=== PATIENT | female | born 1930 | race Caucasian/White ===

== ENCOUNTER 2016-04-27 16:54 | Inpatient (IN) | payer MEDICARE, OTHER ==
[~2016-04-27] VITALS: Ht 160 cm; Wt 37.4 kg
[~2016-04-27 16:54] MED LIST: AC325T; AC325T GT; ALPR-557 PO; ALPR.5T PO; AMLO2.5T PO; AMPI250C11 PO; ASPI-999 PO; ATOR20TA66 PO; ATOR40TA; ATOR80TA2 PO; ATR20T PO; B 12 COMPLEX; CCLB10TRX; CEFD300C PO; CHLO1CAP61 PO; CHOL2000 PO; CHOL200018 PO; CITA10TA70 PO; CITA20TA4 PO; CLID1CAP12; CLOP75TA28 PO; CLPD75T PO; DCS100C PO; DICL100G18 TOP; DOXY100C2 PO; FEXO60CA19; FLC100T1 PO; LNS30CCR; MEMA14CA PO; MEMA21CA PO; MEMA28CA PO; METO5TAB79 PO; MULT-1029 PO; MULT1TAB63; NF-TYLARTH PO; NYST30CR TP; OMEP40CA36 PO; ONDA4TAB8 PO; PANT20TA PO; SOLI10TA2 PO; TOLTA4; TRAM-42 PO; TRAM150C3 PO; TRAM50TA2 PO; TRM50T PO; VIT B; WALK1EAC23 MC; ZEGERID 20 MG PO; ZEGRID; ZLP10T PO; [UNRECOGNIZED DRUG - OTHER]; [UNRECOGNIZED DRUG - OTHER]; [UNRECOGNIZED DRUG - OTHER]; [UNRECOGNIZED DRUG - OTHER] MM; [UNRECOGNIZED DRUG - OTHER] PO; felodipine PO; tramadol PO
--- OUTSIDE RECORDS SUMMARY | 2016-04-27 16:59 | XMS REPORT | Continuity of Care Document ---
Author Author [facility] Organization [facility] Address Unknown Phone Unavailable Care Team Providers Care Vulcanizer Name Role Phone ASHLEY ORTIZ MD PCP Insurance Providers Payer Name Policy Number Subscriber Name Relationship [employer] [id number] Tello Briceño 18 Self / Same As Patient [facility] [id number] Tello Briceño 18 Self / Same As Patient Advance Directives Directive Response Recorded Date/Time Advance Directives Yes 08/14/15 4:11pm Health Care Power of Chauffeur Filomena Briceño 08/14/15 4:11pm Organ Donor No 08/14/15 4:11pm Chief Complaint and Reason for Visit Chief Complaint Trauma-Non Activation Reason for Visit Contusion of eyebrow Proximal humerus fracture Problems Active Problems Medical Problem Onset Date Status Closed right acetabular fracture Unknown Acute Contusion of eyebrow Unknown Acute Contusion of hip Unknown Acute Contusion of rib on right side Unknown Acute FX RIGHT HUMERUS AND HARDWARE Unknown Acute Head and neck injury Unknown Acute Obstipation Unknown Acute Proximal humerus fracture Unknown Acute RIGHT PELVIC AND ACETABULAR FRACTURE Unknown Acute Ribs, multiple fractures Unknown Acute Status post fall Unknown Acute closed head injury Unknown Acute laceration to face Unknown Acute skin tear left knee Unknown Acute Medications Current Home Medications Medication Dose Units Route Directions Days/Qty Instructions Start Date Alprazolam 0.5 Mg 0.5 Mg Oral Twice A Day 03/20/06 Citalopram Hydrobromide 20 Mg 20 Mg Oral Bedtime 04/29/13 Mu-Vits-Min Th/Lycopene/Lutein 1 Each 1 Tab Oral Daily 04/29/13 Cholecalciferol (Vitamin D3) 2,000 Unit 2,000 Unit Oral Bedtime Solifenacin Succinate 10 Mg 10 Mg Oral Bedtime 06/25/15 Aspirin 81 Mg 81 Mg Oral Daily 06/25/15 Atorvastatin Calcium 20 Mg 20 Mg Oral Bedtime 08/04/15 Memantine Hcl 28 Mg 28 Mg Oral Bedtime 08/04/15 [Axona 40GM Pk] 1 Tbs Oral Daily 08/04/15 Diclofenac Sodium 100 Gm 2 Gm Topically Give Every 6 Hr On Schedule 5 apply to affected ribs and painful joints four times daily 08/05/15 Tramadol Hcl 50 Mg 50 Mg Oral Every 6 Hours 60 08/05/15 Ondansetron 4 Mg 4 Mg Oral Every 4HRS as needed for Nausea/Vomiting 10 08/14/15 Past Home Medications Medication Directions Ordered Status Lansoprazole 30 Mg Capsule., 03/20/06 Discontinued Fexofenadine Hcl 60 Mg Capsule, 03/20/06 Discontinued Clopidogrel Bisulfate 75 Mg Tablet, 75 Mg Oral Daily 03/20/06 Discontinued Multivitamins 1 Ea Tablet, 03/20/06 Discontinued [B 12 Complex] Tab, 03/20/06 Discontinued Atorvastatin Calcium 40 Mg Tablet, 03/20/06 Discontinued Chlordiazepoxide/Clidinium 1 Cap Capsule, 03/20/06 Discontinued Zolpidem Tartrate 10 Mg Tablet, 10 Mg Oral Bedtime 03/20/06 Discontinued Tolterodine Tartrate 4 Mg Cap.sr.24h, 03/20/06 Discontinued Cyclobenzaprine Hcl 10 Mg Tab, 03/20/06 Discontinued Propoxyphene Napsylate/Acetam 1 Ea Tab, 03/20/06 Discontinued [Gphedpd] Cap, 03/20/06 Discontinued [Vit B12 Injection] , Every 7 Wks 08/10/11 Discontinued Cholecalciferol 2,000 Unit Capsule, 2000 Unit Oral Daily 08/10/11 Discontinued [Tramadol] , 205 Mg Oral Every 4HRS as needed 08/10/11 Discontinued Omeprazole 40 Mg Capsule., 40 Mg Oral Daily 08/10/11 Discontinued Citalopram Hydrobromide 10 Mg Tablet, 10 Mg Oral Daily 08/24/11 Discontinued Amlodipine Besylate (Norvasc 2.5 Mg) 2.5 Mg Tablet, 1 Each Oral Daily Discontinued Ampicillin 250 Mg Capsule, 2 Each Oral Four Times Daily 09/20/11 Discontinued Metoclopramide Hcl 5 Mg Tab, 1 Each Oral Three Times A Day And Prn 09/25/11 Discontinued Ampicillin 250 Mg Capsule, 2 Each Oral Twice A Day 09/25/11 Discontinued Tramadol Hcl 150 Mg Cpmp.25.75, 200 Mg Oral 03/09/13 Discontinued Acetaminophen 325 Mg Tab, 650 Mg G Tube 03/09/13 Discontinued Atorvastatin Calcium 80 Mg Tablet, 75 Mg Oral 03/09/13 Discontinued Clopidogrel Bisulfate 75 Mg Tablet, 1 Each Oral Daily 03/09/13 Discontinued Mu-Vits-Min Th/Lycopene/Lutein 1 Each Tablet, 1 Each Oral Daily 04/28/13 Discontinued Cholecalciferol (Vitamin D3) 2,000 Unit Capsule, 2000 Unit Oral Daily Discontinued Clopidogrel Bisulfate 75 Mg Tablet, 75 Mg Oral Bedtime 04/29/13 Discontinued Chlordiazepoxide/Clidinium Br 1 Each Capsule, 1 Cap Oral Bedtime 04/29/13 Discontinued Atorvastatin Calcium 20 Mg Tablet, 20 Mg Oral Daily 04/29/13 Discontinued Doxycycline Hyclate (Vibramycin) 100 Mg Capsule, 100 Mg Oral Twice A Day Discontinued Tramadol Hcl 50 Mg Tablet, 50-100 Mg Oral Three Times A Day as needed for Pain 04/29/13 Discontinued [Zegerid 20MG] , 20 Mg Oral Daily 04/29/13 Discontinued Acetaminophen 650 Mg Cplt, 650 Mg Oral Twice A Day as needed for Pain Discontinued Chlorhexidine Gluconate 30 Ml Soln, 15 Ml Mucous Mem Daily 04/29/13 Discontinued Alprazolam 0.5 Mg Tab, 0.25 Mg Oral Give Every 6 Hr On Schedule as needed for Anxiety 05/08/13 Discontinued Cefdinir 300 Mg Capsule, 300 Mg Oral Twice A Day 05/08/13 Discontinued Docusate Sodium 100 Mg Capsule, 200 Mg Oral Daily 05/08/13 Discontinued Fluconazole 100 Mg Tab, 100 Mg Oral Daily 05/08/13 Discontinued [Vovx31jv] 30 Gm Tube, 0 Gm Topical Twice A Day 05/08/13 Discontinued Pantoprazole Sodium 20 Mg Tablet.dr, 20 Mg Oral Daily@0700 05/08/13 Discontinued Tramadol Hcl 50 Mg Tablet, 50-100 Mg Oral Every 4HRS as needed for Pain 05/08 Discontinued [Zegrid] Unknown Strength , Unknown Dose 06/25/15 Discontinued Memantine Hcl 14 Mg Cap.spr.24, 14 Mg Oral Daily 06/25/15 Discontinued Tramadol Hcl 50 Mg Tablet, 50 Mg Oral Twice A Day 08/04/15 Discontinued Social History Social History Problem Response Recorded Date/Time Alcohol Use Denies Use 08/14/2015 4:11pm Recreational Drug Use No 08/14/2015 4:11pm Recent Foreign Travel No 09/26/2015 2:01pm Recent Infectious Disease Exposure No 09/26/2015 2:01pm Hospitalization with Isolation Denies 09/26/2015 2:01pm Sexually Transmitted Disease No 09/26/2015 2:01pm HIV/AIDS No 09/26/2015 2:01pm Do you dip or chew tobacco? No 08/14/2015 4:11pm Hospital Discharge Instructions No hospital discharge instructions. Plan of Care Discharge Date 09/26/15 3:31pm Disposition 01 HOME, SELF-CARE Condition at Discharge Stable Instructions/Education Provided Arm Fracture in Adults (DC) Contusion (DC) Prescriptions See Medication Section Referrals EBER WALKER MD - ASHLEY ORTIZ MD - Primary Care Physician ASHLEY ORTIZ MD - Primary Care Physician ROSELYN ASHFORD MD - DIANELYS,ANN Mattson MD - STACIE,RJ Tavera MD - JOHN,RICK Guerra DO - SOMMER,KRISTIAN Roblero MD - Additional Instructions/Education 1. Wear the sling at all times for the next few weeks 2. It may feel better to sleep somewhat upright such as in a recliner 3. You are scheduled to see Dr. Don in 2 weeks on October 11 at 9 a.m. All discharge instructions reviewed with patient and/or family. Voiced understanding. Functional Status No functional status results. Allergies, Adverse Reactions, Alerts Allergen Type Severity Reaction Status Last Updated pantoprazole sodium Allergy Unknown Active 08/10/11 Sulfa (Sulfonamide Antibiotics) ([id number]) Allergy Unknown Active 03/22 Morphine Allergy Unknown Active 07/13/14 Codeine Adverse Reaction Severe SEVERE N/V Active 03/20/06 Immunizations Name Given Type Date of Pneumonia Vaccine 07/13/10 Historical Date of Influenza Vaccine 12/09/14 Historical Tetanus Booster (TDap) Unknown Historical Vital Signs Acute Vital Signs Vital Response Date/Time Temperature (Fahrenheit) 97.9 degrees F (97.6 - 99.5) 09/26/2015 2:01pm Temperature (Calculated Celsius) 36.27414 degrees C (36.4 - 37.5) 09/26/2015 2:01pm Pulse Rate (adult) 83 bpm (60 - 90) 09/26/2015 2:01pm Respiratory Rate 18 bpm (12 - 24) 09/26/2015 2:01pm O2 Sat by Pulse Oximetry 92 % (88 - 100) 09/26/2015 2:01pm Blood Pressure 165/74 mm Hg 09/26/2015 2:01pm Blood Pressure Mean 104 mm Hg 09/26/2015 2:01pm Pain Numeric Pain Scale 4 09/26/2015 3:27pm Height (Feet) 5 feet 09/26/2015 2:01pm Height (Inches) 3 inches 09/26/2015 2:01pm Height (Calculated Centimeters) 160.814409 cm 09/26/2015 2:01pm Weight (Pounds) 90 pounds 09/26/2015 2:01pm Weight (Calculated Kilograms) 40.489510 kilograms 09/26/2015 2:01pm Height 5 ft 3 in Weight 90 lb Body Mass Index 15.9 kg/m^2 Results No known relevant diagnostic tests, laboratory data and/or discharge summary. Procedures No known history of procedures. Encounters Encounter Location Arrival/Admit Date Discharge/Depart Date Attending Provider Departed Emergency Room [facility] 09/26/15 1:34pm 09/25 3:31pm MERCY ENRIQUEZ APRN Recent Diagnosis
[2016-04-27] MEDS ORDERED: fentaNYL INJECTION 100 MCG/2 ML AMP IVP STA (17:13)
--- NOTE | 2016-04-27 17:21 | ED Fall/Injury ---
General Chief Complaint: Hip/Pelvic Problems Stated Complaint: L HIP PAIN, FALL Nursing Triage Note: FELL AT HOME WHILE REACHING FOR A CHAIR LANDING ON LEFT HIP. DENIES HITTING HER HEAD. PT RECIEVED FENTENYL 75MCG VIA IV IN ROUTE. Source: patient Exam Limitations: no limitations History of Present Illness Time seen by provider: 17:00 Initial Comments Here with complaint of left hip pain after falling. She is reaching for a chair and fell onto the left hip. She does report that she may have hit her head. Denies loss of consciousness. Aside from the pain in the left hip, she denies any other significant pain. She did receive fentanyl 75 g IV in route due to the pain. Occurred: just prior to arrival Severity: moderate Injuries/Pain Location: head, pelvis, lower extremity Context: lost balance Loss of Consciousness: no loss of consciousness Modifying Factors: Improves With Immobilization, Worse With Movement, Improves With Pain Medication Associated Symptoms (Fall): No Chest Pain, No Headache, Muscle SpasmsNo Nausea /Vomiting, No Neck Pain, No Shortness of Air Allergies and Home Medications Allergies Coded Allergies: Sulfa (Sulfonamide Antibiotics) (Verified Allergy, Unknown, 08/10/11) morphine (Verified Allergy, Unknown, 07/13/14) Nausea, vomiting and confusion pantoprazole sodium (Verified Allergy, Unknown, 08/10/11) codeine (Unverified Adverse Reaction, Severe, SEVERE N/V, 03/20/06) Home Medications Alprazolam 0.5 Mg Tablet 0.5 MG PO BID (Reported) Aspirin 81 Mg Tab.chew 81 MG PO DAILY (Reported) Cholecalciferol (Vitamin D3) 2,000 Unit Capsule 2,000 UNIT PO HS (Reported) Citalopram Hydrobromide 20 Mg Tab 20 MG PO HS (Reported) Memantine HCl 21 Mg Cap.er.24h 21 MG PO DAILY (Reported) Mu-Vits-Min Th/Lycopene/Lutein 1 Each Tablet 1 TAB PO DAILY (Reported) Solifenacin Succinate 10 Mg Tablet 10 MG PO HS (Reported) Tramadol HCl 50 Mg Tablet #60 50 MG PO Q6H Prescribed by: ASHLEY SCRUGGS on 08/05/15 1059 Tramadol HCl 50 Mg Tablet #20 50 MG PO Q6H PRN PRN PAIN Prescribed by: MERCY ENRIQUEZ on 12/30/15 2055 Constitutional: see HPINo chills, No fever Eyes: No Symptoms Reported Ears, Nose, Mouth, Throat: no symptoms reported Respiratory: no symptoms reportedNo cough, No short of breath Cardiovascular: no symptoms reported Gastrointestinal: no symptoms reportedNo diarrhea, No nausea, No vomiting Genitourinary: no symptoms reportedNo dysuria, No pain Musculoskeletal: see HPI joint pain joint swelling muscle pain All Other Systems Reviewed Negative Unless Noted: Yes Past Nnuxdrm-Fanrkm-Hiyisv Hx Patient Social History Alcohol Use: Denies Use Recreational Drug Use: No Smoking Status: Former Smoker Former Smoker/When Quit: Sep 19, 1977 2nd Hand Smoke Exposure: No Recent Foreign Travel: No Contact w/Someone Who Travel: No Recent Infectious Disease Expo: No Recent Hopitalizations: No Immunizations Up To Date Tetanus Booster (TDap): More than 5yrs Date of Pneumonia Vaccine: July 13, 2010 Date of Influenza Vaccine: Dec 26, 2015 Surgeries HX Surgeries: Yes (right knee) Surgeries: Appendectomy, Gallbladder, Orthopedic Respiratory Hx Respiratory Disorders: No (HISTORY OF SMOKER "QUIT 50 YRS AGO") Cardiovascular Hx Cardiac Disorders: No Neurological Hx Neurological Disorders: Yes Neurological Disorders: TIA Reproductive System Hx Reproductive Disorders: No Sexually Transmitted Disease: No HIV/AIDS: No Female Reproductive Disorders: Denies Genitourinary Hx Genitourinary Disorders: Yes (INCONTINENCE) Genitourinary Disorders: Benign Prostatic Hyperpl Gastrointestinal Hx Gastrointestinal Disorders: Yes Gastrointestinal Disorders: Gastroesophageal Reflux, Gall Bladder Disease Musculoskeletal Hx Musculoskeletal Disorders: No (osteoarthritis, falls, fractures of r shoulder, r arm, fx in pelvis& spine) Musculoskeletal Disorders: Arthritis Endocrine Hx Endocrine Disorders: No HEENT HX ENT Disorders: Yes HEENT Disorders: Cataract Loss of Vision: Denies Hearing Impairment: Denies Cancer Hx Cancer: No Psychosocial Hx Psychiatric Problems: Yes (dementia) Behavioral Health Disorders: Anxiety, Depression Integumentary HX Skin/Integumentary Disorder: No Blood Transfusions Hx Blood Disorders: No Adverse Reaction to a Blood Tr: No Reviewed Nursing Assessment Reviewed/Agree w Nursing PMH: Yes Family Medical History Significant Family History: Cancer, Other Conditions/Hx Family Medial History: Alcoholism G8 BROTHER FH: throat cancer G8 BROTHER Parkinson's disease 19 FATHER Throat Throat Physical Exam Vital Signs Vital Sign - Last 12Hours 04/27/16 16:59 Temp 98.0 Pulse 78 Resp 16 B/P 139/81 Pulse Ox 96 O2 Delivery Room Air Capillary Refill : Less Than 3 Seconds General Appearance: WD/WN no apparent distress HEENT: PERRL/EOMI pharynx normal Neck: full range of motion supple Cardiovascular: regular rate, rhythm no murmur Respiratory: lungs clear normal breath sounds Gastrointestinal: non tender soft Back: normal inspection no CVA tenderness no vertebral tenderness Extremities: other (tenderness to the area of the left groin. Left leg is shortened and rotated externally. Tender over the pelvis on the left.) Neurologic/Psychiatric: alert oriented x 3 Skin: normal color warm/dry Augustus Coma Score Best Eye Response: (4) Open Spontaneously Best Verbal Response: (5) Oriented Best Motor Response: (6) Obeys Commands Progress/Results/Core Measures Results/Orders Lab Results Laboratory Tests Test 04/27/16 17:55 Range/Units Basophils # (Auto) 0.0 0.0-0.1 10^3/uL Basophils (%) (Auto) 0 0-10 % Eosinophils # (Auto) 0.2 0.0-0.3 10^3/uL Eosinophils (%) (Auto) 2 0-10 % Hematocrit 34 L 35-52 % Hemoglobin 11.1 L 11.5-16.0 G/DL Lymphocytes # (Auto) 1.4 1.0-4.0 X 10^3 Lymphocytes (%) (Auto) 15 12-44 % Mean Corpuscular Hemoglobin 31 25-34 PG Mean Corpuscular Hemoglobin Concent 33 32-36 G/DL Mean Corpuscular Volume 94 80-99 FL Mean Platelet Volume 11.2 H 7.4-10.4 FL Monocytes # (Auto) 0.5 0.0-1.0 X 10^3 Monocytes (%) (Auto) 5 0-12 % Neutrophils # (Auto) 7.7 1.8-7.8 X 10^3 Neutrophils (%) (Auto) 78 H 42-75 % Platelet Count 189 130-400 10^3/uL Red Blood Count 3.55 L 4.35-5.85 10^6/uL Red Cell Distribution Width 13.7 10.0-14.5 % White Blood Count 9.9 4.3-11.0 10^3/uL My Orders Orders-CESAR ALBRECHT MD Fentanyl Injection (Sublimaze Injection (04/27/16 17:13) Cbc With Automated Diff (04/27/16 17:13) Comprehensive Metabolic Panel (04/27/16 17:13) Protime With Inr (04/27/16 17:13) Partial Thromboplastin Time (04/27/16 17:13) Chest 1 View, Ap/Pa Only (04/27/16 17:13) Pelvis (04/27/16 17:13) Hip, Left, 2 Views (04/27/16 17:13) Ekg Tracing (04/27/16 17:13) Ct Head Wo (04/27/16 17:13) Vital Signs/I&O Vital Sign - Last 12Hours 04/27/16 16:59 Temp 98.0 Pulse 78 Resp 16 B/P 139/81 Pulse Ox 96 O2 Delivery Room Air Blood Pressure Mean: 100 Progress Note : Progress Note Seen and evaluated. Chest x-ray, pelvic and hip x-ray, labs and EKG ordered. Fentanyl 50 g IV for continued pain. CT head ordered due to fall. Monitor patient. 1749: Discussed case with Dr. Storey who accepts patient for admission , inpatient status. Orders written. We will do a Eason catheter after arrival to floor. Requested consult with medicine primary team. I did discuss the case with Dr. Singletary at 1809 who accepts patient for consult. She is on-call for Dr. Scruggs, patient's primary care provider. All findings and concerns discussed with patient and family who agree with plan. Likely surgery tomorrow morning. ECG Initial ECG Impression Date: Apr 27, 2016 Initial ECG Impression Time: 18:04 Initial ECG Rate: 79 Initial ECG Rhythm: Normal Sinus Initial ECG Impression: Normal Initial ECG Comparisson: Unchanged Comment Sinus rhythm with normal axis. No evidence of ST elevation MO. Similar to previous. Interpreted by me. Diagnostic Imaging Diagonstic Imaging: CT Plain Films/CT/US/NM/MRI: head Comments NAME: TELLO PLAZA MED REC#: [id number] PT STATUS: REG ER : 1930 PHYSICIAN: CESAR ALBRECHT MD ADMIT DATE: 04/27/16/ER Draft Date of Exam:04/27/16 CT HEAD WO PROCEDURE: CT head without contrast. TECHNIQUE: Multiple contiguous axial images were obtained through the brain without the use of intravenous contrast. INDICATION: Fall, head injury. COMPARISON: 09/26/2015. FINDINGS: Stable age-related cerebral volume loss and chronic small vessel ischemic changes are present. 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 No new focus of acute ischemia or hemorrhage is seen. There is no midline shift or mass effect. No cerebral edema. Osseous structures, paranasal sinuses, and mastoids are unremarkable. IMPRESSION: No acute intracranial abnormalities. Dictated on workstation # [id number] Dict: 04/27/16 1803 Trans: 04/27/161808 [id number] Interpreted by: NEISHA KILLIAN Electronically signed by: Reviewed: Reviewed by Oh Diagonstic Imaging: Xray Plain Films/CT/US/NM/MRI: chest Comments [place] NAME: TELLO PLAZA [facility] REC#: [id number] PT STATUS: REG ER : 1930 PHYSICIAN: CESAR ALBRECHT MD ADMIT DATE: 04/27/16/ER Draft Date of Exam:04/27/16 CHEST 1 VIEW, AP/PA ONLY INDICATION: Fall, left hip fracture. COMPARISON: 05/05/13. EXAMINATION: Single view of the chest was obtained. FINDINGS: Minimal cardiac enlargement. The lungs are clear. No pneumothorax is seen. Kyphoplasty changes are seen within two thoracic vertebra. There is a fracture deformity of the left humerus, probably chronic. Please correlate clinically. This was not present on prior exam. IMPRESSION: 1. No acute cardiopulmonary findings. 2. Likely chronic fracture deformity of the left humeral head. Please correlate with point tenderness. Dictated on workstation # [id number] Dict: 04/27/16 175 Trans: 04/27/16 175 [facility] [id number] Interpreted by: NEISHA KILLIAN Electronically signed by: Diagonstic Imaging: Xray Plain Films/CT/US/NM/MRI: pelvis [facility] [place] [place] NAME: TELLO PLAZA MED REC#: [id number] PT STATUS: REG ER : 1930 PHYSICIAN: CESAR ALBRECHT MD ADMIT DATE: 04/27/16/ER Draft Date of Exam:04/27/16 PELVIS INDICATION: Fall, hip pain. COMPARISON: None. FINDINGS: Single view of the pelvis demonstrates intertrochanteric fracture of left hip. There is some displacement. The right hip is intact. No obvious pelvic fracture seen. IMPRESSION: Intertrochanteric fracture left hip. Dictated on workstation # [id number] Dict: 04/27/16 1753 Trans: 04/27/16 1759 KB [id number] Interpreted by: NEISHA KILLIAN Electronically signed by: Reviewed: Reviewed by Diagonstic Imaging: Xray Plain Films/CT/US/NM/MRI: hip Comments [place] NAME: TELLO PLAZA [facility] REC#: [id number] PT STATUS: REG ER : 1930 PHYSICIAN: CESAR ALBRECHT MD ADMIT DATE: 04/27/16/ER Draft Date of Exam:04/27/16 HIP, LEFT, 2 VIEWS INDICATION: Fall, left hip pain. COMPARISON: None. EXAMINATION: Two views of the left hip were obtained. FINDINGS: Displaced intertrochanteric fracture of the left hip. There is no dislocation. IMPRESSION: Intertrochanteric fracture. Dictated on workstation # [id number] Dict: 04/27/161750 Trans: 04/27/16 1756 PJE [id number] Interpreted by: NEISHA KILLIAN Electronically signed by: Reviewed: Reviewed by Me Departure Communication Time/Spoke to Admitting Phy: 17:49 Time/Spoke to Consulting Physi: 18:09 Impression Impression: Primary Impression: Intertrochanteric fracture of left hip Qualified Code: S72.142A - Displaced intertrochanteric fracture of left femur , initial encounter for closed fracture Disposition: ADMITTED INPATIENT Condition: Stable Decision to Admit Reason: Admit from ER (General) Decision to Admit/Date: Apr 27, 2016 Time/Decision to Admit Time: 17:49 Departure-Patient Inst. Referrals: ASHLEY SCRUGGS MD (PCP/Family) Primary Care Physician CESAR ALBRECHT MD Apr 27, 2016 17:21
--- NOTE | 2016-04-27 17:56 | Diagnostic Imaging Report ---
INDICATION: Fall, left hip pain. COMPARISON: None. EXAMINATION: Two views of the left hip were obtained. FINDINGS: Displaced intertrochanteric fracture of the left hip. There is no dislocation. IMPRESSION: Intertrochanteric fracture. Dictated by: Dictated on workstation # [id number]
--- NOTE | 2016-04-27 17:59 | Diagnostic Imaging Report ---
INDICATION: Fall, hip pain. COMPARISON: None. FINDINGS: Single view of the pelvis demonstrates intertrochanteric fracture of left hip. There is some displacement. The right hip is intact. No obvious pelvic fracture seen. IMPRESSION: Intertrochanteric fracture left hip. Dictated by: Dictated on workstation # [id number]
--- NOTE | 2016-04-27 17:59 | Diagnostic Imaging Report ---
INDICATION: Fall, left hip fracture. COMPARISON: 05/05/13. EXAMINATION: Single view of the chest was obtained. FINDINGS: Minimal cardiac enlargement. The lungs are clear. No pneumothorax is seen. Kyphoplasty changes are seen within two thoracic vertebra. There is a fracture deformity of the left humerus, probably chronic. Please correlate clinically. This was not present on prior exam. IMPRESSION: 1. No acute cardiopulmonary findings. 2. Likely chronic fracture deformity of the left humeral head. Please correlate with point tenderness. Dictated by: Dictated on workstation # [id number]
[2016-04-27 18:07] LABS: BASOPHILS % (AUTO) 0 % (0-10); EOSINOPHILS # (AUTO) 0.2 10^3/uL (0.0-0.3); EOSINOPHILS % (AUTO) 2 % (0-10); LYMPHOCYTES # (AUTO) 1.4 X 10^3 (1.0-4.0); LYMPHOCYTES % (AUTO) 15 % (12-44); MEAN CORPUSCULAR HEMOGLOBIN 31 PG (25-34); MEAN CORPUSCULAR HGB CONC 33 G/DL (32-36); MEAN CORPUSCULAR VOLUME 94 FL (80-99); MEAN PLATELET VOLUME 11.2 FL (7.4-10.4); MONOCYTES # (AUTO) 0.5 X 10^3 (0.0-1.0); MONOCYTES % (AUTO) 5 % (0-12); NEUTROPHILS # (AUTO) 7.7 X 10^3 (1.8-7.8); NEUTROPHILS % (AUTO) 78 % (42-75); PLATELET COUNT 189 10^3/uL (130-400); RED BLOOD COUNT 3.55 10^6/uL (4.35-5.85); RED CELL DISTRIBUTION WIDTH 13.7 % (10.0-14.5); WHITE BLOOD COUNT 9.9 10^3/uL (4.3-11.0)
--- NOTE | 2016-04-27 18:09 | Diagnostic Imaging Report ---
PROCEDURE: CT head without contrast. TECHNIQUE: Multiple contiguous axial images were obtained through the brain without the use of intravenous contrast. INDICATION: Fall, head injury. COMPARISON: 09/26/2015. FINDINGS: Stable age-related cerebral volume loss and chronic small vessel ischemic changes are present. 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 No new focus of acute ischemia or hemorrhage is seen. There is no midline shift or mass effect. No cerebral edema. Osseous structures, paranasal sinuses, and mastoids are unremarkable. IMPRESSION: No acute intracranial abnormalities. Dictated by: Dictated on workstation # [id number]
[2016-04-27 18:17] LABS: INR 1.2 (0.8-1.4); PROTHROMBIN TIME PATIENT 15.1 SEC (12.2-14.7)
[2016-04-27 18:27] LABS: ALANINE AMINOTRANSFERASE 11 U/L (0-55); ALBUMIN 3.6 G/DL (3.2-4.5); ANION GAP 11 MMOL/L (5-14); ASPARTATE AMINO TRANSFERASE 19 U/L (5-34); BILIRUBIN,TOTAL 0.5 MG/DL (0.1-1.0); BLOOD UREA NITROGEN 23 MG/DL (7-18); BUN/CREATININE RATIO 28; CARBON DIOXIDE 25 MMOL/L (21-32); CHLORIDE 102 MMOL/L (98-107); CREATININE SERUM 0.81 MG/DL (0.60-1.30); GFR ESTIMATED > 60; GLUCOSE 109 MG/DL (70-105); POTASSIUM 4.1 MMOL/L (3.6-5.0); SODIUM 138 MMOL/L (135-145)
[2016-04-27 19:05] VITALS: BP 148/73
[2016-04-27] MEDS ORDERED: CATHETER FLUSH 10 ML SYR IV PRN (19:15)
[2016-04-27] MEDS ORDERED: NS IV 1000 ML 1,000 ML IV SCH (19:15)
[2016-04-27] MEDS ORDERED: TRAM50TA2 PO (20:09)
[2016-04-27] MEDS: fentaNYL INJECTION 100 MCG/2 ML AMP IV PRN (20:36)
[2016-04-27] MEDS: ALPRAZolam 0.5 MG (XANAX) TAB PO SCH (21:00)
[2016-04-27] MEDS: MEMANTINE 10 MG (NAMENDA) TABLET PO SCH (23:23)
[2016-04-28] VITALS: BP 115/68
[2016-04-28] MEDS: fentaNYL INJECTION 100 MCG/2 ML AMP IV PRN ×4 (00:10→13:16)
[2016-04-28 04:00] VITALS: BP 140/76
[2016-04-28 05:56] LABS: BASOPHILS % (AUTO) 0 % (0-10); EOSINOPHILS % (AUTO) 0 % (0-10); LYMPHOCYTES # (AUTO) 0.7 X 10^3 (1.0-4.0); MEAN CORPUSCULAR HEMOGLOBIN 32 PG (25-34); MEAN CORPUSCULAR HGB CONC 34 G/DL (32-36); MEAN CORPUSCULAR VOLUME 95 FL (80-99); MEAN PLATELET VOLUME 11.7 FL (7.4-10.4); MONOCYTES # (AUTO) 0.7 X 10^3 (0.0-1.0); MONOCYTES % (AUTO) 8 % (0-12); NEUTROPHILS # (AUTO) 8.5 X 10^3 (1.8-7.8); PLATELET COUNT 167 10^3/uL (130-400); RED BLOOD COUNT 3.25 10^6/uL (4.35-5.85); RED CELL DISTRIBUTION WIDTH 13.7 % (10.0-14.5); WHITE BLOOD COUNT 9.9 10^3/uL (4.3-11.0)
[2016-04-28 05:57] LABS: NEUTROPHILS % (AUTO) 85 % (42-75)
[2016-04-28 05:58] LABS: LYMPHOCYTES % (AUTO) 8 % (12-44)
[2016-04-28 06:31] LABS: ALANINE AMINOTRANSFERASE 10 U/L (0-55); ALBUMIN 3.7 G/DL (3.2-4.5); ANION GAP 12 MMOL/L (5-14); ASPARTATE AMINO TRANSFERASE 17 U/L (5-34); BILIRUBIN,TOTAL 0.5 MG/DL (0.1-1.0); BLOOD UREA NITROGEN 29 MG/DL (7-18); BUN/CREATININE RATIO 33; CALCIUM 8.9 MG/DL (8.5-10.1); CARBON DIOXIDE 22 MMOL/L (21-32); CHLORIDE 104 MMOL/L (98-107); CREATININE SERUM 0.87 MG/DL (0.60-1.30); GFR ESTIMATED > 60; GLUCOSE 155 MG/DL (70-105); POTASSIUM 4.2 MMOL/L (3.6-5.0); SODIUM 138 MMOL/L (135-145); TOTAL PROTEIN 5.4 G/DL (6.4-8.2)
[2016-04-28 08:00] VITALS: BP 140/76
[2016-04-28] MEDS: VITAMIN D3 1,000 UNITS (CHOLECALCIFEROL) TABLET PO SCH (08:54)
[2016-04-28] MEDS: MULTIVIT W/MINERALS TAB (THERAGRAN M) PO SCH (08:54)
[2016-04-28] MEDS: ALPRAZolam 0.5 MG (XANAX) TAB PO SCH ×2 (08:54→20:11)
[2016-04-28] MEDS: MEMANTINE 10 MG (NAMENDA) TABLET PO SCH ×2 (08:55→20:11)
[2016-04-28] MEDS ORDERED: NON-FORMULARY MEDICATION 1 EA EA (Cholecalciferol (Vitamin D3) (Vitamin D-3) 2,000 UNIT) PO SCH (09:00)
[2016-04-28] MEDS ORDERED: MEMANTINE 21 MG PO SCH (09:00)
--- NOTE | 2016-04-28 09:24 | Progress Note-Standard ---
Standard Progress Note Progress Notes/Assess & Plan Progress/Assessment & Plan Patient relatively comfortable Vital Signs Date Time Temp Pulse Resp B/P Pulse Ox O2 Delivery O2 Flow Rate FiO2 04/28/16 08:00 96.8 100 18 140/76 97 Room Air 04/28/16 04:00 98.2 104 22 140/76 96 Room Air 04/28/16 00:00 98.5 93 22 115/68 96 Room Air 04/27/16 19:05 97 Room Air 04/27/16 19:05 96.6 77 18 148/73 99 Room Air 04/27/16 18:51 98.0 77 18 98 04/27/16 16:59 98.0 78 16 139/81 96 Room Air I & O 04/28/16 07:00 Intake Total 210 ml Balance 210 ml Laboratory Tests Test 04/27/16 17:55 04/28/16 05:06 Range/Units Activated Partial Thromboplast Time 26 24-35 SEC Alanine Aminotransferase (ALT/SGPT) 11 10 0-55 U/L Albumin 3.6 3.7 3.2-4.5 G/DL Alkaline Phosphatase 55 57 40-136 U/L Anion Gap 11 12 5-14 MMOL/L Aspartate Amino Transf (AST/SGOT) 19 17 5-34 U/L BUN/Creatinine Ratio 28 33 Basophils # (Auto) 0.0 0.0 0.0-0.1 10^3/uL Basophils (%) (Auto) 0 0 0-10 % Blood Urea Nitrogen 23 H 29 H 7-18 MG/DL Calcium Level 9.0 8.9 8.5-10.1 MG/DL Carbon Dioxide Level 25 22 21-32 MMOL/L Chloride Level 102 104 98-107 MMOL/L Creatinine 0.81 0.87 0.60-1.30 MG/DL Eosinophils # (Auto) 0.2 0.0 0.0-0.3 10^3/uL Eosinophils (%) (Auto) 2 0 0-10 % Estimat Glomerular Filtration Rate > 60 > 60 Glucose Level 109 H 155 H 70-105 MG/DL Hematocrit 34 L 31 L 35-52 % Hemoglobin 11.1 L 10.4 L 11.5-16.0 G/DL INR Comment 1.2 0.8-1.4 Lymphocytes # (Auto) 1.4 0.7 L 1.0-4.0 X 10^3 Lymphocytes (%) (Auto) 15 8 L 12-44 % Mean Corpuscular Hemoglobin 31 32 25-34 PG Mean Corpuscular Hemoglobin Concent 33 34 32-36 G/DL Mean Corpuscular Volume 94 95 80-99 FL Mean Platelet Volume 11.2 H 11.7 H 7.4-10.4 FL Monocytes # (Auto) 0.5 0.7 0.0-1.0 X 10^3 Monocytes (%) (Auto) 5 8 0-12 % Neutrophils # (Auto) 7.7 8.5 H 1.8-7.8 X 10^3 Neutrophils (%) (Auto) 78 H 85 H 42-75 % Platelet Count 189 167 130-400 10^3/uL Potassium Level 4.1 4.2 3.6-5.0 MMOL/L Prothrombin Time 15.1 H 12.2-14.7 SEC Red Blood Count 3.55 L 3.25 L 4.35-5.85 10^6/uL Red Cell Distribution Width 13.7 13.7 10.0-14.5 % Sodium Level 138 138 135-145 MMOL/L Total Bilirubin 0.5 0.5 0.1-1.0 MG/DL Total Protein 6.0 L 5.4 L 6.4-8.2 G/DL White Blood Count 9.9 9.9 4.3-11.0 10^3/uL LLE--intact DF and PF of toes and ankle. Sensation intact throughout imp--L NOF and IT femur fracture Plan--to OR tomorrow for bipolar/ORIF KRISTIAN NOVOA MD Apr 28, 2016 09:24
--- NOTE | 2016-04-28 11:46 | HISTORY AND PHYSICAL ---
DATE OF ADMISSION: 04/27/2016 REASON FOR ADMISSION: 1. Left femoral neck fracture. 2. Left intertrochanteric femur fracture. HISTORY: The patient is an 85-year-old female who was going to sit today and fell landing on her left hip. She presented with complaints of left hip pain. She was found to have combined intertrochanteric and femoral neck fracture of the left proximal femur. She denies paresthesias. She did bump her head and underwent a CT scan of her head which revealed no acute abnormalities. She reports no antecedent pain. She currently denies any dizziness, shortness of breath, or chest pain. ALLERGIES: 1. Sulfa. 2. Morphine. 3. Codeine. 4. Pantoprazole. HOME MEDICATIONS: 1. Alprazolam. 2. Aspirin. 3. Vitamin D3. 4. Citalopram. 5. Memantine. 6. Solifenacin. 7. Tramadol. PAST MEDICAL HISTORY: 1. Anxiety. 2. Hypertension. PAST SURGERIES: 1. Right total knee arthroplasty. 2. Right upper extremity open reduction and internal fixation. 3. Appendectomy. 4. Cholecystectomy. SOCIAL HISTORY: The patient denies alcohol and tobacco use. FAMILY HISTORY: Noncontributory. PHYSICAL EXAMINATION: The patient is well-developed, well-nourished, in no acute distress. HEENT: Normocephalic, atraumatic. Pupils are equal, round, and reactive to light. OROPHARYNX: Clear. NECK: Supple. No lymphadenopathy. LUNGS: Clear to auscultation bilaterally. HEART: Regular rate and rhythm. ABDOMEN: Soft, nontender, nondistended. EXTREMITY EXAM: The left lower extremity is shortened and externally rotated. She has intact dorsiflexion and plantarflexion of the toes with intact sensation throughout. She has symmetric pulses. Radiographs reveal a displaced left intertrochanteric femur fracture with associated femoral neck fracture. PLAN: Left proximal femur bipolar replacement with internal fixation of the greater trochanter. The risks, benefits, options, ramifications and recovery were discussed with the patient and her family. They understand and wish to proceed. Job ID: [id number] Dictated Date: 04/27/2016 20:10:13 Copper Plate Lithographer Date: 04/28/2016 11:32:44/[email or web address]
[2016-04-28 12:00] VITALS: BP 169/76
--- NOTE | 2016-04-28 13:13 | Consultation ---
History of Present Illness History of Present Illness Patient Consulted On(nena/time) 04/28/16 13:01 Date of Admission History of Present Illness This is an 85 year old female who sustained a fall when she went to reach for a chair and her hand missed the chair so she fell stiking her left hip and head. She was brought to the emergency room by EMS and found to have a left intertrochanteric hip fracture and a contusion of her head. CT scan of her head was negative. Dr. Storey has accepted her for admission and surgery, and I am consulted for medical management. Allergies and Home Medications Allergies Coded Allergies: Sulfa (Sulfonamide Antibiotics) (Verified Allergy, Unknown, 08/10/11) morphine (Verified Allergy, Unknown, 07/13/14) Nausea, vomiting and confusion pantoprazole sodium (Verified Allergy, Unknown, 08/10/11) codeine (Unverified Adverse Reaction, Severe, SEVERE N/V, 03/20/06) Home Medications Alprazolam 0.5 Mg Tablet 0.5 MG PO BID (Reported) Aspirin 81 Mg Tab.chew 81 MG PO DAILY (Reported) Cholecalciferol (Vitamin D3) 2,000 Unit Capsule 2,000 UNIT PO DAILY (Reported) Citalopram Hydrobromide 20 Mg Tab 20 MG PO DAILY (Reported) Memantine HCl 21 Mg Cap.er.24h 21 MG PO DAILY (Reported) Mu-Vits-Min Th/Lycopene/Lutein 1 Each Tablet 1 TAB PO DAILY (Reported) Solifenacin Succinate 10 Mg Tablet 30Days 10 MG PO DAILY (Reported) Tramadol HCl 50 Mg Tablet #60 50 MG PO BID Prescribed by: PAUL HERNANDEZ on 04/27/162008 Past Lvqkauy-Ckgvla-Ubitqk Hx Patient Social History Alcohol Use: Denies Use Recreational Drug Use: No Smoking Status: Former Smoker Former Smoker/When Quit: Sep 19, 1977 2nd Hand Smoke Exposure: No Recent Foreign Travel: No Contact w/Someone Who Travel: No Recent Infectious Disease Expo: No Recent Hopitalizations: No Physical Abuse Screen: No Sexual Abuse: No Immunizations Up To Date Tetanus Booster (TDap): More than 5yrs Date of Pneumonia Vaccine: Date of Influenza Vaccine: Dec 26, 2015 Seasonal Allergies Seasonal Allergies: No Surgeries HX Surgeries: Yes (right knee) Surgeries: Appendectomy, Gallbladder, Orthopedic Respiratory Hx Respiratory Disorders: No (HISTORY OF SMOKER "QUIT 50 YRS AGO") Cardiovascular Hx Cardiac Disorders: No Neurological Hx Neurological Disorders: Yes Neurological Disorders: TIA Reproductive System Hx Reproductive Disorders: No Sexually Transmitted Disease: No HIV/AIDS: No Female Reproductive Disorders: Denies Genitourinary Hx Genitourinary Disorders: Yes (INCONTINENCE) Gastrointestinal Hx Gastrointestinal Disorders: Yes Gastrointestinal Disorders: Gastroesophageal Reflux, Gall Bladder Disease Musculoskeletal Hx Musculoskeletal Disorders: No (osteoarthritis, falls, fractures of r shoulder, r arm, fx in pelvis& spine) Musculoskeletal Disorders: Arthritis Endocrine Hx Endocrine Disorders: No HEENT HX ENT Disorders: Yes HEENT Disorders: Cataract Loss of Vision: Denies Hearing Impairment: Denies Cancer Hx Cancer: No Psychosocial Hx Psychiatric Problems: Yes (dementia) Behavioral Health Disorders: Anxiety, Depression Integumentary HX Skin/Integumentary Disorder: No Blood Transfusions Hx Blood Disorders: No Adverse Reaction to a Blood Tr: No Reviewed Nursing Assessment Reviewed/Agree w Nursing PMH: Yes Family Medical History Significant Family History: Cancer, Other Conditions/Hx Family Medial History: Alcoholism G8 BROTHER FH: throat cancer G8 BROTHER Parkinson's disease 19 FATHER Throat Throat Review of Systems-General Constitutional: No no symptoms reported, No see HPI, No chills, No diaphoresis , No dizziness, No fever, No malaise, No weakness, No weight gain, No weight loss, No other EENTM: No blurred vision, No dental problems, No double vision, No ear discharge, No ear pain, No epistaxis, No eye pain, No hearing loss, No hoarseness, No mouth pain, No mouth swelling, No no symptoms reported, No nose congestion, No nose pain, No other, No see HPI, No tearing, No throat pain, No throat swelling, No vision loss Respiratory: No no symptoms reported, No see HPI, No cough, No dyspnea on exertion, No hemoptysis, No orthopnea, No phlegm, No short of breath, No stridor , No wheezing, No other Cardiovascular: No no symptoms reported, No see HPI, No chest pain, No edema, No Hx of Intervention, No palpitations, No syncope, No vascular heart diseas, No other Gastrointestinal: No RUQ, No LUQ, No RLQ, No LLQ, No no symptoms reported, No see HPI, No abdominal pain, No constipation, No diarrhea, No dysphagia, No hematemesis, No heartburn, No jaundice, No loss of appetite, No melena, No nausea, No vomiting, No other Genitourinary: incontinence Musculoskeletal: joint pain (left hip) Skin: lumps (head contusion from fall) Psychiatric/Neurological: Anxiety Weakness Physical Exam-General Problems Physical Exam Vital Signs Vital Sign - Last 12Hours 04/27/16 16:59 Temp 98.0 Pulse 78 Resp 16 B/P 139/81 Pulse Ox 96 O2 Delivery Room Air Capillary Refill : Less Than 3 SecondsLess Than 3 Seconds General Appearance: no apparent distress Neck: supple Respiratory: lungs clear Cardiovascular: regular rate, rhythm systolic murmur Gastrointestinal: normal bowel sounds non tender soft Rectal: deferred Back: no CVA tenderness Extremities: no pedal edema no calf tenderness normal capillary refill other ( SCDs in place) Neurologic/Psychiatric: alert Skin: normal color warm/dry Comments Laboratory Tests 04/27/16 17:55: Activated Partial Thromboplast Time 26, Alanine Aminotransferase (ALT/SGPT) 11, Albumin 3.6, Alkaline Phosphatase 55, Anion Gap 11, Aspartate Amino Transf (AST/ SGOT) 19, BUN/Creatinine Ratio 28, Basophils # (Auto) 0.0, Basophils (%) (Auto) 0, Blood Urea Nitrogen 23H, Calcium Level 9.0, Carbon Dioxide Level 25, Chloride Level 102, Creatinine 0.81, Eosinophils # (Auto) 0.2, Eosinophils (%) ( Auto) 2, Estimat Glomerular Filtration Rate > 60, Glucose Level 109H, Hematocrit 34L, Hemoglobin 11.1L, INR Comment 1.2, Lymphocytes # (Auto) 1.4, Lymphocytes (%) (Auto) 15, Mean Corpuscular Hemoglobin 31, Mean Corpuscular Hemoglobin Concent 33, Mean Corpuscular Volume 94, Mean Platelet Volume 11.2H, Monocytes # (Auto) 0.5, Monocytes (%) (Auto) 5, Neutrophils # (Auto) 7.7, Neutrophils (%) (Auto) 78H, Platelet Count 189, Potassium Level 4.1, Prothrombin Time 15.1H, Red Blood Count 3.55L, Red Cell Distribution Width 13.7 , Sodium Level 138, Total Bilirubin 0.5, Total Protein 6.0L, White Blood Count 9.9 04/28/16 05:06: Alanine Aminotransferase (ALT/SGPT) 10, Albumin 3.7, Alkaline Phosphatase 57, Anion Gap 12, Aspartate Amino Transf (AST/SGOT) 17, BUN/Creatinine Ratio 33, Basophils # (Auto) 0.0, Basophils (%) (Auto) 0, Blood Urea Nitrogen 29H, Calcium Level 8.9, Carbon Dioxide Level 22, Chloride Level 104, Creatinine 0.87 , Eosinophils # (Auto) 0.0, Eosinophils (%) (Auto) 0, Estimat Glomerular Filtration Rate > 60, Glucose Level 155H, Hematocrit 31L, Hemoglobin 10.4L, Lymphocytes # (Auto) 0.7L, Lymphocytes (%) (Auto) 8L, Mean Corpuscular Hemoglobin 32, Mean Corpuscular Hemoglobin Concent 34, Mean Corpuscular Volume 95, Mean Platelet Volume 11.7H, Monocytes # (Auto) 0.7, Monocytes (%) (Auto) 8, Neutrophils # (Auto) 8.5H, Neutrophils (%) (Auto) 85H, Platelet Count 167, Potassium Level 4.2, Red Blood Count 3.25L, Red Cell Distribution Width 13.7, Sodium Level 138, Total Bilirubin 0.5, Total Protein 5.4L, White Blood Count 9.9 Assessment/Plan Assessment/Plan Admission Diagnosis/Plan 1. Left intertrochanteric Hip fracture--to surgery tomorrow by Dr. Storey, will check to see if ok to give lovenox today as patient will not allow any movement of left leg/hip 2. Dementia--Namenda restarted 3. Anxiety--meds restarted Clinical Quality Measures DVT/VTE Risk/Contraindication: Risk Factor Score Per Nursin RFS Level Per Nursing on Admit: 4+=Very High CHAD DOS SANTOS DO Apr 28, 2016 13:13
[2016-04-28] MEDS: D5 1/2 NS 1000 ML IV SOLUTION 1,000 ML IV SCH (13:18)
[2016-04-28 16:00] VITALS: BP 144/68
[2016-04-28 20:00] VITALS: BP 149/67
[2016-04-28] MEDS: TROSPIUM 20 MG (SANCTURA) TAB PO SCH (20:11)
[2016-04-29] VITALS: BP 147/73
[2016-04-29 04:00] VITALS: BP 130/61
[2016-04-29] MEDS: fentaNYL INJECTION 100 MCG/2 ML AMP IV PRN (04:45)
[2016-04-29] MEDS: MULTIVIT W/MINERALS TAB (THERAGRAN M) PO SCH (06:14)
[2016-04-29 06:34] VITALS: BP 132/64
[2016-04-29] MEDS ORDERED: fentaNYL INJECTION 100 MCG/2 ML AMP IVP PRN (07:00)
[2016-04-29] MEDS ORDERED: ONDANSETRON 4 MG/2 ML (SDV) Z0FRAN IVP PRN (07:00)
[2016-04-29] MEDS ORDERED: ACETAMINOPHEN 325 MG TABLET/CAPLET (TYLENOL) PO PRN (07:00)
[2016-04-29] MEDS ORDERED: oxyCODONE/APAP 5/325MG (PERCOCET 5) TABLET PO PRN (07:00)
[2016-04-29] MEDS: LACTATED RINGERS 1,000 ML IV SCH ×2 (07:05→07:56)
[2016-04-29] MEDS ORDERED: proPOfol 200 MG/20 ML (DIPRIVAN) VIAL IV ONE (07:06)
--- NOTE | 2016-04-29 07:19 | Progress Note-Pre Operative ---
Pre-Operative Progress Note H&P Reviewed The H&P was reviewed, patient examined and no changes noted. Date H&P Reviewed: Apr 29, 2016 Time H&P Reviewed: 07:18 Pre-Operative Diagnosis: Left intertrochanteric femur and femoral neck fractures KRISTIAN NOVOA MD Apr 29, 2016 07:19
--- NOTE | 2016-04-29 07:20 | Progress Note-Post Operative ---
Post-Operative Progess Note Electric Engine Mechanic natalee nunez Pre-Operative Diagnosis Left intertrochanteric femur and femoral neck fractures, closed, displaced Post-Operative Diagnosis 1.closed, displaced left intertrochanteric femur and 2. closed, nondisplaced left femoral neck fracture Post-Op Procedure Note Date of Procedure: Apr 29, 2016 Name of Procedure: left hip bipolar replacement open reduction and internal fixation of the greater trochanter Anesthesia Type spinal Estimated blood loss (mL): 450 ml Packing: none Specimen(s) collected none KRISTIAN NOVOA MD Apr 29, 2016 07:20
[2016-04-29] MEDS ORDERED: CEFUROXIME 1.5 GM (ZINACEF) VIAL ONE (07:25)
[2016-04-29] MEDS ORDERED: NS (IVPB) 50 ML ONE (07:25)
[2016-04-29] MEDS ORDERED: NS (IVPB) 100 ML ONE (08:06)
[2016-04-29] MEDS ORDERED: PHENYLEPHRINE INJ 10 MG/ML (NEO-SYNEPHRINE 1%) ONE (08:06)
[2016-04-29] MEDS ORDERED: NS (IVPB) 250 ML ONE (08:06)
[2016-04-29] MEDS ORDERED: LACTATED RINGERS 2,000 ML IV ONE (08:06)
[2016-04-29] MEDS ORDERED: PHENYLEPHRINE 100 MCG/ML 10 ML (ANESTHESIA) SYR ONE (08:06)
[2016-04-29] MEDS: D5 1/2 NS 1000 ML IV SOLUTION 1,000 ML IV SCH (08:13)
[2016-04-29] MEDS: MEMANTINE 10 MG (NAMENDA) TABLET PO SCH ×2 (08:13→22:41)
[2016-04-29] MEDS: VITAMIN D3 1,000 UNITS (CHOLECALCIFEROL) TABLET PO SCH (08:14)
[2016-04-29] MEDS: ALPRAZolam 0.5 MG (XANAX) TAB PO SCH ×2 (08:14→22:41)
[2016-04-29] MEDS ORDERED: ONDANSETRON 4 MG/2 ML (SDV) Z0FRAN IV PRN (10:00)
--- NOTE | 2016-04-29 10:16 | Progress Note (SOAP) ---
Subjective Subjective/Events-last exam Fwup left intertrochanteric hip fx, dementia, anxiety. Had surgery this AM with Dr. Storey. Discussed with Dr. Storey and surgery went well. Objective Exam Vital Signs Date Time Temp Pulse Resp B/P Pulse Ox O2 Delivery O2 Flow Rate FiO2 04/29/16 06:34 97.5 95 18 132/64 96 Room Air 04/29/16 04:00 99.7 105 20 130/61 97 Room Air 04/29/16 00:00 100.0 107 18 147/73 93 Room Air 04/28/16 20:00 98.4 100 16 149/67 96 Room Air 04/28/16 16:00 98.6 97 16 144/68 97 Room Air 04/28/16 12:00 96.9 99 20 169/76 97 Room Air I & O 04/29/16 07:00 Intake Total 490 ml Balance 490 ml Capillary Refill : Less Than 3 SecondsLess Than 3 Seconds General Appearance: No Apparent Distress Respiratory: Lungs Clear Cardiovascular: Regular Rate, Rhythm Gastrointestinal: normal bowel sounds non tender soft Neurologic/Psychiatric: Alert Skin: Normal Color Results Lab Microbiology 04/28/16 MRSA Screen - Final, Complete MRSA not isolated Assessment/Plan Assessment/Plan Assess & Plan/Chief Complaint 1. Left intertrochanteric Hip fracture- surgery this AM by Dr. Storey, will monitor H/H post-op 2. Dementia--Namenda restarted 3. Anxiety--meds restarted Diagnosis/Problems: Clinical Quality Measures DVT/VTE Risk/Contraindication: Risk Factor Score Per Nursin RFS Level Per Nursing on Admit: 4+=Very High CHAD DOS SANTOS DO Apr 29, 2016 10:16 am
[2016-04-29] MEDS: ENOXAPARIN 30 MG/0.3 ML (LOVENOX) SYR SC SCH (11:57)
[2016-04-29 12:00] VITALS: BP 136/86
--- NOTE | 2016-04-29 14:30 | Diagnostic Imaging Report ---
INDICATION: Immediate postop imaging status post left hip arthroplasty. COMPARISON: 04/27/2016. FINDINGS: Single AP view of the pelvis is submitted. This demonstrates recent surgical changes from left bipolar hemiarthroplasty utilizing a long femoral stem component. There are also cerclage cables around the region of the greater trochanter. The lesser trochanter remains displaced medially. Osteoporosis is noted throughout the pelvis. No fracture of the right femur. Expected postoperative soft tissue gas and swelling over the left hip. IMPRESSION: Immediate postoperative changes of left hip bipolar hemiarthroplasty. No evidence of complication. Dictated by: Dictated on workstation # [id number]
[2016-04-29 16:36] VITALS: BP 113/58
[2016-04-29] MEDS: CEFUROXIME INJECTION 750 MG in NS (IVPB) 50 ML IV SCH (16:57)
[2016-04-29 19:42] VITALS: BP 91/52
[2016-04-29] MEDS: TROSPIUM 20 MG (SANCTURA) TAB PO SCH (22:41)
[2016-04-30] VITALS (12 sets, daily range): BP systolic 100–139; BP diastolic 55–76
[2016-04-30] MEDS: CEFUROXIME INJECTION 750 MG in NS (IVPB) 50 ML IV SCH (00:38)
[2016-04-30] MEDS: LACTATED RINGERS 1,000 ML IV SCH (03:15)
[2016-04-30 05:53] LABS: BILIRUBIN,URINE NEGATIVE (NEGATIVE); KETONES,URINE 1+ (NEGATIVE); LEUKOCYTE ESTERASE ,URINE 2+ (NEGATIVE); NITRITE,URINE NEGATIVE (NEGATIVE); PH,URINE 5 (5-9); PROTEIN,URINE 2+ (NEGATIVE); UROBILINOGEN,URINE NORMAL (NORMAL)
[2016-04-30 06:01] LABS: GRANULAR CASTS,URINE RARE /LPF; HYALINE CASTS, URINE 0-2 /LPF; SQUAMOUS EPITHELIAL CELL,UR RARE /HPF
[2016-04-30] MEDS: MULTIVIT W/MINERALS TAB (THERAGRAN M) PO SCH (06:37)
[2016-04-30] MEDS ORDERED: diphenhydrAMINE 25 MG TAB (BENADRYL) PO NR (07:00)
[2016-04-30] MEDS ORDERED: ACETAMINOPHEN 325 MG TABLET/CAPLET (TYLENOL) PO NR (07:00)
--- NOTE | 2016-04-30 07:41 | Progress Note-Standard ---
Standard Progress Note Progress Notes/Assess & Plan Progress/Assessment & Plan Patient relatively comfortable Vital Signs Date Time Temp Pulse Resp B/P Pulse Ox O2 Delivery O2 Flow Rate FiO2 04/28/16 08:00 96.8 100 18 140/76 97 Room Air 04/28/16 04:00 98.2 104 22 140/76 96 Room Air 04/28/16 00:00 98.5 93 22 115/68 96 Room Air 04/27/16 19:05 97 Room Air 04/27/16 19:05 96.6 77 18 148/73 99 Room Air 04/27/16 18:51 98.0 77 18 98 04/27/16 16:59 98.0 78 16 139/81 96 Room Air I & O 04/28/16 07:00 Intake Total 210 ml Balance 210 ml Laboratory Tests Test 04/27/16 17:55 04/28/16 05:06 Range/Units Activated Partial Thromboplast Time 26 24-35 SEC Alanine Aminotransferase (ALT/SGPT) 11 10 0-55 U/L Albumin 3.6 3.7 3.2-4.5 G/DL Alkaline Phosphatase 55 57 40-136 U/L Anion Gap 11 12 5-14 MMOL/L Aspartate Amino Transf (AST/SGOT) 19 17 5-34 U/L BUN/Creatinine Ratio 28 33 Basophils # (Auto) 0.0 0.0 0.0-0.1 10^3/uL Basophils (%) (Auto) 0 0 0-10 % Blood Urea Nitrogen 23 H 29 H 7-18 MG/DL Calcium Level 9.0 8.9 8.5-10.1 MG/DL Carbon Dioxide Level 25 22 21-32 MMOL/L Chloride Level 102 104 98-107 MMOL/L Creatinine 0.81 0.87 0.60-1.30 MG/DL Eosinophils # (Auto) 0.2 0.0 0.0-0.3 10^3/uL Eosinophils (%) (Auto) 2 0 0-10 % Estimat Glomerular Filtration Rate > 60 > 60 Glucose Level 109 H 155 H 70-105 MG/DL Hematocrit 34 L 31 L 35-52 % Hemoglobin 11.1 L 10.4 L 11.5-16.0 G/DL INR Comment 1.2 0.8-1.4 Lymphocytes # (Auto) 1.4 0.7 L 1.0-4.0 X 10^3 Lymphocytes (%) (Auto) 15 8 L 12-44 % Mean Corpuscular Hemoglobin 31 32 25-34 PG Mean Corpuscular Hemoglobin Concent 33 34 32-36 G/DL Mean Corpuscular Volume 94 95 80-99 FL Mean Platelet Volume 11.2 H 11.7 H 7.4-10.4 FL Monocytes # (Auto) 0.5 0.7 0.0-1.0 X 10^3 Monocytes (%) (Auto) 5 8 0-12 % Neutrophils # (Auto) 7.7 8.5 H 1.8-7.8 X 10^3 Neutrophils (%) (Auto) 78 H 85 H 42-75 % Platelet Count 189 167 130-400 10^3/uL Potassium Level 4.1 4.2 3.6-5.0 MMOL/L Prothrombin Time 15.1 H 12.2-14.7 SEC Red Blood Count 3.55 L 3.25 L 4.35-5.85 10^6/uL Red Cell Distribution Width 13.7 13.7 10.0-14.5 % Sodium Level 138 138 135-145 MMOL/L Total Bilirubin 0.5 0.5 0.1-1.0 MG/DL Total Protein 6.0 L 5.4 L 6.4-8.2 G/DL White Blood Count 9.9 9.9 4.3-11.0 10^3/uL LLE--intact DF and PF of toes and ankle. Sensation intact throughout imp--L NOF and IT femur fracture Plan--to OR tomorrow for bipolar/ORIF Final Diagnosis No complaints Vital Signs Date Time Temp Pulse Resp B/P Pulse Ox O2 Delivery O2 Flow Rate FiO2 04/30/16 04:22 97.8 111 18 100/57 100 Nasal Cannula 2.00 04/30/16 00:49 99.0 110 20 104/67 97 Nasal Cannula 2.00 04/29/16 21:00 Nasal Cannula 2.00 04/29/16 19:42 98.9 119 22 91/52 96 Nasal Cannula 2.00 04/29/16 17:02 96 Room Air 04/29/16 16:36 99.6 119 18 113/58 96 Nasal Cannula 2.00 04/29/16 14:54 2.00 04/29/16 12:00 96.6 99 18 136/86 93 Room Air 04/29/16 10:40 Nasal Cannula 2.00 I & O 04/30/16 07:00 Intake Total 2570 ml Output Total 1075 ml Balance 1495 ml Laboratory Tests Test 04/30/16 05:22 04/30/16 06:00 Range/Units Urine Bacteria FEW H /HPF Urine Bilirubin NEGATIVE NEGATIVE Urine Casts PRESENT /LPF Urine Clarity SLIGHTLY CLOUDY Urine Color YELLOW Urine Crystals NONE /LPF Urine Culture Indicated YES Urine Glucose (UA) 1+ H NEGATIVE Urine Granular Casts RARE /LPF Urine Hyaline Casts 0-2 H /LPF Urine Ketones 1+ H NEGATIVE Urine Leukocyte Esterase 2+ H NEGATIVE Urine Mucus MODERATE H /LPF Urine Nitrite NEGATIVE NEGATIVE Urine Protein 2+ H NEGATIVE Urine RBC RARE /HPF Urine RBC (Auto) 2+ H NEGATIVE Urine Specific [place] 1.020 1.016-1.022 Urine Squamous Epithelial Cells RARE /HPF Urine Urobilinogen NORMAL NORMAL MG/DL Urine WBC 5-10 H /HPF Urine pH 5 5-9 Hematocrit 18 *L 35-52 % Hemoglobin 6.0 #*L 11.5-16.0 G/DL LLE--dressing intact.intact fDF and PF of toes and ankle distally with brisk cap refill radiographs--HW well positioned. No fractures s/p L hip bipolar and ORIF 2 units PRBC PT--OOB today IRU cammie NOVOA,KRISTIAN Roblero MD Apr 30, 2016 07:41
--- NOTE | 2016-04-30 08:11 | Progress Note (SOAP) ---
Subjective Subjective/Events-last exam PT IS AN 85 Y/O FEMALE WHO IS KNOWN TO ME FROM CLINIC. SHE SUSTAINED A LEFT HIP FRACTURE - IS STATUS POST SURGICAL REPAIR OF LEFT HIP FX BY DR. NOVOA ON . HGB THIS MORNING WAS 6, PT RECEIVING BLOOD. Review of Systems General: FatigueNo Malaise HEENT: No Head Aches, No Eye Pain Pulmonary: No Dyspnea, No Cough Cardiovascular: No: Chest Pain Gastrointestinal: No: Abdominal Pain, Nausea Genitourinary: No Dysuria Musculoskeletal: : leg pain Neurological: : Confusion (INTERMITTENT): Weakness Objective Exam Vital Signs Date Time Temp Pulse Resp B/P Pulse Ox O2 Delivery O2 Flow Rate FiO2 04/30/16 07:47 96 Room Air 04/30/16 04:22 97.8 111 18 100/57 100 Nasal Cannula 2.00 04/30/16 00:49 99.0 110 20 104/67 97 Nasal Cannula 2.00 04/29/16 21:00 Nasal Cannula 2.00 04/29/16 19:42 98.9 119 22 91/52 96 Nasal Cannula 2.00 04/29/16 17:02 96 Room Air 04/29/16 16:36 99.6 119 18 113/58 96 Nasal Cannula 2.00 04/29/16 14:54 2.00 04/29/16 12:00 96.6 99 18 136/86 93 Room Air 04/29/16 10:40 Nasal Cannula 2.00 I & O 04/30/16 07:00 Intake Total 2570 ml Output Total 1075 ml Balance 1495 ml Capillary Refill : Less Than 3 SecondsLess Than 3 Seconds General Appearance: No Apparent Distress WD/WN HEENT: PERRL/EOMI Pharynx Normal Neck: Full Range of Motion Supple Respiratory: Chest Non Tender Lungs Clear Normal Breath Sounds No Accessory Muscle Use No Respiratory Distress Cardiovascular: Regular Rate, Rhythm Gastrointestinal: normal bowel sounds non tender soft no organomegaly no pulsatile mass Extremity: Normal Capillary Refill No Calf Tenderness No Pedal Edema Neurologic/Psychiatric: Alert No Motor/Sensory Deficits Other (ORIENTED TO PERSON, PLACE) Skin: Normal Color Warm/Dry Lymphatic: No Adenopathy Results Lab Laboratory Tests 04/30/16 05:22: Urine Bacteria FEWH, Urine Bilirubin NEGATIVE, Urine Casts PRESENT, Urine Clarity SLIGHTLY CLOUDY, Urine Color YELLOW, Urine Crystals NONE, Urine Culture Indicated YES, Urine Glucose (UA) 1+H, Urine Granular Casts RARE, Urine Hyaline Casts 0-2H, Urine Ketones 1+H, Urine Leukocyte Esterase 2+H, Urine Mucus MODERATEH, Urine Nitrite NEGATIVE, Urine Protein 2+H, Urine RBC RARE, Urine RBC (Auto) 2+H, Urine Specific [place] 1.020, Urine Squamous Epithelial Cells RARE, Urine Urobilinogen NORMAL, Urine WBC 5-10H, Urine pH 5 04/30/16 06:00: Hematocrit 18*L, Hemoglobin 6.0#*L Microbiology 04/28/16 MRSA Screen - Final, Complete MRSA not isolated Assessment/Plan Assessment/Plan Assess & Plan/Chief Complaint LEFT HIP FRACTURE SURGERY WITH ORIF ON 04/29/16 POST-SURGICAL ANEMIA DEMENTIA URGE INCONTINENCE DEPRESSION LEFT HIP FRACTURE SURGERY WITH ORIF ON 04/29/16 - CONTINUE WITH THERAPY - PAIN CONTROL - PLANNING ON [facility] PLACEMENT FOR THERAPY - FAMILY DESIRES VIA [facility] FOR THERAPY. POST-SURGICAL ANEMIA - PT RECEIVING BLOOD THIS MORNING - MONITOR HGB AND HCT LATER TODAY - WILL GIVE ANOTHER UNIT OF BLOOD IF INDICATED. DEMENTIA - PT TO CONTINUE WITH NAMENDA URGE INCONTINENCE - CONTINUE WITH ANTICHOLINERGIC DEPRESSION - CONTINUE WITH CITALOPRAM. Diagnosis/Problems: Clinical Quality Measures DVT/VTE Risk/Contraindication: Risk Factor Score Per Nursin RFS Level Per Nursing on Admit: 4+=Very High ASHLEY ORTIZ MD Apr 30, 2016 08:11
[2016-04-30] MEDS: MEMANTINE 10 MG (NAMENDA) TABLET PO SCH (09:03)
[2016-04-30] MEDS: VITAMIN D3 1,000 UNITS (CHOLECALCIFEROL) TABLET PO SCH (09:03)
[2016-04-30] MEDS: ALPRAZolam 0.5 MG (XANAX) TAB PO SCH ×2 (09:03→21:00)
[2016-04-30] MEDS: ENOXAPARIN 30 MG/0.3 ML (LOVENOX) SYR SC SCH (09:04)
[2016-04-30] MEDS ORDERED: NS IV 500 ML 500 ML IV ONE (09:15)
--- NOTE | 2016-04-30 09:28 | Physical Therapy Evaluation ---
PT Evaluation-General Medical Diagnosis Admission Date Apr 27, 2016 at 18:44 Medical Diagnosis: left hip fracture Onset Date: Apr 27, 2016 Therapy Diagnosis Therapy Diagnosis: general debility/weakness Height/Weight Height (Feet): 5 Height (Inches): 3.00 Weight (Pounds): 82 Weight (Ounces): 6.0 Precautions Precautions/Isolations: Fall Prevention, Standard Precautions Weight Bear Status Weight Bearing Restriction: Partial Weight Bearing Location Restriction: L LE Referral Physician: [place] Reason for Referral: Evaluation/Treatment Medical History Pertinent Medical History: Arthritis, CVA, Dementia, GERD, OA Additional Medical History went to reach for chair and missed resulting in a fall Current History s/p left bipolar hip replacement Reviewed History: Yes Social History Home: Single Level Current Living Status: Spouse Prior/[facility] FIM Prior Level of Function Functional [place] Measure 0=Not Assessed/NA 4=Minimal Assistance 1=Total Assistance 5=Supervision or Setup 2=Maximal Assistance 6=Modified [place] 3=Moderate Assistance 7=Complete [place] Bed Mobility: 5 Transfers (B,C,W/C) (FIM): 5 Gait: 5 spouse is primary caregiver due to patient's dementia PT Evaluation-Current Subjective Patient is in bed, very confused, spouse agrees to PT. Pain Numeric Pain Scale: 5-Moderate Pain Location: Left Location Body Site: Hip Comment: FLACC Pt/Family Goals transfer to NH for continued care per spouse Objective Patient Orientation: Confused Problem Solving: Poor Attachments: Oxygen, Eason Catheter ROM/Strength ROM Lower Extremities right LE WFL; left LE limited due to pain, however, WFL Strenght Lower Extremities right LE 3/5 grossly; left LE 2/5 grossly (patient is very guarded with use of left LE) Integumentary/Posture Integumentary refer to nursing notes Bladder Incontinence: Eason Cath Posture kyphotic Neuromuscular (Tone, Coordination, Reflexes) diminished coordination due to dementia Sensory Vision: Functional Hearing: Impaired Transfers Functional [place] Measure 0=Not Assessed/NA 4=Minimal Assistance 1=Total Assistance 5=Supervision or Setup 2=Maximal Assistance 6=Modified [place] 3=Moderate Assistance 7=Complete [place] Transfers (B, C, W/C) (FIM): 1 Scootin Rollin Supine to/from Sit: 1 Sit to/from Stand: 1 bed t/f WC(FIM only if WC use): 1 dependent assist with all mobility; patient is unable to maintain sitting EOB without dependent assistance; patient is also unable to comply with PWB left LE Balance Sitting Static: Poor Sitting Dynamic: Poor Standing Static: Poor Standing Dynamic: Poor Assessment/Needs 85 y.o. female, will benefit from skilled PT to address functional strength and mobility to improve current LOF. Patient's spouse desires to transfer to [place] for continued, extended care due to patient dementia. RN is aware. Rehab Potential: Fair Post Rehab Potential-Barriers: dementia PT Short Term Goals Short Term Goals Time Frame: May 04, 2016 Transfers (B,C,W/C) (FIM): 2 PT Plan Problem List Problem List: Activity Tolerance, Functional Strength, Safety, Balance, Gait, Transfer, Bed Mobility Treatment/Plan Treatment Plan: Continue Plan of Care Treatment Plan: Bed Mobility, Education, Functional Activity Kendra, Functional Strength, Safety, Therapeutic Exercise, Transfers Treatment Duration: May 04, 2016 # of days/week 5-6 Visits Per Week: 5-11 Pt/Family Agrees w/Plan: Yes Safety Risks/Education Patient Education: Safety Issues Teaching Recipient: Significant Other Teaching Methods: Discussion Response to Teaching: Verbalize Understanding Discharge Recommendations Therapy D/C Recommendations: Assisted Placement, Long-Term (TCU/NH) Time/GCodes Time In: 830 Time Out: 900 Total Billed Treatment Time: 30 Total Billed Treatment 1 visit EVLow 30 min G Codes Necessary: ROSIBEL Mclaughlin PT Apr 30, 2016 09:28
[2016-04-30] MEDS ORDERED: FUROSEMIDE 40 MG/4 ML INJ (LASIX) IVP NR (10:00)
--- NOTE | 2016-04-30 10:16 | OPERATIVE REPORT ---
PROCEDURE PHYSICIAN: KRISTIAN NOVOA DATE OF PROCEDURE: 04/29/2016 PREOPERATIVE DIAGNOSES: 1. Closed displaced left intertrochanteric femur fracture. 2. Closed nondisplaced left femoral neck fracture. PROCEDURE: 1. Left hip bipolar replacement. 2. Open reduction and internal fixation of the left greater trochanter. SURGEON: Dr. Novoa OPERATING SYSTEM DESIGNER: Mor Newton ANESTHESIA: Spinal by Aislinn Crews CRNA. ESTIMATED BLOOD LOSS: 450 mL. DRAINS: None. COMPLICATIONS: None. POSTOPERATIVE PLAN: Partial weight-bearing left lower extremity. MATERIALS: Link 180 x 14 mm press-fit stem, 35 mm 126 degrees short neck, -3.5 28 mm head, 42 mm bipolar shell. 2 x 1.7 mm Synthes cable. STATEMENT OF MEDICAL NECESSITY: The patient is an 85-year-old independently living female who fell at home [place] evening. She presented to the emergency room and was found to have a left intertrochanteric femur fracture with what appeared to be a displaced femoral neck fracture. She had marked pain. Due to the complex nature of the fracture, it was felt that she would require a bipolar with specialized equipment. Multiple phone calls were made to multiple vendors. There was nothing available in the immediate area. Ultimately a vendor in [place] was found that could supply the needed prosthesis. This had to be brought in and therefore the patient's surgery could not be performed until early this morning. The patient and her family were counseled regarding this. They were fine with this plan. PROCEDURE: After risks and benefits of the procedure were discussed and questions were answered, informed consent signed and placed on the chart. The operative site was confirmed in the preoperative holding area and initialed by the surgeon. The patient was then transported to the operating room. After adequate levels of regional anesthetic were obtained, the patient was carefully placed in the right lateral decubitus position, being careful to place in an axial roll and padded all bony prominences. The left hip and lower extremity were then prepped and draped in the usual sterile fashion. A standard anterior lateral approach was utilized. Hemostasis was obtained with cautery. The iliotibial band was opened in line with the incision. The greater trochanter fracture was mobilized. The abductor tendons remained attached to the greater trochanter. The greater trochanter fragment was freed and retracted anteriorly. There was a lesser trochanter fragment which was felt to be well positioned. The capsule was opened and the neck and head were removed. There was found to be a femoral neck fracture but this was impacted as opposed to the displaced. The acetabulum was copiously irrigated and any loose bodies were removed. The canal of the femur was prepared with hand reaming to a size 14. The stem was then placed and felt to be in good position. Trials were then placed and the hip was reduced. The greater trochanter was reduced to attain anatomic position to ensure adequate leg length. The hip was taken through a range of motion with no impingement and no instability in any plane noted. It was found to be stable. The hip was then redislocated and the trials were removed. A 35 mm trauma body with 126 degrees short neck was then placed in approximately 10 degrees of anteversion. The joint was further irrigated. The -3.5 28 mm head followed by the bipolar shell and liner were placed. 2 cables were then passed through the greater trochanter fragment. These were passed in through the lateral holes in the body of the prosthesis. The hip was then reduced after inspecting the acetabulum for loose bodies. The hip reduced well and was found to be stable in all planes. There was no impingement noted and no instability noted in any plane. The joint was copiously irrigated with pulse lavage. The greater trochanter was then reduced with the cables and tension band into place. This was somewhat anterior to its anatomic position, but felt to be in adequate alignment and the abductor tendons remained fully attached. The hip was then ranged again and the fracture fragment was found to be stable in its reduced position. The joint was further irrigated with pulse lavage. The iliotibial band was closed with number 1 Vicryl in a running fashion. Subcutaneous tissues were irrigated with pulse lavage. 0 Vicryl was used for deep subcutaneous tissue. 2-0 Vicryl for the superficial subcutaneous tissue. Kat used on the skin. A soft dressing and abduction pillow were applied and the patient was transported to the recovery room, awake, in stable condition. Job ID: [id number] Dictated Date: 04/29/2016 09:48:32 Drug Safety Data Management Specialist Date: 04/30/2016 09:59:51 / saqib
--- NOTE | 2016-04-30 11:26 | Physician Query-General Query ---
Physician Query-General Query to Physician: [facility] SOP Coding Query Via [facility] Exhibit D2 Further Specificity Template The medical record reflects the following clinical scenario: History/Risk factors: (Hip surgery/Estimated Blood loss 450ml) Clinical Findings: (Hgb on admission 11.1 . Hgb on day 3 was 6.0 ) Treatment: (Transfused 2 units of packed red blood cells) Question: Can you further specify (post surgical anemia) per the clinical indicators above? Please document a response in the Progress Notes or Discharge Summary. 1. (Acute blood loss anemia after surgery) 2. (post surgical anemia) 3. Other, with explanation of clinical findings 4. Clinically undetermined, no explanation for clinical findings In responding to this query, please exercise your independent professional judgment. The purpose of this communication is to more accurately reflect the complexity of your patients condition. The fact that a question is asked does not imply that any particular answer is desired or expected. Thank you for your timely response to this clarification. THIS PHYSICIAN QUERY FORM IS A PERMANENT PART OF THE MEDICAL RECORD PHYSICIAN RESPONSE: surBased on the clinical findings in the record, please respond to the query above on this document as an addendum. Possible, probable, or questionable diagnosis can be coded for INPATIENTS ONLY. Physician Response: surgical blood loss Physician Response surgical blood loss If you have questions please contact: Melter Supervisor [employer]:Eleonora Fonseca [facility],CCDS Ext:[phone] Thank you for your time and cooperation. Clinical In Store Banker/Melter Supervisor [employer] This is a permanent part of the medical record ELEONORA FONSECA Apr 30, 2016 11:26 KRISTIAN NOVOA MD May 01, 2016 08:20
--- NOTE | 2016-04-30 13:42 | Physical Therapy Daily Note ---
PT Daily Note-Current Subjective Patient is very lethargic this p.m. Pain Numeric Pain Scale: 5-Moderate Pain Location: Left Location Body Site: Hip Comment: FLACC Mental Status Patient Orientation: Confused Transfers Functional [place] Measure 0=Not Assessed/NA 4=Minimal Assistance 1=Total Assistance 5=Supervision or Setup 2=Maximal Assistance 6=Modified [place] 3=Moderate Assistance 7=Complete IndependenceIRFPAI Quality Coding Scale 6 Independent with activity with or without an assistive device 5 Patient requires set up or clean up by helper. Patient completes activity by themselves 4 Supervision or touching assist (CGA). [place] provide cues , steadying assist 3 The helper provides less than half the effort to complete the activity 2 The helper provides more than half the effort to complete the activity 1 Dependent. The helper does all the effort to complete an activity 7 Patient refused to complete or attempt activity 9 The patient did not perform the activity before the current illness or injury 88 Not attempted due to Medical conditions or safety concerns Transfers (B, C, W/C) (FIM): 1 Rollin Patient repositioned to sidelying left with pillow behind back and bilateral LE' s with abduction pillow between LE's Exercises Supine Ex: Ankle pumps, Heel Slides Supine Reps: 10 (AAROM due to patient lethargy and pain) Assessment Patient tolerated minimal activity due to confusion and lethargy. PT to increase activity as tolerated by patient. PT Short Term Goals Short Term Goals Time Frame: May 04, 2016 Transfers (B,C,W/C) (FIM): 2 PT Plan Treatment/Plan Treatment Plan: Continue Plan of Care Treatment Plan: Bed Mobility, Education, Functional Activity Kendra, Functional Strength, Safety, Therapeutic Exercise, Transfers Treatment Duration: May 04, 2016 Visits Per Week: 5-11 Time/GCodes Time In: 1320 Time Out: 1330 Total Billed Treatment Time: 10 Total Billed Treatment 1 visit EX 10 min ROSIBEL ANDRES PT Apr 30, 2016 13:42
[2016-04-30] MEDS ORDERED: FUROSEMIDE 40 MG/4 ML INJ (LASIX) ONE (14:39)
--- NOTE | 2016-04-30 15:31 | Anesthesia-Regional Post-Op ---
Regional Patient Condition Mental Status: Alert, Oriented x3 Circulation: Same as Pre-Op Headache: Absent Sensation: Full Recovery Motor Block: Absent Post Op Complications Complications None Follow Up Care/Instructions Patient Instructions None needed. Anesthesia/Patient Condition Patient is doing well, no complaints, stable vital signs, no apparent adverse anesthesia problems. NEVIN CUELLAR DO Apr 30, 2016 15:31
[2016-04-30] MEDS: MEMANTINE 5 MG (NAMENDA) TABLET PO SCH (21:12)
[2016-04-30] MEDS: TROSPIUM 20 MG (SANCTURA) TAB PO SCH (21:12)
[2016-05-01] VITALS: BP 127/76
[2016-05-01 04:00] VITALS: BP 123/79
[2016-05-01] MEDS: MULTIVIT W/MINERALS TAB (THERAGRAN M) PO SCH (06:28)
--- NOTE | 2016-05-01 07:03 | Progress Note-Standard ---
Standard Progress Note Progress Notes/Assess & Plan Progress/Assessment & Plan Patient relatively comfortable Vital Signs Date Time Temp Pulse Resp B/P Pulse Ox O2 Delivery O2 Flow Rate FiO2 04/28/16 08:00 96.8 100 18 140/76 97 Room Air 04/28/16 04:00 98.2 104 22 140/76 96 Room Air 04/28/16 00:00 98.5 93 22 115/68 96 Room Air 04/27/16 19:05 97 Room Air 04/27/16 19:05 96.6 77 18 148/73 99 Room Air 04/27/16 18:51 98.0 77 18 98 04/27/16 16:59 98.0 78 16 139/81 96 Room Air I & O 04/28/16 07:00 Intake Total 210 ml Balance 210 ml Laboratory Tests Test 04/27/16 17:55 04/28/16 05:06 Range/Units Activated Partial Thromboplast Time 26 24-35 SEC Alanine Aminotransferase (ALT/SGPT) 11 10 0-55 U/L Albumin 3.6 3.7 3.2-4.5 G/DL Alkaline Phosphatase 55 57 40-136 U/L Anion Gap 11 12 5-14 MMOL/L Aspartate Amino Transf (AST/SGOT) 19 17 5-34 U/L BUN/Creatinine Ratio 28 33 Basophils # (Auto) 0.0 0.0 0.0-0.1 10^3/uL Basophils (%) (Auto) 0 0 0-10 % Blood Urea Nitrogen 23 H 29 H 7-18 MG/DL Calcium Level 9.0 8.9 8.5-10.1 MG/DL Carbon Dioxide Level 25 22 21-32 MMOL/L Chloride Level 102 104 98-107 MMOL/L Creatinine 0.81 0.87 0.60-1.30 MG/DL Eosinophils # (Auto) 0.2 0.0 0.0-0.3 10^3/uL Eosinophils (%) (Auto) 2 0 0-10 % Estimat Glomerular Filtration Rate > 60 > 60 Glucose Level 109 H 155 H 70-105 MG/DL Hematocrit 34 L 31 L 35-52 % Hemoglobin 11.1 L 10.4 L 11.5-16.0 G/DL INR Comment 1.2 0.8-1.4 Lymphocytes # (Auto) 1.4 0.7 L 1.0-4.0 X 10^3 Lymphocytes (%) (Auto) 15 8 L 12-44 % Mean Corpuscular Hemoglobin 31 32 25-34 PG Mean Corpuscular Hemoglobin Concent 33 34 32-36 G/DL Mean Corpuscular Volume 94 95 80-99 FL Mean Platelet Volume 11.2 H 11.7 H 7.4-10.4 FL Monocytes # (Auto) 0.5 0.7 0.0-1.0 X 10^3 Monocytes (%) (Auto) 5 8 0-12 % Neutrophils # (Auto) 7.7 8.5 H 1.8-7.8 X 10^3 Neutrophils (%) (Auto) 78 H 85 H 42-75 % Platelet Count 189 167 130-400 10^3/uL Potassium Level 4.1 4.2 3.6-5.0 MMOL/L Prothrombin Time 15.1 H 12.2-14.7 SEC Red Blood Count 3.55 L 3.25 L 4.35-5.85 10^6/uL Red Cell Distribution Width 13.7 13.7 10.0-14.5 % Sodium Level 138 138 135-145 MMOL/L Total Bilirubin 0.5 0.5 0.1-1.0 MG/DL Total Protein 6.0 L 5.4 L 6.4-8.2 G/DL White Blood Count 9.9 9.9 4.3-11.0 10^3/uL LLE--intact DF and PF of toes and ankle. Sensation intact throughout imp--L NOF and IT femur fracture Plan--to OR tomorrow for bipolar/ORIF Final Diagnosis No complaints Vital Signs Date Time Temp Pulse Resp B/P Pulse Ox O2 Delivery O2 Flow Rate FiO2 05/01/16 04:00 97.9 103 16 123/79 100 Nasal Cannula 2.00 05/01/16 00:00 99.2 105 16 127/76 96 Nasal Cannula 2.00 04/30/16 21:00 Nasal Cannula 2.00 04/30/16 20:00 98.2 110 20 118/76 97 Nasal Cannula 2.00 04/30/16 16:59 97.3 104 18 139/67 99 Nasal Cannula 2.00 04/30/16 14:41 98.9 101 118/71 04/30/16 12:44 97.8 92 124/59 04/30/16 12:40 92 2.00 04/30/16 12:29 97.1 101 126/69 04/30/16 12:16 97.1 101 126/69 04/30/16 12:00 97.1 103 18 114/72 100 Nasal Cannula 2.00 04/30/16 09:37 98.1 87 126/61 04/30/16 09:31 98.1 79 117/55 04/30/16 08:00 98.7 109 22 114/56 100 Nasal Cannula 2.00 04/30/16 07:47 96 Room Air I & O 05/01/16 07:00 Intake Total 1150 ml Output Total 1150 ml Balance 0 ml Laboratory Tests Test 05/01/16 04:30 Range/Units Hematocrit 30 L 35-52 % Hemoglobin 10.0 #L 11.5-16.0 G/DL LLE--incision clean and dry. No calf tenderness. Neg Rayray's s/p L hip bipolar and ORIF mobilize ARU? JERAMY Eason when ok with PCP KRISTIAN NOVOA MD May 01, 2016 07:03
[2016-05-01] MEDS: ALPRAZolam 0.5 MG (XANAX) TAB PO SCH ×2 (08:33→21:09)
[2016-05-01] MEDS: ENOXAPARIN 30 MG/0.3 ML (LOVENOX) SYR SC SCH (08:33)
[2016-05-01] MEDS: VITAMIN D3 1,000 UNITS (CHOLECALCIFEROL) TABLET PO SCH (08:33)
[2016-05-01] MEDS: MEMANTINE 5 MG (NAMENDA) TABLET PO SCH ×2 (08:34→21:08)
--- NOTE | 2016-05-01 09:15 | Progress Note (SOAP) ---
Subjective Subjective/Events-last exam PT REPORTS THAT SHE IS FEELING BETTER - HER STATES THAT HE THINKS THAT SINCE HER BLOOD TRANSFUSION SHE HAS IMPROVED A LOT COGNITIVELY WELL PHYSICALLY. HE REPORTS SHE WAS UP TO THE CHAIR YESTERDAY. PT UNABLE TO FOLLOW COMMAND TO SIT UP IN BED. Review of Systems General: Fatigue HEENT: No Head Aches Pulmonary: No Dyspnea, No Cough Cardiovascular: No: Chest Pain, Edema, Palpitations Gastrointestinal: No: Abdominal Pain, Nausea Genitourinary: Other (NAVA IN PLACE) Musculoskeletal: : leg pain Neurological: : Confusion: Weakness Objective Exam Vital Signs Date Time Temp Pulse Resp B/P Pulse Ox O2 Delivery O2 Flow Rate FiO2 05/01/16 07:33 2.00 05/01/16 04:00 97.9 103 16 123/79 100 Nasal Cannula 2.00 05/01/16 00:00 99.2 105 16 127/76 96 Nasal Cannula 2.00 04/30/16 21:00 Nasal Cannula 2.00 04/30/16 20:00 98.2 110 20 118/76 97 Nasal Cannula 2.00 04/30/16 16:59 97.3 104 18 139/67 99 Nasal Cannula 2.00 04/30/16 14:41 98.9 101 118/71 04/30/16 12:44 97.8 92 124/59 04/30/16 12:40 92 2.00 04/30/16 12:29 97.1 101 126/69 04/30/16 12:16 97.1 101 126/69 04/30/16 12:00 97.1 103 18 114/72 100 Nasal Cannula 2.00 04/30/16 09:37 98.1 87 126/61 04/30/16 09:31 98.1 79 117/55 I & O 05/01/16 07:00 Intake Total 1150 ml Output Total 1150 ml Balance 0 ml Capillary Refill : Less Than 3 SecondsLess Than 3 Seconds General Appearance: No Apparent Distress WD/WN Thin HEENT: PERRL/EOMI Neck: Full Range of Motion Supple Respiratory: Chest Non Tender Lungs Clear Normal Breath Sounds No Accessory Muscle Use Cardiovascular: Regular Rate, Rhythm Gastrointestinal: normal bowel sounds non tender soft Extremity: Non Tender Pedal Edema (ON LEFT ANKLE, LEFT DRESSING C/D/I) Neurologic/Psychiatric: Alert 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 scow hand II-XII Norm as Tested Other (ORIENTED TO PERSON, NOT PLACE/TIME) Skin: Warm/Dry Ecchymosis (LEFT FOREARM) Results Lab Laboratory Tests 05/01/16 04:30: Hematocrit 30L, Hemoglobin 10.0#L Microbiology 04/28/16 MRSA Screen - Final, Complete MRSA not isolated 04/30/16 Urine Culture - Preliminary, Resulted Escherichia Coli Assessment/Plan Assessment/Plan Assess & Plan/Chief Complaint LEFT HIP FRACTURE SURGERY WITH ORIF ON 04/29/16 POST-SURGICAL ANEMIA DEMENTIA URGE INCONTINENCE DEPRESSION LEFT HIP FRACTURE SURGERY WITH ORIF ON 04/29/16 - CONTINUE WITH THERAPY - PAIN CONTROL - PLANNING ON [facility] PLACEMENT FOR THERAPY - FAMILY DESIRES VIA [facility] [place] FOR THERAPY - PLAN FOR DISCHARGE TO [facility]IOR [facility] TOMORROW. POST-SURGICAL ANEMIA - PT RECEIVED BLOOD SATURDAY MORNING - MONITOR HGB AND HCT TOMORROW - AND IF STABLE - WILL DISCHARGE TO [facility]IOR CARE SATURDAY. DEMENTIA - PT TO CONTINUE WITH NAMENDA URGE INCONTINENCE - CONTINUE WITH ANTICHOLINERGIC - JERAMY LAWLER DEPRESSION - CONTINUE WITH CITALOPRAM. AWARE OF PLAN FOR DISCHARGE TO [facility]IOR [facility]ARE TOMORROW - HE WANTED TO STAY LONG IN THE HOSPITAL POSSIBLE, -BUT HE IS AWARE OF MY PLAN FOR DISCHARGE SATURDAY TO THE SENIOR CARE. Diagnosis/Problems: Clinical Quality Measures DVT/VTE Risk/Contraindication: Risk Factor Score Per Nursin RFS Level Per Nursing on Admit: 4+=Very High SAHLEY ORTIZ MD May 01, 2016 09:15
[2016-05-01 12:00] VITALS: BP 125/61
[2016-05-01] MEDS ORDERED: cefTRIAXone INJECTION 1,000 MG in NS (IVPB) 50 ML IV NR (13:45)
[2016-05-01] MEDS ORDERED: NS (IVPB) 50 ML ONE (13:46)
[2016-05-01] MEDS ORDERED: cefTRIAXone 1 GM (ROCEPHIN) VIAL ONE (13:46)
--- NOTE | 2016-05-01 14:08 | Physical Therapy Daily Note ---
PT Daily Note-Current Subjective Pt is supine with head raised upon arrival. Pt is very confused and has difficulty following VC during tx. Pt agrees to PT. Pain Location: Incisional, Left, Lateral Location Body Site: Hip Pain Description: Sharp Comment: Pt verbalizes pain when L hip moved but doesn't rate. Mental Status Patient Orientation: Person, Confused Attachments: Oxygen Transfers Functional [place] Measure 0=Not Assessed/NA 4=Minimal Assistance 1=Total Assistance 5=Supervision or Setup 2=Maximal Assistance 6=Modified [place] 3=Moderate Assistance 7=Complete IndependenceIRFPAI Quality Coding Scale 6 Independent with activity with or without an assistive device 5 Patient requires set up or clean up by helper. Patient completes activity by themselves 4 Supervision or touching assist (CGA). [place] provide cues , steadying assist 3 The helper provides less than half the effort to complete the activity 2 The helper provides more than half the effort to complete the activity 1 Dependent. The helper does all the effort to complete an activity 7 Patient refused to complete or attempt activity 9 The patient did not perform the activity before the current illness or injury 88 Not attempted due to Medical conditions or safety concerns Scootin Rollin Roll Left to Right (QC): 1 Supine to/from Sit: 1 Sit to/from Stand: 1 Sit to Stand (QC): 1 Chair/Dbl-ot-Nkqcx Xfer(QC): 1 Bed to/from Chair: 1 Weight Bearing Weight Bearing Restriction: Partial Weight Bearing Location Restriction: L LE Weight Bearing: Pt has difficulty keeping WB status. Treatments Pt has difficulty following VC during transfer from supine in bed to sitting in recliner with feet up. Pt transfers from supine to EOB at Max A due to pt leaning back when PT transfers. Pt then transfers EOB to standing at Max A for SPT to recliner. Pt has difficulty following PWB status. Pt then sits at edge of recliner and requires Max A to scoot pt back into recliner. Pt is positioned in recliner with feet up and pillow between knees to keep LE from crossing. Pt was left with all needs met at end of tx and son is present. Pt is about to eat lunch. Assessment Current Status: Poor Progress Pt is very confused and anxious during tx. Pt has difficulty following directions during transfer. PT Short Term Goals Short Term Goals Time Frame: May 04, 2016 Transfers (B,C,W/C) (FIM): 2 PT Mold Polisher Goals Assisted Goals Rollin PT Plan Problem List Problem List: Activity Tolerance, Functional Strength, Safety, Balance, Gait, Transfer, Bed Mobility Treatment/Plan Treatment Plan: Continue Plan of Care Treatment Plan: Bed Mobility, Education, Functional Activity Kendra, Functional Strength, Safety, Therapeutic Exercise, Transfers Treatment Duration: May 04, 2016 Visits Per Week: 5-11 Safety Risks/Education Patient Education: Transfer Techniques, Correct Positioning, Safety Issues Teaching Recipient: Patient, Family Teaching Methods: Discussion Response to Teaching: Verbalize Understanding Time/GCodes Time In: 1130 Time Out: 1200 Total Billed Treatment Time: 30 Total Billed Treatment visit, FA X2 (30m) LAWOSN FRANKLIN PTA May 01, 2016 14:08
[2016-05-01] MEDS ORDERED: POLYETHYLENE GLYCOL 17 GM (MIRALAX) PACK PO NR (14:45)
[2016-05-01] MEDS ORDERED: [UNRECOGNIZED DRUG - CODE] PO (15:01)
[2016-05-01 16:00] VITALS: BP 104/56
[2016-05-01 20:00] VITALS: BP 153/70
[2016-05-01] MEDS: BISACODYL 5 MG (DULCOLAX) TABLET PO SCH (21:09)
[2016-05-01] MEDS: TROSPIUM 20 MG (SANCTURA) TAB PO SCH (21:09)
[2016-05-02] VITALS: BP 135/66
[2016-05-02 04:00] VITALS: BP_SYST 138; BP_SYST 146; BP_DIAS 67; BP_DIAS 68
[2016-05-02] MEDS: MULTIVIT W/MINERALS TAB (THERAGRAN M) PO SCH (06:21)
--- NOTE | 2016-05-02 07:25 | Progress Note-Standard ---
Standard Progress Note Progress Notes/Assess & Plan Progress/Assessment & Plan Patient relatively comfortable Vital Signs Date Time Temp Pulse Resp B/P Pulse Ox O2 Delivery O2 Flow Rate FiO2 04/28/16 08:00 96.8 100 18 140/76 97 Room Air 04/28/16 04:00 98.2 104 22 140/76 96 Room Air 04/28/16 00:00 98.5 93 22 115/68 96 Room Air 04/27/16 19:05 97 Room Air 04/27/16 19:05 96.6 77 18 148/73 99 Room Air 04/27/16 18:51 98.0 77 18 98 04/27/16 16:59 98.0 78 16 139/81 96 Room Air I & O 04/28/16 07:00 Intake Total 210 ml Balance 210 ml Laboratory Tests Test 04/27/16 17:55 04/28/16 05:06 Range/Units Activated Partial Thromboplast Time 26 24-35 SEC Alanine Aminotransferase (ALT/SGPT) 11 10 0-55 U/L Albumin 3.6 3.7 3.2-4.5 G/DL Alkaline Phosphatase 55 57 40-136 U/L Anion Gap 11 12 5-14 MMOL/L Aspartate Amino Transf (AST/SGOT) 19 17 5-34 U/L BUN/Creatinine Ratio 28 33 Basophils # (Auto) 0.0 0.0 0.0-0.1 10^3/uL Basophils (%) (Auto) 0 0 0-10 % Blood Urea Nitrogen 23 H 29 H 7-18 MG/DL Calcium Level 9.0 8.9 8.5-10.1 MG/DL Carbon Dioxide Level 25 22 21-32 MMOL/L Chloride Level 102 104 98-107 MMOL/L Creatinine 0.81 0.87 0.60-1.30 MG/DL Eosinophils # (Auto) 0.2 0.0 0.0-0.3 10^3/uL Eosinophils (%) (Auto) 2 0 0-10 % Estimat Glomerular Filtration Rate > 60 > 60 Glucose Level 109 H 155 H 70-105 MG/DL Hematocrit 34 L 31 L 35-52 % Hemoglobin 11.1 L 10.4 L 11.5-16.0 G/DL INR Comment 1.2 0.8-1.4 Lymphocytes # (Auto) 1.4 0.7 L 1.0-4.0 X 10^3 Lymphocytes (%) (Auto) 15 8 L 12-44 % Mean Corpuscular Hemoglobin 31 32 25-34 PG Mean Corpuscular Hemoglobin Concent 33 34 32-36 G/DL Mean Corpuscular Volume 94 95 80-99 FL Mean Platelet Volume 11.2 H 11.7 H 7.4-10.4 FL Monocytes # (Auto) 0.5 0.7 0.0-1.0 X 10^3 Monocytes (%) (Auto) 5 8 0-12 % Neutrophils # (Auto) 7.7 8.5 H 1.8-7.8 X 10^3 Neutrophils (%) (Auto) 78 H 85 H 42-75 % Platelet Count 189 167 130-400 10^3/uL Potassium Level 4.1 4.2 3.6-5.0 MMOL/L Prothrombin Time 15.1 H 12.2-14.7 SEC Red Blood Count 3.55 L 3.25 L 4.35-5.85 10^6/uL Red Cell Distribution Width 13.7 13.7 10.0-14.5 % Sodium Level 138 138 135-145 MMOL/L Total Bilirubin 0.5 0.5 0.1-1.0 MG/DL Total Protein 6.0 L 5.4 L 6.4-8.2 G/DL White Blood Count 9.9 9.9 4.3-11.0 10^3/uL LLE--intact DF and PF of toes and ankle. Sensation intact throughout imp--L NOF and IT femur fracture Plan--to OR tomorrow for bipolar/ORIF Final Diagnosis reports patient hasn't had BM Vital Signs Date Time Temp Pulse Resp B/P Pulse Ox O2 Delivery O2 Flow Rate FiO2 05/02/16 04:00 98.1 73 18 146/67 98 Nasal Cannula 2.00 05/02/16 04:00 98.4 102 16 138/68 97 Nasal Cannula 2.00 05/02/16 00:00 99.2 107 16 135/66 97 Nasal Cannula 2.00 05/01/16 21:00 Nasal Cannula 2.00 05/01/16 20:00 98.9 97 16 153/70 100 Nasal Cannula 2.00 05/01/16 16:00 98.6 97 16 104/56 96 Nasal Cannula 2.00 05/01/16 12:00 98.7 103 20 125/61 96 Nasal Cannula 2.00 05/01/16 09:00 Nasal Cannula 2.00 05/01/16 07:33 2.00 I & O 05/02/16 06:59 Intake Total 887 ml Output Total 150 ml Balance 737 ml Laboratory Tests Test 05/01/16 12:55 05/02/16 04:35 Range/Units Lab Scanned Report Transfusion Reaction Form [id number] Hematocrit 26 L 35-52 % Hemoglobin 8.4 L 11.5-16.0 G/DL LLE--no calf tenderness. Neg Rayray's. Dressing intact s/p L bipolar mobilize [facility]? KRISTIAN NOVOA MD May 02, 2016 07:25
[2016-05-02 08:00] VITALS: BP 126/70
[2016-05-02] MEDS: ENOXAPARIN 30 MG/0.3 ML (LOVENOX) SYR SC SCH (08:38)
[2016-05-02] MEDS: ALPRAZolam 0.5 MG (XANAX) TAB PO SCH ×2 (08:45→20:49)
[2016-05-02] MEDS: BISACODYL 5 MG (DULCOLAX) TABLET PO SCH ×2 (08:45→20:48)
[2016-05-02] MEDS: MEMANTINE 5 MG (NAMENDA) TABLET PO SCH ×2 (08:45→20:48)
[2016-05-02] MEDS: VITAMIN D3 1,000 UNITS (CHOLECALCIFEROL) TABLET PO SCH (08:45)
[2016-05-02] MEDS: cefTRIAXone INJECTION 1,000 MG in NS (IVPB) 50 ML IV SCH (08:46)
[2016-05-02] MEDS ORDERED: POLYETHYLENE GLYCOL 17 GM (MIRALAX) PACK PO NR (09:15)
[2016-05-02] MEDS ORDERED: SENNA W/DOCUSATE (SENOKOT S) TABLET PO NR (09:15)
--- NOTE | 2016-05-02 09:17 | Progress Note (SOAP) ---
Subjective Subjective/Events-last exam PT IS AN 85 Y/O FEMALE WHO IS ADMITTED POST HIP FRACTURE. THIS MORNING THE PATIENT'S REPORTS NO BOWEL MOVEMENT YESTERDAY OR YET THIS MORNING. STAFF REPORTS THAT MRS. PLAZA HAS BEEN "CHOKING ON FLUIDS" - WHEN I ASKED HER ABOUT HIS HE REPORTS THAT IT HAS BEEN GOING ON FOR ABOUT A YEAR. Review of Systems General: Fatigue HEENT: No Head Aches Pulmonary: No Dyspnea Cardiovascular: No: Chest Pain Gastrointestinal: : ConstipationNo: Abdominal Pain, Nausea Musculoskeletal: : leg pain (MILD) Neurological: : Confusion (INTERMITTENT): Weakness Objective Exam Vital Signs Date Time Temp Pulse Resp B/P Pulse Ox O2 Delivery O2 Flow Rate FiO2 05/02/16 04:00 98.1 73 18 146/67 98 Nasal Cannula 2.00 05/02/16 04:00 98.4 102 16 138/68 97 Nasal Cannula 2.00 05/02/16 00:00 99.2 107 16 135/66 97 Nasal Cannula 2.00 05/01/16 21:00 Nasal Cannula 2.00 05/01/16 20:00 98.9 97 16 153/70 100 Nasal Cannula 2.00 05/01/16 16:00 98.6 97 16 104/56 96 Nasal Cannula 2.00 05/01/16 12:00 98.7 103 20 125/61 96 Nasal Cannula 2.00 I & O 05/02/16 07:00 Intake Total 887 ml Output Total 150 ml Balance 737 ml Capillary Refill : Less Than 3 SecondsLess Than 3 Seconds General Appearance: No Apparent Distress Thin HEENT: PERRL/EOMI Neck: Full Range of Motion Supple Respiratory: Chest Non Tender Lungs Clear Normal Breath Sounds Cardiovascular: Regular Rate, Rhythm Gastrointestinal: normal bowel sounds non tender soft Extremity: Pedal Edema (TRACE) Neurologic/Psychiatric: Alert 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 Other (ORIENTED TO PERSON, PLACE) Results Lab Laboratory Tests 05/01/16 12:55: Lab Scanned Report Transfusion Reaction Form 05/02/16 04:35: Hematocrit 26L, Hemoglobin 8.4L Microbiology 04/28/16 MRSA Screen - Final, Complete MRSA not isolated 04/30/16 Urine Culture - Preliminary, Resulted Escherichia Coli Assessment/Plan Assessment/Plan Assess & Plan/Chief Complaint LEFT HIP FRACTURE SURGERY WITH ORIF ON 04/29/16 POST-SURGICAL ANEMIA DEMENTIA URGE INCONTINENCE DEPRESSION DYSPHAGIA OF FLUIDS LEFT HIP FRACTURE SURGERY WITH ORIF ON 04/29/16 - CONTINUE WITH THERAPY - PAIN CONTROL - PLANNING ON RETIREMENT PLACEMENT FOR THERAPY - FAMILY DESIRES VIA [facility] FOR THERAPY - PLAN FOR DISCHARGE TO RETIREMENT ONCE HGB IS STABLE - HOPEFULLY ON 05/03/16. POST-SURGICAL ANEMIA - PT RECEIVED BLOOD SATURDAY MORNING - MONITOR HGB TODAY AT 1500 - MAY NEED ANOTHER UNIT OF BLOOD - AND IF STABLE - WILL DISCHARGE TO RETIREMENT SATURDAY. WILL STOP LOVENOX IT IS MOST LIKELY CONTRIBUTING TO HER ANEMIA DEMENTIA - PT TO CONTINUE WITH NAMENDA URGE INCONTINENCE - CONTINUE WITH ANTICHOLINERGIC . DEPRESSION - CONTINUE WITH CITALOPRAM. DYSPHAGIA - CONSULT SPEECH CONSTIPATION - SENNA AND MIRALAX TODAY Diagnosis/Problems: Clinical Quality Measures DVT/VTE Risk/Contraindication: Risk Factor Score Per Nursin RFS Level Per Nursing on Admit: 4+=Very High ASHLEY ORTIZ MD May 02, 2016 09:17
--- NOTE | 2016-05-02 10:37 | Physical Therapy Daily Note ---
PT Daily Note-Current Subjective Patient on bedside commode pre tx, will assist nursing with standing to get cleaned up and transferring into a chair. Pain Numeric Pain Scale: 4 Location: Left Location Body Site: Hip Appearance Patient in recliner post tx, has nurse call, family in the room, ST is coming in right after PT. Mental Status Patient Orientation: Confused Transfers Functional [place] Measure 0=Not Assessed/NA 4=Minimal Assistance 1=Total Assistance 5=Supervision or Setup 2=Maximal Assistance 6=Modified [place] 3=Moderate Assistance 7=Complete IndependenceIRFPAI Quality Coding Scale 6 Independent with activity with or without an assistive device 5 Patient requires set up or clean up by helper. Patient completes activity by themselves 4 Supervision or touching assist (CGA). [place] provide cues , steadying assist 3 The helper provides less than half the effort to complete the activity 2 The helper provides more than half the effort to complete the activity 1 Dependent. The helper does all the effort to complete an activity 7 Patient refused to complete or attempt activity 9 The patient did not perform the activity before the current illness or injury 88 Not attempted due to Medical conditions or safety concerns Transfers (B, C, W/C) (FIM): 2 Sit to/from Stand: 2 Bed to/from Chair: 2 Patient needs cues for safety and hand placement. Is resistant to movement, retropulsive. When standing patient bears too much weight on her left leg, she is aware of her precautions but not compliant. Weight Bearing Weight Bearing Restriction: Partial Weight Bearing Location Restriction: L LE Gait Training Gait (FIM): 1 Distance: 2' Gait Level of Assist: 2 Gait Persons Needed: 1 Gait Assistive Device: FWW Patient was able to go 2' sideways and then a couple of steps back to a chair. She never actually took a step but twisted her feet back and forth to get there. Exercises Seated Therapy Exercises: Ankle pumps, Long arc quads, Hip abd/add Seated Reps: 10 Treatments transfers, ambulation, functional strengthening Assessment Current Status: Fair Progress improved transfers but not compliant with WB status PT Short Term Goals Short Term Goals Time Frame: May 04, 2016 Transfers (B,C,W/C) (FIM): 2 PT Plan Problem List Problem List: Activity Tolerance, Functional Strength, Safety, Balance, Gait, Transfer, Bed Mobility, ROM Treatment/Plan Treatment Plan: Continue Plan of Care Treatment Plan: Bed Mobility, Education, Functional Activity Kendra, Functional Strength, Safety, Therapeutic Exercise, Transfers Treatment Duration: May 04, 2016 Visits Per Week: 5-11 Safety Risks/Education Patient Education: Gait Training, Transfer Techniques, Safety Issues Teaching Recipient: Patient Teaching Methods: Demonstration, Discussion Response to Teaching: Reinforcement Needed Time/GCodes Time In: 1010 Time Out: 1028 Total Billed Treatment Time: 18 Total Billed Treatment 1 visit FA 18 min DARNELL SAUCEDO PT May 02, 2016 10:37
--- NOTE | 2016-05-02 11:17 | ST Dysphagia Evaluation ---
Speech Evaluation-General Medical Diagnosis Left Hip Fracture Onset Date: Apr 27, 2016 Therapy Diagnosis Therapy Diagnosis: Moderate Pharyngeal Dysphagia Precautions Precautions: Aspiration Precautions/Isolations: Fall Prevention, Standard Precautions Referral Referring Physician: Dr. Felecia Scruggs Reason for Referral: Evaluation/Treatment Clinical Bedside Swallowing Evaluation Medical History Pertinent Medical History: Arthritis, CVA, Dementia, GERD, HTN, OA Anxiety, Depression Reviewed History: Yes Social History Current Living Status: Spouse Speech PLF/Current-Dysphagia Prior Level of Function Per patient's , the patient has been "coughing, choking, and throat clearing" on liquid consistencies for the past year. The patient denied any recent chest infections, including pneumonia. The patient is currently receiving a regular diet with thin liquids. Subjective The patient was recently admitted to [facility] following a left hip fracture. The patient (and , who was present for the evaluation) greeted the clinician appropriately and agreed to participate in the dysphagia evaluation on this date. 04/27/16: CXR: No acute cardiopulmonary findings. Cognitive Status Patient Orientation: Person, Place Oral Motor Skills Dentition: Natural Current Food Consistancy: Regular, Thin Liquids Ability to Follow Directions: Good Oral Expression Ability: Mild Impairment To note, the patient is hard of hearing and does require repetition of verbal conversation and elevated volume levels for comprehension. Voice Voice Phonatory-Based Quality: Breathy, Weak Voice Pitch: Mildly High Voice Loudness: Mildly Soft/Quiet Face Facial Symmetry: Symmetrical Oral-Facial Assessment Oral-Facial Dentition: Normal Labial Seal Description: Normal Smile: Normal Puff Cheeks: Normal Lingual Protrusion: Normal Lingual ROM: Normal Lingual Strength: Normal Pharynx Velopharyngeal Move.: Normal Volitional Dry Swallow: Yes Dysphagia Evaluation Consistencies Presented: Regular, Thin Liquid (Teaspoon), [place] Thick Liquid ( Teaspoon and Straw), Pureed Oral Phase: Oral Residue, Reduced Oral Transit 1. The patient demonstrated increased mastication time and mild lingual residue with solid consistencies tested. The patient was able to clear the lingual residue with a subsequent swallow of liquid consistency. Pharyngeal Phase: Multiple Swallow Attempts, Clears Throat, Reduced Laryngeal Elevation 1. The patient demonstrated reduced laryngeal elevation and multiple swallow attempts (two to three swallows per bolus). - Thin Liquid (via teaspoon): The patient demonstrated an immediate throat clear and coughing with teaspoons of thin liquid. Additionally, the patient's vocal quality became increasingly wet with thin liquid trials. - [place]-Thick Liquid: No signs/symptoms of aspiration were demonstrated with teaspoon or straw trials of nectar-thick liquids. The patient's vocal quality remained clear throughout trials of nectar-thick liquid. - Puree: No signs/symptoms of aspiration were demonstrated with puree consistencies tested. The patient's vocal quality remained clear throughout puree trials. - Solid: No signs/symptoms of aspiration were demonstrated with bites of saltine cracker. The patient's vocal quality remained clear. Dietary Recommendations: Regular Liquid Recommendations: [place] Consistancy Swallowing Precautions: Alternate Liquids/Solids, Oral Supervision Caregiver, Small Bites and Sips, Sitting 90 Degrees 30 Post Intake 1. Crush medication and place in puree for administration. Dysphagia Evaluation Summary The patient demonstrated moderate pharyngeal dysphagia characterized by decreased laryngeal elevation. Barriers to Learning Cognition Speech Short Term Goals Short Term Goals Short Term Goals 1. The patient will demonstrate swallowing strategies with 80% accuracy and mild clinician cueing. Time Frame-STG: Four Days Speech [place] Supervisor Goals [place] Supervisor Goals 1. The patient will tolerate the least restrictive diet without signs/symptoms of aspiration or laryngeal elevation. Time Frame: One Week Speech-Plan Treatment Plan Speech Therapy Treatment Plan: Continue Plan of Care Continue skilled speech services to focus on the patient's tolerance of recommended diet consistency without signs/symptoms of aspiration. Treatment Duration: May 09, 2016 # of days/week One to Three Visits Per Week: One to Three Minutes/Day (M-F): 20 Rehab Potential: Fair Safety Risks/Education Teaching Recipient: Patient, Significant Other Teaching Methods: Discussion Response to Teaching: Verbalize Understanding, Reinforcement Needed Education Topics Provided: Results, Signs/symptoms of aspiration, Purchasing of nectar-thick liquid, How to thicken liquids, Recommendations and swallowing strategies Time Speech Therapy Time In: 10:30 Speech Therapy Time Out: 10:50 Total Billed Time: 20 Billed Treatment Time 1 JOSH ANDERSON May 02, 2016 11:17
[2016-05-02 12:00] VITALS: BP 146/83
--- NOTE | 2016-05-02 15:53 | Physical Therapy Daily Note ---
PT Daily Note-Current Subjective Patient in bed pre tx, agrees to PT. Pain Numeric Pain Scale: 5-Moderate Pain Location: Left Location Body Site: Hip Appearance Patient in recliner with legs elevated, has nurse call, phone, tray, all needs met. is in the room, states he is going to order some food for her. Mental Status Patient Orientation: Person, Place, Situation Attachments: Oxygen Transfers Functional [place] Measure 0=Not Assessed/NA 4=Minimal Assistance 1=Total Assistance 5=Supervision or Setup 2=Maximal Assistance 6=Modified [place] 3=Moderate Assistance 7=Complete IndependenceIRFPAI Quality Coding Scale 6 Independent with activity with or without an assistive device 5 Patient requires set up or clean up by helper. Patient completes activity by themselves 4 Supervision or touching assist (CGA). [place] provide cues , steadying assist 3 The helper provides less than half the effort to complete the activity 2 The helper provides more than half the effort to complete the activity 1 Dependent. The helper does all the effort to complete an activity 7 Patient refused to complete or attempt activity 9 The patient did not perform the activity before the current illness or injury 88 Not attempted due to Medical conditions or safety concerns Transfers (B, C, W/C) (FIM): 2 Scootin Rollin Supine to/from Sit: 2 Sit to/from Stand: 4 Bed to/from Chair: 2 Patient needs max assist for bed mobility and transfers, she is able to stand with min assist. She is aware of her weight bearing status but not compliant. Gait Training Gait (FIM): 1 Distance: 2' Gait Level of Assist: 1 Gait Persons Needed: 1 Gait Assistive Device: FWW Patient took a few steps from the bed to the chair. Exercises Seated Therapy Exercises: Ankle pumps, Long arc quads, Hip abd/add Seated Reps: 20 Treatments 1 visit FA 15 min Assessment Current Status: Poor Progress No change in mobility, patient is not compliant with her weight bearing status. PT Short Term Goals Short Term Goals Time Frame: May 04, 2016 Transfers (B,C,W/C) (FIM): 2 PT Plan Problem List Problem List: Activity Tolerance, Functional Strength, Safety, Balance, Gait, Transfer, Bed Mobility, ROM Treatment/Plan Treatment Plan: Continue Plan of Care Treatment Plan: Bed Mobility, Education, Functional Activity Kendra, Functional Strength, Safety, Therapeutic Exercise, Transfers Treatment Duration: May 04, 2016 Visits Per Week: 5-11 Safety Risks/Education Patient Education: Gait Training, Transfer Techniques, Correct Positioning, Safety Issues Teaching Recipient: Patient Teaching Methods: Demonstration, Discussion Response to Teaching: Reinforcement Needed Time/GCodes Time In: 1525 Time Out: 1540 Total Billed Treatment Time: 15 Total Billed Treatment 1 visit FA 15 min DARNELL SAUCEDO PT May 02, 2016 15:53
[2016-05-02 16:00] VITALS: BP 129/66
[2016-05-02 20:00] VITALS: BP 137/62
[2016-05-02] MEDS: SENNA W/DOCUSATE (SENOKOT S) TABLET PO SCH (20:48)
[2016-05-02] MEDS: TROSPIUM 20 MG (SANCTURA) TAB PO SCH (20:48)
[2016-05-03] VITALS: BP 126/60
[2016-05-03] MEDS: MULTIVIT W/MINERALS TAB (THERAGRAN M) PO SCH (06:29)
--- NOTE | 2016-05-03 07:22 | Progress Note-Standard ---
Standard Progress Note Progress Notes/Assess & Plan Progress/Assessment & Plan Patient relatively comfortable Vital Signs Date Time Temp Pulse Resp B/P Pulse Ox O2 Delivery O2 Flow Rate FiO2 04/28/16 08:00 96.8 100 18 140/76 97 Room Air 04/28/16 04:00 98.2 104 22 140/76 96 Room Air 04/28/16 00:00 98.5 93 22 115/68 96 Room Air 04/27/16 19:05 97 Room Air 04/27/16 19:05 96.6 77 18 148/73 99 Room Air 04/27/16 18:51 98.0 77 18 98 04/27/16 16:59 98.0 78 16 139/81 96 Room Air I & O 04/28/16 07:00 Intake Total 210 ml Balance 210 ml Laboratory Tests Test 04/27/16 17:55 04/28/16 05:06 Range/Units Activated Partial Thromboplast Time 26 24-35 SEC Alanine Aminotransferase (ALT/SGPT) 11 10 0-55 U/L Albumin 3.6 3.7 3.2-4.5 G/DL Alkaline Phosphatase 55 57 40-136 U/L Anion Gap 11 12 5-14 MMOL/L Aspartate Amino Transf (AST/SGOT) 19 17 5-34 U/L BUN/Creatinine Ratio 28 33 Basophils # (Auto) 0.0 0.0 0.0-0.1 10^3/uL Basophils (%) (Auto) 0 0 0-10 % Blood Urea Nitrogen 23 H 29 H 7-18 MG/DL Calcium Level 9.0 8.9 8.5-10.1 MG/DL Carbon Dioxide Level 25 22 21-32 MMOL/L Chloride Level 102 104 98-107 MMOL/L Creatinine 0.81 0.87 0.60-1.30 MG/DL Eosinophils # (Auto) 0.2 0.0 0.0-0.3 10^3/uL Eosinophils (%) (Auto) 2 0 0-10 % Estimat Glomerular Filtration Rate > 60 > 60 Glucose Level 109 H 155 H 70-105 MG/DL Hematocrit 34 L 31 L 35-52 % Hemoglobin 11.1 L 10.4 L 11.5-16.0 G/DL INR Comment 1.2 0.8-1.4 Lymphocytes # (Auto) 1.4 0.7 L 1.0-4.0 X 10^3 Lymphocytes (%) (Auto) 15 8 L 12-44 % Mean Corpuscular Hemoglobin 31 32 25-34 PG Mean Corpuscular Hemoglobin Concent 33 34 32-36 G/DL Mean Corpuscular Volume 94 95 80-99 FL Mean Platelet Volume 11.2 H 11.7 H 7.4-10.4 FL Monocytes # (Auto) 0.5 0.7 0.0-1.0 X 10^3 Monocytes (%) (Auto) 5 8 0-12 % Neutrophils # (Auto) 7.7 8.5 H 1.8-7.8 X 10^3 Neutrophils (%) (Auto) 78 H 85 H 42-75 % Platelet Count 189 167 130-400 10^3/uL Potassium Level 4.1 4.2 3.6-5.0 MMOL/L Prothrombin Time 15.1 H 12.2-14.7 SEC Red Blood Count 3.55 L 3.25 L 4.35-5.85 10^6/uL Red Cell Distribution Width 13.7 13.7 10.0-14.5 % Sodium Level 138 138 135-145 MMOL/L Total Bilirubin 0.5 0.5 0.1-1.0 MG/DL Total Protein 6.0 L 5.4 L 6.4-8.2 G/DL White Blood Count 9.9 9.9 4.3-11.0 10^3/uL LLE--intact DF and PF of toes and ankle. Sensation intact throughout imp--L NOF and IT femur fracture Plan--to OR tomorrow for bipolar/ORIF Final Diagnosis Feeling better today. Denies hip paint Vital Signs Date Time Temp Pulse Resp B/P Pulse Ox O2 Delivery O2 Flow Rate FiO2 05/03/16 00:00 98.9 103 16 126/60 98 Room Air 2.00 05/02/16 21:00 Nasal Cannula 2.00 05/02/16 20:00 98.7 100 16 137/62 99 Room Air 2.00 2.00 05/02/16 16:00 98.4 101 20 129/66 99 Nasal Cannula 05/02/16 12:00 98.5 95 18 146/83 100 Nasal Cannula 2.00 05/02/16 09:53 2.00 05/02/16 08:00 98.8 99 16 126/70 99 Nasal Cannula 2.00 I & O 05/03/16 07:00 Intake Total 1140 ml Balance 1140 ml Laboratory Tests Test 05/02/16 14:55 Range/Units Hematocrit 29 L 35-52 % Hemoglobin 9.2 L 11.5-16.0 G/DL L hip incision clean and dry. No pain with passive flexion of hip . Neg Diane's No calf tenderness s/p L hip bipolar/ORIF mobilize DC when ok with KRISTIAN Blandon MD May 03, 2016 07:22
[2016-05-03 08:00] VITALS: BP 120/59
--- NOTE | 2016-05-03 08:37 | Physical Therapy Daily Note ---
PT Daily Note-Current Subjective Patient in bed pre tx, agrees to PT, has pain of 5/10 in left hip. Appearance Patient in recliner post tx, has nurse call, phone, tray, all needs met. in the room. Mental Status Patient Orientation: Person, Place, Situation Attachments: Oxygen Transfers Functional [place] Measure 0=Not Assessed/NA 4=Minimal Assistance 1=Total Assistance 5=Supervision or Setup 2=Maximal Assistance 6=Modified [place] 3=Moderate Assistance 7=Complete IndependenceIRFPAI Quality Coding Scale 6 Independent with activity with or without an assistive device 5 Patient requires set up or clean up by helper. Patient completes activity by themselves 4 Supervision or touching assist (CGA). [place] provide cues , steadying assist 3 The helper provides less than half the effort to complete the activity 2 The helper provides more than half the effort to complete the activity 1 Dependent. The helper does all the effort to complete an activity 7 Patient refused to complete or attempt activity 9 The patient did not perform the activity before the current illness or injury 88 Not attempted due to Medical conditions or safety concerns Transfers (B, C, W/C) (FIM): 2 Scootin Rollin Supine to/from Sit: 2 Sit to/from Stand: 4 Patient needs cues for safety and to use hands on bed when standing. Gait Training Gait (FIM): 1 Distance: 5' Gait Level of Assist: 3 Gait Persons Needed: 1 Gait Assistive Device: FWW Patient was able to take a few steps and was able to advance her left leg without assist. She continues to put too much weight through her left leg though. Exercises Supine Ex: Ankle pumps, Quad Set, Heel Slides, Short Arc Quads, Straight leg raise, Hip abd/add Supine Reps: 10 Treatments bed mobility and transfers, ambulation, functional strengthening Assessment Current Status: Fair Progress patient was able to ambulated and advance her left leg PT Short Term Goals Short Term Goals Time Frame: May 04, 2016 Transfers (B,C,W/C) (FIM): 2 PT Plan Problem List Problem List: Activity Tolerance, Functional Strength, Safety, Balance, Gait, Transfer, Bed Mobility, ROM Treatment/Plan Treatment Plan: Continue Plan of Care Treatment Plan: Bed Mobility, Education, Functional Activity Kendra, Functional Strength, Safety, Therapeutic Exercise, Transfers Treatment Duration: May 04, 2016 Visits Per Week: 5-11 Safety Risks/Education Patient Education: Gait Training, Transfer Techniques, Safety Issues Teaching Recipient: Patient Teaching Methods: Demonstration, Discussion Response to Teaching: Reinforcement Needed Time/GCodes Time In: 815 Time Out: 830 Total Billed Treatment Time: 15 Total Billed Treatment 1 visit GT 15 min DARNELL SAUCEDO PT May 03, 2016 08:37
[2016-05-03] MEDS ORDERED: FLEET ENEMA ADULT 1 EA BTL PR NR (09:00)
[2016-05-03] MEDS ORDERED: FERROUS SULFATE ORAL SOLN 8.8 MG/ML 1 ML PO SCH (09:00)
--- NOTE | 2016-05-03 09:24 | Progress Note (SOAP) ---
Subjective Subjective/Events-last exam pt improved from 's report - he states that latricia has been doing well, still fatigued, but improving, doing better with the thickened liquids, and still has not had a bowel movement. Review of Systems General: Fatigue HEENT: No Head Aches Pulmonary: No Dyspnea, No Cough Cardiovascular: No: Chest Pain Gastrointestinal: : ConstipationNo: Abdominal Pain, Nausea Genitourinary: Frequency Neurological: : Confusion: Weakness Objective Exam Vital Signs Date Time Temp Pulse Resp B/P Pulse Ox O2 Delivery O2 Flow Rate FiO2 05/03/16 08:00 98.6 95 16 120/59 92 Nasal Cannula 2.00 05/03/16 00:00 98.9 103 16 126/60 98 Room Air 2.00 05/02/16 21:00 Nasal Cannula 2.00 05/02/16 20:00 98.7 100 16 137/62 99 Room Air 2.00 2.00 05/02/16 16:00 98.4 101 20 129/66 99 Nasal Cannula 05/02/16 12:00 98.5 95 18 146/83 100 Nasal Cannula 2.00 05/02/16 09:53 2.00 I & O 05/03/16 07:00 Intake Total 1140 ml Balance 1140 ml Capillary Refill : Less Than 3 SecondsLess Than 3 Seconds General Appearance: No Apparent Distress WD/WN Thin HEENT: PERRL/EOMI Neck: Full Range of Motion Supple Respiratory: Chest Non Tender Lungs Clear Normal Breath Sounds No Accessory Muscle Use Cardiovascular: No Edema Irregularly Irregular Gastrointestinal: normal bowel sounds non tender soft Extremity: No Pedal Edema Neurologic/Psychiatric: Alert Other (oriented to person) Skin: Warm/Dry Lymphatic: No Adenopathy Results Lab Laboratory Tests 05/02/16 14:55: Hematocrit 29L, Hemoglobin 9.2L 05/03/16 07:30: Hematocrit 26L, Hemoglobin 8.2L Microbiology 04/28/16 MRSA Screen - Final, Complete MRSA not isolated 04/30/16 Urine Culture - Final, Complete Escherichia Coli Assessment/Plan Assessment/Plan Assess & Plan/Chief Complaint LEFT HIP FRACTURE SURGERY WITH ORIF ON 04/29/16 POST-SURGICAL ANEMIA DEMENTIA URGE INCONTINENCE DEPRESSION DYSPHAGIA OF FLUIDS LEFT HIP FRACTURE SURGERY WITH ORIF ON 04/29/16 - CONTINUE WITH THERAPY - PAIN CONTROL - PLANNING ON [facility] PLACEMENT FOR THERAPY - FAMILY DESIRES VIA [facility] FOR THERAPY - PLAN FOR DISCHARGE TO [facility]ARE [facility] HGB IS STABLE POST-SURGICAL ANEMIA - PT RECEIVED BLOOD SATURDAY MORNING - HGB LOW BUT STABLE - WILL DISCHARGE TO [facility] TODAY. DEMENTIA - PT TO CONTINUE WITH NAMENDA URGE INCONTINENCE - CONTINUE WITH ANTICHOLINERGIC . DEPRESSION - CONTINUE WITH CITALOPRAM. DYSPHAGIA - CONSULT SPEECH CONSTIPATION - SENNA AND MIRALAX TODAY Diagnosis/Problems: Clinical Quality Measures DVT/VTE Risk/Contraindication: Risk Factor Score Per Nursin RFS Level Per Nursing on Admit: 4+=Very High ASHLEY ORTIZ MD May 03, 2016 09:23
[2016-05-03] MEDS ORDERED: ACET325T49 PO (09:26)
[2016-05-03] MEDS ORDERED: FERR220S2 PO (09:26)
[2016-05-03] MEDS ORDERED: SENN-20 PO (09:26)
--- NOTE | 2016-05-03 09:28 | Discharge Inst-Skilled Nursing ---
Discharge Inst-Skilled NF Patient Instructions Patient Problems: DEMENTIA LEFT HIP FRACTURE DYSPHAGIA CONSTIPATION ANEMIA AFIB Consult/Follow Up/Orders Follow Up Appt.: 1 WEEK WITH DIANA 2 WKS WITH SOMMER NEEDS TO BE SEEN BY SPEECH THERAPY AT FACILITY Skilled NF Admit to: Via [facility] Certification ([facility]) I certify that SNF services are required to be given on an inpatient basis because of the above named patient's need for custodial care on a continuing basis for the conditions(s) for which he/she was receiving inpatient hospital services prior to his/her transfer to the [facility]. Intermediate Facility Order: Nursing Services, Handicraft Or Hobby Shop Manager-Evaluate & Treat, Physical Therapy-Evaluate & Treat, Speech Language-Evaluate & Treat Discharge Diet: Other Diet (THICKENED LIQUIDS - SEE SPEECH NOTE) Daily Activity as Tolerated: Yes ( PER DR. NOVOA'S ORDERS) New & Resume Previous Orders New & Resume Previous Orders Active Scripts Active Ferrous Sulfate 220 Mg/5 Ml Elixir 8.8 Mg PO BID WITH MEALS Senna-Time S Tablet (Sennosides/Docusate Sodium) 1 Each Tablet 1 Ea PO BID Acetaminophen 325 Mg Tablet 650 Mg PO Q4H PRN Tramadol HCl 50 Mg Tablet 50 Mg PO BID Reported Ducodyl (Bisacodyl) 5 Mg Tablet.dr 5 Mg PO HS PRN Namenda Xr (Memantine HCl) 21 Mg Cap.er.24h 21 Mg PO DAILY Aspirin 81 Mg Tab.chew 81 Mg PO DAILY Vesicare (Solifenacin Succinate) 10 Mg Tablet 10 Mg PO DAILY 30 Days Vitamin D-3 (Cholecalciferol (Vitamin D3)) 2,000 Unit Capsule 2,000 Unit PO DAILY Centrum Silver Tablet (Mu-Vits-Min Th/Lycopene/Lutein) 1 Each Tablet 1 Tab PO DAILY CeleXA TABLET (Citalopram Hydrobromide) 20 Mg Tab 20 Mg PO DAILY Xanax (Alprazolam) 0.5 Mg Tablet 0.5 Mg PO BID Ashley Scruggs May 03, 2016 09:26 Pneu Vac Indicated: Yes ASHLEY SCRUGGS MD May 03, 2016 09:28
[2016-05-03] MEDS: cefTRIAXone INJECTION 1,000 MG in NS (IVPB) 50 ML IV SCH (09:29)
[2016-05-03] MEDS: MEMANTINE 5 MG (NAMENDA) TABLET PO SCH (09:30)
[2016-05-03] MEDS: VITAMIN D3 1,000 UNITS (CHOLECALCIFEROL) TABLET PO SCH (09:30)
[2016-05-03] MEDS: ALPRAZolam 0.5 MG (XANAX) TAB PO SCH (09:30)
[2016-05-03] MEDS: BISACODYL 5 MG (DULCOLAX) TABLET PO SCH (09:30)
[2016-05-03] MEDS: SENNA W/DOCUSATE (SENOKOT S) TABLET PO SCH (09:30)
[2016-05-03 14:14] VITALS: BP 120/59
--- NOTE | 2016-05-04 13:22 | DISCHARGE SUMMARY ---
DATE OF ADMISSION: 04/27/2016 DATE OF DISCHARGE: 05/03/2016 DIAGNOSIS: 1. Left intertrochanteric femur fracture. 2. Left femoral neck fracture. 3. Postoperative anemia secondary to surgical blood loss. 4. Urinary tract infection. 5. Anxiety. 6. Hypertension. PROCEDURE: 1. Left hip bipolar replacement with internal fixation of the greater trochanter. 2. Transfusion packed red blood cells. HISTORY: The patient is an 85-year-old female who was admitted following a fall at home. She was found to have a complex fracture of the proximal femur. She lives with her at home and in order to maintain her independent status, the patient and her family elected to proceed with surgical intervention. She underwent internal fixation with bipolar replacement. Postoperatively, her hematocrit dropped to 18 and she received packed red blood cells, 3 units. Her hematocrit was stable at time of discharge. In addition, she is found to have by urine culture, E. coli and was started on Rocephin. At time discharge, her wound was clean and dry. She had no calf tenderness, negative Homans sign. She was progressing well with therapy. CONDITION AT DISCHARGE: Good. DISCHARGE ACTIVITIES: Partial weight-bearing left lower extremity. Follow-up in 2 weeks. DISCHARGE MEDICATIONS: Home medications and hydrocodone p.r.n. Job ID: [id number] Dictated Date: 05/03/2016 16:27:06 Review Analyst Date: 05/04/2016 13:17:40/fish
== END 2016-05-03 13:25 | DRG 470 ==
LOC: EDUNIT# 16:54 → ER 16:56 → 4TH 18:44
PROVIDERS: ADMIT Orthopaedic Surgery; ATTEND Family Medicine
PROC: 0QH904Z Insertion of Internal Fixation Device into Left Femoral Shaft, Open Approach (ICD-10-PCS; 2016-04-29)
PROC: 0SRS01A Replacement of Left Hip Joint, Femoral Surface with Metal Synthetic Substitute, Uncemented, Open Approach (ICD-10-PCS; principal; 2016-04-29 07:17)
DX: S72.142A Displaced intertrochanteric fracture of left femur, initial encounter for closed fracture (principal); S72.002A Fracture of unspecified part of neck of left femur, initial encounter for closed fracture; S00.93XA Contusion of unspecified part of head, initial encounter; D62 Acute posthemorrhagic anemia; N39.41 Urge incontinence; M19.91 Primary osteoarthritis, unspecified site; F03.90 Unspecified dementia, unspecified severity, without behavioral disturbance, psychotic disturbance, mood disturbance, and anxiety; F41.9 Anxiety disorder, unspecified; F32.9 Major depressive disorder, single episode, unspecified; R13.10 Dysphagia, unspecified; K59.00 Constipation, unspecified; Z86.73 Personal history of transient ischemic attack (TIA), and cerebral infarction without residual deficits; Z87.891 Personal history of nicotine dependence; W19.XXXA Unspecified fall, initial encounter; Y92.009 Unspecified place in unspecified non-institutional (private) residence as the place of occurrence of the external cause
CPT/HCPCS: 36415; 70450; 71010; 72170; 73502; 80053; 81000; 85014; 85018; 85025; 85610; 85730; 86850; 86900; 86901; 86920; 87081; 87088; 87186; 93005; 94664; 94760; 96374

== ENCOUNTER 2016-08-16 15:22 | Emergency (ER) | payer MEDICARE ==
[~2016-08-16] VITALS: Ht 157.5 cm; Wt 35.4 kg
[~2016-08-16 15:22] MED LIST changes: +ACET325T49 PO; +FERR220S2 PO; +SENN-20 PO; +[UNRECOGNIZED DRUG - CODE] PO
[2016-08-16] MEDS ORDERED: fentaNYL INJECTION 100 MCG/2 ML AMP ONE (16:44)
--- NOTE | 2016-08-16 16:56 | ED Abdominal Pain ---
General Chief Complaint: Abdominal/GI Problems Stated Complaint: STOMACH PAIN Nursing Triage Note: c/o diffuse abdomen pain starting this morning, denies N/V/D Sepsis Screen: No Definite Risk Source of Information: Patient, Family Exam Limitations: No Limitations History of Present Illness Time Seen By Provider: 16:52 Initial Comments The patient's an 86-year-old white female known to me. She presents with a complaint of severe abdominal pain. She relates this began late this morning. She had a bowel movement yesterday. She has not vomited. She has previously had an appendectomy and a cholecystectomy. Her weight is 78 pounds. There is no radiation of the pain. It is not positional related. Timing/Duration: 4-6 Hours Severity/Quality: Moderate Location: Generalized Abdomen Radiation: No Radiation Allergies and Home Medications Allergies Coded Allergies: Sulfa (Sulfonamide Antibiotics) (Verified Allergy, Unknown, 08/10/11) morphine (Verified Allergy, Unknown, 07/13/14) Nausea, vomiting and confusion pantoprazole sodium (Verified Allergy, Unknown, 08/10/11) codeine (Unverified Adverse Reaction, Severe, SEVERE N/V, 03/20/06) Home Medications Acetaminophen 325 Mg Tablet, 650 MG PO Q4H PRN for Mild Pain or Fever, #90 Prescribed by: ASHLEY SCRUGGS on 05/03/16925 Alprazolam 0.5 Mg Tablet, 0.5 MG PO BID, (Reported) Aspirin 81 Mg Tab.chew, 81 MG PO DAILY, (Reported) Bisacodyl 5 Mg Tablet.dr, 5 MG PO HS PRN for CONSTIPATION, (Reported) Cholecalciferol (Vitamin D3) 2,000 Unit Capsule, 2,000 UNIT PO DAILY, (Reported) Citalopram Hydrobromide 20 Mg Tab, 20 MG PO DAILY, (Reported) Ferrous Sulfate 220 Mg/5 Ml Elixir, 8.8 MG PO BID WITH MEALS, #300 Prescribed by: ASHLEY SCRUGGS on 05/03/16925 Memantine HCl 21 Mg Cap.er.24h, 21 MG PO DAILY, (Reported) Mu-Vits-Min Th/Lycopene/Lutein 1 Each Tablet, 1 TAB PO DAILY, (Reported) Sennosides/Docusate Sodium 1 Each Tablet, 1 EA PO BID, #60 Prescribed by: ASHLEY SCRUGGS on 05/03/16925 Solifenacin Succinate 10 Mg Tablet, 10 MG PO DAILY for 30 Days, (Reported) Tramadol HCl 50 Mg Tablet, 50 MG PO BID, #60 Ref 1 Prescribed by: PAUL HERNANDEZ on 04/27/162008 Review of Systems Constitutional: see HPI EENTM: No Symptoms Reported Respiratory: No Symptoms Reported Cardiovascular: No Symptoms Reported Gastrointestinal: See HPI, Abdominal Pain Genitourinary: No Symptoms Reported Musculoskeletal: no symptoms reported Skin: no symptoms reported Psychiatric/Neurological: No Symptoms Reported Endocrine: No Symptoms Reported Past Qavqiyz-Tmgqgd-Zqcybe Hx Patient Social History Alcohol Use: Denies Use Recreational Drug Use: No Former Smoker/When Quit: Sep 19, 1977 2nd Hand Smoke Exposure: No Recent Foreign Travel: No Contact w/Someone Who Travel: No Recent Infectious Disease Expo: No Recent Hopitalizations: No Immunizations Up To Date Tetanus Booster (TDap): More than 5yrs Date of Pneumonia Vaccine: July 13, 2010 Date of Influenza Vaccine: Dec 26, 2015 Seasonal Allergies Seasonal Allergies: No Surgeries HX Surgeries: Yes (right knee) Surgeries: Appendectomy, Gallbladder, Orthopedic Respiratory Hx Respiratory Disorders: No (HISTORY OF SMOKER "QUIT 50 YRS AGO") Cardiovascular Hx Cardiac Disorders: No Neurological Hx Neurological Disorders: Yes Neurological Disorders: TIA Reproductive System Hx Reproductive Disorders: No Sexually Transmitted Disease: No HIV/AIDS: No Female Reproductive Disorders: Denies Genitourinary Hx Genitourinary Disorders: Yes (INCONTINENCE) Genitourinary Disorders: Benign Prostatic Hyperpl Gastrointestinal Hx Gastrointestinal Disorders: Yes Gastrointestinal Disorders: Gastroesophageal Reflux, Gall Bladder Disease Musculoskeletal Hx Musculoskeletal Disorders: No (osteoarthritis, falls, fractures of r shoulder, r arm, fx in pelvis& spine) Musculoskeletal Disorders: Arthritis Endocrine Hx Endocrine Disorders: No HEENT HX ENT Disorders: Yes HEENT Disorders: Cataract Loss of Vision: Denies Hearing Impairment: Denies Cancer Hx Cancer: No Psychosocial Hx Psychiatric Problems: Yes (dementia) Behavioral Health Disorders: Anxiety, Depression Integumentary HX Skin/Integumentary Disorder: No Blood Transfusions Hx Blood Disorders: No Adverse Reaction to a Blood Tr: No Family Medical History Significant Family History: Cancer, Other Conditions/Hx Family Medial History: Alcoholism G8 BROTHER FH: throat cancer G8 BROTHER Parkinson's disease 19 FATHER Throat Throat Physical Exam Vital Signs VS - Last 72 Hours, by Label 08/16/16 16:07 Temp 97.9 Pulse 82 Resp 18 B/P (MAP) 146/93 Pulse Ox 99 Capillary Refill : Less Than 3 Seconds General Appearance: moderate distress HEENT: normal ENT inspection Neck: non-tender, full range of motion, supple, normal inspection Respiratory: chest non-tender, lungs clear, normal breath sounds, no respiratory distress, no accessory muscle use Cardiovascular: normal peripheral pulses, regular rate, rhythm, no edema, no gallop, no JVD, no murmur Gastrointestinal: other (the abdomen is flat. There is generalized tenderness to palpation. Bowel sounds are hypoactive) Extremities: other (muscle mass is very low. There is an ecchymosis noted over the distal fibula from a previous bruise) Back: normal inspection Neurologic/Psychiatric: depressed affect Skin: normal color, warm/dry Progress/Results/Core Measures Results/Orders Lab Results Laboratory Tests Test 08/16/16 16:40 Range/Units White Blood Count 5.6 4.3-11.0 10^3/uL Red Blood Count 4.36 4.35-5.85 10^6/uL Hemoglobin 13.1 11.5-16.0 G/DL Hematocrit 41 35-52 % Mean Corpuscular Volume 93 80-99 FL Mean Corpuscular Hemoglobin 30 25-34 PG Mean Corpuscular Hemoglobin Concent 32 32-36 G/DL Red Cell Distribution Width 15.1 H 10.0-14.5 % Platelet Count 201 130-400 10^3/uL Mean Platelet Volume 11.7 H 7.4-10.4 FL Neutrophils (%) (Auto) 57 42-75 % Lymphocytes (%) (Auto) 32 12-44 % Monocytes (%) (Auto) 7 0-12 % Eosinophils (%) (Auto) 4 0-10 % Basophils (%) (Auto) 1 0-10 % Neutrophils # (Auto) 3.2 1.8-7.8 X 10^3 Lymphocytes # (Auto) 1.8 1.0-4.0 X 10^3 Monocytes # (Auto) 0.4 0.0-1.0 X 10^3 Eosinophils # (Auto) 0.2 0.0-0.3 10^3/uL Basophils # (Auto) 0.0 0.0-0.1 10^3/uL Sodium Level 142 135-145 MMOL/L Potassium Level 3.6 3.6-5.0 MMOL/L Chloride Level 104 98-107 MMOL/L Carbon Dioxide Level 28 21-32 MMOL/L Anion Gap 10 5-14 MMOL/L Blood Urea Nitrogen 25 H 7-18 MG/DL Creatinine 0.80 0.60-1.30 MG/DL Estimat Glomerular Filtration Rate > 60 BUN/Creatinine Ratio 31 Glucose Level 86 70-105 MG/DL Calcium Level 10.1 8.5-10.1 MG/DL Total Bilirubin 0.4 0.1-1.0 MG/DL Aspartate Amino Transf (AST/SGOT) 17 5-34 U/L Alanine Aminotransferase (ALT/SGPT) 10 0-55 U/L Alkaline Phosphatase 67 40-136 U/L Total Protein 6.8 6.4-8.2 G/DL Albumin 4.0 3.2-4.5 G/DL Lipase 13 8-78 U/L My Orders Orders - THANH PILLAI MD Cbc With Automated Diff (08/16/16 16:40) Comprehensive Metabolic Panel (08/16/16 16:40) Lipase (08/16/16 16:40) Ua Culture If Indicated (08/16/16 16:40) Fentanyl Injection (Sublimaze Injection (08/16/16 17:00) Fentanyl Injection (Sublimaze Injection (08/16/16 16:44) Ct Abdomen/Pelvis Wo (08/16/16 16:51) Fentanyl Injection (Sublimaze Injection (08/16/16 17:15) Medications Given in ED Current Medications Medications Dose Ordered Sig/Blas Route Start Time Stop Time Status Last Admin Dose Admin Fentanyl Citrate 50 mcg ONCE ONCE IVP 08/16/16 17:00 08/16/16 17:01 DC 08/16/16 16:50 50 MCG Vital Signs/I&O Vital Sign - Last 12Hours 08/16/16 16:07 Temp 97.9 Pulse 82 Resp 18 B/P (MAP) 146/93 Pulse Ox 99 Blood Pressure Mean: 110 Departure Communication Progress Notes The patient's CT scan showed the appendix to be present despite my having been told that she had a previous appendectomy. As they had stated the gallbladder was absent. There was diverticulosis described without diverticulitis and no evidence of bowel obstruction. The patient was discussed with Dr. Scruggs and she suggested that we have him reduce the dose of appetite stimulant by one half. This is not a drug on his Impression Impression: Primary Impression: abdominal pain Disposition: HOME, SELF-CARE Condition: Improved Departure-Patient Inst. Decision time for Depature: 18:00 Referrals: ASHLEY SCRUGGS MD (PCP/Family) Primary Care Physician Patient Instructions: No Instuctions Given Add. Discharge Instructions: All discharge instructions reviewed with patient and/or family. Voiced understanding. Reduce the dose of your liquid appetite stimulant by one half. If not improved by Saturday Dr. Scruggs will see you in the office THANH PILLAI MD Aug 16, 2016 16:56
[2016-08-16] MEDS ORDERED: fentaNYL INJECTION 100 MCG/2 ML AMP IVP ONE ×2 (17:00→17:15)
[2016-08-16 17:07] LABS: BASOPHILS % (AUTO) 1 % (0-10); EOSINOPHILS # (AUTO) 0.2 10^3/uL (0.0-0.3); EOSINOPHILS % (AUTO) 4 % (0-10); LYMPHOCYTES # (AUTO) 1.8 X 10^3 (1.0-4.0); LYMPHOCYTES % (AUTO) 32 % (12-44); MEAN CORPUSCULAR HEMOGLOBIN 30 PG (25-34); MEAN CORPUSCULAR HGB CONC 32 G/DL (32-36); MEAN CORPUSCULAR VOLUME 93 FL (80-99); MEAN PLATELET VOLUME 11.7 FL (7.4-10.4); MONOCYTES # (AUTO) 0.4 X 10^3 (0.0-1.0); MONOCYTES % (AUTO) 7 % (0-12); NEUTROPHILS # (AUTO) 3.2 X 10^3 (1.8-7.8); NEUTROPHILS % (AUTO) 57 % (42-75); PLATELET COUNT 201 10^3/uL (130-400); RED BLOOD COUNT 4.36 10^6/uL (4.35-5.85); RED CELL DISTRIBUTION WIDTH 15.1 % (10.0-14.5); WHITE BLOOD COUNT 5.6 10^3/uL (4.3-11.0)
[2016-08-16 17:09] LABS: ALANINE AMINOTRANSFERASE 10 U/L (0-55); ANION GAP 10 MMOL/L (5-14); ASPARTATE AMINO TRANSFERASE 17 U/L (5-34); BILIRUBIN,TOTAL 0.4 MG/DL (0.1-1.0); BLOOD UREA NITROGEN 25 MG/DL (7-18); BUN/CREATININE RATIO 31; CALCIUM 10.1 MG/DL (8.5-10.1); CARBON DIOXIDE 28 MMOL/L (21-32); CHLORIDE 104 MMOL/L (98-107); GFR ESTIMATED > 60; GLUCOSE 86 MG/DL (70-105); LIPASE 13 U/L (8-78); POTASSIUM 3.6 MMOL/L (3.6-5.0); SODIUM 142 MMOL/L (135-145); TOTAL PROTEIN 6.8 G/DL (6.4-8.2)
--- NOTE | 2016-08-16 17:20 | Diagnostic Imaging Report ---
PROCEDURE: CT abdomen and pelvis without contrast. TECHNIQUE: Multiple contiguous axial images were obtained through the abdomen and pelvis without the use of intravenous contrast. INDICATION: Abdominal pain. Rule out appendicitis. FINDINGS: The lung bases show no infiltrates or masses. The stomach and small bowel are not distended. The colon shows normal stool and gas pattern. Terminal ileum is normal. The appendix is well visualized and appears normal. No appendicoliths. There is diffuse diverticulosis of the sigmoid colon without evidence of diverticulitis. There is a trace of free fluid in the pelvis. The uterus is not enlarged. There are no adnexal masses. The liver appears normal. Gallbladder is absent. Bile ducts are not dilated. Pancreas and spleen are normal. The adrenal glands appear normal. Kidneys appear normal without evidence of obstruction or calculi. There is very dense atherosclerotic disease of the aorta and abdominal vessels without evidence of aneurysm. There is no free air. IMPRESSION: 1. Appendix is well visualized and appears normal. 2. There is a trace of free fluid in the pelvis of indeterminate etiology. 3. There is rather marked diverticulosis of the sigmoid colon with no definite diverticulitis demonstrated. 4. Very dense atherosclerotic disease of the aorta. Dictated by: Dictated on workstation # [id number]
[2016-08-16] MEDS ORDERED: MEGE400O21 (18:02)
[2016-08-16 18:11] VITALS: BP 146/93
== END 2016-08-16 18:11 | disposition home or self-care (01) ==
LOC: EDUNIT# 15:22 → ER 15:24
DX: R10.84 Generalized abdominal pain (principal); K57.30 Diverticulosis of large intestine without perforation or abscess without bleeding; Z90.49 Acquired absence of other specified parts of digestive tract; K21.9 Gastro-esophageal reflux disease without esophagitis; N40.1 Benign prostatic hyperplasia with lower urinary tract symptoms; N39.498 Other specified urinary incontinence; Z86.73 Personal history of transient ischemic attack (TIA), and cerebral infarction without residual deficits
CPT/HCPCS: 36415; 74176; 80053; 83690; 85025; 99282

== ENCOUNTER 2017-03-05 12:06 | Inpatient (IN) | payer MEDICARE ==
[2017-03-05] VITALS (12 sets, daily range): BP systolic 101–164; BP diastolic 46–98
[~2017-03-05] VITALS: Ht 162.6 cm; Wt 37.4 kg
[~2017-03-05 12:06] MED LIST changes: -FERR220S2 PO; +FESO45ML PO; +MEGE400O21
[2017-03-05] MEDS ORDERED: fentaNYL INJECTION 100 MCG/2 ML AMP IVP STA ×2 (13:13→15:44)
[2017-03-05] MEDS ORDERED: IOHEXOL 350 MG/ML 100 ML (OMNIPAQUE 350) VIAL IV ONE (13:45)
[2017-03-05] MEDS ORDERED: NS 100 ML (IVPB) BAG IV ONE (13:45)
[2017-03-05 14:07] LABS: BASOPHILS % (AUTO) 0 % (0-10); EOSINOPHILS # (AUTO) 0.1 10^3/uL (0.0-0.3); EOSINOPHILS % (AUTO) 1 % (0-10); HEMATOCRIT 34 % (35-52); HEMOGLOBIN 11.2 G/DL (11.5-16.0); LYMPHOCYTES # (AUTO) 1.1 X 10^3 (1.0-4.0); LYMPHOCYTES % (AUTO) 12 % (12-44); MEAN CORPUSCULAR HEMOGLOBIN 33 PG (25-34); MEAN CORPUSCULAR HGB CONC 33 G/DL (32-36); MEAN CORPUSCULAR VOLUME 98 FL (80-99); MEAN PLATELET VOLUME 11.7 FL (7.4-10.4); MONOCYTES # (AUTO) 0.9 X 10^3 (0.0-1.0); MONOCYTES % (AUTO) 10 % (0-12); NEUTROPHILS # (AUTO) 6.7 X 10^3 (1.8-7.8); NEUTROPHILS % (AUTO) 77 % (42-75); PLATELET COUNT 162 10^3/uL (130-400); RED BLOOD COUNT 3.45 10^6/uL (4.35-5.85); WHITE BLOOD COUNT 8.7 10^3/uL (4.3-11.0)
[2017-03-05 14:20] LABS: INR 1.1 (0.8-1.4); PROTHROMBIN TIME PATIENT 13.9 SEC (12.2-14.7)
[2017-03-05 14:28] LABS: ALANINE AMINOTRANSFERASE 14 U/L (0-55); ALBUMIN 3.6 GM/DL (3.2-4.5); ALKALINE PHOSPHATASE 52 U/L (40-136); BILIRUBIN,TOTAL 0.6 MG/DL (0.1-1.0); BUN/CREATININE RATIO 31; CALCIUM 9.5 MG/DL (8.5-10.1); CARBON DIOXIDE 26 MMOL/L (21-32); CHLORIDE 104 MMOL/L (98-107); CREATININE SERUM 0.78 MG/DL (0.60-1.30); GFR ESTIMATED > 60; GLUCOSE 105 MG/DL (70-105); POTASSIUM 3.4 MMOL/L (3.6-5.0); SODIUM 143 MMOL/L (135-145); TOTAL PROTEIN 6.2 GM/DL (6.4-8.2)
--- NOTE | 2017-03-05 14:40 | Diagnostic Imaging Report ---
EXAMINATION: Supine AP view of the chest. INDICATION: Unwitnessed fall. FINDINGS: There is soft tissue air seen in the right chest wall area and suggestion of a tiny apical right pneumothorax. There are rib fractures seen in the mid and lower right ribs laterally. The right lung demonstrates minimal atelectasis or contusion along the lateral mid lung zone. The left lung appears clear. The heart size is normal. No significant effusion. Kyphoplasty changes in the mid and lower thoracic spine seen. IMPRESSION: Lateral mid and lower right rib fractures with adjacent minimal lateral mid right lung opacity suggestive of contusion. Suggestion of a tiny right apical pneumothorax. Dr. Solares is notified of these findings, and she ordered a CT scan, pending. Dictated by: Dictated on workstation # [id number]
--- NOTE | 2017-03-05 14:42 | Diagnostic Imaging Report ---
AP view of the pelvis. INDICATION: Injury. FINDINGS: There is left hip replacement. Degenerative sclerotic changes in the SI joints is seen. Mild degenerative changes of the symphysis pubis noted. No fracture seen. Calcifications of the pelvis compatible with phleboliths seen. IMPRESSION: No fracture seen. Dictated by: Dictated on workstation # [id number]
--- NOTE | 2017-03-05 14:43 | Diagnostic Imaging Report ---
PROCEDURE: CT head and CT cervical spine without contrast. TECHNIQUE: Multiple contiguous axial images were obtained through the brain and cervical spine without the use of intravenous contrast. Sagittal and coronal reformations through the cervical spine were then performed. INDICATION: Fall. FINDINGS: CT HEAD: There is no intracranial hemorrhage, edema, or mass effect. The brain parenchyma demonstrates extensive white matter hypodensities compatible with chronic microvascular ischemic changes. 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 There is no hydrocephalus. No extra-axial fluid collection is seen. The calvarium, the paranasal sinuses, and the orbits appear grossly unremarkable. CT CERVICAL SPINE: There is straightening of the lordotic curvature. The vertebral body heights are preserved. There is significant disc height loss at C4/5, C5/6, and C6/7 levels. The alignment of the facet joints is satisfactory. Multilevel posterior osteophytes are seen. No fracture is seen. There is a tiny apical right pneumothorax. IMPRESSION: CT HEAD: No intracranial hemorrhage. CT CERVICAL SPINE: Advanced degenerative changes. No fracture. Tiny apical right pneumothorax. Dictated by: Dictated on workstation # [id number]
--- NOTE | 2017-03-05 14:45 | Diagnostic Imaging Report ---
Two views of the left humerus. INDICATION: Injury. FINDINGS: There is an impacted fracture of the left humerus neck. When compared to 09/26/2015, acute fracture is seen at this time. This is chronic with partial healing suggested. No definitive acute fracture component is seen at this time. No radiopaque foreign body. IMPRESSION: Old fracture in the left humerus neck with impaction and partial healing suggested. No definite acute component. Dictated by: Dictated on workstation # [id number]
--- NOTE | 2017-03-05 15:09 | Diagnostic Imaging Report ---
Two views of the right humerus. INDICATION: Injury. FINDINGS: There is an old fracture with internal fixation with plate and screws are seen in the right humerus and significant deformity. The fracture is healed, however, with no evidence of an acute fractures. The proximal and distal joints appear grossly unremarkable. Soft tissue calcifications around the fracture sites are probably related to old injury. IMPRESSION: Old fractures with the significant deformity. No acute fracture is seen. Dictated by: Dictated on workstation # [id number]
--- NOTE | 2017-03-05 15:12 | Diagnostic Imaging Report ---
PROCEDURE: CT chest, abdomen, and pelvis with contrast. TECHNIQUE: Multiple contiguous axial images were obtained through the chest, abdomen, and pelvis after the administration of intravenous contrast. INDICATION: Fall. 100 mL of Omnipaque 350 is administered intravenously. FINDINGS: CT CHEST: There is a small right pleural effusion. There is mild right basilar and right lower lobe atelectasis. There is a 5% pneumothorax. There is significant soft tissue air along the right chest wall. Multiple posterior and lateral rib fractures involving the sixth, seventh, and eighth right ribs with minimal displacement are seen. Displaced ninth rib fracture posteriorly with 5 mm displacement is seen. Old rib fractures of the 11th and 12th right ribs are noted. The left lung demonstrates no significant consolidation or pneumothorax. No effusion. The heart size is normal. The thoracic aorta demonstrates normal opacification. There is no dissection flap or pseudoaneurysm seen. No mediastinal hematoma. No mediastinal mass or lymphadenopathy. No axillary lymphadenopathy. A partially healed old fracture of the left humerus neck with impaction is seen. Old fracture with internal fixation hardware in the right humerus is seen. There is significant beam hardening artifact seen from left shoulder replacement. The uterus and adnexa appear grossly unremarkable. There is diverticulosis. No diverticulitis. Atherosclerotic calcifications along the abdominal aorta are seen with no evidence of hematoma and no lymphadenopathy. Scoliosis in the lumbar spine convex to the left is seen with prominent disc degenerative changes. IMPRESSION: CT CHEST: 1. There is a 5% right pneumothorax. 2. Right 6-10th rib fractures with mild displacement. Prominent soft tissue air along the right chest wall. CT ABDOMEN AND PELVIS: No solid organ injury or hematoma in the abdomen or pelvis. Dr. Solares was notified of the small right pneumothorax and right rib fractures. Dictated by: Dictated on workstation # [id number]
--- NOTE | 2017-03-05 15:32 | Diagnostic Imaging Report ---
CLINICAL INDICATION: Patient is status post fall with right-sided back pain. EXAM: Axial CT scan of the thoracic and lumbar spine performed without IV contrast. Sagittal and coronal reformations were performed. Bone and soft tissue windows were created. COMPARISON: X-ray of the thoracic spine dated 10/12/2014. MRI of the lumbar spine dated 05/01/2013. MRI of the thoracic spine dated 05/04/2013. FINDINGS: There is no definite acute thoracic or lumbar spine fracture or dislocation. There is interval development of chronic-appearing Schmorl's node involving the inferior endplate of the L1 vertebral body. There is interval vertebral body augmentation of the T12 compression fracture deformity. There is stable anterior wedge compression deformity of the upper endplate of the L1 vertebral body. There is stable chronic compression deformity of the upper endplate of the T11 vertebral body. There is interval vertebral body augmentation of the mild compression deformity of the T9 vertebral body. There is chronic-appearing anterior wedge compression deformity of the T8 vertebral body which has slightly progressed in the interim. There are stable mild chronic concave compression deformities of the upper endplates of the T7 vertebral body and T5 vertebral bodies. There are degenerative spurs involving the thoracic and lumbar spine and lower lumbar spine facet arthropathy. Stable grade 1 anterolisthesis of L4 on L5. There is progression of severe degenerative disease at the L5-S1 level. There is a hynsx-jy-jxnvhggl-sized right pneumothorax. There is a fxeia-xv-vmchcfgq-sized right pleural effusion and right basilar consolidation. There is a displaced fracture involving the posterior aspects of the right T9 and T10 ribs. Extrathoracic air involving the right hemithorax soft tissue is seen. IMPRESSION: 1: There are displaced fractures involving the right T9 and T10 ribs. There is a hezkx-ur-jjuxqycw-sized right pneumothorax, right pleural effusion, and partial consolidation in the right lower lobe. Subcutaneous air in the right extrathoracic soft tissue is seen. 2: There is no definite acute fracture of the thoracic or lumbar spine. 3: There is interval vertebral body augmentation of the compression fracture deformities involving the T9 and T12 vertebral bodies. 4: The remainder of the thoracic and lumbar spine shows chronic compression deformities and multilevel thoracic and lumbar spine degenerative disease. Results of this report were discussed with Dr. Ariadna Solares via the telephone on 03/05/2017 at 1515 hours. Dictated by: Dictated on workstation # [id number]
--- NOTE | 2017-03-05 15:58 | ED Fall/Injury ---
General Chief Complaint: Back Problems Stated Complaint: FALL, R BACK PAIN Nursing Triage Note: TO ROOM PER W/C C/O R SIDE BACK PAIN. REPORTS FINDING HER ON HER BACK. Source: patient (VERY LIMITED HISTORIAN--VERY POOR MEMORY AND HAS NO RECOLLECTION OF THE EVENT), spouse (DOES MOST OF TALKING FOR PATIENT) History of Present Illness Time seen by provider: 13:00 Initial Comments PT ARRIVES VIA POV FROM HOME PT FELL IN THE BATHROOM AT 0300 THIS AM. PT DOES NOT RECALL EVENT. HEARD HER YELLING FROM THE BATHROOM FLOOR, BUT DID NOT SEE OR HEAR HER FALL PT HAS HISTORY OF FREQUENT FALLS, AND HAS MULTIPLE FRACTURES DUE TO FALLING. PT IS SUPPOSED TO USE A WALKER, BUT DOES NOT USE IT WHEN SHE GOES TO THE BATHROOM C/O PAIN TO RIGHT RIB AREA, AND RIGHT UPPER ARM HAS HISTORY OF RIGHT HUMERUS FX WITH HARDWARE PLACEMENT PT ALSO HAS HISTORY OF LEFT HUMERUS FRACTURE--NO SURGERY PT HAS HAD LEFT HIP FX/PINNING PT HAS HAD LEFT TOTAL KNEE REPLACEMENT PT HAS HAD COMPRESSION FRACTURES AND HAS HAD VERTEBROPLASTY PT DENIES HEAD PAIN DENIES NECK PAIN DENIES HIP PAIN OR KNEE PAIN NO DIZZINESS NO NAUSEA/VOMITING NO SHORTNESS OF BREATH, JUST HURTS TO TAKE A DEEP BREATH OR SNEEZE OR COUGH PCP: DR. ORTIZ Allergies and Home Medications Allergies Coded Allergies: Sulfa (Sulfonamide Antibiotics) (Verified Allergy, Unknown, 08/10/11) morphine (Verified Allergy, Unknown, 07/13/14) Nausea, vomiting and confusion pantoprazole sodium (Verified Allergy, Unknown, 08/10/11) codeine (Unverified Adverse Reaction, Severe, SEVERE N/V, 03/20/06) Home Medications Alprazolam 0.5 Mg Tablet, 0.5 MG PO BID, (Reported) Aspirin 81 Mg Tab.chew, 81 MG PO DAILY, (Reported) Cholecalciferol (Vitamin D3) 2,000 Unit Capsule, 2,000 UNIT PO DAILY, (Reported) Citalopram Hydrobromide 10 Mg Tablet, 10 MG PO DAILY, (Reported) Memantine HCl 21 Mg Cap.er.24h, 21 MG PO DAILY, (Reported) Multivitamin 1 Each Tab.chew, 1 TAB PO BID, (Reported) Solifenacin Succinate 10 Mg Tablet, 10 MG PO DAILY, (Reported) Tramadol HCl 50 Mg Tablet, 25 MG PO BID PRN for PAIN-MODERATE, (Reported) TAKES 1/2 OF A (50 MG) TABLET Constitutional: no symptoms reported Eyes: No Symptoms Reported Ears, Nose, Mouth, Throat: no symptoms reported Respiratory: no symptoms reported Cardiovascular: no symptoms reported Gastrointestinal: no symptoms reported Genitourinary: no symptoms reported Musculoskeletal: see HPI Skin: no symptoms reported Psychiatric/Neurological: No Symptoms Reported (? DEMENTIA ? ), Denies Headache , Denies Numbness, Denies Paresthesia Past Dywrshc-Fpmgmy-Azqrab Hx Patient Social History Alcohol Use: Denies Use Recreational Drug Use: No Smoking Status: Never a Smoker Former Smoker, Quit: Apr 28, 1964 2nd Hand Smoke Exposure: No Recent Foreign Travel: No Contact w/Someone Who Travel: No Recent Infectious Disease Expo: No Recent Hopitalizations: No Immunizations Up To Date Tetanus Booster (TDap): More than 5yrs Date of Pneumonia Vaccine: July 13, 2010 Date of Influenza Vaccine: Dec 26, 2015 Seasonal Allergies Seasonal Allergies: No Surgeries History of Surgeries: Yes (LEFT HIP FX/ORIF; RIGHT HUMERUS FX/ORIF; RIGHT TOTAL KNEE REPLACEMENT; VERTEBROPLASTY) Surgeries: Appendectomy, Gallbladder, Joint Replacement, Orthopedic Respiratory History of Respiratory Disorde: No Currently Using CPAP: No Currently Using BIPAP: No Cardiovascular History of Cardiac Disorders: No Neurological History of Neurological Disord: Yes Neurological Disorders: Dementia, TIA Reproductive System Hx Reproductive Disorders: No Sexually Transmitted Disease: No HIV/AIDS: No Female Reproductive Disorders: Denies Genitourinary History of Genitourinary Disor: Yes (INCONTINENCE.) Genitourinary Disorders: Bladder Infection Gastrointestinal History of Gastrointestinal Di: Yes Gastrointestinal Disorders: Gastroesophageal Reflux, Gall Bladder Disease Musculoskeletal History of Musculoskeletal Dis: Yes (MULTIPLE FRACTURES-RIGHT HUMERUS/ORIF; LEFT HUMERUS-NO SURGERY; LEFT HIP/ORIF; VERTEBROPLASTY; RIGHT TOTAL KNEE REPLACEMENT) Musculoskeletal Disorders: Osteoporosis, Arthritis, Fractures Endocrine History of Endocrine Disorders: No HEENT History of HEENT Disorders: Yes HEENT Disorders: Cataract Loss of Vision: Denies Hearing Impairment: Denies Cancer History of Cancer: No Psychosocial History of Psychiatric Problem: Yes Behavioral Health Disorders: Anxiety, Depression Integumentary History of Skin or Integumenta: No Blood Transfusions History of Blood Disorders: No Adverse Reaction to a Blood Tr: No Family Medical History Significant Family History: Cancer, Other Conditions/Hx Family Medial History: Alcoholism G8 BROTHER FH: throat cancer G8 BROTHER Parkinson's disease 19 FATHER Throat Throat Physical Exam Vital Signs Vital Sign - Last 12Hours 03/05/17 12:25 Temp 98.0 Pulse 93 Resp 18 B/P (MAP) 133/86 (102) Capillary Refill : Less Than 3 Seconds General Appearance: WD/WN, no apparent distress, cachetic, thin, other ( WEARING HEAVY LIPSTICK AND EYE SHADOW; ) HEENT: PERRL/EOMI, normal ENT inspection, TMs normal, pharynx normal, other ( NO EXTERNAL EVIDENCE OF TRAUMA TO HEAD) Neck: tender lateral, tender midline Cardiovascular: normal peripheral pulses, regular rate, rhythm, no JVD, systolic murmur (2-3/6) Respiratory: normal breath sounds, no respiratory distress, no accessory muscle use, other (TENDERNESS TO RIGHT ANTERIOR/LATERAL/POSTERIOR RIBS/CHEST WALL, WITH CREPITANCE AND SUB Q AIR. ) Gastrointestinal: normal bowel sounds, non tender, soft, no organomegaly, no pulsatile mass Back: CVA tenderness (R), vertebral tenderness Extremities: no pedal edema, no calf tenderness, normal capillary refill, other (TENDERNESS TO RIGHT HUMERUS. POST OP CHANGES. 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 DISORIENTED TO TIME.POOR MEMORY) Skin: normal color, warm/dry, No ecchymosis, other (NO EXTERNAL EVIDENCE OF TRAUMA ) [place] Coma Score Best Eye Response: (4) Open Spontaneously Best Verbal Response: (5) Oriented (AT NORMAL BASELINE) Best Motor Response: (6) Obeys Commands Progress/Results/Core Measures Results/Orders Lab Results Laboratory Tests Test 03/05/17 14:01 Range/Units White Blood Count 8.7 4.3-11.0 10^3/uL Red Blood Count 3.45 L 4.35-5.85 10^6/uL Hemoglobin 11.2 L 11.5-16.0 G/DL Hematocrit 34 L 35-52 % Mean Corpuscular Volume 98 80-99 FL Mean Corpuscular Hemoglobin 33 25-34 PG Mean Corpuscular Hemoglobin Concent 33 32-36 G/DL Red Cell Distribution Width 14.0 10.0-14.5 % Platelet Count 162 130-400 10^3/uL Mean Platelet Volume 11.7 H 7.4-10.4 FL Neutrophils (%) (Auto) 77 H 42-75 % Lymphocytes (%) (Auto) 12 12-44 % Monocytes (%) (Auto) 10 0-12 % Eosinophils (%) (Auto) 1 0-10 % Basophils (%) (Auto) 0 0-10 % Neutrophils # (Auto) 6.7 1.8-7.8 X 10^3 Lymphocytes # (Auto) 1.1 1.0-4.0 X 10^3 Monocytes # (Auto) 0.9 0.0-1.0 X 10^3 Eosinophils # (Auto) 0.1 0.0-0.3 10^3/uL Basophils # (Auto) 0.0 0.0-0.1 10^3/uL Prothrombin Time 13.9 12.2-14.7 SEC INR Comment 1.1 0.8-1.4 Activated Partial Thromboplast Time 26 24-35 SEC Sodium Level 143 135-145 MMOL/L Potassium Level 3.4 L 3.6-5.0 MMOL/L Chloride Level 104 98-107 MMOL/L Carbon Dioxide Level 26 21-32 MMOL/L Anion Gap 13 5-14 MMOL/L Blood Urea Nitrogen 24 H 7-18 MG/DL Creatinine 0.78 0.60-1.30 MG/DL Estimat Glomerular Filtration Rate > 60 BUN/Creatinine Ratio 31 Glucose Level 105 70-105 MG/DL Calcium Level 9.5 8.5-10.1 MG/DL Total Bilirubin 0.6 0.1-1.0 MG/DL Aspartate Amino Transf (AST/SGOT) 24 5-34 U/L Alanine Aminotransferase (ALT/SGPT) 14 0-55 U/L Alkaline Phosphatase 52 40-136 U/L Total Protein 6.2 L 6.4-8.2 GM/DL Albumin 3.6 3.2-4.5 GM/DL My Orders Orders - MIRI WHITEHEAD DO Saline Lock/Iv-Start (03/05/17 13:13) Monitor-Rhythm Ecg Trace Only (03/05/17 13:13) Ct Head/Cervical Spine Wo (03/05/17 13:13) Ct Thoracic/Lumbar Spine Wo (03/05/17 13:13) Cbc With Automated Diff (03/05/17 13:13) Comprehensive Metabolic Panel (03/05/17 13:13) Protime With Inr (03/05/17 13:13) Partial Thromboplastin Time (03/05/17 13:13) Chest 1 View, Ap/Pa Only (03/05/17 13:13) Humerus, Left, 2 Views (03/05/17 13:13) Pelvis (03/05/17 13:13) Fentanyl Injection (Sublimaze Injection (03/05/17 13:13) Ua Culture If Indicated (03/05/17 13:17) Iohexol Injection (Omnipaque 350 Mg/Ml 1 (03/05/17 13:45) Ns (Ivpb) (Sodium Chloride 0.9% Ivpb Bag (03/05/17 13:45) Humerus, Right, 2 Views (03/05/17 14:27) Ct Chest/Abdomen/Pelvis W (03/05/17 ) Medications Given in ED Current Medications Medications Dose Ordered Sig/Blas Route Start Time Stop Time Status Last Admin Dose Admin Iohexol 100 ml ONCE ONCE IV 03/05/17 13:45 03/05/17 13:46 DC 03/05/17 14:29 100 ML Sodium Chloride 100 ml ONCE ONCE IV 03/05/17 13:45 03/05/17 13:46 DC 03/05/17 14:29 80 ML Vital Signs/I&O Vital Sign - Last 12Hours 03/05/17 12:25 Temp 98.0 Pulse 93 Resp 18 B/P (MAP) 133/86 (102) Blood Pressure Mean: 102 Progress Note : Progress Note UNEVENTFUL ER STAY Diagnostic Imaging Comments CT THORACIC/LUMBAR SPINE--SMALL RIGHT PNEUMOTHORAX, DISPLACED RIGHT RIB FRACTURES--PER RADIOLOGIST VIA PHONE AT 1515 CT HEAD/CERVICAL SPINE--SMALL RIGHT PNEUMOTHORAX, NO ACUTE INTRACRANIAL INJURY, CHRONIC CHANGES OF HEAD AND CERVICAL SPINE CXR--RIGHT RIB FRACTURES AND PNEUMOTHORAX LEFT HUMERUS--OLD HEALING FRACTURE OF PROXIMAL HUMERUS RIGHT HUMERUS--NO ACUTE PROCESS, HARDWARE IN PLACE, OLD FRACTURES CT CHEST/ABDOMEN/PELVIS--5% RIGHT PNEUMOTHORAX, FRACTURES RIGHT RIBS 6 THROUGH 9 WITH SOME DISPLACEMENT. PELVIS XRAY--NO ACUTE PROCESS, HARDWARE IN PLACE PER RADIOLOGIST REPORTS AT 1520 Reviewed: Reviewed by Me, Discussed w/Radiologist Departure Communication (Admissions) Progress Notes 152--ATTEMPTING TO CONTACT DR. PENA, TRAUMA SURGEON CUSTOMER OPERATIONS REPRESENTATIVE. MESSAGE LEFT ON CELL PHONE. NO ANSWER AT OFFICE. 152--SPOKE WITH DR. ADWOA MÉNDEZ, CUSTOMER OPERATIONS REPRESENTATIVE FOR DR. ORTIZ. WILL SEE PT IN CONSULT 153--ATTEMPTING TO CONTACT DR. PENA AGAIN. NO ANSWER ON CELL PHONE 153--SPOKE WITH DR. PENA, ACCEPTS PT FOR ADMIT. HE ADVISES ADMIT TO ICU, PULMONOLOGY CONSULT AND ANESTHESIA CONSULT FOR POSSIBLE EPIDURAL PLACEMENT. OTHER ORDERS NOTED. Impression Impression: Primary Impression: Status post fall Additional Impressions: MULTIPLE RIGHT RIB FRACTURES RIGHT PNEUMOTHORAX-5% Contusion of right arm Disposition: ADMITTED INPATIENT Condition: Stable Admissions Decision to Admit Reason: Admit from ER (Trauma) Decision to Admit/Date: Mar 05, 2017 Time/Decision to Admit Time: 15:30 Departure-Patient Inst. Referrals: ASHLEY ORTIZ MD (PCP/Family) Primary Care Physician MIRI WHITEHEAD DO Mar 05, 2017 15:58
[2017-03-05] MEDS ORDERED: fentaNYL INJECTION 100 MCG/2 ML AMP IV PRN (17:00)
[2017-03-05] MEDS ORDERED: 1/2 NS IV SOLUTION 1,000 ML IV SCH (17:00)
[2017-03-05] MEDS ORDERED: INFLUENZA TRIvalent 2017-2018 0.5 ML/45 MCG SYR IM ONE (17:00)
[2017-03-05] MEDS ORDERED: ALPR0.5T7 PO (17:07)
[2017-03-05] MEDS ORDERED: CITA10TA7 PO (17:07)
[2017-03-05] MEDS ORDERED: TRAM50TA2 PO (17:07)
[2017-03-05] MEDS ORDERED: CHOL20003 PO (17:19)
[2017-03-05] MEDS ORDERED: MULT-228 PO (17:19)
[2017-03-05] MEDS ORDERED: RT-ALBUTEROL SULF 2.5 MG/3 ML PRE-MIX VIAL INH PRN (17:30)
[2017-03-05] MEDS ORDERED: SUFENTA 0.6MCG/ML BUPIVA 0.125 100 ML ONE (17:53)
--- NOTE | 2017-03-05 18:07 | Diagnostic Imaging Report ---
INDICATION: Fall. FINDINGS: There is cardiomegaly. There is some right basilar atelectasis and/or pneumonitis. There is a small right apical pneumothorax. There is some subcutaneous emphysema about the right chest wall. There appear to be fractures of the right sixth and seventh ribs laterally. IMPRESSION: Small right apical pneumothorax. Fractures of the right sixth and seventh ribs laterally. Right basilar atelectasis and/or pneumonitis. Moderate subcutaneous emphysema about the right chest wall. Dictated by: Dictated on workstation # [id number]
[2017-03-05] MEDS: RT-ALBUTEROL SULF 2.5 MG/3 ML PRE-MIX VIAL INH SCH (18:25)
[2017-03-05] MEDS ORDERED: LACTATED RINGERS 1,000 ML IV ONE (18:39)
[2017-03-05] MEDS ORDERED: NALOXONE 0.4 MG/ML 1 ML (NARCAN) VIAL IV PRN ×2 (18:45)
[2017-03-05] MEDS ORDERED: diphenhydrAMINE 50 MG/ML INJ (BENADRYL) IV PRN (18:45)
[2017-03-05] MEDS ORDERED: EPIDURAL (SUFENTANIL 1 MCG/ML BUPIVACAINE 0.1%) 100 ML EP PRN (18:45)
[2017-03-05] MEDS ORDERED: METOCLOPRAMIDE INJ 10 MG/2 ML (REGLAN) IV PRN (18:45)
[2017-03-05] MEDS ORDERED: ONDANSETRON 4 MG/2 ML (SDV) Z0FRAN IV PRN (18:45)
--- NOTE | 2017-03-05 20:48 | History & Physical-Surgical ---
History of Present Illness History of Present Illness Reason for visit/HPI CC: Fall Patient is an 86 year old female who fell this morning at approximately 0300. She presented to emergency department this afternoon with right sided chest pain. Pain moderate to severe. Hurts worse with cough or taking deep breath. No shortness of breath. Denies hitting head or loss of consciousness. ct and chest x rays demonstrated 5 % right pneumothorax and right sided rib fractures. ct head cspine no intracranial process and degenerative changes and right apical pneumothorax. right and left humerus no acute fractures old fractures noted. ct chest abdomen pelvis, noting rib fractures right side and pneumothorax. Date of Admission Mar 05, 2017 at 15:30 Date Seen by Provider: Mar 05, 2017 Time Seen by Provider: 19:30 I consulted on this patient on 03/05/17 19:30 Attending Physician Ryan Iverson MD Admitting Physician Felecia Scruggs MD Consult Allergies and Home Medications Allergies Coded Allergies: Sulfa (Sulfonamide Antibiotics) (Verified Allergy, Unknown, 08/10/11) morphine (Verified Allergy, Unknown, 07/13/14) Nausea, vomiting and confusion pantoprazole sodium (Verified Allergy, Unknown, 08/10/11) codeine (Unverified Adverse Reaction, Severe, SEVERE N/V, 03/20/06) Home Medications Alprazolam 0.5 Mg Tablet, 0.5 MG PO BID, (Reported) Aspirin 81 Mg Tab.chew, 81 MG PO DAILY, (Reported) Cholecalciferol (Vitamin D3) 2,000 Unit Capsule, 2,000 UNIT PO DAILY, (Reported) Citalopram Hydrobromide 10 Mg Tablet, 10 MG PO DAILY, (Reported) Memantine HCl 21 Mg Cap.er.24h, 21 MG PO DAILY, (Reported) Multivitamin 1 Each Tab.chew, 1 TAB PO BID, (Reported) Solifenacin Succinate 10 Mg Tablet, 10 MG PO DAILY, (Reported) Tramadol HCl 50 Mg Tablet, 25 MG PO BID PRN for PAIN-MODERATE, (Reported) TAKES 1/2 OF A (50 MG) TABLET Past Cmczfob-Ujevvf-Caizue Hx Patient Social History Alcohol Use: Denies Use Recreational Drug Use: No Smoking Status: Former Smoker Former Smoker, Quit: Apr 28, 1964 2nd Hand Smoke Exposure: No Recent Foreign Travel: No Contact w/Someone Who Travel: No Recent Infectious Disease Expo: No Recent Hopitalizations: No Physical Abuse Screen: No Sexual Abuse: No Immunizations Up To Date Tetanus Booster (TDap): More than 5yrs Date of Pneumonia Vaccine: July 13, 2010 Date of Influenza Vaccine: Jan 23, 2017 Seasonal Allergies Seasonal Allergies: No Surgeries History of Surgeries: Yes (LEFT HIP FX/ORIF; RIGHT HUMERUS FX/ORIF; RIGHT TOTAL KNEE REPLACEMENT; VERTEBROPLASTY) Surgeries: Appendectomy, Gallbladder, Joint Replacement, Orthopedic Respiratory History of Respiratory Disorde: No Cardiovascular History of Cardiac Disorders: Yes (does not have issues with HTN now) Neurological History of Neurological Disord: Yes Neurological Disorders: Dementia, TIA Reproductive System Hx Reproductive Disorders: No Sexually Transmitted Disease: No HIV/AIDS: No Female Reproductive Disorders: Denies Genitourinary History of Genitourinary Disor: Yes (INCONTINENCE.) Genitourinary Disorders: Bladder Infection Gastrointestinal History of Gastrointestinal Di: Yes Gastrointestinal Disorders: Gastroesophageal Reflux, Gall Bladder Disease Musculoskeletal History of Musculoskeletal Dis: Yes (MULTIPLE FRACTURES-RIGHT HUMERUS/ORIF; LEFT HUMERUS-NO SURGERY; LEFT HIP/ORIF; VERTEBROPLASTY; RIGHT TOTAL KNEE REPLACEMENT) Musculoskeletal Disorders: Osteoporosis, Arthritis, Fractures Endocrine History of Endocrine Disorders: No HEENT History of HEENT Disorders: Yes HEENT Disorders: Cataract Loss of Vision: Denies Hearing Impairment: Denies Cancer History of Cancer: No Psychosocial History of Psychiatric Problem: Yes Behavioral Health Disorders: Anxiety, Depression Integumentary History of Skin or Integumenta: No Blood Transfusions History of Blood Disorders: No Adverse Reaction to a Blood Tr: No Family Medical History Significant Family History: Cancer, Other Conditions/Hx Family Medial History: Alcoholism G8 BROTHER FH: throat cancer G8 BROTHER Parkinson's disease 19 FATHER Throat Throat Constitutional: no symptoms reported EENTM: no symptoms reported Respiratory: see HPI Cardiovascular: no symptoms reported Gastrointestinal: no symptoms reported Genitourinary: no symptoms reported Musculoskeletal: see HPI Skin: no symptoms reported Psychiatric/Neurological: No Symptoms Reported Physical Exam Vital Signs Vital Sign - Last 12Hours 03/05/17 03/05/17 03/05/17 12:25 15:49 20:26 Temp 98.0 Pulse 93 Resp 18 B/P (MAP) 133/86 (102) Pulse Ox 95 O2 Delivery Room Air O2 Flow Rate 2.00 Capillary Refill : Less Than 3 Seconds General Appearance: No Apparent Distress HEENT: PERRL/EOMI, TMs Normal, Normal ENT Inspection Neck: Full Range of Motion, Normal Inspection, Non Tender, Supple Respiratory: Other (tender right chest and subcutaneous emphysema) Cardiovascular: Regular Rate, Rhythm Gastrointestinal: Non Tender, Soft, No Tenderness Rectal: Deferred Back: Other (back right chest tenderness) Extremity: Other (slight right arm tenderness) Neurologic/Psychiatric: Alert, No Motor/Sensory Deficits, 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, 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 Norm as Tested Skin: Warm/Dry Lymphatic: No Adenopathy Data Review Labs Laboratory Tests 03/05/17 23:27: Urine Color YELLOW, Urine Clarity CLOUDYH, Urine pH 5, Urine Specific [place] 1.015L, Urine Protein 1+H, Urine Glucose (UA) NEGATIVE, Urine Ketones NEGATIVE, Urine Nitrite NEGATIVE, Urine Bilirubin NEGATIVE, Urine Urobilinogen 1, Urine Leukocyte Esterase 2+H, Urine RBC (Auto) 4+H, Urine RBC 0-2, Urine WBC 0-2, Urine Squamous Epithelial Cells 5-10, Urine Crystals PRESENTH, Urine Amorphous Sediment FEW BENITO URATESH, Urine Bacteria FEWH, Urine Casts NONE, Urine Mucus SMALLH, Urine Culture Indicated YES 03/06/17 04:55: White Blood Count 6.0, Red Blood Count 3.08L, Hemoglobin 9.9L, Hematocrit 31L, Mean Corpuscular Volume 99, Mean Corpuscular Hemoglobin 32, Mean Corpuscular Hemoglobin Concent 32, Red Cell Distribution Width 13.9, Platelet Count 140, Mean Platelet Volume 11.8H, Neutrophils (%) (Auto) 57, Lymphocytes (%) (Auto) 28 , Monocytes (%) (Auto) 12, Eosinophils (%) (Auto) 3, Basophils (%) (Auto) 0, Neutrophils # (Auto) 3.4, Lymphocytes # (Auto) 1.7, Monocytes # (Auto) 0.7, Eosinophils # (Auto) 0.2, Basophils # (Auto) 0.0, Sodium Level 143, Potassium Level 3.7, Chloride Level 105, Carbon Dioxide Level 27, Anion Gap 11, Blood Urea Nitrogen 20H, Creatinine 0.77, Estimat Glomerular Filtration Rate > 60, BUN /Creatinine Ratio 26, Glucose Level 100, Calcium Level 9.1, Phosphorus Level 3.8 , Magnesium Level 1.7L, Total Bilirubin 0.6, Aspartate Amino Transf (AST/SGOT) 21, Alanine Aminotransferase (ALT/SGPT) 12, Alkaline Phosphatase 43, Total Protein 5.5L, Albumin 3.1L 03/06/17 13:06: White Blood Count 5.5, Red Blood Count 2.99L, Hemoglobin 9.7L, Hematocrit 30L, Mean Corpuscular Volume 100H, Mean Corpuscular Hemoglobin 32, Mean Corpuscular Hemoglobin Concent 33, Red Cell Distribution Width 13.8, Platelet Count 132, Mean Platelet Volume 11.3H, Neutrophils (%) (Auto) 69, Lymphocytes (%) (Auto) 17 , Monocytes (%) (Auto) 11, Eosinophils (%) (Auto) 3, Basophils (%) (Auto) 0, Neutrophils # (Auto) 3.8, Lymphocytes # (Auto) 0.9L, Monocytes # (Auto) 0.6, Eosinophils # (Auto) 0.1, Basophils # (Auto) 0.0, Sodium Level 141, Potassium Level 3.7, Chloride Level 105, Carbon Dioxide Level 29, Anion Gap 7, Blood Urea Nitrogen 18, Creatinine 0.72, Estimat Glomerular Filtration Rate > 60, BUN/ Creatinine Ratio 25, Glucose Level 96, Calcium Level 8.7, Magnesium Level 2.2, Total Bilirubin 0.6, Aspartate Amino Transf (AST/SGOT) 18, Alanine Aminotransferase (ALT/SGPT) 11, Alkaline Phosphatase 42, Total Protein 5.3L, Albumin 3.0L Microbiology 03/05/17 Urine Culture - Preliminary, Resulted Escherichia Coli Assessment/Plan Assessment/Plan Assessment/Plan Fall right 6-10 right rib fractures mildly displaced right 5% pneumothorax admit to ICU consult anesthesia for Epidural Consult Dr Elaine for ICU/Pulmonary management Consult Dr. Iverson for Medical management Pain control Incentive spirometer Repeat chest x ray in am, if any change in respiratory change will repeat at that time. Clinical Quality Measures DVT/VTE Risk/Contraindication: Risk Factor Score Per Nursin RFS Level Per Nursing on Admit: 2=Moderate DEVORA PENA DO Mar 05, 2017 20:48
[2017-03-05 23:49] LABS: CLARITY,URINE CLOUDY; COLOR,URINE YELLOW; PH,URINE 5 (5-9)
[2017-03-05 23:50] LABS: GLUCOSE, URINE (UA) NEGATIVE (NEGATIVE); PROTEIN,URINE 1+ (NEGATIVE)
[2017-03-05 23:51] LABS: BILIRUBIN,URINE NEGATIVE (NEGATIVE); KETONES,URINE NEGATIVE (NEGATIVE); LEUKOCYTE ESTERASE ,URINE 2+ (NEGATIVE); NITRITE,URINE NEGATIVE (NEGATIVE); UROBILINOGEN,URINE 1 MG/DL (NORMAL)
[2017-03-05 23:54] LABS: BACTERIA,URINE FEW /HPF; RBC,URINE 0-2 /HPF; WBC,URINE 0-2 /HPF
[2017-03-05 23:55] LABS: AMORPHOUS SEDIMENT,UR FEW AMOR URATES /LPF
[2017-03-06] VITALS (24 sets, daily range): BP systolic 94–144; BP diastolic 46–93
[2017-03-06 05:14] LABS: BASOPHILS % (AUTO) 0 % (0-10); EOSINOPHILS # (AUTO) 0.2 10^3/uL (0.0-0.3); EOSINOPHILS % (AUTO) 3 % (0-10); HEMATOCRIT 31 % (35-52); HEMOGLOBIN 9.9 G/DL (11.5-16.0); LYMPHOCYTES # (AUTO) 1.7 X 10^3 (1.0-4.0); LYMPHOCYTES % (AUTO) 28 % (12-44); MEAN CORPUSCULAR HEMOGLOBIN 32 PG (25-34); MEAN CORPUSCULAR HGB CONC 32 G/DL (32-36); MEAN CORPUSCULAR VOLUME 99 FL (80-99); MEAN PLATELET VOLUME 11.8 FL (7.4-10.4); MONOCYTES # (AUTO) 0.7 X 10^3 (0.0-1.0); MONOCYTES % (AUTO) 12 % (0-12); NEUTROPHILS # (AUTO) 3.4 X 10^3 (1.8-7.8); NEUTROPHILS % (AUTO) 57 % (42-75); PLATELET COUNT 140 10^3/uL (130-400); RED BLOOD COUNT 3.08 10^6/uL (4.35-5.85); RED CELL DISTRIBUTION WIDTH 13.9 % (10.0-14.5)
[2017-03-06 05:32] LABS: ALANINE AMINOTRANSFERASE 12 U/L (0-55); ALBUMIN 3.1 GM/DL (3.2-4.5); ALKALINE PHOSPHATASE 43 U/L (40-136); BILIRUBIN,TOTAL 0.6 MG/DL (0.1-1.0); BUN/CREATININE RATIO 26; CALCIUM 9.1 MG/DL (8.5-10.1); CARBON DIOXIDE 27 MMOL/L (21-32); CHLORIDE 105 MMOL/L (98-107); CREATININE SERUM 0.77 MG/DL (0.60-1.30); GFR ESTIMATED > 60; GLUCOSE 100 MG/DL (70-105); MAGNESIUM 1.7 MG/DL (1.8-2.4); PHOSPHORUS 3.8 MG/DL (2.3-4.7); POTASSIUM 3.7 MMOL/L (3.6-5.0); SODIUM 143 MMOL/L (135-145); TOTAL PROTEIN 5.5 GM/DL (6.4-8.2)
[2017-03-06] MEDS: POTASSIUM CL 10MEQ/50ML IVPB 50 ML IV SCH (05:39)
[2017-03-06] MEDS: MAGNESIUM 1 GM/100 ML IVPB 100 ML IV SCH ×3 (05:39→06:39)
[2017-03-06] MEDS: KCL 20 MEQ TAB (K-DUR) PO SCH (05:39)
--- NOTE | 2017-03-06 06:10 | Pulmonary Consultation ---
History of Present Illness History of Present Illness Date of Consultation 03/06/17 06:05 Time Seen by Provider: 06:05 Date of Admission History of Present Illness 86yo female presented to ED after mechanical fall and was found to have right rib fractures and a small right PTX. Fall was unwitnessed no signs of head trauma. No loss of consciousness. Pt was admitted to ICU with trauma consult. Pt did receive epidural yesterday and pain is controlled. Pt has had multiple falls in the past. I am consulted for ICU management. \ Allergies and Home Medications Allergies Coded Allergies: Sulfa (Sulfonamide Antibiotics) (Verified Allergy, Unknown, 08/10/11) morphine (Verified Allergy, Unknown, 07/13/14) Nausea, vomiting and confusion pantoprazole sodium (Verified Allergy, Unknown, 08/10/11) codeine (Unverified Adverse Reaction, Severe, SEVERE N/V, 03/20/06) Home Medications Alprazolam 0.5 Mg Tablet, 0.5 MG PO BID, (Reported) Aspirin 81 Mg Tab.chew, 81 MG PO DAILY, (Reported) Cholecalciferol (Vitamin D3) 2,000 Unit Capsule, 2,000 UNIT PO DAILY, (Reported) Citalopram Hydrobromide 10 Mg Tablet, 10 MG PO DAILY, (Reported) Memantine HCl 21 Mg Cap.er.24h, 21 MG PO DAILY, (Reported) Multivitamin 1 Each Tab.chew, 1 TAB PO BID, (Reported) Solifenacin Succinate 10 Mg Tablet, 10 MG PO DAILY, (Reported) Tramadol HCl 50 Mg Tablet, 25 MG PO BID PRN for PAIN-MODERATE, (Reported) TAKES 1/2 OF A (50 MG) TABLET Past Oojuwjd-Vwjhpg-Rpbdte Hx Patient Social History Alcohol Use: Denies Use Recreational Drug Use: No Smoking Status: Former Smoker Former Smoker, Quit: Apr 28, 1964 2nd Hand Smoke Exposure: No Recent Foreign Travel: No Contact w/Someone Who Travel: No Recent Infectious Disease Expo: No Recent Hopitalizations: No Immunizations Up To Date Tetanus Booster (TDap): More than 5yrs Date of Pneumonia Vaccine: July 13, 2010 Date of Influenza Vaccine: Jan 23, 2017 Seasonal Allergies Seasonal Allergies: No Surgeries History of Surgeries: Yes (LEFT HIP FX/ORIF; RIGHT HUMERUS FX/ORIF; RIGHT TOTAL KNEE REPLACEMENT; VERTEBROPLASTY) Surgeries: Appendectomy, Gallbladder, Joint Replacement, Orthopedic Respiratory History of Respiratory Disorde: No Currently Using CPAP: No Currently Using BIPAP: No Cardiovascular History of Cardiac Disorders: Yes (does not have issues with HTN now) Neurological History of Neurological Disord: Yes Neurological Disorders: Dementia, TIA Reproductive System Hx Reproductive Disorders: No Sexually Transmitted Disease: No HIV/AIDS: No Female Reproductive Disorders: Denies Genitourinary History of Genitourinary Disor: Yes (INCONTINENCE.) Genitourinary Disorders: Bladder Infection Gastrointestinal History of Gastrointestinal Di: Yes Gastrointestinal Disorders: Gastroesophageal Reflux, Gall Bladder Disease Musculoskeletal History of Musculoskeletal Dis: Yes (MULTIPLE FRACTURES-RIGHT HUMERUS/ORIF; LEFT HUMERUS-NO SURGERY; LEFT HIP/ORIF; VERTEBROPLASTY; RIGHT TOTAL KNEE REPLACEMENT) Musculoskeletal Disorders: Osteoporosis, Arthritis, Fractures Endocrine History of Endocrine Disorders: No HEENT History of HEENT Disorders: Yes HEENT Disorders: Cataract Loss of Vision: Denies Hearing Impairment: Denies Cancer History of Cancer: No Psychosocial History of Psychiatric Problem: Yes Behavioral Health Disorders: Anxiety, Depression Integumentary History of Skin or Integumenta: No Blood Transfusions History of Blood Disorders: No Adverse Reaction to a Blood Tr: No Family Medical History Significant Family History: Cancer, Other Conditions/Hx Family Medial History: Alcoholism G8 BROTHER FH: throat cancer G8 BROTHER Parkinson's disease 19 FATHER Throat Throat Review of Systems Time Seen by Provider: 06:25 Constitutional: Weakness, Malaise, No: Fever, Chills, Sweats, Other ENT: No: Ear pain, Ear discharge, Nose pain, Nose discharge, Nose congestion, Mouth pain, Mouth swelling, Throat pain, Throat swelling, Other Respiratory: No: Cough, Dry, Shortness of breath, SOB with excertion, Wheezing , Hemoptysis, Pleuritic Pain, Sputum, Wheezing, Other Cardiovascular: No: Chest Pain, Palpitations, Orthopnea, Paroxysmal Noc. Dyspnea, Edema, Lt Headedness, Other Neurological: Weakness, Confusion Exam Exam Vital Signs Date Time Temp Pulse Resp B/P (MAP) Pulse Ox O2 Delivery O2 Flow Rate FiO2 03/06/17 06:00 86 16 97/66 (76) 98 Nasal Cannula 2.00 03/06/17 05:00 86 15 118/58 (78) 100 Nasal Cannula 2.00 03/06/17 04:00 100 Nasal Cannula 2.00 03/06/17 04:00 98.9 03/06/17 04:00 82 19 102/64 (77) 100 Nasal Cannula 2.00 03/06/17 03:00 86 22 112/59 (76) 99 Nasal Cannula 2.00 03/06/17 02:00 89 19 108/56 (73) 98 Nasal Cannula 2.00 03/06/17 01:00 87 03/06/17 01:00 89 12 116/52 (73) 98 Nasal Cannula 2.00 03/06/17 00:00 100 Nasal Cannula 2.00 03/06/17 00:00 85 11 118/93 (101) 100 Nasal Cannula 2.00 03/06/17 00:00 98.9 03/05/17 23:00 88 14 109/46 (67) 100 Nasal Cannula 2.00 03/05/17 22:00 81 12 101/55 (70) 99 Nasal Cannula 2.00 03/05/17 21:00 84 24 119/53 (75) 100 Nasal Cannula 2.00 03/05/17 20:26 Nasal Cannula 2.00 03/05/17 20:00 98 Room Air 03/05/17 20:00 85 11 102/98 (99) 92 Room Air 03/05/17 20:00 98.4 03/05/17 19:00 93 03/05/17 19:00 87 17 139/73 (95) 98 Room Air 03/05/17 18:30 85 16 164/74 (104) 100 Room Air 03/05/17 18:29 98 Room Air 03/05/17 18:00 85 8 151/94 (113) 96 Room Air 03/05/17 17:45 84 20 93 Room Air 03/05/17 17:42 84 03/05/17 17:30 81 14 141/68 (92) 95 Room Air 03/05/17 17:23 82 97 03/05/17 17:15 83 17 120/69 (86) 93 Room Air 03/05/17 17:00 82 12 110/54 (72) 95 Room Air 03/05/17 16:45 98 Room Air 03/05/17 16:30 98.6 81 17 137/59 (85) 98 Room Air 03/05/17 15:49 82 18 95 Room Air 03/05/17 12:25 98.0 93 18 133/86 (102) I & O 03/06/17 07:00 Intake Total 200 ml Output Total 200 ml Balance 0 ml General Appearance: No Apparent Distress, WD/WN, Anxious, Thin HEENT: PERRL/EOMI, Pharynx Normal Neck: Normal Inspection, Non Tender, Supple Respiratory: No Accessory Muscle Use, No Respiratory Distress, Decreased Breath Sounds Cardiovascular: No Edema, No Gallop Capillary Refill: Less Than 3 Seconds Gastrointestinal: normal bowel sounds, non tender, soft, no organomegaly, no pulsatile mass Neurologic/Psychiatric: Alert, Other (confused) Skin: Normal Color, Warm/Dry Lymphatic: No Adenopathy Results Lab Laboratory Tests 03/05/17 14:01 03/06/17 04:55 Assessment/Plan Assessment/Plan s/p Fall with right 6-10 right rib fractures mildly displaced -Change IVF to NS at 75 from 1/2NS at KVO right small traumatic pneumothorax -Await official read on CXR -repeat insp/exp CXR at 11 -Continue to monitor - Epidural -Pain control Confused probable hx of dementia -monitor No signs of infection, no leukocytosis, no fever -Hold off on Abx for now hx of multiple falls/debility/weakness -Once PTX is improved consult PT/OT Anemia -Check occult stool -repeat later today 255 Clinical Quality Measures DVT/VTE Risk/Contraindication: Risk Factor Score Per Nursin RFS Level Per Nursing on Admit: 2=Moderate LEONOR NICOLE DO Mar 06, 2017 06:10
[2017-03-06] MEDS: NS IV 1000 ML 1,000 ML IV SCH ×2 (06:38→20:07)
--- NOTE | 2017-03-06 07:04 | Consultation ---
History of Present Illness History of Present Illness Patient Consulted On(nena/time) 03/06/17 07:00 Date Seen by Provider: Mar 06, 2017 Time Seen by Provider: 07:30 Reason for Visit: I am consulted for medical management- History of Present Illness 86 yo F admitted to trauma service status post a fall - with resulting right side rib pain as the reason for presenting to the ER. Chest xray and CT chest demonstrated mildly displaced right sided rib fractures of 6-10. Patient reports that she got up to go to the restroom at 3am and did not use her walker; she remembers pivoting around to turn on the light and fell to her right. Denies loss of consciousness. Endorses severe right side rib pain. Her helped her up and she got back to bed, slept for a little while but after waking up she decided the pain was bad enough to visit the ER. Denies any other issues. She takes alprazolam qAM but is unsure of what it is for. Allergies and Home Medications Allergies Coded Allergies: Sulfa (Sulfonamide Antibiotics) (Verified Allergy, Unknown, 08/10/11) morphine (Verified Allergy, Unknown, 07/13/14) Nausea, vomiting and confusion pantoprazole sodium (Verified Allergy, Unknown, 08/10/11) codeine (Unverified Adverse Reaction, Severe, SEVERE N/V, 03/20/06) Home Medications Alprazolam 0.5 Mg Tablet, 0.5 MG PO BID, (Reported) Aspirin 81 Mg Tab.chew, 81 MG PO DAILY, (Reported) Cholecalciferol (Vitamin D3) 2,000 Unit Capsule, 2,000 UNIT PO DAILY, (Reported) Citalopram Hydrobromide 10 Mg Tablet, 10 MG PO DAILY, (Reported) Memantine HCl 21 Mg Cap.er.24h, 21 MG PO DAILY, (Reported) Multivitamin 1 Each Tab.chew, 1 TAB PO BID, (Reported) Solifenacin Succinate 10 Mg Tablet, 10 MG PO DAILY, (Reported) Tramadol HCl 50 Mg Tablet, 25 MG PO BID PRN for PAIN-MODERATE, (Reported) TAKES 1/2 OF A (50 MG) TABLET Past [id number]-Dqwsco-Isdvtd Hx Patient Social History Alcohol Use: Denies Use Recreational Drug Use: No Smoking Status: Former Smoker Former Smoker, Quit: Apr 28, 1964 2nd Hand Smoke Exposure: No Recent Foreign Travel: No Contact w/Someone Who Travel: No Recent Infectious Disease Expo: No Recent Hopitalizations: No Immunizations Up To Date Tetanus Booster (TDap): More than 5yrs Date of Pneumonia Vaccine: July 13, 2010 Date of Influenza Vaccine: Jan 23, 2017 Seasonal Allergies Seasonal Allergies: No Surgeries History of Surgeries: Yes (LEFT HIP FX/ORIF; RIGHT HUMERUS FX/ORIF; RIGHT TOTAL KNEE REPLACEMENT; VERTEBROPLASTY) Surgeries: Appendectomy, Gallbladder, Joint Replacement, Orthopedic Respiratory History of Respiratory Disorde: No Currently Using CPAP: No Currently Using BIPAP: No Cardiovascular History of Cardiac Disorders: Yes (does not have issues with HTN now) Neurological History of Neurological Disord: Yes Neurological Disorders: Dementia, TIA Reproductive System Hx Reproductive Disorders: No Sexually Transmitted Disease: No HIV/AIDS: No Female Reproductive Disorders: Denies Genitourinary History of Genitourinary Disor: Yes (INCONTINENCE.) Genitourinary Disorders: Bladder Infection Gastrointestinal History of Gastrointestinal Di: Yes Gastrointestinal Disorders: Gastroesophageal Reflux, Gall Bladder Disease Musculoskeletal History of Musculoskeletal Dis: Yes (MULTIPLE FRACTURES-RIGHT HUMERUS/ORIF; LEFT HUMERUS-NO SURGERY; LEFT HIP/ORIF; VERTEBROPLASTY; RIGHT TOTAL KNEE REPLACEMENT) Musculoskeletal Disorders: Osteoporosis, Arthritis, Fractures Endocrine History of Endocrine Disorders: No HEENT History of HEENT Disorders: Yes HEENT Disorders: Cataract Loss of Vision: Denies Hearing Impairment: Denies Cancer History of Cancer: No Psychosocial History of Psychiatric Problem: Yes Behavioral Health Disorders: Anxiety, Depression Integumentary History of Skin or Integumenta: No Blood Transfusions History of Blood Disorders: No Adverse Reaction to a Blood Tr: No Family Medical History Significant Family History: Cancer, Other Conditions/Hx Family Medial History: Alcoholism G8 BROTHER FH: throat cancer G8 BROTHER Parkinson's disease 19 FATHER Throat Throat Review of Systems Review of Systems General: No Chills, No Night Sweats HEENT: No Head Aches, No Visual Changes Pulmonary: No Dyspnea, No Cough Cardiovascular: Chest Pain (right side rib pain), No: Palpitations, Orthopnea, Paroxysmal Noc. Dyspnea, Edema, Lt Headedness, Other Gastrointestinal: Constipation, No: Nausea, Vomiting, Abdominal Pain Genitourinary: No Dysuria Musculoskeletal: No: neck pain, shoulder pain Neurological: Weakness, No: Confusion Physical Exam Vital Signs Vital Sign - Last 12Hours 03/05/17 03/05/17 03/05/17 12:25 15:49 20:26 Temp 98.0 Pulse 93 Resp 18 B/P (MAP) 133/86 (102) Pulse Ox 95 O2 Delivery Room Air O2 Flow Rate 2.00 Capillary Refill : Less Than 3 Seconds Vital Signs Date Time Temp Pulse Resp B/P (MAP) Pulse Ox O2 Delivery O2 Flow Rate FiO2 03/06/17 07:50 100 Nasal Cannula 2.00 03/06/17 07:50 98.7 Nasal Cannula 2.00 03/06/17 07:42 100 Room Air 03/06/17 07:15 81 03/06/17 07:00 79 17 100/46 (64) 100 Nasal Cannula 2.00 03/06/17 06:00 86 16 97/66 (76) 98 Nasal Cannula 2.00 03/06/17 05:00 86 15 118/58 (78) 100 Nasal Cannula 2.00 03/06/17 04:00 100 Nasal Cannula 2.00 03/06/17 04:00 98.9 03/06/17 04:00 82 19 102/64 (77) 100 Nasal Cannula 2.00 03/06/17 03:00 86 22 112/59 (76) 99 Nasal Cannula 2.00 03/06/17 02:00 89 19 108/56 (73) 98 Nasal Cannula 2.00 03/06/17 01:00 87 03/06/17 01:00 89 12 116/52 (73) 98 Nasal Cannula 2.00 03/06/17 00:00 100 Nasal Cannula 2.00 03/06/17 00:00 85 11 118/93 (101) 100 Nasal Cannula 2.00 03/06/17 00:00 98.9 03/05/17 23:00 88 14 109/46 (67) 100 Nasal Cannula 2.00 03/05/17 22:00 81 12 101/55 (70) 99 Nasal Cannula 2.00 03/05/17 21:00 84 24 119/53 (75) 100 Nasal Cannula 2.00 03/05/17 20:26 Nasal Cannula 2.00 03/05/17 20:00 98 Room Air 03/05/17 20:00 85 11 102/98 (99) 92 Room Air 03/05/17 20:00 98.4 03/05/17 19:00 93 03/05/17 19:00 87 17 139/73 (95) 98 Room Air 03/05/17 18:30 85 16 164/74 (104) 100 Room Air 03/05/17 18:29 98 Room Air 03/05/17 18:00 85 8 151/94 (113) 96 Room Air 03/05/17 17:45 84 20 93 Room Air 03/05/17 17:42 84 03/05/17 17:30 81 14 141/68 (92) 95 Room Air 03/05/17 17:23 82 97 03/05/17 17:15 83 17 120/69 (86) 93 Room Air 03/05/17 17:00 82 12 110/54 (72) 95 Room Air 03/05/17 16:45 98 Room Air 03/05/17 16:30 98.6 81 17 137/59 (85) 98 Room Air 03/05/17 15:49 82 18 95 Room Air 03/05/17 12:25 98.0 93 18 133/86 (102) I & O 03/06/17 07:00 Intake Total 1000 ml Output Total 200 ml Balance 800 ml General Appearance: No Apparent Distress, Thin HEENT: PERRL/EOMI Neck: Full Range of Motion, Non Tender, Supple Respiratory: Lungs Clear, Normal Breath Sounds, No Accessory Muscle Use, No Respiratory Distress, Other (subcutaneous emphysema right side chest wall/ shoulder Pain in right side ribs.) Cardiovascular: Regular Rate, Rhythm, No Edema, No Murmur Gastrointestinal: Normal Bowel Sounds, Non Tender, Soft Rectal: Deferred Back: No CVA Tenderness Extremity: Non Tender, No Calf Tenderness, No Pedal Edema Neurologic/Psychiatric: Alert, No Motor/Sensory Deficits, 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 Skin: Warm/Dry Lymphatic: No Adenopathy Assessment/Plan Assessment/Plan Assessment/Plan 86 yo F traumatic fall with displaced right side rib fractures 6-10- anesthesia consulted- epidural placed for pain management- Dr. Banuelos on for trauma service right side chest wall subcutaneous emphysema- will monitor for improvement right apical pneumothorax- approximately 5% on CT chest- monitor- rechecking cxr Dementia- pt was able to remember what she thinks happened- monitor mental status- continue memantine hypokalemia- improved- monitor- hypomagnesemia- replacing anemia likely chronic- - likely hemodilutional- rather than a true drop from 11 to 9.9- will recheck hgb in AM. CT negative for brain bleed. - pulm checking FOBT probably will be positive as she has constipation - starting miralax, may add colace. Dispo: patient being monitored in ICU regards the above issues s/p fall. Continued her SSRI- changed her alprazolam to daily prn rather than scheduled. DVT ppx: SCDs Problems: Clinical Quality Measures DVT/VTE Risk/Contraindication: Risk Factor Score Per Nursin RFS Level Per Nursing on Admit: 2=Moderate ADWOA MÉNDEZ MD Mar 06, 2017 07:04
--- NOTE | 2017-03-06 07:14 | Diagnostic Imaging Report ---
INDICATION: Followup of right-sided pneumothorax. COMPARISON: 03/05/2017. FINDINGS: Small apical pneumothorax again noted on the right with subcutaneous emphysema along the right lateral chest. Subcutaneous emphysema has decreased since previous exam. The lungs otherwise well aerated. There is minimal pleural fluid, right costophrenic angle. Rib fractures are again noted on the right. Heart is not enlarged. No pulmonary edema. IMPRESSION: 1. Right rib fractures as reported previously again noted. 2. Small right apical pneumothorax with decreasing subcutaneous emphysema. Dictated by: Dictated on workstation # [id number]
[2017-03-06] MEDS: RT-ALBUTEROL SULF 2.5 MG/3 ML PRE-MIX VIAL INH SCH ×2 (07:40→22:15)
[2017-03-06] MEDS: MEMANTINE 5 MG (NAMENDA) TABLET PO SCH ×2 (09:05→20:07)
[2017-03-06] MEDS: ALPRAZolam 0.5 MG (XANAX) TAB PO PRN (09:05)
[2017-03-06] MEDS: POLYETHYLENE GLYCOL 17 GM (MIRALAX) PACK PO SCH (09:06)
[2017-03-06] MEDS: EPIDURAL (SUFENTA 0.6MCG/ML BUPIVA 0.125%) 100 ML BAG EPI PRN (09:06)
--- NOTE | 2017-03-06 11:40 | Diagnostic Imaging Report ---
INDICATION: Pneumothorax, rib fractures. COMPARISON: Earlier same day. FINDINGS: Single frontal radiographic view of the chest was obtained and again demonstrates small right apical pneumothorax estimated at approximately 10%. Right-sided rib fractures and right clavicle fracture are again noted. There is also mild amount of soft tissue emphysema on the right. Left lung remains relatively clear. There is no pneumothorax or large effusion on the left. There may be small right basilar effusion. Cardiac silhouette and pulmonary vasculature are within normal limits. There is calcified aortic atherosclerosis. IMPRESSION: 1. Stable small right apical pneumothorax. 2. Possible small right basilar effusion as well. Dictated by: Dictated on workstation # [id number]
--- NOTE | 2017-03-06 11:41 | Diagnostic Imaging Report ---
INDICATION: Followup pneumothorax. COMPARISON: Earlier same day. FINDINGS: Single frontal radiographic view of the chest was obtained and again demonstrates small right apical pneumothorax estimated at approximately 10%. There is mild amount of ipsilateral soft tissue emphysema. Multiple right-sided rib fractures and right clavicle fracture are again noted. There is hazy opacification of the right hemidiaphragm; possibly on the basis of small effusion. Left lung is relatively clear. No pneumothorax or effusion is seen on the left. Cardiac silhouette and pulmonary vasculature are within normal limits. IMPRESSION: 1. Stable small right apical pneumothorax. 2. Probable small right basilar effusion. Dictated by: Dictated on workstation # [id number]
[2017-03-06 13:16] LABS: BASOPHILS % (AUTO) 0 % (0-10); EOSINOPHILS # (AUTO) 0.1 10^3/uL (0.0-0.3); EOSINOPHILS % (AUTO) 3 % (0-10); HEMATOCRIT 30 % (35-52); HEMOGLOBIN 9.7 G/DL (11.5-16.0); LYMPHOCYTES # (AUTO) 0.9 X 10^3 (1.0-4.0); LYMPHOCYTES % (AUTO) 17 % (12-44); MEAN CORPUSCULAR HEMOGLOBIN 32 PG (25-34); MEAN CORPUSCULAR HGB CONC 33 G/DL (32-36); MEAN CORPUSCULAR VOLUME 100 FL (80-99); MEAN PLATELET VOLUME 11.3 FL (7.4-10.4); MONOCYTES # (AUTO) 0.6 X 10^3 (0.0-1.0); MONOCYTES % (AUTO) 11 % (0-12); NEUTROPHILS # (AUTO) 3.8 X 10^3 (1.8-7.8); NEUTROPHILS % (AUTO) 69 % (42-75); PLATELET COUNT 132 10^3/uL (130-400); RED BLOOD COUNT 2.99 10^6/uL (4.35-5.85); RED CELL DISTRIBUTION WIDTH 13.8 % (10.0-14.5); WHITE BLOOD COUNT 5.5 10^3/uL (4.3-11.0)
[2017-03-06 13:39] LABS: ALANINE AMINOTRANSFERASE 11 U/L (0-55); ALKALINE PHOSPHATASE 42 U/L (40-136); BILIRUBIN,TOTAL 0.6 MG/DL (0.1-1.0); BUN/CREATININE RATIO 25; CALCIUM 8.7 MG/DL (8.5-10.1); CARBON DIOXIDE 29 MMOL/L (21-32); CHLORIDE 105 MMOL/L (98-107); CREATININE SERUM 0.72 MG/DL (0.60-1.30); GFR ESTIMATED > 60; GLUCOSE 96 MG/DL (70-105); MAGNESIUM 2.2 MG/DL (1.8-2.4); POTASSIUM 3.7 MMOL/L (3.6-5.0); SODIUM 141 MMOL/L (135-145); TOTAL PROTEIN 5.3 GM/DL (6.4-8.2)
[2017-03-06] MEDS ORDERED: NS IV 1000 ML 1,000 ML IV ONE (14:00)
[2017-03-06] MEDS ORDERED: NS IV 1000 ML 1,000 ML IV NR (14:15)
--- NOTE | 2017-03-06 14:43 | Progress Note-Standard ---
Standard Progress Note Progress Notes/Assess & Plan Date Seen by Provider: Mar 06, 2017 Time Seen by Provider: 10:45 Progress/Assessment & Plan Anesthesia Note ([id number]) Pt S/E in ICU 8. She is resting comfortably but easily arousable. RN states she has had no IV/PO pain medicine and pt states her pain is under good control and is able to breathe easily. No nausea. Epidural infusion rate is currently 6 ml/ hr and we will continue that rate. We will be available if necessary and continue to round daily. Plan for epidural D/C on 03-08. NEVIN CUELLAR DO Mar 06, 2017 14:43
--- NOTE | 2017-03-06 14:46 | Occupational Therapy Eval ---
OT Evaluation-General/PLF Medical Diagnosis Admission Date Mar 05, 2017 at 15:30 Medical Diagnosis: right rib fx 6-10, pneumothorax Onset Date: Mar 05, 2017 Therapy Diagnosis Therapy Diagnosis: Decreased ADL skills Height/Weight Height (Feet): 5 Height (Inches): 4.00 Weight (Pounds): 74 Weight (Ounces): 8.0 Precautions Precautions/Isolations: Fall Prevention, Standard Precautions Safety Interventions: Bed Exit Alarm, Reorient-PRN Weight Bear Status Weight Bearing Restriction: Weight Bearing/Tolerated Referral Physician: Dr. Banuelos Referral Reason: Activity Tolerance, Self Care, Evaluation/Treatment, Strengthening/ROM Medical History Pertinent Medical History: Arthritis, CVA, Dementia, GERD, HTN, OA Additional Medical History Left hip fx/ORIF, Right humerus fx/ORIF, Right TKR, vertebroplasty, Current History Pt. got up at 3a.m. to use bathroom. Fell without walker. Reviewed History: Yes Social History Home: Single Level Current Living Status: Significant Other Entry Into Home: Stairs With Railing Steps Into Home: 2 ADL-Prior Level of Function ADL PLOF Comments Spouse in room. States that he assists pt. with bathing and dressing. He assists pt. into tub and to sit down into tub. Assists her out of tub. Otherwise, pt. uses walker to get around house. DME/Equipment: Tub DME/Equipment Comments Pt. has walker, grab bars in bathroom and outside of house to assist up stairs. Drive Self: No OT Current Status Subjective Pt. does not report pain level. Has epidural at this time. Nursing okay's for OT to get pt. up. Appearance Pt. in bed. Spouse in room. Pt. alert and oriented. Spouse does answers a lot of questions. Mental Status/Objective Patient Orientation: Person, Place Attachments: Porter Catheter, IV, Oxygen Current Hand Dominance: Right Upper Extremity ROM Pt. states that she can't lift her arms when she is asked to do this. This is because of bilateral humeral fx in the past. Upper Extremity Coordination intact Upper Extremity Strength Not test. Pt. has epidural in back. ADL-Treatment Functional [place] Measure 0=Not Assessed/NA 4=Minimal Assistance 1=Total Assistance 5=Supervision or Setup 2=Maximal Assistance 6=Modified [place] 3=Moderate Assistance 7=Complete IndependenceIRFPAI Quality Coding Scale 6 Independent with activity with or without an assistive device 5 Patient requires set up or clean up by helper. Patient completes activity by themselves 4 Supervision or touching assist (CGA). [place] provide cues , steadying assist 3 The helper provides less than half the effort to complete the activity 2 The helper provides more than half the effort to complete the activity 1 Dependent. The helper does all the effort to complete an activity 7 Patient refused to complete or attempt activity 9 The patient did not perform the activity before the current illness or injury 88 Not attempted due to Medical conditions or safety concerns Lower Body Dressing (FIM): 1 (Pt. is unable to don socks. OT does this for her.) Toileting (FIM): 1 (Pt. has porter catheter in, and is also unable to reach rear cynthia area to clean.) Transfers (B, C, W/C) (FIM): 3 (Pt. requires mod assist for supine-sit, and min assist for sit-stand. Pt. is able to take several steps to chair. Pt's lines and tubing are managed for her. Pt. made comfortable up in large chair.) Education OT Patient Education: Correct positioning, Instructions to caregiver, Modified ADL techniques, Progress toward Goal/Update tx plan, Purpose of tx/functional activities, Reviewed precautions, Rehab process, Transfer techniques Teaching Recipient: Patient Teaching Methods: Demonstration, Discussion Response to Teaching: Verbalize Understanding, Return Demonstration OT Short Term Goals Short Term Goals Time Frame: Mar 13, 2017 Eating(FIM): 5 Grooming(FIM): 5 Upper Body Dressing(FIM): 4 Lower Body Dressing(FIM): 3 Toileting(FIM): 3 Transfers (B,C,W/C) (FIM): 4 Toilet/Commode Transfer(FIM): 4 Additional Short Term Goals: 1-Demonstrate ADL Tasks, 2-Verbalize Understanding , 3-ImproveStrength/Kendra 1=Demonstrate adherence to instructed precautions during ADL tasks. 2=Patient will verbalize/demonstrate understanding of assistive devices/ modifications for ADL. 3=Patient will improve strength/tolerance for activity to enable patient to perform ADL's. OT Medical Service Representative Goals Jail Goals Time Frame: Mar 20, 2017 Eating (FIM): 5 Grooming(FIM): 5 Upper Body Dressing(FIM): 5 Lower Body Dressing(FIM): 4 Toileting(FIM): 5 Transfers (B,C,W/C) (FIM): 5 Toilet/Commode Transfer(FIM): 5 Additional Goals: 1-Demonstrate ADL Tasks, 2-Verbalize Understanding, 3- ImproveStrength/Kendra 1=Demonstrate adherence to instructed precautions during ADL tasks. 2=Patient will verbalize/demonstrate understanding of assistive devices/ modifications for ADL. 3=Patient will improve strength/tolerance for activity to enable patient to perform ADL's. OT Education/Plan Problem List/Assessment Assessment: Decreased Activ Tolerance, Decreased UE Strength, Dependent Transfers, Impaired Bed Mobility, Impaired Funct Balance, Impaired I ADL's, Impaired Self-Care Skills, Restricted Funct UE ROM Discharge Recommendations Plan/Recommendations: Continue POC Therapy D/C Recommendations: Home w/ Family Support, Occupational Therapy Home Care, Scheduled Assistance Barriers to Progress Spouse states that pt. has had increased dizziness recently. Treatment Plan/Plan of Care Treatment,Training & Education: Yes Patient would benefit from OT for education, treatment and training to promote independence in ADL's, mobility, safety and/or upper extremity function for ADL' s. Plan of Care: ADL Retraining, Caregiver Training, Functional Mobility, UE Funct Exercise/Act Treatment Duration: Mar 20, 2017 Frequency: 5 times per week Estimated Hrs Per Day: .5 hour per day Agreement: Yes Rehab Potential: Fair Time/GCodes Start Time: 14:15 Stop Time: 14:35 Total Time Billed (hr/min): 20 Billed Treatment Time 1, TIFFANY FATIMA OT Mar 06, 2017 14:46
--- NOTE | 2017-03-06 14:55 | Physical Therapy Evaluation ---
PT Evaluation-General Medical Diagnosis Admission Date Mar 05, 2017 at 15:30 Medical Diagnosis: right rib fx 6-10, pneumothorax Onset Date: Mar 05, 2017 Therapy Diagnosis Therapy Diagnosis: weakness; abn gait Height/Weight Height (Feet): 5 Height (Inches): 4.00 Weight (Pounds): 74 Weight (Ounces): 8.0 Precautions Precautions/Isolations: Fall Prevention, Standard Precautions Weight Bear Status Right Lower Extremity: Right Full Weight Bearing Left Lower Extremity: Left Full Weight Bearing Referral Physician: Dr. Banuelos Reason for Referral: Evaluation/Treatment Medical History Pertinent Medical History: Arthritis, CVA, Dementia, GERD, HTN, OA Current History Pt was up to the bathroom last night and fell, sustaining rib fractures and pneumothorax Reviewed History: Yes Social History Home: Single Level Current Living Status: Significant Other Entry Into Home: Stairs With Railing PT Steps Into Home: 2 Prior/Core FIM Prior Level of Function Functional [place] Measure 0=Not Assessed/NA 4=Minimal Assistance 1=Total Assistance 5=Supervision or Setup 2=Maximal Assistance 6=Modified [place] 3=Moderate Assistance 7=Complete [place] Bed Mobility: 6 Transfers (B,C,W/C) (FIM): 6 Gait: 6 (FWW) Spouse assists with mobility as needed as well as her ADL"s; uses a FWW. PT Evaluation-Current Subjective Agreeable to PT. Objective Problem Solving: Fair Attachments: Oxygen, Eason Catheter, IV ROM/Strength ROM Lower Extremities WFL Strength Lower Extremities grossly 4/5 throughout Integumentary/Posture Integumentary Refer to nursing note.s Bowel Incontinence: No Bladder Incontinence: Eason Cath Posture rounded shoulders and slightly forward head Neuromuscular (Tone, Coordination, Reflexes) Functional Sensory Vision: Functional Hearing: Functional Hand Dominance: Right Sensation Right Lower Extremit: Intact Sensation Left Lower Extremity: Intact Transfers Functional [place] Measure 0=Not Assessed/NA 4=Minimal Assistance 1=Total Assistance 5=Supervision or Setup 2=Maximal Assistance 6=Modified [place] 3=Moderate Assistance 7=Complete [place] Transfers (B, C, W/C) (FIM): 3 Mod assist with bed mobility and min assist with sit to stand as well as with SPT bed to chair using a fWW. Gait Mode of Locomotion: Walk Anticipated Mode of Locomotion: Walk Comments/Gait Description Gait not assessed this visit. Treatment Pt up in chair with needs met Assessment/Needs Post fall at home with subsequent rib fractures. Her mobility is currently impaired due to LE weakness and rib pain. She will benefit from skilled PT intervnetion to address her mobility and abiolity to return home with spouse. Rehab Potential: Guarded PT Short Term Goals Short Term Goals Transfers (B,C,W/C) (FIM): 4 PT Residential Goals Residential Goals PT Residential Goals Time Frame: Mar 13, 2017 Transfers (B,C,W/C) (FIM): 5 Gait (FIM): 5 Gait distance (FIM): 3=150 ft Gait Assistive Device: FWW PT Plan Problem List Problem List: Activity Tolerance, Functional Strength, Safety, Balance, Gait, Transfer, Bed Mobility Treatment/Plan Treatment Plan: Continue Plan of Care Treatment Plan: Bed Mobility, Education, Functional Activity Kendra, Functional Strength, Gait, Safety, Therapeutic Exercise, Transfers Treatment Duration: Mar 13, 2017 Frequency: 6 times per week Estimated Hrs Per Day: .25 hour per day Patient and/or Family Agrees t: Yes Safety Risks/Education Patient Education: Transfer Techniques, Safety Issues Teaching Recipient: Patient Teaching Methods: Demonstration, Discussion Discharge Recommendations Therapy D/C Recommendations: Physical Therapy Home Care Time/GCodes Time In: 1440 Time Out: 1455 Total Billed Treatment Time: 15 Total Billed Treatment visit EVM 15 JESS HILL PT Mar 06, 2017 14:55
--- NOTE | 2017-03-06 21:14 | Progress Note ---
Subjective Date Seen by Provider: Mar 06, 2017 Time Seen by Provider: 08:05 Subjective/Events-last exam Patient pain controlled with epidural. right pneumo stable. drop in hgb no new complaints. Objective Exam Vital Signs Date Time Temp Pulse Resp B/P (MAP) Pulse Ox O2 Delivery O2 Flow Rate FiO2 03/06/17 20:00 90 12 117/62 (80) 93 Nasal Cannula 2.00 03/06/17 20:00 99 Nasal Cannula 2.00 03/06/17 19:28 98.4 Nasal Cannula 2.00 03/06/17 19:00 85 03/06/17 19:00 82 17 112/71 (85) 98 Nasal Cannula 2.00 03/06/17 18:03 83 21 107/59 (75) 93 Nasal Cannula 2.00 03/06/17 17:00 82 17 98/52 (67) 96 Room Air 03/06/17 16:17 98.5 86 14 120/73 (89) 100 Nasal Cannula 2.00 03/06/17 16:05 100 Nasal Cannula 2.00 03/06/17 15:00 86 16 132/63 (86) 94 Room Air 03/06/17 14:10 83 14 125/93 (104) 100 Nasal Cannula 2.00 03/06/17 13:00 84 10 114/54 (74) 100 Nasal Cannula 2.00 03/06/17 12:29 77 03/06/17 12:02 100 Nasal Cannula 2.00 03/06/17 12:01 98.3 03/06/17 12:00 83 12 100/53 (69) 100 Nasal Cannula 2.00 03/06/17 11:00 85 21 94/76 (82) 100 Nasal Cannula 2.00 03/06/17 10:00 87 14 117/62 (80) 100 Nasal Cannula 2.00 03/06/17 09:00 85 14 100/53 (69) 100 Nasal Cannula 2.00 03/06/17 08:00 81 21 113/52 (72) 99 Nasal Cannula 2.00 03/06/17 07:50 100 Nasal Cannula 2.00 03/06/17 07:50 98.7 Nasal Cannula 2.00 03/06/17 07:42 100 Room Air 03/06/17 07:15 81 03/06/17 07:00 79 17 100/46 (64) 100 Nasal Cannula 2.00 03/06/17 06:00 86 16 97/66 (76) 98 Nasal Cannula 2.00 03/06/17 05:00 86 15 118/58 (78) 100 Nasal Cannula 2.00 03/06/17 04:00 100 Nasal Cannula 2.00 03/06/17 04:00 98.9 03/06/17 04:00 82 19 102/64 (77) 100 Nasal Cannula 2.00 03/06/17 03:00 86 22 112/59 (76) 99 Nasal Cannula 2.00 03/06/17 02:00 89 19 108/56 (73) 98 Nasal Cannula 2.00 03/06/17 01:00 87 03/06/17 01:00 89 12 116/52 (73) 98 Nasal Cannula 2.00 03/06/17 00:00 100 Nasal Cannula 2.00 03/06/17 00:00 85 11 118/93 (101) 100 Nasal Cannula 2.00 03/06/17 00:00 98.9 03/05/17 23:00 88 14 109/46 (67) 100 Nasal Cannula 2.00 03/05/17 22:00 81 12 101/55 (70) 99 Nasal Cannula 2.00 I & O 03/06/17 07:00 Intake Total 1000 ml Output Total 200 ml Balance 800 ml Capillary Refill : Less Than 3 Seconds General Appearance: No Apparent Distress, Thin HEENT: PERRL/EOMI Neck: Full Range of Motion, Non Tender, Supple Respiratory: Lungs Clear, Normal Breath Sounds, No Accessory Muscle Use, No Respiratory Distress, Other (subcutaneous emphysema right side chest wall/ shoulder Pain right side) Cardiovascular: Regular Rate, Rhythm, No Edema Gastrointestinal: normal bowel sounds, non tender, soft, no organomegaly, no pulsatile mass Extremity: Non Tender, No Calf Tenderness, No Pedal Edema Neurologic/Psychiatric: Alert, No Motor/Sensory Deficits, 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 Skin: Warm/Dry Lymphatic: No Adenopathy Results Lab Laboratory Tests 03/05/17 23:27: Urine Color YELLOW, Urine Clarity CLOUDYH, Urine pH 5, Urine Specific Smoot 1.015L, Urine Protein 1+H, Urine Glucose (UA) NEGATIVE, Urine Ketones NEGATIVE, Urine Nitrite NEGATIVE, Urine Bilirubin NEGATIVE, Urine Urobilinogen 1, Urine Leukocyte Esterase 2+H, Urine RBC (Auto) 4+H, Urine RBC 0-2, Urine WBC 0-2, Urine Squamous Epithelial Cells 5-10, Urine Crystals PRESENTH, Urine Amorphous Sediment FEW BENITO URATESH, Urine Bacteria FEWH, Urine Casts NONE, Urine Mucus SMALLH, Urine Culture Indicated YES 03/06/17 04:55: White Blood Count 6.0, Red Blood Count 3.08L, Hemoglobin 9.9L, Hematocrit 31L, Mean Corpuscular Volume 99, Mean Corpuscular Hemoglobin 32, Mean Corpuscular Hemoglobin Concent 32, Red Cell Distribution Width 13.9, Platelet Count 140, Mean Platelet Volume 11.8H, Neutrophils (%) (Auto) 57, Lymphocytes (%) (Auto) 28 , Monocytes (%) (Auto) 12, Eosinophils (%) (Auto) 3, Basophils (%) (Auto) 0, Neutrophils # (Auto) 3.4, Lymphocytes # (Auto) 1.7, Monocytes # (Auto) 0.7, Eosinophils # (Auto) 0.2, Basophils # (Auto) 0.0, Sodium Level 143, Potassium Level 3.7, Chloride Level 105, Carbon Dioxide Level 27, Anion Gap 11, Blood Urea Nitrogen 20H, Creatinine 0.77, Estimat Glomerular Filtration Rate > 60, BUN /Creatinine Ratio 26, Glucose Level 100, Calcium Level 9.1, Phosphorus Level 3.8 , Magnesium Level 1.7L, Total Bilirubin 0.6, Aspartate Amino Transf (AST/SGOT) 21, Alanine Aminotransferase (ALT/SGPT) 12, Alkaline Phosphatase 43, Total Protein 5.5L, Albumin 3.1L 03/06/17 13:06: White Blood Count 5.5, Red Blood Count 2.99L, Hemoglobin 9.7L, Hematocrit 30L, Mean Corpuscular Volume 100H, Mean Corpuscular Hemoglobin 32, Mean Corpuscular Hemoglobin Concent 33, Red Cell Distribution Width 13.8, Platelet Count 132, Mean Platelet Volume 11.3H, Neutrophils (%) (Auto) 69, Lymphocytes (%) (Auto) 17 , Monocytes (%) (Auto) 11, Eosinophils (%) (Auto) 3, Basophils (%) (Auto) 0, Neutrophils # (Auto) 3.8, Lymphocytes # (Auto) 0.9L, Monocytes # (Auto) 0.6, Eosinophils # (Auto) 0.1, Basophils # (Auto) 0.0, Sodium Level 141, Potassium Level 3.7, Chloride Level 105, Carbon Dioxide Level 29, Anion Gap 7, Blood Urea Nitrogen 18, Creatinine 0.72, Estimat Glomerular Filtration Rate > 60, BUN/ Creatinine Ratio 25, Glucose Level 96, Calcium Level 8.7, Magnesium Level 2.2, Total Bilirubin 0.6, Aspartate Amino Transf (AST/SGOT) 18, Alanine Aminotransferase (ALT/SGPT) 11, Alkaline Phosphatase 42, Total Protein 5.3L, Albumin 3.0L Microbiology 03/05/17 Urine Culture - Preliminary, Resulted Escherichia Coli Assessment/Plan Assessment/Plan Assessment/Plan fall, right rib fractures 6-10 mildly displaced right pneumothorax anemia no anticoagulation for dvt prophylaxis due to anemia which continue to monitor pneumo stable continue to monitor pt/ot epidural for pain control scd's Clinical Quality Measures DVT/VTE Risk/Contraindication: Risk Factor Score Per Nursin RFS Level Per Nursing on Admit: 2=Moderate DEVORA PENA DO Mar 06, 2017 21:14
[2017-03-06] MEDS ORDERED: NS IV 500 ML 500 ML IV ONE (23:30)
[2017-03-07] VITALS (15 sets, daily range): BP systolic 115–179; BP diastolic 62–97
[2017-03-07] MEDS: EPIDURAL (SUFENTA 0.6MCG/ML BUPIVA 0.125%) 100 ML BAG EPI PRN ×2 (00:55→14:40)
[2017-03-07] MEDS: NS IV 1000 ML 1,000 ML IV SCH ×2 (04:04→21:14)
[2017-03-07 05:04] LABS: BASOPHILS % (AUTO) 0 % (0-10); EOSINOPHILS # (AUTO) 0.2 10^3/uL (0.0-0.3); EOSINOPHILS % (AUTO) 4 % (0-10); HEMATOCRIT 29 % (35-52); HEMOGLOBIN 9.4 G/DL (11.5-16.0); LYMPHOCYTES # (AUTO) 1.1 X 10^3 (1.0-4.0); LYMPHOCYTES % (AUTO) 23 % (12-44); MEAN CORPUSCULAR HEMOGLOBIN 32 PG (25-34); MEAN CORPUSCULAR HGB CONC 32 G/DL (32-36); MEAN CORPUSCULAR VOLUME 99 FL (80-99); MEAN PLATELET VOLUME 11.5 FL (7.4-10.4); MONOCYTES # (AUTO) 0.5 X 10^3 (0.0-1.0); MONOCYTES % (AUTO) 10 % (0-12); NEUTROPHILS # (AUTO) 3.1 X 10^3 (1.8-7.8); NEUTROPHILS % (AUTO) 62 % (42-75); PLATELET COUNT 131 10^3/uL (130-400); RED BLOOD COUNT 2.93 10^6/uL (4.35-5.85); RED CELL DISTRIBUTION WIDTH 13.3 % (10.0-14.5)
[2017-03-07 05:26] LABS: BUN/CREATININE RATIO 20; CALCIUM 7.9 MG/DL (8.5-10.1); CARBON DIOXIDE 23 MMOL/L (21-32); CREATININE SERUM 0.64 MG/DL (0.60-1.30); GFR ESTIMATED > 60; GLUCOSE 99 MG/DL (70-105); MAGNESIUM 2.2 MG/DL (1.8-2.4); PHOSPHORUS 2.7 MG/DL (2.3-4.7); POTASSIUM 3.7 MMOL/L (3.6-5.0); SODIUM 142 MMOL/L (135-145)
[2017-03-07] MEDS: KCL 20 MEQ TAB (K-DUR) PO SCH (05:33)
[2017-03-07] MEDS: POTASSIUM CL 10MEQ/50ML IVPB 50 ML IV SCH (05:33)
[2017-03-07] MEDS: MAGNESIUM 1 GM/100 ML IVPB 100 ML IV SCH (05:33)
[2017-03-07 05:38] LABS: CHLORIDE 111 MMOL/L (98-107)
--- NOTE | 2017-03-07 07:08 | Pulmonary Progress Note ---
Subjective Time Seen by Provider: 07:06 Subjective/Events-last exam PT appears to be doing better. Exam Exam Vital Signs Date Time Temp Pulse Resp B/P (MAP) Pulse Ox O2 Delivery O2 Flow Rate FiO2 03/07/17 06:00 78 15 130/63 (85) 100 Nasal Cannula 2.00 03/07/17 05:00 82 18 140/73 (95) 100 Nasal Cannula 2.00 03/07/17 04:04 97.5 Nasal Cannula 2.00 03/07/17 04:00 99 Nasal Cannula 2.00 03/07/17 04:00 76 17 135/74 (94) 100 Nasal Cannula 2.00 03/07/17 03:00 76 15 120/67 (84) 98 Nasal Cannula 2.00 03/07/17 02:00 78 20 115/62 (79) 96 Nasal Cannula 2.00 03/07/17 01:00 79 15 138/90 (106) 96 Nasal Cannula 2.00 03/07/17 01:00 85 03/07/17 00:00 88 16 125/82 (96) 100 Nasal Cannula 2.00 03/07/17 00:00 99 Nasal Cannula 2.00 03/06/17 23:38 98.8 Nasal Cannula 2.00 03/06/17 23:00 92 12 144/65 (91) 98 Nasal Cannula 2.00 03/06/17 22:15 100 Nasal Cannula 6.00 03/06/17 22:00 89 10 105/81 (89) 100 Nasal Cannula 2.00 03/06/17 21:00 90 12 129/93 (105) 100 Nasal Cannula 2.00 03/06/17 20:00 90 12 117/62 (80) 93 Nasal Cannula 2.00 03/06/17 20:00 99 Nasal Cannula 2.00 03/06/17 19:28 98.4 Nasal Cannula 2.00 03/06/17 19:00 85 03/06/17 19:00 82 17 112/71 (85) 98 Nasal Cannula 2.00 03/06/17 18:03 83 21 107/59 (75) 93 Nasal Cannula 2.00 03/06/17 17:00 82 17 98/52 (67) 96 Room Air 03/06/17 16:17 98.5 86 14 120/73 (89) 100 Nasal Cannula 2.00 03/06/17 16:05 100 Nasal Cannula 2.00 03/06/17 15:00 86 16 132/63 (86) 94 Room Air 03/06/17 14:10 83 14 125/93 (104) 100 Nasal Cannula 2.00 03/06/17 13:00 84 10 114/54 (74) 100 Nasal Cannula 2.00 03/06/17 12:29 77 03/06/17 12:02 100 Nasal Cannula 2.00 03/06/17 12:01 98.3 03/06/17 12:00 83 12 100/53 (69) 100 Nasal Cannula 2.00 03/06/17 11:00 85 21 94/76 (82) 100 Nasal Cannula 2.00 03/06/17 10:00 87 14 117/62 (80) 100 Nasal Cannula 2.00 03/06/17 09:00 85 14 100/53 (69) 100 Nasal Cannula 2.00 03/06/17 08:00 81 21 113/52 (72) 99 Nasal Cannula 2.00 03/06/17 07:50 100 Nasal Cannula 2.00 03/06/17 07:50 98.7 Nasal Cannula 2.00 03/06/17 07:42 100 Room Air 03/06/17 07:15 81 I & O 03/07/17 07:00 Intake Total 1483 ml Output Total 480 ml Balance 1003 ml General Appearance: No Apparent Distress HEENT: PERRL/EOMI, TMs Normal, Normal ENT Inspection Neck: Full Range of Motion, Normal Inspection, Non Tender, Supple Respiratory: Other (tender right chest and subcutaneous emphysema) Cardiovascular: Regular Rate, Rhythm Capillary Refill: Less Than 3 Seconds Gastrointestinal: normal bowel sounds, non tender, soft, no organomegaly, no pulsatile mass Extremity: Other (slight right arm tenderness) Neurologic/Psychiatric: Alert, No Motor/Sensory Deficits, 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, recovery advocate II-XII Norm as Tested Skin: Warm/Dry Lymphatic: No Adenopathy Results Lab Laboratory Tests 03/05/17 14:01 03/06/17 04:55 03/06/17 13:06 03/07/17 04:40 Assessment/Plan Assessment/Plan s/p Fall with right 6-10 right rib fractures mildly displaced -Change IVF to NS KVO -Will give 1 liter IVF bolus secondary to decreased UO right small traumatic pneumothorax- appears to be stable -Continue to monitor - Epidural -Pain control Confused probable hx of dementia -monitor No signs of infection, no leukocytosis, no fever -Hold off on Abx for now hx of multiple falls/debility/weakness -Once PTX is improved consult PT/OT Anemia -Check occult stool -repeat later today 233 Clinical Quality Measures DVT/VTE Risk/Contraindication: Risk Factor Score Per Nursin RFS Level Per Nursing on Admit: 2=Moderate LEONOR NICOLE DO Mar 07, 2017 07:08
[2017-03-07] MEDS: RT-ALBUTEROL SULF 2.5 MG/3 ML PRE-MIX VIAL INH SCH ×2 (07:28→19:40)
--- NOTE | 2017-03-07 08:01 | Progress Note (SOAP) ---
Subjective Subjective Date Seen by Provider: Mar 07, 2017 Time Seen by Provider: 08:44 86 yo F admitted for rib fractures and fall No overnight events. Pt denies any difficulty eating. Pt reports she is doing better. Pain is improved/controlled with epidural. Anesthesia thinking about pulling the epidural tomorrow. at beside and reports his is doing well. "She is getting good care from the girls here." Pt does want to know how soon she can go home- likely rehab or SNU- PT/OT to work with patient. Afebrile. urine culture growing ecoli. Review of Systems General: No Chills, No Night Sweats HEENT: No Head Aches, No Visual Changes Pulmonary: No Dyspnea, No Cough Cardiovascular: Chest Pain (right side rib pain), No: Palpitations, Orthopnea, Paroxysmal Noc. Dyspnea, Edema, Lt Headedness, Other Gastrointestinal: Constipation, No: Nausea, Vomiting, Abdominal Pain Genitourinary: No Dysuria Musculoskeletal: No: neck pain, shoulder pain Neurological: Weakness, No: Confusion Objective Exam Vital Signs Vital Sign - Last 12Hours 03/05/17 03/05/17 03/05/17 12:25 15:49 20:26 Temp 98.0 Pulse 93 Resp 18 B/P (MAP) 133/86 (102) Pulse Ox 95 O2 Delivery Room Air O2 Flow Rate 2.00 Capillary Refill : Less Than 3 Seconds General Appearance: No Apparent Distress HEENT: PERRL/EOMI, TMs Normal, Normal ENT Inspection Neck: Full Range of Motion, Normal Inspection, Non Tender, Supple Respiratory: Chest Non Tender, Lungs Clear, Normal Breath Sounds, Other ( tender right chest and subcutaneous emphysema) Cardiovascular: Regular Rate, Rhythm Gastrointestinal: Non Tender, Soft, No Tenderness Rectal: Deferred Back: Other (back right chest tenderness) Extremity: Other (slight right arm tenderness) Neurologic/Psychiatric: Alert, No Motor/Sensory Deficits, 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, 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 Skin: Warm/Dry Lymphatic: No Adenopathy Results Lab Laboratory Tests 03/06/17 13:06: White Blood Count 5.5, Red Blood Count 2.99L, Hemoglobin 9.7L, Hematocrit 30L, Mean Corpuscular Volume 100H, Mean Corpuscular Hemoglobin 32, Mean Corpuscular Hemoglobin Concent 33, Red Cell Distribution Width 13.8, Platelet Count 132, Mean Platelet Volume 11.3H, Neutrophils (%) (Auto) 69, Lymphocytes (%) (Auto) 17 , Monocytes (%) (Auto) 11, Eosinophils (%) (Auto) 3, Basophils (%) (Auto) 0, Neutrophils # (Auto) 3.8, Lymphocytes # (Auto) 0.9L, Monocytes # (Auto) 0.6, Eosinophils # (Auto) 0.1, Basophils # (Auto) 0.0, Sodium Level 141, Potassium Level 3.7, Chloride Level 105, Carbon Dioxide Level 29, Anion Gap 7, Blood Urea Nitrogen 18, Creatinine 0.72, Estimat Glomerular Filtration Rate > 60, BUN/ Creatinine Ratio 25, Glucose Level 96, Calcium Level 8.7, Magnesium Level 2.2, Total Bilirubin 0.6, Aspartate Amino Transf (AST/SGOT) 18, Alanine Aminotransferase (ALT/SGPT) 11, Alkaline Phosphatase 42, Total Protein 5.3L, Albumin 3.0L 03/07/17 04:40: White Blood Count 5.0, Red Blood Count 2.93L, Hemoglobin 9.4L, Hematocrit 29L, Mean Corpuscular Volume 99, Mean Corpuscular Hemoglobin 32, Mean Corpuscular Hemoglobin Concent 32, Red Cell Distribution Width 13.3, Platelet Count 131, Mean Platelet Volume 11.5H, Neutrophils (%) (Auto) 62, Lymphocytes (%) (Auto) 23 , Monocytes (%) (Auto) 10, Eosinophils (%) (Auto) 4, Basophils (%) (Auto) 0, Neutrophils # (Auto) 3.1, Lymphocytes # (Auto) 1.1, Monocytes # (Auto) 0.5, Eosinophils # (Auto) 0.2, Basophils # (Auto) 0.0, Sodium Level 142, Potassium Level 3.7, Chloride Level 111H, Carbon Dioxide Level 23, Anion Gap 8, Blood Urea Nitrogen 13, Creatinine 0.64, Estimat Glomerular Filtration Rate > 60, BUN/ Creatinine Ratio 20, Glucose Level 99, Calcium Level 7.9L, Magnesium Level 2.2, Phosphorus Level 2.7 Microbiology 03/05/17 Urine Culture - Preliminary, Resulted Escherichia Coli Assessment/Plan Assessment/Plan Assessment/Plan 86 yo F traumatic fall with displaced right side rib fractures 6-10- anesthesia consulted- epidural placed for pain management- Dr. Banuelos on for trauma service right side chest wall subcutaneous emphysema- will monitor for improvement right apical pneumothorax- stable - monitor- rechecking cxr Dementia- stable- monitor mental status- continue memantine hypokalemia- improved- monitor- hypomagnesemia- replacing prn anemia likely chronic- - likely hemodilutional- rather than a true drop- will monitor hgb CT negative for brain bleed. -Constipation - miralax, may add colace. -Urinary tract infection with microscopic hematuria (hematuria likely from catheter placement)- E.coli- c/s pending- will treat with rocephin 03/07/17 - > 03/11/17 pt does have frequency- as for her fall(s) I think they are more attributable to her not using her walking and medication ( gives her alprazolam BID- (he can tell when she needs it because her legs start moving/ fidgeting) Anxiety- continue ssri alprazolam 0.5mg daily prn Dispo: pt is stable- PT/OT to evaluate- likely transfer to T today. DVT ppx: SCDs Problems: Clinical Quality Measures DVT/VTE Risk/Contraindication: Risk Factor Score Per Nursin RFS Level Per Nursing on Admit: 2=Moderate ADWOA MÉNDEZ MD Mar 07, 2017 08:01
--- NOTE | 2017-03-07 08:26 | Diagnostic Imaging Report ---
INDICATION: History of pneumothorax. Followup COMPARISON: 03/06/2017 FINDINGS: Single frontal radiographic view of the chest was obtained and again demonstrates trace right apical pneumothorax. This appears to have slightly decreased in volume since prior exam. There is also residual mild amount of overlying soft tissue emphysema. There is also persistent hazy airspace disease within the right mid and lower lung field. This is grossly stable. Left lung remains relatively clear. No large effusion or pneumothorax is seen on the left. Cardiac silhouette and pulmonary vasculature stable. Bony structures show no acute interval changes. IMPRESSION: 1. Slight interval decrease in small right apical pneumothorax. 2. Airspace disease in the right base suggestive of effusion with associated atelectasis and/or infiltrate. This is largely unchanged as well. Dictated by: Dictated on workstation # [id number]
[2017-03-07] MEDS: cefTRIAXone INJECTION 1,000 MG in NS (IVPB) 50 ML IV SCH (09:11)
[2017-03-07] MEDS: MEMANTINE 5 MG (NAMENDA) TABLET PO SCH ×2 (09:11→21:14)
[2017-03-07] MEDS: POLYETHYLENE GLYCOL 17 GM (MIRALAX) PACK PO SCH (09:17)
--- NOTE | 2017-03-07 09:57 | Physical Therapy Daily Note ---
PT Daily Note-Current Subjective Patient is in bed and agrees to PT. During discussion, patient reports family assists with dressing, getting OOB, meals, laundry, etc. Pain Numeric Pain Scale: 5-Moderate Pain Location: Right Location Body Site: Side Pain Description: Acute Mental Status Patient Orientation: Person, Time, Situation Attachments: Oxygen, Eason Catheter, IV Transfers Functional Sebastian Measure 0=Not Assessed/NA 4=Minimal Assistance 1=Total Assistance 5=Supervision or Setup 2=Maximal Assistance 6=Modified Sebastian 3=Moderate Assistance 7=Complete IndependenceIRFPAI Quality Coding Scale 6 Independent with activity with or without an assistive device 5 Patient requires set up or clean up by helper. Patient completes activity by themselves 4 Supervision or touching assist (CGA). [place] provide cues , steadying assist 3 The helper provides less than half the effort to complete the activity 2 The helper provides more than half the effort to complete the activity 1 Dependent. The helper does all the effort to complete an activity 7 Patient refused to complete or attempt activity 9 The patient did not perform the activity before the current illness or injury 88 Not attempted due to Medical conditions or safety concerns Transfers (B, C, W/C) (FIM): 3 Scootin Supine to/from Sit: 3 Sit to/from Stand: 4 Weight Bearing Right Lower Extremity: Right Full Weight Bearing Left Lower Extremity: Left Full Weight Bearing Gait Training Gait (FIM): 4 Distance (FIM): 3=150 ft Distance: 250' Gait Level of Assist: 4 Gait Assistive Device: FWW steady, functional gait sequence. CGA for safety Exercises Seated Therapy Exercises: Ankle pumps, Long arc quads Seated Reps: 15 Assessment Patient tolerated treatment well and is up in recliner with needs met. PT Short Term Goals Short Term Goals Transfers (B,C,W/C) (FIM): 4 PT Senior Living Goals Field Examiner Goals PT Field Examiner Goals Time Frame: Mar 13, 2017 Transfers (B,C,W/C) (FIM): 5 Gait (FIM): 5 Gait distance (FIM): 3=150 ft Gait Assistive Device: FWW PT Plan Treatment/Plan Treatment Plan: Continue Plan of Care Treatment Plan: Bed Mobility, Education, Functional Activity Kendra, Functional Strength, Gait, Safety, Therapeutic Exercise, Transfers Treatment Duration: Mar 13, 2017 Frequency: 6 times per week Estimated Hrs Per Day: .25 hour per day Patient and/or Family Agrees t: Yes Time/GCodes Time In: 925 Time Out: 948 Total Billed Treatment Time: 23 Total Billed Treatment 1 visit GT 15 min EX 8 min ROSIBEL ANDRES PT Mar 07, 2017 09:57
--- NOTE | 2017-03-07 12:45 | Progress Note ---
Subjective Date Seen by Provider: Mar 07, 2017 Time Seen by Provider: 08:35 Subjective/Events-last exam Patient feeling better. Pain controlled. Less pneumothorax by x ray right side. Epidural for pain control. Denies n/v fever sweats chills chest pain shortness of breath. Objective Exam Vital Signs Date Time Temp Pulse Resp B/P (MAP) Pulse Ox O2 Delivery O2 Flow Rate FiO2 03/07/17 10:00 87 14 164/83 (110) 98 Nasal Cannula 2.00 03/07/17 09:00 86 18 127/96 (106) 98 Nasal Cannula 2.00 03/07/17 08:10 99 Nasal Cannula 2.00 03/07/17 08:00 86 18 120/97 (105) 100 Nasal Cannula 2.00 03/07/17 08:00 98.4 Nasal Cannula 2.00 03/07/17 07:47 86 03/07/17 07:28 100 Nasal Cannula 2.00 03/07/17 07:00 78 18 126/64 (84) 100 Nasal Cannula 2.00 03/07/17 06:00 78 15 130/63 (85) 100 Nasal Cannula 2.00 03/07/17 05:00 82 18 140/73 (95) 100 Nasal Cannula 2.00 03/07/17 04:04 97.5 Nasal Cannula 2.00 03/07/17 04:00 99 Nasal Cannula 2.00 03/07/17 04:00 76 17 135/74 (94) 100 Nasal Cannula 2.00 03/07/17 03:00 76 15 120/67 (84) 98 Nasal Cannula 2.00 03/07/17 02:00 78 20 115/62 (79) 96 Nasal Cannula 2.00 03/07/17 01:00 79 15 138/90 (106) 96 Nasal Cannula 2.00 03/07/17 01:00 85 03/07/17 00:00 88 16 125/82 (96) 100 Nasal Cannula 2.00 03/07/17 00:00 99 Nasal Cannula 2.00 03/06/17 23:38 98.8 Nasal Cannula 2.00 03/06/17 23:00 92 12 144/65 (91) 98 Nasal Cannula 2.00 03/06/17 22:15 100 Nasal Cannula 6.00 03/06/17 22:00 89 10 105/81 (89) 100 Nasal Cannula 2.00 03/06/17 21:00 90 12 129/93 (105) 100 Nasal Cannula 2.00 03/06/17 20:00 90 12 117/62 (80) 93 Nasal Cannula 2.00 03/06/17 20:00 99 Nasal Cannula 2.00 03/06/17 19:28 98.4 Nasal Cannula 2.00 03/06/17 19:00 85 03/06/17 19:00 82 17 112/71 (85) 98 Nasal Cannula 2.00 03/06/17 18:03 83 21 107/59 (75) 93 Nasal Cannula 2.00 03/06/17 17:00 82 17 98/52 (67) 96 Room Air 03/06/17 16:17 98.5 86 14 120/73 (89) 100 Nasal Cannula 2.00 03/06/17 16:05 100 Nasal Cannula 2.00 03/06/17 15:00 86 16 132/63 (86) 94 Room Air 03/06/17 14:10 83 14 125/93 (104) 100 Nasal Cannula 2.00 03/06/17 13:00 84 10 114/54 (74) 100 Nasal Cannula 2.00 I & O 03/07/17 07:00 Intake Total 1483 ml Output Total 480 ml Balance 1003 ml Capillary Refill : Less Than 3 Seconds General Appearance: No Apparent Distress HEENT: PERRL/EOMI, TMs Normal, Normal ENT Inspection Neck: Full Range of Motion, Normal Inspection, Non Tender, Supple Respiratory: Chest Non Tender, Lungs Clear, Normal Breath Sounds, Other ( tender right chest and subcutaneous emphysema less) Cardiovascular: Regular Rate, Rhythm Gastrointestinal: normal bowel sounds, non tender, soft, no organomegaly, no pulsatile mass Extremity: Other (slight right arm tenderness) Neurologic/Psychiatric: Alert, No Motor/Sensory Deficits, 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, 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 as 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 Skin: Warm/Dry Lymphatic: No Adenopathy Results Lab Laboratory Tests 03/06/17 13:06: White Blood Count 5.5, Red Blood Count 2.99L, Hemoglobin 9.7L, Hematocrit 30L, Mean Corpuscular Volume 100H, Mean Corpuscular Hemoglobin 32, Mean Corpuscular Hemoglobin Concent 33, Red Cell Distribution Width 13.8, Platelet Count 132, Mean Platelet Volume 11.3H, Neutrophils (%) (Auto) 69, Lymphocytes (%) (Auto) 17 , Monocytes (%) (Auto) 11, Eosinophils (%) (Auto) 3, Basophils (%) (Auto) 0, Neutrophils # (Auto) 3.8, Lymphocytes # (Auto) 0.9L, Monocytes # (Auto) 0.6, Eosinophils # (Auto) 0.1, Basophils # (Auto) 0.0, Sodium Level 141, Potassium Level 3.7, Chloride Level 105, Carbon Dioxide Level 29, Anion Gap 7, Blood Urea Nitrogen 18, Creatinine 0.72, Estimat Glomerular Filtration Rate > 60, BUN/ Creatinine Ratio 25, Glucose Level 96, Calcium Level 8.7, Magnesium Level 2.2, Total Bilirubin 0.6, Aspartate Amino Transf (AST/SGOT) 18, Alanine Aminotransferase (ALT/SGPT) 11, Alkaline Phosphatase 42, Total Protein 5.3L, Albumin 3.0L 03/07/17 04:40: White Blood Count 5.0, Red Blood Count 2.93L, Hemoglobin 9.4L, Hematocrit 29L, Mean Corpuscular Volume 99, Mean Corpuscular Hemoglobin 32, Mean Corpuscular Hemoglobin Concent 32, Red Cell Distribution Width 13.3, Platelet Count 131, Mean Platelet Volume 11.5H, Neutrophils (%) (Auto) 62, Lymphocytes (%) (Auto) 23 , Monocytes (%) (Auto) 10, Eosinophils (%) (Auto) 4, Basophils (%) (Auto) 0, Neutrophils # (Auto) 3.1, Lymphocytes # (Auto) 1.1, Monocytes # (Auto) 0.5, Eosinophils # (Auto) 0.2, Basophils # (Auto) 0.0, Sodium Level 142, Potassium Level 3.7, Chloride Level 111H, Carbon Dioxide Level 23, Anion Gap 8, Blood Urea Nitrogen 13, Creatinine 0.64, Estimat Glomerular Filtration Rate > 60, BUN/ Creatinine Ratio 20, Glucose Level 99, Calcium Level 7.9L, Magnesium Level 2.2, Phosphorus Level 2.7 Microbiology 03/05/17 Urine Culture - Preliminary, Resulted Escherichia Coli Strep Or Related Genus Assessment/Plan Assessment/Plan Assessment/Plan fall, rib fx 6-10 right right pneumothorax UTI on rocephin anemia-stable anxiety dvt prophylaxis DVT plan transfer to floor pneumo decreasing start dispo planning possible inpatient rehab Clinical Quality Measures DVT/VTE Risk/Contraindication: Risk Factor Score Per Nursin RFS Level Per Nursing on Admit: 2=Moderate DEVORA PENA DO Mar 07, 2017 12:45
--- NOTE | 2017-03-07 13:28 | Occupational Ther Daily Note ---
OT Current Status-Daily Note Subjective Pt alert, lying in bed. present in room. Pt's stated that they had been in the hospital rehab and [facility] for rehab. stated that medicare didn't pay for inpt rehab last time, but their insurance paid for [facility]. Mental Status/Objective Functional [place] Measure 0=Not Assessed/NA 4=Minimal Assistance 1=Total Assistance 5=Supervision or Setup 2=Maximal Assistance 6=Modified [place] 3=Moderate Assistance 7=Complete [place] Other Treatment After discussing pt's rehab experience with pt's , pt participated in UE exercises with light resistance theraband. Pt required verbal and physical cues to complete exercises with correct motion. Pt was able to complete 10 reps then 5 reps. Pt unable to lift R elbow off of bed, stating that it hurt to much. After completing exercises, pt stated "I am pooped." After therapy, pt lying in bed with call light/phone in reach. All needs met in room. Nrsg activated bed alarm. Education OT Patient Education: Exercise program Teaching Recipient: Patient Teaching Methods: Demonstration Response to Teaching: Reinforcement Needed OT Short Term Goals Short Term Goals Time Frame: Mar 13, 2017 Eating(FIM): 5 Grooming(FIM): 5 Upper Body Dressing(FIM): 4 Lower Body Dressing(FIM): 3 Toileting(FIM): 3 Transfers (B,C,W/C) (FIM): 4 Toilet/Commode Transfer(FIM): 4 Additional Short Term Goals: 1-Demonstrate ADL Tasks, 2-Verbalize Understanding , 3-ImproveStrength/Kendra 1=Demonstrate adherence to instructed precautions during ADL tasks. 2=Patient will verbalize/demonstrate understanding of assistive devices/ modifications for ADL. 3=Patient will improve strength/tolerance for activity to enable patient to perform ADL's. OT Residential Goals Client Solutions Specialist Goals Time Frame: Mar 20, 2017 Eating (FIM): 5 Grooming(FIM): 5 Upper Body Dressing(FIM): 5 Lower Body Dressing(FIM): 4 Toileting(FIM): 5 Transfers (B,C,W/C) (FIM): 5 Toilet/Commode Transfer(FIM): 5 Additional Goals: 1-Demonstrate ADL Tasks, 2-Verbalize Understanding, 3- ImproveStrength/Kendra 1=Demonstrate adherence to instructed precautions during ADL tasks. 2=Patient will verbalize/demonstrate understanding of assistive devices/ modifications for ADL. 3=Patient will improve strength/tolerance for activity to enable patient to perform ADL's. OT Education/Plan Discharge Recommendations Plan/Recommendations: Continue POC Treatment Plan/Plan of Care Patient would benefit from OT for education, treatment and training to promote independence in ADL's, mobility, safety and/or upper extremity function for ADL' s. Plan of Care: ADL Retraining, Caregiver Training, Functional Mobility, UE Funct Exercise/Act Treatment Duration: Mar 20, 2017 Frequency: 5 times per week Estimated Hrs Per Day: .5 hour per day Agreement: Yes Rehab Potential: Guarded Time/GCodes Start Time: 13:00 Stop Time: 13:20 Total Time Billed (hr/min): 20 Billed Treatment Time 1 visit-EX 1 (20 min) JESS NAIR Mar 07, 2017 13:28
--- NOTE | 2017-03-07 13:48 | Anesthesia Pain Mgmt-Epidural ---
Anesthesia-Pain Mgmnt Epidural Pre-Procedure Indication: Analgesia Chart Review and Risk/Benefits/Options Discussed Procedure Epidural: Continuous Block: Continuous Conditon: Good motor strength, Good pain control, No nausea Date of Service: Mar 07, 2017 Time of Service: 13:40 JERMAN TOLBERT CRNA Mar 07, 2017 13:48
[2017-03-08] VITALS (7 sets, daily range): BP systolic 155–194; BP diastolic 78–96
[2017-03-08] MEDS: EPIDURAL (SUFENTA 0.6MCG/ML BUPIVA 0.125%) 100 ML BAG EPI PRN (05:09)
--- NOTE | 2017-03-08 07:36 | Pulmonary Progress Note ---
Subjective Time Seen by Provider: 09:29 Subjective/Events-last exam pt is doing better. No complications noted.; Exam Exam Vital Signs Date Time Temp Pulse Resp B/P (MAP) Pulse Ox O2 Delivery O2 Flow Rate FiO2 03/08/17 04:00 99.1 83 16 155/78 (103) 95 Nasal Cannula 2.00 03/08/17 01:56 98.0 03/08/17 00:30 160/86 (110) 03/08/17 00:00 100.7 117 20 194/89 (124) 99 Nasal Cannula 2.00 03/07/17 20:00 98.3 80 16 158/71 (100) 95 Nasal Cannula 2.00 03/07/17 19:55 99 Nasal Cannula 2.00 03/07/17 19:40 93 Room Air 03/07/17 16:17 98.4 77 16 155/77 (103) 96 Nasal Cannula 2.00 03/07/17 12:00 98.4 78 20 140/82 (101) 96 Nasal Cannula 2.00 03/07/17 10:50 98.2 84 20 179/82 (114) 96 Nasal Cannula 2.00 03/07/17 10:00 87 14 164/83 (110) 98 Nasal Cannula 2.00 03/07/17 09:00 86 18 127/96 (106) 98 Nasal Cannula 2.00 03/07/17 08:10 99 Nasal Cannula 2.00 03/07/17 08:00 86 18 120/97 (105) 100 Nasal Cannula 2.00 03/07/17 08:00 98.4 Nasal Cannula 2.00 03/07/17 07:47 86 I & O 03/08/17 07:00 Intake Total 1760 ml Output Total 1525 ml Balance 235 ml General Appearance: No Apparent Distress HEENT: PERRL/EOMI, TMs Normal, Normal ENT Inspection Neck: Full Range of Motion, Normal Inspection, Non Tender, Supple Respiratory: Chest Non Tender, Lungs Clear, Normal Breath Sounds, Other ( tender right chest and subcutaneous emphysema less) Cardiovascular: Regular Rate, Rhythm Capillary Refill: Less Than 3 Seconds Gastrointestinal: normal bowel sounds, non tender, soft, no organomegaly, no pulsatile mass Extremity: Other (slight right arm tenderness) Neurologic/Psychiatric: Alert, No Motor/Sensory Deficits, 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, 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 Skin: Warm/Dry Lymphatic: No Adenopathy Results Lab Laboratory Tests 03/06/17 13:06 03/07/17 04:40 Assessment/Plan Assessment/Plan s/p Fall with right 6-10 right rib fractures mildly displaced right small traumatic pneumothorax- appears to be stable -Continue to monitor - Epidural -Pain control Confused probable hx of dementia -monitor No signs of infection, no leukocytosis, no fever -Hold off on Abx for now hx of multiple falls/debility/weakness -Once PTX is improved consult PT/OT Anemia -Check occult stool -repeat later today 232 Clinical Quality Measures DVT/VTE Risk/Contraindication: Risk Factor Score Per Nursin RFS Level Per Nursing on Admit: 2=Moderate LEONOR NICOLE DO Mar 08, 2017 07:36
--- NOTE | 2017-03-08 08:10 | Progress Note (SOAP) ---
Subjective Subjective Date Seen by Provider: Mar 08, 2017 Time Seen by Provider: 08:31 86 yo F admitted for rib fractures and fall Pt developed a 100.7F- now running around 99F Blood pressure is elevated, not on any antihypertensives. Will start one today. Urine output improving. She has not had a bowel movement during her stay- usual for her is weekly. She is passing gas. Pt did pull her catheter out last night. Pt is confused this AM but has no complaints- denies any new pain. Review of Systems General: No Chills, No Night Sweats HEENT: No Head Aches, No Visual Changes Pulmonary: No Dyspnea, No Cough Cardiovascular: Chest Pain (improved- right rib pain), No: Palpitations, Orthopnea, Paroxysmal Noc. Dyspnea, Edema, Lt Headedness, Other Gastrointestinal: Constipation, No: Nausea, Vomiting, Abdominal Pain Genitourinary: No Dysuria Musculoskeletal: No: neck pain, shoulder pain Neurological: Weakness, No: Confusion Objective Exam Vital Signs Vital Signs Date Time Temp Pulse Resp B/P (MAP) Pulse Ox O2 Delivery O2 Flow Rate FiO2 03/08/17 04:00 99.1 83 16 155/78 (103) 95 Nasal Cannula 2.00 03/08/17 01:56 98.0 03/08/17 00:30 160/86 (110) 03/08/17 00:00 100.7 117 20 194/89 (124) 99 Nasal Cannula 2.00 03/07/17 20:00 98.3 80 16 158/71 (100) 95 Nasal Cannula 2.00 03/07/17 19:55 99 Nasal Cannula 2.00 03/07/17 19:40 93 Room Air 03/07/17 16:17 98.4 77 16 155/77 (103) 96 Nasal Cannula 2.00 03/07/17 12:00 98.4 78 20 140/82 (101) 96 Nasal Cannula 2.00 03/07/17 10:50 98.2 84 20 179/82 (114) 96 Nasal Cannula 2.00 03/07/17 10:00 87 14 164/83 (110) 98 Nasal Cannula 2.00 03/07/17 09:00 86 18 127/96 (106) 98 Nasal Cannula 2.00 I & O 03/08/17 07:00 Intake Total 1760 ml Output Total 1525 ml Balance 235 ml General Appearance: No Apparent Distress HEENT: PERRL/EOMI, Normal ENT Inspection Neck: Full Range of Motion, Normal Inspection, Non Tender, Supple Respiratory: Chest Non Tender, Lungs Clear, Normal Breath Sounds, Other ( tender right chest and subcutaneous emphysema less) Cardiovascular: Regular Rate, Rhythm Gastrointestinal: Non Tender, Soft, No Tenderness Rectal: Deferred Back: No CVA Tenderness, Other (back right chest tenderness) Extremity: Non Tender, No Calf Tenderness, Other (slight right arm tenderness) Neurologic/Psychiatric: Alert, No Motor/Sensory Deficits, 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 Banuelos on for trauma service right side chest wall subcutaneous emphysema- will monitor for improvement right apical pneumothorax- stable - monitor- rechecking cxr Dementia- stable- monitor mental status- continue memantine hypokalemia- improved- monitor- hypomagnesemia- replacing prn anemia - chronic- - monitor hgb CT negative for brain bleed. -Constipation - miralax, colace. -Urinary tract infection with microscopic hematuria (hematuria likely from catheter placement)- E.coli- will treat with rocephin 03/07/17 -> 03/11/17 pt does have frequency- as for her fall(s) I think they are more attributable to her not using her walking and medication ( gives her alprazolam BID) Anxiety- continue ssri alprazolam 0.5mg daily prn HTN- starting lisinopril 5mg today- monitor blood pressure- especially with standing- Dispo: pt is stable- PT/OT to evaluate- Anesthesia planning to pull her epidural today. DVT ppx: SCDs Problems: Clinical Quality Measures DVT/VTE Risk/Contraindication: Risk Factor Score Per Nursin RFS Level Per Nursing on Admit: 2=Moderate ADWOA MÉNDEZ MD Mar 08, 2017 08:10
--- NOTE | 2017-03-08 09:15 | Physical Therapy Daily Note ---
PT Daily Note-Current Subjective Patient agrees to PT. Family present. Pain Numeric Pain Scale: 0-No Pain Location: No Pain Reported Mental Status Patient Orientation: Confused Attachments: IV Transfers Functional [place] Measure 0=Not Assessed/NA 4=Minimal Assistance 1=Total Assistance 5=Supervision or Setup 2=Maximal Assistance 6=Modified [place] 3=Moderate Assistance 7=Complete IndependenceIRFPAI Quality Coding Scale 6 Independent with activity with or without an assistive device 5 Patient requires set up or clean up by helper. Patient completes activity by themselves 4 Supervision or touching assist (CGA). [place] provide cues , steadying assist 3 The helper provides less than half the effort to complete the activity 2 The helper provides more than half the effort to complete the activity 1 Dependent. The helper does all the effort to complete an activity 7 Patient refused to complete or attempt activity 9 The patient did not perform the activity before the current illness or injury 88 Not attempted due to Medical conditions or safety concerns Transfers (B, C, W/C) (FIM): 4 Scootin Supine to/from Sit: 5 Sit to/from Stand: 4 Weight Bearing Right Lower Extremity: Right Full Weight Bearing Left Lower Extremity: Left Full Weight Bearing Gait Training Gait (FIM): 4 Distance (FIM): 3=150 ft Distance: 250' Gait Level of Assist: 4 Gait Persons Needed: 1 Gait Assistive Device: FWW noted right LE lag with gait training with FWW Assessment Patient declined exercises and is up in recliner with needs met. Patient confused during treatment with difficulty following direction. PT Short Term Goals Short Term Goals Transfers (B,C,W/C) (FIM): 4 PT [facility] Goals [facility] Goals PT [facility] Goals Time Frame: Mar 13, 2017 Transfers (B,C,W/C) (FIM): 5 Gait (FIM): 5 Gait distance (FIM): 3=150 ft Gait Assistive Device: FWW PT Plan Treatment/Plan Treatment Plan: Continue Plan of Care Treatment Plan: Bed Mobility, Education, Functional Activity Kendra, Functional Strength, Gait, Safety, Therapeutic Exercise, Transfers Treatment Duration: Mar 13, 2017 Frequency: 6 times per week Estimated Hrs Per Day: .25 hour per day Patient and/or Family Agrees t: Yes Time/GCodes Time In: 841 Time Out: 900 Total Billed Treatment Time: 19 Total Billed Treatment 1 visit GT 19 min ROSIBEL ANDRES PT Mar 08, 2017 09:15
[2017-03-08] MEDS: POLYETHYLENE GLYCOL 17 GM (MIRALAX) PACK PO SCH ×2 (09:33→21:00)
[2017-03-08] MEDS: cefTRIAXone INJECTION 1,000 MG in NS (IVPB) 50 ML IV SCH (09:33)
[2017-03-08] MEDS: lisINopril 5 MG (PRINIVIL) TABLET PO SCH (09:34)
[2017-03-08] MEDS: DOCUSATE SODIUM 100 MG (COLACE) CAP PO SCH ×2 (09:34→21:00)
[2017-03-08] MEDS: MEMANTINE 5 MG (NAMENDA) TABLET PO SCH ×2 (09:37→21:00)
--- NOTE | 2017-03-08 09:52 | Diagnostic Imaging Report ---
INDICATION: Followup pneumothorax. COMPARISON: 03/07/2017. FINDINGS: Small right apical pneumothorax continues to decrease in size now with approximately 5 mm of apical pleural separation (previously 10 mm). Mildly displaced lateral right rib fractures are in stable position. Trace right pleural effusion. Stable cardiomegaly with perihilar opacities, greater on the right. IMPRESSION: 1. Continued decrease in size of small right apical pneumothorax secondary to right lateral rib fractures. Dictated by: Dictated on workstation # [id number]
--- NOTE | 2017-03-08 10:19 | Progress Note ---
Subjective Date Seen by Provider: Mar 08, 2017 Time Seen by Provider: 09:00 Subjective/Events-last exam Sitting up in chair. Still with pain. Epidural in place to be removed today. No bm, passing flatus. Denies any new complaints. Objective Exam Vital Signs Date Time Temp Pulse Resp B/P (MAP) Pulse Ox O2 Delivery O2 Flow Rate FiO2 03/08/17 04:00 99.1 83 16 155/78 (103) 95 Nasal Cannula 2.00 03/08/17 01:56 98.0 03/08/17 00:30 160/86 (110) 03/08/17 00:00 100.7 117 20 194/89 (124) 99 Nasal Cannula 2.00 03/07/17 20:00 98.3 80 16 158/71 (100) 95 Nasal Cannula 2.00 03/07/17 19:55 99 Nasal Cannula 2.00 03/07/17 19:40 93 Room Air 03/07/17 16:17 98.4 77 16 155/77 (103) 96 Nasal Cannula 2.00 03/07/17 12:00 98.4 78 20 140/82 (101) 96 Nasal Cannula 2.00 03/07/17 10:50 98.2 84 20 179/82 (114) 96 Nasal Cannula 2.00 I & O 03/08/17 07:00 Intake Total 1760 ml Output Total 1525 ml Balance 235 ml Capillary Refill : Less Than 3 Seconds General Appearance: No Apparent Distress HEENT: PERRL/EOMI, Normal ENT Inspection Neck: Full Range of Motion, Normal Inspection, Non Tender, Supple Respiratory: Chest Non Tender, Lungs Clear, Normal Breath Sounds, Other ( tender right chest ) Cardiovascular: Regular Rate, Rhythm Gastrointestinal: normal bowel sounds, non tender, soft, no organomegaly, no pulsatile mass Extremity: Non Tender, No Calf Tenderness, Other (slight right arm tenderness) Neurologic/Psychiatric: Alert, No Motor/Sensory Deficits, 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, 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 Norm as Tested Skin: Warm/Dry Lymphatic: No Adenopathy Results Lab Microbiology 03/05/17 Urine Culture - Preliminary, Resulted Escherichia Coli Strep Or Related Genus Assessment/Plan Assessment/Plan Assessment/Plan 86 yo F fall rib fractures 6-10 right mild displacement right pneumothorax uti constipation HTN pneumo decreasing in size no intervention pain control - epidural to be removed today pt/ot work on placement uti- Rocephin increase miralax to BID Clinical Quality Measures DVT/VTE Risk/Contraindication: Risk Factor Score Per Nursin RFS Level Per Nursing on Admit: 2=Moderate DEVORA PENA DO Mar 08, 2017 10:19
[2017-03-08] MEDS: NS IV 1000 ML 1,000 ML IV SCH ×2 (11:41→23:55)
[2017-03-08] MEDS: RT-ALBUTEROL SULF 2.5 MG/3 ML PRE-MIX VIAL INH SCH (12:40)
--- NOTE | 2017-03-08 13:48 | Occ Therapy Progress Note ---
Therapy Progress Note Attempted to see pt 3x's today. Pt unavailable first time. Pt had family the 2nd and 3rd time. Pt and family refused treatment. JESS NAIR Mar 08, 2017 13:48
[2017-03-08] MEDS: ALPRAZolam 0.5 MG (XANAX) TAB PO PRN (17:45)
[2017-03-09] VITALS: BP 168/90
[2017-03-09 04:00] VITALS: BP 178/89
[2017-03-09 08:00] VITALS: BP 188/86
--- NOTE | 2017-03-09 08:09 | Diagnostic Imaging Report ---
Portable erect AP chest at 455 hours. INDICATION: Respiratory distress. FINDINGS: The prior exam of 03/08/2017 noted a decreasing small apical pneumothorax on the right. On this study, the apical pneumothorax is again evident. The distance from the thorax to the lung edge is approximately 3.75 mm as opposed to 5.2 mm on the prior study. As noted on the prior exam, there is subcutaneous emphysema along the periphery of the right thorax and there are several displaced rib fractures on the right. The vague area of increased density in the right lung base seen previously is essentially no different. The left lung remains clear. The heart is stable. The mediastinum is not widened. The radiopaque line overlying the left thorax seen previously has been removed. IMPRESSION: The small apical pneumothorax on the right seen previously continues to decrease in size. The overall appearance of the chest is otherwise stable. A followup exam would be recommended for continued evaluation. Dictated by: Dictated on workstation # [id number]
[2017-03-09] MEDS: DOCUSATE SODIUM 100 MG (COLACE) CAP PO SCH ×2 (10:04→21:01)
[2017-03-09] MEDS: MEMANTINE 5 MG (NAMENDA) TABLET PO SCH ×3 (10:04→21:05)
[2017-03-09] MEDS: lisINopril 5 MG (PRINIVIL) TABLET PO SCH (10:04)
[2017-03-09] MEDS: CEPHALEXIN 250 MG (KEFLEX) CAP PO SCH ×4 (10:04→21:05)
[2017-03-09] MEDS: POLYETHYLENE GLYCOL 17 GM (MIRALAX) PACK PO SCH ×2 (10:04→21:01)
[2017-03-09 10:36] LABS: HEMOGLOBIN 12.5 G/DL (11.5-16.0); MEAN PLATELET VOLUME 11.2 FL (7.4-10.4); RED BLOOD COUNT 3.9 10^6/uL (4.35-5.85); RED CELL DISTRIBUTION WIDTH 12.8 % (10.0-14.5)
[2017-03-09 10:54] LABS: BUN/CREATININE RATIO 6; CALCIUM 8.8 MG/DL (8.5-10.1); CARBON DIOXIDE 26 MMOL/L (21-32); CHLORIDE 101 MMOL/L (98-107); CREATININE SERUM 0.62 MG/DL (0.60-1.30); GFR ESTIMATED > 60; GLUCOSE 158 MG/DL (70-105); SODIUM 137 MMOL/L (135-145)
[2017-03-09] MEDS: amLODIPine 5 MG (NORVASC) TAB PO SCH (11:32)
--- NOTE | 2017-03-09 11:41 | Physical Therapy Daily Note ---
PT Daily Note-Current Subjective Pt. in bed and agrees to therapy. She rates pain 9/10 in her R hip while ambulating. Mental Status Patient Orientation: Person Attachments: IV Transfers Functional [place] Measure 0=Not Assessed/NA 4=Minimal Assistance 1=Total Assistance 5=Supervision or Setup 2=Maximal Assistance 6=Modified [place] 3=Moderate Assistance 7=Complete IndependenceIRFPAI Quality Coding Scale 6 Independent with activity with or without an assistive device 5 Patient requires set up or clean up by helper. Patient completes activity by themselves 4 Supervision or touching assist (CGA). [place] provide cues , steadying assist 3 The helper provides less than half the effort to complete the activity 2 The helper provides more than half the effort to complete the activity 1 Dependent. The helper does all the effort to complete an activity 7 Patient refused to complete or attempt activity 9 The patient did not perform the activity before the current illness or injury 88 Not attempted due to Medical conditions or safety concerns Transfers (B, C, W/C) (FIM): 4 Supine to/from Sit: 5 Sit to/from Stand: 4 Weight Bearing Right Lower Extremity: Right Full Weight Bearing Left Lower Extremity: Left Full Weight Bearing Gait Training Gait (FIM): 2 Distance (FIM): 4=241-11 ft Distance: 125 ft Gait Level of Assist: 4 Gait Persons Needed: 1 Gait Assistive Device: FWW Assessment Current Status: Good Progress Pt. fatigues quickly during ambulation and has trendelenburg gait on R. She does well with transfers. Pt. returned to bed post session, call light and all needs met. 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 PT [facility] Goals Time Frame: Mar 13, 2017 Transfers (B,C,W/C) (FIM): 5 Gait (FIM): 5 Gait distance (FIM): 3=150 ft Gait Assistive Device: FWW PT Plan Treatment/Plan Treatment Plan: Continue Plan of Care Treatment Plan: Bed Mobility, Education, Functional Activity Kendra, Functional Strength, Gait, Safety, Therapeutic Exercise, Transfers Treatment Duration: Mar 13, 2017 Frequency: 6 times per week Estimated Hrs Per Day: .25 hour per day Patient and/or Family Agrees t: Yes Time/GCodes Time In: 1125 Time Out: 1137 Total Billed Treatment Time: 12 Total Billed Treatment 1, GT 12' SERVANDO FRANCO PT Mar 09, 2017 11:41
[2017-03-09 12:00] VITALS: BP 187/87
--- NOTE | 2017-03-09 13:15 | Progress Note-Hospitalist ---
Progress Note Progress Notes/Assess & Plan Date Seen 03/09/17 Time Seen by Provider: 10:00 Diagonsis/Assessment & Plan Patient reports she is doing well Pain is controlled Blood pressure remains elevated so we'll add amlodipine and hydralazine due to the severity of the blood pressure elevation UTI being treated with Keflex after Rocephin was given for 2 days No fever, blood pressure elevated otherwise stable Pleasant, oriented times around 1-2 but poor recall, thin, frail, pale Regular rate and rhythm, clear to auscultation bilaterally but diminished all patel No edema Laboratory Tests 03/09/17 10:21 Assessment: Status post fall with right sided rib fractures with traumatic pneumothorax UTI maintain on Keflex to complete treatment after Rocephin given Dementia Frail status with chronic debility Hypokalemia Plan: Maintain Keflex Maintain pain control Bowel regimen to continue Replace potassium DELBERT BASS DO Mar 09, 2017 13:15
[2017-03-09] MEDS: NS W/KCL 20 MEQ/L 1,000 ML IV SCH (14:19)
[2017-03-09] MEDS: KCL 10 MEQ TAB (MICRO K) PO SCH ×2 (14:19→18:10)
--- NOTE | 2017-03-09 14:43 | Progress Note ---
Subjective Date Seen by Provider: Mar 09, 2017 Time Seen by Provider: 09:00 Subjective/Events-last exam doing well. pain controlled. tolerating diet. +bm chest x ray less of right pneumothorax at bedside. Objective Exam Vital Signs Date Time Temp Pulse Resp B/P (MAP) Pulse Ox O2 Delivery O2 Flow Rate FiO2 03/09/17 12:00 97.8 93 22 187/87 (120) 96 Room Air 03/09/17 10:52 Room Air 03/09/17 08:20 96 Room Air 03/09/17 08:00 98.4 92 24 188/86 (120) 93 Room Air 03/09/17 04:00 97.3 84 18 178/89 (118) 98 Room Air 03/09/17 00:00 99.1 83 18 168/90 (116) 93 Room Air 03/08/17 20:01 98.7 89 22 190/96 (127) 97 Room Air 03/08/17 20:00 96 Room Air 03/08/17 16:24 180/90 (120) 03/08/17 16:16 98.5 82 20 () 97 Room Air 03/08/17 15:00 Room Air I & O 03/09/17 07:00 Intake Total 1010 ml Output Total 300 ml Balance 710 ml Capillary Refill : Less Than 3 SecondsLess Than 3 Seconds General Appearance: No Apparent Distress HEENT: PERRL/EOMI, Normal ENT Inspection Neck: Full Range of Motion, Normal Inspection, Non Tender, Supple Respiratory: Chest Non Tender, Lungs Clear, Normal Breath Sounds, Other ( tender right chest ) Cardiovascular: Regular Rate, Rhythm Gastrointestinal: normal bowel sounds, non tender, soft, no organomegaly, no pulsatile mass Extremity: Non Tender, No Calf Tenderness, Other (slight right arm tenderness with some bruising) Neurologic/Psychiatric: Alert, No Motor/Sensory Deficits, 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, 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 Norm as Tested Skin: Warm/Dry Lymphatic: No Adenopathy Results Lab Laboratory Tests 03/09/17 10:21: White Blood Count 8.0, Red Blood Count 3.90L, Hemoglobin 12.5#, Hematocrit 36, Mean Corpuscular Volume 93, Mean Corpuscular Hemoglobin 32, Mean Corpuscular Hemoglobin Concent 34, Red Cell Distribution Width 12.8, Platelet Count 205, Mean Platelet Volume 11.2H, Sodium Level 137, Potassium Level 3.0L, Chloride Level 101, Carbon Dioxide Level 26, Anion Gap 10, Blood Urea Nitrogen 4L, Creatinine 0.62, Estimat Glomerular Filtration Rate > 60, BUN/Creatinine Ratio 6 , Glucose Level 158H, Calcium Level 8.8 Microbiology 03/05/17 Urine Culture - Final, Complete Escherichia Coli Aerococcus Urinae Lactobacillus Species Assessment/Plan Assessment/Plan Assessment/Plan 86 yo F fall rib fractures 6-10 right mild displacement right pneumothorax uti constipation HTN hypokalemia pneumo decreasing in size no intervention discussed with dr. Elaine want to continue to watch pain control pt/ot work on placement increase miralax to BID replace K repeat labs in am Clinical Quality Measures DVT/VTE Risk/Contraindication: Risk Factor Score Per Nursin RFS Level Per Nursing on Admit: 2=Moderate DEVORA PENA DO Mar 09, 2017 14:43
[2017-03-09 16:00] VITALS: BP 124/76
[2017-03-09] MEDS: ALPRAZolam 0.5 MG (XANAX) TAB PO PRN (18:10)
[2017-03-09 19:39] VITALS: BP 168/84
[2017-03-10] VITALS (7 sets, daily range): BP systolic 119–178; BP diastolic 75–112
[2017-03-10] MEDS: NS W/KCL 20 MEQ/L 1,000 ML IV SCH (04:35)
[2017-03-10 05:34] LABS: HEMOGLOBIN 11.5 G/DL (11.5-16.0); MEAN PLATELET VOLUME 11.3 FL (7.4-10.4); RED BLOOD COUNT 3.58 10^6/uL (4.35-5.85); RED CELL DISTRIBUTION WIDTH 13.1 % (10.0-14.5); WHITE BLOOD COUNT 6.2 10^3/uL (4.3-11.0)
[2017-03-10 05:53] LABS: BUN/CREATININE RATIO 8; CALCIUM 8.6 MG/DL (8.5-10.1); CARBON DIOXIDE 22 MMOL/L (21-32); CHLORIDE 107 MMOL/L (98-107); CREATININE SERUM 0.61 MG/DL (0.60-1.30); GFR ESTIMATED > 60; GLUCOSE 109 MG/DL (70-105); POTASSIUM 3.4 MMOL/L (3.6-5.0); SODIUM 141 MMOL/L (135-145)
[2017-03-10] MEDS: KCL 10 MEQ TAB (MICRO K) PO SCH ×2 (06:12→17:29)
[2017-03-10] MEDS: POLYETHYLENE GLYCOL 17 GM (MIRALAX) PACK PO SCH ×2 (07:47→20:49)
[2017-03-10] MEDS: amLODIPine 5 MG (NORVASC) TAB PO SCH (09:43)
[2017-03-10] MEDS: DOCUSATE SODIUM 100 MG (COLACE) CAP PO SCH ×2 (09:43→20:49)
[2017-03-10] MEDS: CEPHALEXIN 250 MG (KEFLEX) CAP PO SCH ×3 (09:44→20:49)
[2017-03-10] MEDS: lisINopril 5 MG (PRINIVIL) TABLET PO SCH (09:44)
[2017-03-10] MEDS: MEMANTINE 5 MG (NAMENDA) TABLET PO SCH ×2 (09:44→20:48)
--- NOTE | 2017-03-10 10:28 | Diagnostic Imaging Report ---
EXAMINATION: Portable erect AP chest at 0450 AM INDICATION: Pneumothorax The prior chest exam of 03/09/2017 noted a minute apical pneumothorax on the right. On this study, there is only a trace amount of free air still present in the right apex. The vague area of increased density in the right lung base seen previously is again evident and no different. A small area of increased density has developed in the left upper lung, however. This finding is questionable for a new focus of pneumonia/atelectasis. The left lung is otherwise clear. The heart is stable. The mediastinum is not widened. There is no acute bony abnormality noted. IMPRESSION: The small pneumothorax on the right seen previously has nearly completely resolved. However, there is a question of a new focus of pneumonia/atelectasis in the left perihilar region. A followup chest exam would be recommended for continued evaluation. Dictated by: Dictated on workstation # [id number]
--- NOTE | 2017-03-10 11:37 | Progress Note-Hospitalist ---
Progress Note Progress Notes/Assess & Plan Date Seen 03/10/17 Time Seen by Provider: 11:00 Diagonsis/Assessment & Plan Patient reports she is doing well Pain is controlled Blood pressure remains elevated but improved since adding meds Dementia with behavior disturbances last night but resolved spontaneously Having bowel movements Eating and drinking well so will Hep-Lock fluid No fever, blood pressure elevated otherwise stable Pleasant, oriented times around 1-2 but poor recall, thin, frail, pale Regular rate and rhythm, clear to auscultation bilaterally but diminished all patel No edema Laboratory Tests 03/10/17 05:10 Assessment: Status post fall with right sided rib fractures with traumatic pneumothorax UTI maintain on Keflex to complete treatment after Rocephin given Dementia Frail status with chronic debility Hypokalemia Plan: Maintain Keflex Maintain pain control Bowel regimen to continue Replace potassium HLIVF DELBERT BASS DO Mar 10, 2017 11:37
--- NOTE | 2017-03-10 14:42 | Progress Note ---
Subjective Date Seen by Provider: Mar 10, 2017 Time Seen by Provider: 14:39 Subjective/Events-last exam feeling well. pain controlled. Having bowel movements. Pneumo decreasing by xray. Denies n/v fever sweats chills shortness of breath or chest pain. Objective Exam Vital Signs Date Time Temp Pulse Resp B/P (MAP) Pulse Ox O2 Delivery O2 Flow Rate FiO2 03/10/17 12:00 99.9 99 20 143/76 (98) 97 Room Air 03/10/17 09:44 93 Room Air 03/10/17 08:03 Room Air 03/10/17 08:00 99.3 99 20 155/90 (111) 99 Room Air 03/10/17 04:00 99.1 100 20 177/98 (124) 98 Room Air 03/10/17 01:17 150/98 (115) 03/10/17 00:00 97.5 97 18 160/112 (128) 96 Room Air 03/09/17 23:05 92 Room Air 03/09/17 20:00 96 Room Air 03/09/17 19:39 97.5 101 18 168/84 (112) 91 Room Air 03/09/17 16:00 98.3 78 20 124/76 (92) 97 Room Air 03/09/17 14:55 Room Air I & O 03/10/17 07:00 Intake Total 590 ml Balance 590 ml Capillary Refill : Less Than 3 SecondsLess Than 3 Seconds General Appearance: No Apparent Distress HEENT: PERRL/EOMI, Normal ENT Inspection Neck: Full Range of Motion, Normal Inspection, Non Tender, Supple Respiratory: Chest Non Tender, Lungs Clear, Normal Breath Sounds, Other ( tender right chest ) Cardiovascular: Regular Rate, Rhythm Gastrointestinal: normal bowel sounds, non tender, soft, no organomegaly, no pulsatile mass Extremity: Non Tender, No Calf Tenderness, Other (slight right arm tenderness with some bruising) Neurologic/Psychiatric: Alert, No Motor/Sensory Deficits, 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, state pilot II-XII Norm as Tested Skin: Warm/Dry Lymphatic: No Adenopathy Results Lab Laboratory Tests 03/10/17 05:10: White Blood Count 6.2, Red Blood Count 3.58L, Hemoglobin 11.5, Hematocrit 33L, Mean Corpuscular Volume 93, Mean Corpuscular Hemoglobin 32, Mean Corpuscular Hemoglobin Concent 34, Red Cell Distribution Width 13.1, Platelet Count 215, Mean Platelet Volume 11.3H, Sodium Level 141, Potassium Level 3.4L, Chloride Level 107, Carbon Dioxide Level 22, Anion Gap 12, Blood Urea Nitrogen 5L, Creatinine 0.61, Estimat Glomerular Filtration Rate > 60, BUN/Creatinine Ratio 8 , Glucose Level 109H, Calcium Level 8.6 Microbiology 03/05/17 Urine Culture - Final, Complete Escherichia Coli Aerococcus Urinae Lactobacillus Species Assessment/Plan Assessment/Plan Assessment/Plan 86 yo F fall rib fractures 6-10 right mild displacement right pneumothorax uti constipation HTN hypokalemia pneumo decreasing in size no intervention pain control pt/ot bowel regimen replace K awaiting placement Clinical Quality Measures DVT/VTE Risk/Contraindication: Risk Factor Score Per Nursin RFS Level Per Nursing on Admit: 2=Moderate DEVORA PENA DO Mar 10, 2017 2:42 pm
[2017-03-10] MEDS ORDERED: IBUPROFEN TABLET 200 MG TAB PO PRN (14:45)
[2017-03-10] MEDS ORDERED: ACETAMINOPHEN 500 MG TAB (TYLENOL) PO PRN (14:45)
[2017-03-10] MEDS: ALPRAZolam 0.5 MG (XANAX) TAB PO PRN (15:55)
[2017-03-11] VITALS (7 sets, daily range): BP systolic 115–168; BP diastolic 65–88
[2017-03-11] MEDS: KCL 10 MEQ TAB (MICRO K) PO SCH ×2 (06:52→17:48)
[2017-03-11] MEDS: POLYETHYLENE GLYCOL 17 GM (MIRALAX) PACK PO SCH ×2 (08:27→20:16)
[2017-03-11] MEDS: amLODIPine 5 MG (NORVASC) TAB PO SCH (08:27)
[2017-03-11] MEDS: CEPHALEXIN 250 MG (KEFLEX) CAP PO SCH ×3 (08:27→20:16)
[2017-03-11] MEDS: DOCUSATE SODIUM 100 MG (COLACE) CAP PO SCH ×2 (08:27→20:16)
[2017-03-11] MEDS: lisINopril 5 MG (PRINIVIL) TABLET PO SCH (08:27)
[2017-03-11] MEDS: MEMANTINE 5 MG (NAMENDA) TABLET PO SCH ×2 (08:28→20:16)
--- NOTE | 2017-03-11 08:45 | Progress Note ---
Subjective Date Seen by Provider: Mar 11, 2017 Time Seen by Provider: 08:41 Subjective/Events-last exam Resting comfortably. No complaints, pain controlled. Breathing without difficulty. Denies n/v fever sweats chills shortness of breath or chest pain. Objective Exam Vital Signs Date Time Temp Pulse Resp B/P (MAP) Pulse Ox O2 Delivery O2 Flow Rate FiO2 03/11/17 08:32 98.3 93 16 168/84 (112) 96 Room Air 03/11/17 04:00 97.3 93 20 140/73 (95) 97 Room Air 03/11/17 00:00 98.7 108 18 136/88 (104) 97 Room Air 03/10/17 20:40 99.0 105 18 119/75 (90) 97 Room Air 03/10/17 20:22 Room Air 03/10/17 19:27 93 Room Air 03/10/17 16:40 98.3 107 18 178/79 (112) 96 Room Air 03/10/17 12:00 99.9 99 20 143/76 (98) 97 Room Air 03/10/17 09:44 93 Room Air I & O 03/11/17 07:00 Intake Total 3520 ml Balance 3520 ml Capillary Refill : Less Than 3 SecondsLess Than 3 Seconds General Appearance: No Apparent Distress HEENT: PERRL/EOMI, Normal ENT Inspection Neck: Full Range of Motion, Normal Inspection, Non Tender, Supple Respiratory: Chest Non Tender, Lungs Clear, Normal Breath Sounds, No Accessory Muscle Use, No Respiratory Distress, Accessory Muscle Use, Other (tender right chest ) Cardiovascular: Regular Rate, Rhythm Gastrointestinal: non tender, soft, no organomegaly, no pulsatile mass Extremity: Non Tender, No Calf Tenderness, Other (minimal right arm tenderness with some bruising) Neurologic/Psychiatric: Alert, No Motor/Sensory Deficits, 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, fish icer II-XII Norm as Tested Skin: Warm/Dry Lymphatic: No Adenopathy Results Lab Microbiology 03/05/17 Urine Culture - Final, Complete Escherichia Coli Aerococcus Urinae Lactobacillus Species Assessment/Plan Assessment/Plan Assessment/Plan 86 yo F fall rib fractures 6-10 right mild displacement right pneumothorax uti constipation HTN hypokalemia debility pneumo decreasing in size no intervention pain control pt/ot bowel regimen awaiting placement likely tomorrow Clinical Quality Measures DVT/VTE Risk/Contraindication: Risk Factor Score Per Nursin RFS Level Per Nursing on Admit: 2=Moderate DEVORA PENA DO Mar 11, 2017 08:45
--- NOTE | 2017-03-11 09:26 | Diagnostic Imaging Report ---
INDICATION: Pneumothorax and rib fracture. Comparison made with a previous study from 03/10/2017. FINDINGS: There has been no interval change in appearance of the patient multiple right-sided rib fractures. There is no recurrent right pneumothorax demonstrated or evidence of a large pleural collection. The left lung appears clear. Heart size and mediastinal contours are stable. There has been multiple previous kyphoplasties. Prior operative changes involving the right humerus are stable. IMPRESSION: 1. Unchanged multiple right-sided rib fractures without evidence of significant pleural collection or recurrent right pneumothorax. Left lung now appears clear. Mediastinal contours are stable. Dictated by: Dictated on workstation # [id number]
--- NOTE | 2017-03-11 11:48 | Progress Note-Hospitalist ---
Progress Note Progress Notes/Assess & Plan Date Seen 03/11/17 Time Seen by Provider: 10:30 Diagonsis/Assessment & Plan Patient reports she is doing well Pain is controlled Blood pressure stable on new meds Dementia with behavior disturbances periodically wants to take her home with HH tomorrow but she really appears to need NHP No fever, blood pressure slightly elevated otherwise stable Pleasant, oriented times around 1-2 but poor recall, thin, frail, pale Regular rate and rhythm, clear to auscultation bilaterally but diminished all patel No edema Assessment: Status post fall with right sided rib fractures with traumatic pneumothorax UTI maintain on Keflex to complete treatment after Rocephin given Dementia Frail status with chronic debility Hypokalemia Plan: Maintain Keflex to complete tx for UTI Maintain pain control Bowel regimen to continue Replace potassium HLIVF DELBERT Lloyd DO Mar 11, 2017 11:48
--- NOTE | 2017-03-11 13:10 | Occupational Ther Daily Note ---
OT Current Status-Daily Note Subjective Pt sitting in chair, agrees to therapy. Mental Status/Objective Functional [place] Measure 0=Not Assessed/NA 4=Minimal Assistance 1=Total Assistance 5=Supervision or Setup 2=Maximal Assistance 6=Modified [place] 3=Moderate Assistance 7=Complete [place] ADL-Treatment Pt sit to stand with CGA. Gait to restroom with FWW, cues for safety. Transfer to toilet with minimal assistance for safety. Pt able to pull Depends down/up with CGA for balance during clothing management. Pt able to complete toileting hygiene with SBA. Pt stood at sink to wash hands with SBA. Transfer back to chair with minimal assistance. Pt sitting in chair with needs met and chair alarm on after session. Toileting (FIM): 4 Toilet/Commode Transfer (FIM): 4 OT Short Term Goals Short Term Goals Time Frame: Mar 13, 2017 Eating(FIM): 5 Grooming(FIM): 5 Upper Body Dressing(FIM): 4 Lower Body Dressing(FIM): 3 Toileting(FIM): 3 Transfers (B,C,W/C) (FIM): 4 Toilet/Commode Transfer(FIM): 4 Additional Short Term Goals: 1-Demonstrate ADL Tasks, 2-Verbalize Understanding , 3-ImproveStrength/Kendra 1=Demonstrate adherence to instructed precautions during ADL tasks. 2=Patient will verbalize/demonstrate understanding of assistive devices/ modifications for ADL. 3=Patient will improve strength/tolerance for activity to enable patient to perform ADL's. OT Alf Goals Alf Goals Time Frame: Mar 20, 2017 Eating (FIM): 5 Grooming(FIM): 5 Upper Body Dressing(FIM): 5 Lower Body Dressing(FIM): 4 Toileting(FIM): 5 Transfers (B,C,W/C) (FIM): 5 Toilet/Commode Transfer(FIM): 5 Additional Goals: 1-Demonstrate ADL Tasks, 2-Verbalize Understanding, 3- ImproveStrength/Kendra 1=Demonstrate adherence to instructed precautions during ADL tasks. 2=Patient will verbalize/demonstrate understanding of assistive devices/ modifications for ADL. 3=Patient will improve strength/tolerance for activity to enable patient to perform ADL's. OT Education/Plan Discharge Recommendations Plan/Recommendations: Continue POC Treatment Plan/Plan of Care Patient would benefit from OT for education, treatment and training to promote independence in ADL's, mobility, safety and/or upper extremity function for ADL' s. Plan of Care: ADL Retraining, Caregiver Training, Functional Mobility, UE Funct Exercise/Act Treatment Duration: Mar 20, 2017 Frequency: 5 times per week Estimated Hrs Per Day: .5 hour per day Agreement: Yes Rehab Potential: Guarded Time/GCodes Start Time: 12:51 Stop Time: 13:01 Total Time Billed (hr/min): 10 Billed Treatment Time 1 visit, ADL(10minutes) ROSALIA OSORIO OT Mar 11, 2017 13:10
--- NOTE | 2017-03-11 13:31 | Physical Therapy Progress Note ---
Therapy Progress Note Patient refused therapy x3 today. Once because she was eating and the other 2 times she says that she is just too tired. Encouraged patient to participate so she won't get weaker, good for lungs, increase strength, etc, but patient still refused. Will try again tomorrow. DARNELL SAUCEDO PT Mar 11, 2017 13:31
[2017-03-11] MEDS: ALPRAZolam 0.5 MG (XANAX) TAB PO PRN (23:56)
[2017-03-12] VITALS: BP 149/71
[2017-03-12 04:00] VITALS: BP 146/70
[2017-03-12 07:46] VITALS: BP 147/75
[2017-03-12] MEDS: DOCUSATE SODIUM 100 MG (COLACE) CAP PO SCH (08:19)
[2017-03-12] MEDS: lisINopril 5 MG (PRINIVIL) TABLET PO SCH (08:19)
[2017-03-12] MEDS: POLYETHYLENE GLYCOL 17 GM (MIRALAX) PACK PO SCH (08:19)
[2017-03-12] MEDS: amLODIPine 5 MG (NORVASC) TAB PO SCH (08:19)
[2017-03-12] MEDS: KCL 10 MEQ TAB (MICRO K) PO SCH (08:19)
[2017-03-12] MEDS: MEMANTINE 5 MG (NAMENDA) TABLET PO SCH (08:26)
[2017-03-12] MEDS: CEPHALEXIN 250 MG (KEFLEX) CAP PO SCH ×2 (08:26→12:59)
[2017-03-12] MEDS ORDERED: CEPH250C PO (08:45)
[2017-03-12] MEDS ORDERED: POTA10TA6 PO (08:45)
[2017-03-12] MEDS ORDERED: LISI-556 PO (08:45)
[2017-03-12] MEDS ORDERED: LACT1TAB25 PO (08:45)
[2017-03-12] MEDS ORDERED: AMLO5TAB2 PO (08:45)
[2017-03-12] MEDS ORDERED: DOCU100C37 PO (08:45)
[2017-03-12] MEDS ORDERED: ALPR0.5T7 PO (08:45)
[2017-03-12] MEDS ORDERED: HYDR-3922 PO (08:45)
--- NOTE | 2017-03-12 08:50 | D/C HH Face to Face Order ---
D/C Face to Face Orders Instructions for Patient Patient Instructions/FollowUp: FOLLOW UP IN OFFICE IN ONE WEEK Physician to follow Patient: DIANA Discharge Diet for Home: Regular Diet Patient Data-Allergies,Ht & Wt Patient Allergies: Coded Allergies: Sulfa (Sulfonamide Antibiotics) (Verified Allergy, Unknown, 08/10/11) morphine (Verified Allergy, Unknown, 07/13/14) Nausea, vomiting and confusion pantoprazole sodium (Verified Allergy, Unknown, 08/10/11) codeine (Unverified Adverse Reaction, Severe, SEVERE N/V, 03/20/06) Height (Feet): 5 Height (Inches): 4.00 Weight (Pounds): 82 Weight (Ounces): 9.0 Home Health Need/Face to Face Date of Face to Face: Mar 12, 2017 Clinical Findings: Muscle weakness I have seen Pt [id number]: Yes Discharged To: Home Diagnosis/Conditions: URINARY TRACT INFECITON HIP PAIN RIGHT SIDED RIB FRACTURE Problems/Diagnosis/Condition: Patient is Homebound due to: CognItive deficits, Ramos fall risk due to instabilty, Muscle weakness Homebound Status Due to the above stated illness, injury or surgical procedure (medical condition or diagnosis) and associated clinical findings, the patient is homebound because of his/her inability to leave home except with aid of a supportive device and/or person AND leaving the home requires a considerable and taxing effort or is medically contraindicated. Pt req the following assistanc: Aid of another person, [facility] Home Health Nursing Orders Home Health Services Order: Nursing Services, Physical Therapy-Evaluate & Treat Home Health Infusion Therapy Line Start Date: Mar 05, 2017 Line Start Time: 1401 Line Type: Saline Lock Site Location: Forearm Therapy Orders Therapy Orders: Physical Therapy, PT to assess for OT Therapy Specific Orders: Eval assistive deivces, Teach strategies/cognitive deficits, Teach enviro modifications/safety, Increase strength/endurance Certify Stmt I certify that this patient is under my care and that I, a nurse practitioner or a physician; a construction project assistant working with me, had a face to face encounter that - meets the physician face to face encounter requirements with this patient as dated. Medication List: Active Scripts Active Probiotic Acidophilus (Lactobacillus Acidophilus) 1 Each Tablet 1 Each PO BID 15 Days Alprazolam 0.5 Mg Tablet 0.5 Mg PO DAILY PRN Docusate Sodium 100 Mg Capsule 100 Mg PO BID Klor-Con 10 (Potassium Chloride) 10 Meq Tablet.er 10 Meq PO BID WITH MEALS Lisinopril 5 Mg Tablet 5 Mg PO DAILY Amlodipine Besylate 5 Mg Tablet 5 Mg PO DAILY Hydralazine HCl 10 Mg Tablet 10 Mg PO TID Cephalexin 250 Mg Capsule 500 Mg PO QID 5 Days Reported Vitamin D3 (Cholecalciferol (Vitamin D3)) 2,000 Unit Capsule 2,000 Unit PO DAILY Flintstones (Multivitamin) 1 Each Tab.chew 1 Tab PO BID Alprazolam 0.5 Mg Tablet 0.5 Mg PO BID Tramadol HCl 50 Mg Tablet 25 Mg PO BID PRN TAKES 1/2 OF A (50 MG) TABLET Citalopram HBr (Citalopram Hydrobromide) 10 Mg Tablet 10 Mg PO DAILY Namenda Xr (Memantine HCl) 21 Mg Cap.er.24h 21 Mg PO DAILY Aspirin 81 Mg Tab.chew 81 Mg PO DAILY Vesicare (Solifenacin Succinate) 10 Mg Tablet 10 Mg PO DAILY My orders: Orders - ASHLEY ORTIZ MD Attending Discharge (03/12/17 08:38) D/C With Home Health Services (03/12/17 08:38) ASHLEY ORTIZ MD Mar 12, 2017 08:50
--- NOTE | 2017-03-12 08:57 | Physical Therapy Progress Note ---
Therapy Progress Note Patient and spouse decline PT this a.m. Spouse reports she is going home with home health and home health PT. This PT educated patient and spouse on importance of participating with therapy, however, spouse reports she just received her breakfast and will be leaving this a.m. PT to dismiss from services at this time. 1 ROSIBEL BARBOUR PT Mar 12, 2017 08:57
--- NOTE | 2017-03-12 08:59 | Discharge Summary ---
Diagnosis/Chief Complaint Date of Admission Mar 05, 2017 at 15:30 Date of Discharge Discharge Date: Mar 12, 2017 Discharge Time: 1100 Admission Diagnosis Admission Diagnosis traumatic fall with displaced right side rib fractures 6-10- right side chest wall subcutaneous emphysema- right apical pneumothorax- Dementia- hypokalemia- hypomagnesemia- anemia likely chronic- chronic constipation Discharge Diagnosis TRAUMA - FALL WITH RIGHT SIDED RIB FRACTURES - #6-10 WITH PNEUMOTHORAX OF 5% RIGHT SIDED SUBCUTANEOUS EMPHYSEMA URINARY TRACT INFECTION DEMENTIA HYPERTENSION HYPOKALEMIA AND HYPOMAGNESEMIA UNDERWEIGHT ANEMIA - CHRONIC CHRONIC CONSTIPATION Reason Hospital Visit Patient is an 86 year old female who fell this morning at approximately 0300. She presented to emergency department this afternoon with right sided chest pain. Pain moderate to severe. Hurts worse with cough or taking deep breath. No shortness of breath. Denies hitting head or loss of consciousness. ct and chest x rays demonstrated 5 % right pneumothorax and right sided rib fractures. ct head cspine no intracranial process and degenerative changes and right apical pneumothorax. right and left humerus no acute fractures old fractures noted. ct chest abdomen pelvis, noting rib fractures right side and pneumothorax. Discharge Summary Consultations DR. PENA, DR. NICOLE Discharge Physical Examination Allergies: Coded Allergies: Sulfa (Sulfonamide Antibiotics) (Verified Allergy, Unknown, 08/10/11) morphine (Verified Allergy, Unknown, 07/13/14) Nausea, vomiting and confusion pantoprazole sodium (Verified Allergy, Unknown, 08/10/11) codeine (Unverified Adverse Reaction, Severe, SEVERE N/V, 03/20/06) Vitals & I&Os Vital Signs Date Time Temp Pulse Resp B/P (MAP) Pulse Ox O2 Delivery O2 Flow Rate FiO2 03/12/17 07:46 98.6 95 22 147/75 (99) 96 Room Air 03/08/17 14:33 03/08/17 12:00 2.00 General Appearance: Alert, Other (oriented to person, place, not time) HEENT: PERRLA, EOMI, Mucous Memb Moist/[place] Respiratory: Clear to Auscultation, Normal Air Movement Cardiovascular: Regular Rate Abdominal: Normal Bowel Sounds, Soft, No Tenderness Extremities: No Cyanosis, Other (ttp over lateral right hip at site of bruising ) Neuro: Normal Speech, Cranial Nerves 3-12 NL Psych/Mental Status: Mental Status NL, Mood NL Hospital Course TRAUMA - FALL WITH RIGHT SIDED RIB FRACTURES - #6-10 WITH PNEUMOTHORAX OF 5% RIGHT SIDED SUBCUTANEOUS EMPHYSEMA URINARY TRACT INFECTION DEMENTIA HYPERTENSION HYPOKALEMIA AND HYPOMAGNESEMIA UNDERWEIGHT ANEMIA - CHRONIC CHRONIC CONSTIPATION TRAUMA - FALL WITH RIGHT SIDED RIB FRACTURES - #6-10 WITH PNEUMOTHORAX OF 5% - PNEUMOTHORAX RESOLVED - RIBS WILL TAKE MONTHS TO HEAL, FAMILY AWARE OF NEED FOR CLOSE MONITORING OF SYMPTOMS. IF SHORTNESS OF BREATH WORSENS ACUTELY - THEY ARE TO CALL OFFICE OR GO TO THE EMERGENCY DEPARTMENT. RIGHT SIDED SUBCUTANEOUS EMPHYSEMA - IMPROVED. URINARY TRACT INFECTION - ON ANTIBIOTICS OF ROCEPHIN IN HOSPITAL, TRANSITIONED TO ORAL KEFLEX, WILL CONTINUE X 5 MORE DAYS OUTPATIENT. DEMENTIA - CHRONIC - CONTINUE WITH NAMENDA OUTPATIENT. HYPERTENSION - STARTED NORVASC, LISINOPRIL AND HYDRALAZINE INPATIENT, CONTINUE AND MONITOR BLOOD PRESSURE AT HOME CLOSELY. HYPOKALEMIA AND HYPOMAGNESEMIA - IMPROVED - CONTINUE WITH POTASSIUM SUPPLEMENTATION ORALLY OUTPATIENT. UNDERWEIGHT - THIS HAS IMPROVED - AND PT IS TO CONTINUE WITH ENSURE SUPPLEMENTATION. ANEMIA - CHRONIC CHRONIC CONSTIPATION - SENNA/COLACE/MIRALAX PRN. HOME HEALTH HAS BEEN ORDERED FOR NURSING TO MONITOR BLOOD PRESSURE AND MEDICATIONS AND WEIGHT AND PHYSICAL THERAPY FOR STRENGTHENING. Discharge Condition at discharge improving Instructions to patient/family Please see electronic discharge instructions given to patient. Discharge Medications Reviewed and agree with Discharge Medication list on patient's Discharge Instruction sheet Medication List: Active Scripts Active Probiotic Acidophilus (Lactobacillus Acidophilus) 1 Each Tablet 1 Each PO BID 15 Days Alprazolam 0.5 Mg Tablet 0.5 Mg PO DAILY PRN Docusate Sodium 100 Mg Capsule 100 Mg PO BID Klor-Con 10 (Potassium Chloride) 10 Meq Tablet.er 10 Meq PO BID WITH MEALS Lisinopril 5 Mg Tablet 5 Mg PO DAILY Amlodipine Besylate 5 Mg Tablet 5 Mg PO DAILY Hydralazine HCl 10 Mg Tablet 10 Mg PO TID Cephalexin 250 Mg Capsule 500 Mg PO QID 5 Days Reported Vitamin D3 (Cholecalciferol (Vitamin D3)) 2,000 Unit Capsule 2,000 Unit PO DAILY Flintstones (Multivitamin) 1 Each Tab.chew 1 Tab PO BID Tramadol HCl 50 Mg Tablet 25 Mg PO BID PRN TAKES 1/2 OF A (50 MG) TABLET Citalopram HBr (Citalopram Hydrobromide) 10 Mg Tablet 10 Mg PO DAILY Namenda Xr (Memantine HCl) 21 Mg Cap.er.24h 21 Mg PO DAILY Aspirin 81 Mg Tab.chew 81 Mg PO DAILY Vesicare (Solifenacin Succinate) 10 Mg Tablet 10 Mg PO DAILY Clinical Quality Measures DVT/VTE Risk/Contraindication: Risk Factor Score Per Nursin RFS Level Per Nursing on Admit: 2=Moderate ASHLEY ORTIZ MD Mar 12, 2017 08:59
--- NOTE | 2017-03-12 11:46 | Occ Therapy Progress Note ---
Therapy Progress Note Attempted OT treatment at 1140. Pt in bed eating. Pt states she is being discharged today. Pt declined therapy and has no questions or concerns at this time, states she is just waiting to leave. Pt in bed with needs met. 1, visit ROSALIA OSORIO OT Mar 12, 2017 11:46
[2017-03-12 12:00] VITALS: BP 110/59
--- NOTE | 2017-03-12 14:36 | Progress Note ---
Subjective Date Seen by Provider: Mar 12, 2017 Time Seen by Provider: 14:35 Subjective/Events-last exam Patient doing well. She's tolerating diet. Her pain is controlled. She's not having any difficulty breathing. She denies any nausea vomiting fever sweats chills shortness of breath or chest pain. Patient is planning on going home with her with home health and physical therapy. Objective Exam Vital Signs Date Time Temp Pulse Resp B/P (MAP) Pulse Ox O2 Delivery O2 Flow Rate FiO2 03/12/17 12:00 98.0 106 18 110/59 (76) 94 Room Air 03/12/17 08:00 Room Air 03/12/17 07:46 98.6 95 22 147/75 (99) 96 Room Air 03/12/17 04:00 98.2 93 20 146/70 (95) 97 Room Air 03/12/17 00:00 99.2 100 22 149/71 (97) 96 Room Air 03/11/17 20:00 Room Air 03/11/17 19:58 99.8 104 16 138/67 (90) 94 Room Air 03/11/17 19:40 Room Air 03/11/17 16:24 99.8 106 18 129/65 (86) 95 Room Air 03/11/17 15:11 110 95 I & O 03/12/17 07:00 Intake Total 515 ml Balance 515 ml Capillary Refill : Less Than 3 SecondsLess Than 3 Seconds General Appearance: No Apparent Distress HEENT: PERRL/EOMI, Normal ENT Inspection Neck: Full Range of Motion, Normal Inspection, Non Tender, Supple Respiratory: Chest Non Tender, Lungs Clear, Normal Breath Sounds, No Accessory Muscle Use, No Respiratory Distress, Accessory Muscle Use, Other (tender right chest ) Cardiovascular: Regular Rate, Rhythm Gastrointestinal: non tender, soft, no organomegaly, no pulsatile mass Extremity: Non Tender, No Calf Tenderness, Other ( right arm with some bruising ) Neurologic/Psychiatric: Alert, No Motor/Sensory Deficits, 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, creative perfumer II-XII Norm as Tested Skin: Warm/Dry Lymphatic: No Adenopathy Results Lab Microbiology 03/05/17 Urine Culture - Final, Complete Escherichia Coli Aerococcus Urinae Lactobacillus Species Assessment/Plan Assessment/Plan Assessment/Plan 86 yo F fall rib fractures 6-10 right mild displacement right pneumothorax uti constipation HTN hypokalemia debility pneumo decreasing in size no intervention pain control pt/ot bowel regimen awaiting placement likely tomorrow Clinical Quality Measures DVT/VTE Risk/Contraindication: Risk Factor Score Per Nursin RFS Level Per Nursing on Admit: 2=Moderate DEVORA PENA DO Mar 12, 2017 14:36
== END 2017-03-12 14:30 | disposition home health service (06) | DRG 200 ==
LOC: EDUNIT# 12:06 → ER 12:08 → ICU 15:30 → 4TH 03-07 10:50
PROVIDERS: ADMIT Surgery; ATTEND Family Medicine
DX: S27.0XXA Traumatic pneumothorax, initial encounter (principal); M80.00XA Age-related osteoporosis with current pathological fracture, unspecified site, initial encounter for fracture; S40.021A Contusion of right upper arm, initial encounter; N39.0 Urinary tract infection, site not specified; I10 Essential (primary) hypertension; E87.6 Hypokalemia; E83.42 Hypomagnesemia; D64.9 Anemia, unspecified; F03.90 Unspecified dementia, unspecified severity, without behavioral disturbance, psychotic disturbance, mood disturbance, and anxiety; K21.9 Gastro-esophageal reflux disease without esophagitis; F41.9 Anxiety disorder, unspecified; F32.9 Major depressive disorder, single episode, unspecified; K59.00 Constipation, unspecified; B96.20 Unspecified Escherichia coli [E. coli] as the cause of diseases classified elsewhere; Z87.891 Personal history of nicotine dependence; W19.XXXA Unspecified fall, initial encounter; Y92.002 Bathroom of unspecified non-institutional (private) residence as the place of occurrence of the external cause
CPT/HCPCS: 36415; 70450; 71010; 71035; 71045; 71260; 72125; 72128; 72131; 72170; 73060; 74177; 80048; 80053; 81000; 83735; 84100; 85025; 85027; 85610; 85730; 87077; 87088; 87186; 94640; 94664; 94760; 96374; 96376

== ENCOUNTER → 2020-08-06 | Outpatient (CLI) | payer MEDICARE ==
[~2020-08-06] MED LIST changes: +ALPR0.5T7 PO; +AMLO-250 PO; +AMOX250S70 PO; +ASPI-1238 PO; +BISA-46 PO; +CEPH250C PO; +CHOL20002 PO; +CHOL20003 PO; +CITA10TA7 PO; +CITA20TA9 PO; +DOCU100C37 PO; +HYDR-3922 PO; +LACT1TAB25 PO; +LISI-729 PO; -MEGE400O21; +MEGE400O5; +MEMA21CA2 PO; +MULT-228 PO; +POLY17PO54 PO; +POTA10TA PO; +POTA10TA6 PO; +SOLI10TA7 PO; -[UNRECOGNIZED DRUG - CODE] PO
[2020-08-06 07:41] LABS: BILIRUBIN,URINE NEGATIVE (NEGATIVE); CLARITY,URINE CLOUDY; COLOR,URINE ORANGE; GLUCOSE, URINE (UA) NEGATIVE (NEGATIVE); KETONES,URINE TRACE (NEGATIVE); LEUKOCYTE ESTERASE ,URINE TRACE (NEGATIVE); NITRITE,URINE POSITIVE (NEGATIVE); PH,URINE 5.5 (5-9); PROTEIN,URINE 1+ (NEGATIVE)
[2020-08-06 07:56] LABS: AMORPHOUS SEDIMENT,UR LARGE AMOR URATES /LPF; BACTERIA,URINE MODERATE /HPF
== END ==
LOC: LABNPT 07:34
PROVIDERS: ATTEND Family Medicine
DX: Z01.89 Encounter for other specified special examinations (principal)
CPT/HCPCS: 81000; 87077; 87088

== ENCOUNTER 2021-03-01 15:20 | Emergency (ER) | payer MEDICARE ==
[~2021-03-01] VITALS: Ht 147 cm; Wt 40.0 kg
[~2021-03-01 15:20] MED LIST changes: -CITA10TA7 PO; +CITA10TA9 PO; +DOCU-239 PO; -LISI-729 PO; +LISI5TAB20 PO; -MEMA21CA2 PO; +MEMA21CA8 PO; +POTA-160 PO; -POTA10TA6 PO
[2021-03-01] MEDS ORDERED: TETANUS,DIPTH,PERTUSS P/F (BOOSTRIX) 0.5 ML VIAL IM ONE ×2 (16:00→18:20)
[2021-03-01] MEDS ORDERED: LIDOCAINE/EPI 1%-1:100,000 (XYLOCAINE) 20ML INJ ONE ×2 (16:00→18:45)
[2021-03-01 16:49] LABS: BASOPHILS % (AUTO) 1 % (0-10); EOSINOPHILS # (AUTO) 0.2 10^3/uL (0.0-0.3); EOSINOPHILS % (AUTO) 3 % (0-10); HEMATOCRIT 37 % (35-52); HEMOGLOBIN 11.7 g/dL (11.5-16.0); LYMPHOCYTES # (AUTO) 1.2 10^3/uL (1.0-4.0); LYMPHOCYTES % (AUTO) 15 % (12-44); MEAN CORPUSCULAR HEMOGLOBIN 31 pg (25-34); MEAN CORPUSCULAR HGB CONC 32 g/dL (32-36); MEAN CORPUSCULAR VOLUME 98 fL (80-99); MEAN PLATELET VOLUME 11.4 fL (9.0-12.2); MONOCYTES # (AUTO) 0.5 10^3/uL (0.0-1.0); MONOCYTES % (AUTO) 6 % (0-12); NEUTROPHILS # (AUTO) 6.1 10^3/uL (1.8-7.8); NEUTROPHILS % (AUTO) 75 % (42-75); PLATELET COUNT 236 10^3/uL (130-400); WHITE BLOOD COUNT 8.1 10^3/uL (4.3-11.0)
[2021-03-01 17:08] LABS: CLARITY,URINE CLEAR; COLOR,URINE YELLOW; GLUCOSE, URINE (UA) NEGATIVE (NEGATIVE); KETONES,URINE TRACE (NEGATIVE); LEUKOCYTE ESTERASE ,URINE 1+ (NEGATIVE); NITRITE,URINE NEGATIVE (NEGATIVE); PH,URINE 8.5 (5-9); PROTEIN,URINE 2+ (NEGATIVE)
[2021-03-01 17:09] LABS: BILIRUBIN,URINE 1+ (NEGATIVE)
[2021-03-01 17:11] LABS: AMORPHOUS SEDIMENT,UR FEW AMOR PHOSPHATE /LPF; BACTERIA,URINE LARGE /HPF; RBC,URINE 0-2 /HPF
[2021-03-01 17:15] LABS: CALCIUM 9.1 MG/DL (8.5-10.1)
[2021-03-01 17:19] LABS: CREATININE SERUM 0.84 MG/DL (0.60-1.30)
--- NOTE | 2021-03-01 17:26 | Diagnostic Imaging Report ---
PROCEDURE: CT head and CT cervical spine without contrast. TECHNIQUE: Multiple contiguous axial images were obtained through the brain and cervical spine without the use of intravenous contrast. Sagittal and coronal reformations through the cervical spine were then performed. Auto Exposure Controls were utilized during the CT exam to meet ALARA standards for radiation dose reduction. INDICATION: Trauma, unwitnessed fall, loss of consciousness. COMPARISON: 10/03/2016 and additional imaging dated March 01, 2021. FINDINGS: Moderate atrophy. No intracranial hemorrhage. 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 Advanced background chronic small vessel white matter ischemic disease is again also noted. No intracranial mass, mass effect, midline shift, herniation, hydrocephalus, or extra-axial fluid collection. Ex-vacuo dilatation of the left lateral ventricle is again noted. No CT evidence of an acute ischemic infarction. Background vascular calcifications. Right forehead scalp hematoma and contusion without underlying calvarial fracture. The bilateral ocular lenses are absent. Inspissated secretions within the right sphenoid sinus. Paranasal sinuses are otherwise clear. The calvarium is intact. Minimal 2 mm of anterolisthesis of C5 on C6. No additional anterolisthesis or retrolisthesis. Alignment of the atlanto-occipital joint is well maintained. Scattered endplate degenerative changes. Mild vertebral body height loss within the upper thoracic spine is noted. No evidence of a recent vertebral body compression deformity. No acute fracture or dislocation. No destructive osseous process. Scattered facet joint degenerative changes and uncovertebral joint hypertrophy. Severe disc space height loss at C4/C5 with moderate disc space height loss at C5/C6 and C6/C7. No apical pneumothorax. Scattered vascular calcifications. IMPRESSION: No acute intracranial abnormality. No acute osseous abnormality within the cervical spine with moderate multilevel degenerative changes. Right forehead scalp hematoma without underlying calvarial fracture. Significant background atrophy and chronic ischemic changes. Mild vertebral body height loss within the upper thoracic spine. Exact chronicity is uncertain, though this is new since 2017. Recommend correlation for focal pain at this location. see separately dictated CT of the chest, abdomen, and pelvis from the same date for further findings. Dictated by: Dictated on workstation # [id number]
--- NOTE | 2021-03-01 17:34 | Diagnostic Imaging Report ---
PROCEDURE: CT chest, abdomen, and pelvis without contrast. TECHNIQUE: Multiple contiguous axial images were obtained through the chest, abdomen, and pelvis without the use of intravenous contrast. Auto Exposure Controls were utilized during the CT exam to meet ALARA standards for radiation dose reduction. INDICATION: Trauma, unwitnessed fall with loss of consciousness. COMPARISON: Imaging from the same date as well as from 03/05/2017. FINDINGS: No significant adenopathy within the chest. Moderate vascular calcifications within the thoracic aorta and its branch vessels without aneurysmal dilatation of the thoracic aorta. The heart is at the upper limits of normal in size. No significant pericardial effusion. No pleural effusion. No pneumothorax. Senescent changes of the lungs were identified. The trachea is patent. Multiple chronic right-sided rib fractures are present. Vertebroplasty changes within the lower thoracic spine are again identified. Multilevel vertebral body height loss and superior endplate concavity is again identified, with the majority of these regions, appearing unchanged since 2017. However, there is mild anterior wedging and vertebral body height loss of T4, which appears new since 2017. Cholecystectomy. The unenhanced liver and spleen are unremarkable. The adrenal glands are unremarkable. The pancreas is unremarkable. The kidneys are unremarkable. Advanced vascular calcifications within the abdominal aorta and its branch vessels without aneurysmal dilatation of the abdominal aorta. Calcifications within the uterus are again seen, likely related to calcified uterine fibroids. The urinary bladder is not well evaluated secondary to spray artifact from a left hip arthroplasty. Prominent stool ball within the rectal vault. No evidence of bowel obstruction or pneumatosis. No significant adenopathy, free air or free fluid within the abdomen or pelvis. Left total hip arthroplasty is present. S-shaped curvature of the thoracolumbar spine. Chronic right inferior pubic ramus fracture. Stable grade 1 anterolisthesis of L4 on L5. Vertebral body height loss within the lumbar spine appears unchanged from the prior examination. IMPRESSION: 1. Mild superior endplate concavity and anterior wedge deformity of T4 with approximately 20% loss of vertebral body height. This is of uncertain chronicity, though this does appear new since 2017. Recommend correlation for focal pain at this location. 2. Prominent stool ball within the rectal vault. 3. Additional chronic and postsurgical changes, as above. Dictated by: Dictated on workstation # [id number]
--- NOTE | 2021-03-01 17:50 | ED Fall/Injury ---
General Chief Complaint: Trauma-Non Activation Stated Complaint: FALL Nursing Triage Note: UNWITTNESSED FALL AT THE CUSTODIAL. HEMATOMA AND LACERATION NOTED RIGHT FOREHEAD. PT STATES +LOC. Source: patient Exam Limitations: no limitations History of Present Illness Date Seen by Provider: Mar 01, 2021 Time Seen by Provider: 15:00 Initial Comments [facility] with a hematoma and laceration on her forehead. Patient states she remembers falling but does not remember what caused it. She does believe there was loss of consciousness. She seems to be an unreliable historian due to her dementia. She does complain of diffuse pain from the head all the way through the pelvis. Everything that is palpated she states is painful. It is difficult to ascertain where the injuries may actually be due to this problematic reporting from the patient. C-collar is in place. Patient has had a recent recovery from COVID-19 and is off quarantine. Allergies and Home Medications Allergies Coded Allergies: Sulfa (Sulfonamide Antibiotics) (Verified Allergy, Unknown, 05/13/20) morphine (Verified Allergy, Unknown, 05/13/20) Nausea, vomiting and confusion pantoprazole sodium (Verified Allergy, Unknown, 05/13/20) codeine (Verified Adverse Reaction, Severe, SEVERE N/V, 05/13/20) Patient Home Medication List Home Medication List Reviewed: Yes Acetaminophen (Acetaminophen) 325 Mg Tablet, 650 MG PO Q6H PRN for PAIN-MILD (1- 4) OR FEVER Prescribed by: ASHLEY ORTIZ on 05/16/20 08 Alprazolam (Alprazolam) 0.5 Mg Tablet, 0.5 MG PO BID Prescribed by: ASHLEY ORTIZ on 05/16/20 0843 Amoxicillin/Potassium Clav (Augmentin 250-62.5 mg/5 ml) 250 Mg/5 Ml Susp.recon, 10 ML PO BID Prescribed by: ASHLEY ORTIZ on 05/16/20 0843 Aspirin (Aspirin EC) 81 Mg Tablet.dr, 81 MG PO DAILY, (Reported) Entered as Reported by: KAREN ESTEBAN on 05/13/20 152 Cefdinir (Cefdinir) 300 Mg Capsule, 300 MG PO BID Prescribed by: TRISTAN CARPIO on 03/01/211916 Cholecalciferol (Vitamin D3) (Vitamin D3) 50 Mcg Capsule, 50 MCG PO DAILY, (Reported) Entered as Reported by: KAREN ESTEBAN on 05/13/20 152 Citalopram Hydrobromide (Citalopram HBr) 20 Mg Tablet, 10 MG PO HS, (Reported) Entered as Reported by: KAREN ESTEBAN on 05/13/20 152 Docusate Sodium (Dok) 100 Mg Capsule, 100 MG PO BID, (Reported) Entered as Reported by: KAREN ESTEBAN on 05/13/20 152 Memantine HCl (Memantine HCl ER) 21 Mg Cap.spr.24, 21 MG PO HS, (Reported) Entered as Reported by: KAREN ESTEBAN on 05/13/20 152 Polyethylene Glycol 3350 (Polyethylene Glycol 3350) 17 Gm Powd.pack, 17 GM PO DAILY Prescribed by: ASHLEY ORTIZ on 05/16/20 0843 Potassium Chloride (K-Tab ER) 10 Meq Tablet.er, 10 MEQ PO BID, (Reported) Entered as Reported by: KAREN ESTEBAN on 05/13/20 152 Solifenacin Succinate (Solifenacin Succinate) 10 Mg Tablet, 10 MG PO HS, (Reported) Entered as Reported by: KAREN ESTEBAN on 05/13/20 152 Review of Systems Review of Systems Constitutional: no symptoms reported Eyes: No Symptoms Reported Ears, Nose, Mouth, Throat: see HPI Respiratory: no symptoms reported Cardiovascular: no symptoms reported Gastrointestinal: no symptoms reported Genitourinary: no symptoms reported : No Musculoskeletal: see HPI Skin: see HPI Psychiatric/Neurological: See HPI Past Nouujxm-Tzygjh-Awuyut Hx Patient Social History Tobacco Use?: No Substance use?: No Alcohol Use?: No Immunizations Up To Date Tetanus Booster (TDap): More than 5yrs Seasonal Allergies Seasonal Allergies: No Past Medical History Surgeries: Yes Appendectomy, Gallbladder, Joint Replacement, Orthopedic Respiratory: No Currently Using CPAP: No Currently Using BIPAP: No Cardiac: Yes (does not have issues with HTN now) Neurological: Yes Dementia, TIA Reproductive Disorders: No Female Reproductive Disorders: Denies Sexually Transmitted Disease: No HIV/AIDS: No Genitourinary: Yes (INCONTINENCE.) Bladder Infection Gastrointestinal: Yes Gastroesophageal Reflux, Gall Bladder Disease Musculoskeletal: Yes Osteoporosis, Arthritis, Fractures Endocrine: No HEENT: Yes Cataract Loss of Vision: Denies Hearing Impairment: Denies Cancer: No Psychosocial: Yes Anxiety, Depression Integumentary: No Blood Disorders: No Adverse Reaction/Blood Tranf: No Family Medical History Alcoholism G8 BROTHER FH: throat cancer G8 BROTHER Parkinson's disease 19 FATHER Throat Throat Cancer, Other Conditions/Hx Physical Exam Vital Signs Vital Signs - First Documented 03/01/21 15:20 Temp 36.3 Pulse 79 Resp 16 B/P (MAP) 79/55 (63) Pulse Ox 97 O2 Delivery Room Air Capillary Refill : Less Than 3 Seconds Height, Weight, BMI Height: 5'4.00" Weight: 82lbs. 9.0oz. 37.602424df; 18.00 BMI Method:Stated General Appearance: WD/WN, no apparent distress HEENT: PERRL/EOMI, pharynx normal, other (Stellate laceration, contusion, and hematoma on the forehead. No dental injury.) Neck: non-tender, full range of motion, normal inspection, other (C-collar in place) Cardiovascular: regular rate, rhythm, no edema, no murmur Respiratory: lungs clear, normal breath sounds, no respiratory distress, other (Chest tender to palpation) Gastrointestinal: normal bowel sounds, soft, tenderness (Generalized) Pelvic: other (Generalized tenderness across the pelvis) Extremities: normal inspection, no pedal edema Neurologic/Psychiatric: paper winder II-XII nml as tested, no motor/sensory deficits, alert, normal mood/affect, oriented x 3 Skin: normal color, warm/dry Procedures/Interventions Wound Location: Face Other Wound Location Central forehead Wound Length (cm): 4.5 Wound's Depth, Shape: stellate (X-shaped), sub Q Wound Explored: clean Irrigated w/ Saline (ccs): 100 Betadine Prep?: Yes Anesthesia: Lidocaine w/ Epi Volume Anesthetic (ccs): 5 Suture: Prolene Suture Size: 5-0 Number of Sutures: 5 Layer Closure?: 1 Number Deep Layer Sutures: 0 Sterile Dressing Applied?: Yes Progress Skin was cleaned with chlorhexidine and local anesthesia was administered with injection of lidocaine with epinephrine. Wound was then scrubbed with chlorh exidine and saline and irrigated with plain saline. Betadine prep was then applied and wound was approximated with 5-0 Prolene with interrupted sutures by RISSA Urbina under my direct supervision. Patient tolerated the procedure well and there was excellent hemostasis. Progress/Results/Core Measures Results/Orders Lab Results Laboratory Tests Test 03/01/21 16:18 03/01/21 16:39 Range/Units Urine Color YELLOW Urine Clarity CLEAR Urine pH 8.5 5-9 Urine Specific [place] 1.010 L 1.016-1.022 Urine Protein 2+ H NEGATIVE Urine Glucose (UA) NEGATIVE NEGATIVE Urine Ketones TRACE H NEGATIVE Urine Nitrite NEGATIVE NEGATIVE Urine Bilirubin 1+ H NEGATIVE Urine Urobilinogen 0.2 < = 1.0 MG/DL Urine Leukocyte Esterase 1+ H NEGATIVE Urine RBC (Auto) TRACE-I H NEGATIVE Urine RBC 0-2 /HPF Urine WBC 10-25 H /HPF Urine Crystals PRESENT H /LPF Urine Amorphous Sediment FEW BENITO PHOSPHATE H /LPF Urine Bacteria LARGE H /HPF Urine Casts NONE /LPF Urine Mucus NEGATIVE /LPF Urine Culture Indicated YES White Blood Count 8.1 4.3-11.0 10^3/uL Red Blood Count 3.81 3.80-5.11 10^6/uL Hemoglobin 11.7 11.5-16.0 g/dL Hematocrit 37 35-52 % Mean Corpuscular Volume 98 80-99 fL Mean Corpuscular Hemoglobin 31 25-34 pg Mean Corpuscular Hemoglobin Concent 32 32-36 g/dL Red Cell Distribution Width 14.1 10.0-14.5 % Platelet Count 236 130-400 10^3/uL Mean Platelet Volume 11.4 9.0-12.2 fL Immature Granulocyte % (Auto) 1 % Neutrophils (%) (Auto) 75 42-75 % Lymphocytes (%) (Auto) 15 12-44 % Monocytes (%) (Auto) 6 0-12 % Eosinophils (%) (Auto) 3 0-10 % Basophils (%) (Auto) 1 0-10 % Neutrophils # (Auto) 6.1 1.8-7.8 10^3/uL Lymphocytes # (Auto) 1.2 1.0-4.0 10^3/uL Monocytes # (Auto) 0.5 0.0-1.0 10^3/uL Eosinophils # (Auto) 0.2 0.0-0.3 10^3/uL Basophils # (Auto) 0.0 0.0-0.1 10^3/uL Immature Granulocyte # (Auto) 0.0 0.0-0.1 10^3/uL Sodium Level 146 H 135-145 MMOL/L Potassium Level 4.0 3.6-5.0 MMOL/L Chloride Level 111 H 98-107 MMOL/L Carbon Dioxide Level 24 21-32 MMOL/L Anion Gap 11 5-14 MMOL/L Blood Urea Nitrogen 25 H 7-18 MG/DL Creatinine 0.84 0.60-1.30 MG/DL Estimat Glomerular Filtration Rate 64 BUN/Creatinine Ratio 30 Glucose Level 98 70-105 MG/DL Calcium Level 9.1 8.5-10.1 MG/DL My Orders Orders - TRISTAN SARGENT MD Ct Head/Cervical Spine Wo (03/01/21 15:46) Ct Chest/Abdomen/Pelvis Wo (03/01/21 15:46) Ua Culture If Indicated (03/01/21 15:46) Basic Metabolic Panel (03/01/21 15:49) Cbc With Automated Diff (03/01/21 15:49) Dipht,Pertuss(Acell),Tet Adult (Boostrix (03/01/21 16:00) Lidocaine/Epi 1% 1:100,000 (Xylocaine /E (03/01/21 16:00) Urine Culture (03/01/21 16:18) Ceftriaxone (Rocephin) (03/01/21 18:00) Lidocaine 1% Inj 20 Ml (Xylocaine 1% Inj (03/01/21 18:00) Dipht,Pertuss(Acell),Tet Adult (Boostrix (03/01/21 18:20) Lidocaine/Epi 1% 1:100,000 (Xylocaine /E (03/01/21 18:45) Hydrocodone/Apap 5/325 Tablet (Lortab 5 (03/01/21 19:30) Medications Given in ED Current Medications Medications Dose Ordered Sig/Blas Route Start Time Stop Time Status Last Admin Dose Admin Acetaminophen/ Hydrocodone Bitart 1 ea ONCE ONCE PO 03/01/21 19:30 03/01/21 19:31 DC 03/01/21 19:35 1 EA Ceftriaxone Sodium 1,000 mg ONCE ONCE IM 03/01/21 18:00 03/01/21 18:01 DC 03/01/21 18:23 1,000 MG Diphtheria/ Tetanus/Acell Pertussis 0.5 ml ONCE ONCE IM 03/01/21 16:00 03/01/21 16:01 DC 03/01/21 18:25 0.5 ML Lidocaine HCl 2.1 ml ONCE ONCE INJ 03/01/21 18:00 03/01/21 18:01 DC 03/01/21 18:23 2.1 ML Vital Signs/I&O 03/01/21 15:20 Temp 36.3 Pulse 79 Resp 16 B/P (MAP) 79/55 (63) Pulse Ox 97 O2 Delivery Room Air Blood Pressure Mean: 63 Progress Progress Note : Progress Note Labs were relatively unremarkable. CT imaging was obtained from the head thro ugh the pelvis as patient's poor historian status makes it difficult to assess where injuries may actually be. She reports pain everywhere she is palpated. CTs revealed no significant injuries. The forehead laceration was approximated. Tetanus booster was administered. Hydrocodone was given for pain. Rocephin injection was given for urinary tract infection. Compression fracture was identified. This may be amenable to treatment and follow-up with her primary care provider. Diagnostic Imaging Diagonstic Imaging: CT Plain Films/CT/US/NM/MRI: c-spine, head Comments CT head and cervical spine viewed by me and report reviewed. See report below: NAME: [facility] REC#: [id number] PT STATUS: REG ER : 1930 PHYSICIAN: TRISTAN SARGENT MD ADMIT DATE: 03/01/21/ER Draft Date of Exam:03/01/21 CT HEAD/CERVICAL SPINE WO PROCEDURE: CT head and CT cervical spine without contrast. TECHNIQUE: Multiple contiguous axial images were obtained through the brain and cervical spine without the use of intravenous contrast. Sagittal and coronal reformations through the cervical spine were then performed. Auto Exposure Controls were utilized during the CT exam to meet ALARA standards for radiation dose reduction. INDICATION: Trauma, unwitnessed fall, loss of consciousness. COMPARISON: 10/03/2016 and additional imaging dated March 01, 2021. FINDINGS: Moderate atrophy. No intracranial hemorrhage. 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 Advanced background chronic small vessel white matter ischemic disease is again also noted. No intracranial mass, mass effect, midline shift, herniation, hydrocephalus, or extra-axial fluid collection. Ex-vacuo dilatation of the left lateral ventricle is again noted. No CT evidence of an acute ischemic infarction. Background vascular calcifications. Right forehead scalp hematoma and contusion without underlying calvarial fracture. The bilateral ocular lenses are absent. Inspissated secretions within the right sphenoid sinus. Paranasal sinuses are otherwise clear. The calvarium is intact. Minimal 2 mm of anterolisthesis of C5 on C6. No additional anterolisthesis or retrolisthesis. Alignment of the atlanto-occipital joint is well maintained. Scattered endplate degenerative changes. Mild vertebral body height loss within the upper thoracic spine is noted, similar to 2017. No evidence of a recent vertebral body compression deformity. No acute fracture or dislocation. No destructive osseous process. Scattered facet joint degenerative changes and uncovertebral joint hypertrophy. Severe disc space height loss at C4/C5 with moderate disc space height loss at C5/C6 and C6/C7. No apical pneumothorax. Scattered vascular calcifications. IMPRESSION: No acute intracranial abnormality. No acute osseous abnormality within the cervical spine with moderate multilevel degenerative changes. Right forehead scalp hematoma without underlying calvarial fracture. Significant background atrophy and chronic ischemic changes. Dictated on workstation # [id number] Dict: 03/01/21 1712 Trans: 03/01/21 1726 [id number] Interpreted by: ZAYRA GRADY MD Diagonstic Imaging: CT Plain Films/CT/US/NM/MRI: chest, abdomen, pelvis Comments CT chest, abdomen and pelvis reviewed by me and report reviewed. See report below: NAME: [facility] REC#: [id number] PT STATUS: REG ER : 1930 PHYSICIAN: TRISTAN SARGENT MD ADMIT DATE: 03/01/21/ER Draft Date of Exam:03/01/21 CT CHEST/ABDOMEN/PELVIS WO PROCEDURE: CT chest, abdomen, and pelvis without contrast. TECHNIQUE: Multiple contiguous axial images were obtained through the chest, abdomen, and pelvis without the use of intravenous contrast. Auto Exposure Controls were utilized during the CT exam to meet ALARA standards for radiation dose reduction. INDICATION: Trauma, unwitnessed fall with loss of consciousness. COMPARISON: Imaging from the same date as well as from 03/05/2017. FINDINGS: No significant adenopathy within the chest. Moderate vascular calcifications within the thoracic aorta and its branch vessels without aneurysmal dilatation of the thoracic aorta. The heart is at the upper limits of normal in size. No significant pericardial effusion. No pleural effusion. No pneumothorax. Senescent changes of the lungs were identified. The trachea is patent. Multiple chronic right-sided rib fractures are present. Vertebroplasty changes within the lower thoracic spine are again identified. Multilevel vertebral body height loss and superior endplate concavity is again identified, with the majority of these regions, appearing unchanged since 2017. However, there is mild anterior wedging and vertebral body height loss of T4, which appears new since 2017. Cholecystectomy. The unenhanced liver and spleen are unremarkable. The adrenal glands are unremarkable. The pancreas is unremarkable. The kidneys are unremarkable. Advanced vascular calcifications within the abdominal aorta and its branch vessels without aneurysmal dilatation of the abdominal aorta. Calcifications within the uterus are again seen, likely related to calcified uterine fibroids. The urinary bladder is not well evaluated secondary to spray artifact from a left hip arthroplasty. Prominent stool ball within the rectal vault. No evidence of bowel obstruction or pneumatosis. No significant adenopathy, free air or free fluid within the abdomen or pelvis. Left total hip arthroplasty is present. S-shaped curvature of the thoracolumbar spine. Chronic right inferior pubic ramus fracture. Stable grade 1 anterolisthesis of L4 on L5. Vertebral body height loss within the lumbar spine appears unchanged from the prior examination. IMPRESSION: 1. Mild superior endplate concavity and anterior wedge deformity of T4 with approximately 20% loss of vertebral body height. This is of uncertain chronicity, though this does appear new since 2017. Recommend correlation for focal pain at this location. 2. Prominent stool ball within the rectal vault. 3. Additional chronic and postsurgical changes, as above. Dictated on workstation # [id number] Dict: 03/01/21 1719 Trans: 03/01/21 1733 [facility] [id number] Interpreted by: ZAYRA GRADY MD Departure Impression Primary Impression: Fall on same level Qualified Codes: W18.30XA - Fall on same level, unspecified, initial encounter Additional Impressions: Laceration of forehead Qualified Codes: S01.81XA - Laceration without foreign body of other part of head, initial encounter Traumatic hematoma of forehead Qualified Codes: S00.83XA - Contusion of other part of head, initial encounter Urinary tract infection Qualified Codes: N39.0 - Urinary tract infection, site not specified Dementia Qualified Codes: F03.90 - Unspecified dementia without behavioral disturbance Generalized pain Compression fracture of T4 vertebra Qualified Codes: S22.040A - Wedge compression fracture of fourth thoracic vertebra, initial encounter for closed fracture Disposition: HOME, SELF-CARE Condition: Improved Departure-Patient Inst. Decision time for Depature: 17:50 Referrals: ASHLEY ORTIZ MD (PCP/Family) Primary Care Physician Patient Instructions: Urinary Tract Infections in Adults Add. Discharge Instructions: Complete antibiotics as prescribed. Have primary care provider review urine culture results after 48 hours to ensure the antibiotic provided is appropriate for the bacteria grown. Encourage plenty of clear liquids to stay well-hydrated. Have sutures removed in 7-10 days. Monitor wound for signs of infection such as increasing swelling, increasing redness, puslike drainage, or fever. Return to care if these symptoms are noted. There is a compression fracture at T4. This could possibly be amenable to intervention such as kyphoplasty but would need to be evaluated further by MRI. Please discuss this possibility with the primary care provider. Make an appointment for evaluation by the primary care provider soon as possible. Call with questions or concerns. Return to the ER if symptoms are worsening. All discharge instructions reviewed with patient and/or family. Voiced understanding. Scripts Cefdinir (Cefdinir) 300 Mg Capsule 300 MG PO BID, #14 CAP Prov: TRISTAN SARGENT MD 03/01/21 Copy Copies To 1: ASHLEY ORTIZ MD, JOSHUA T MD Mar 01, 2021 17:50
[2021-03-01] MEDS ORDERED: cefTRIAXone 1,000 MG VIAL IM ONE (18:00)
[2021-03-01] MEDS ORDERED: LIDOCAINE 1% INJ 20 ML 20 ML VIAL INJ ONE (18:00)
[2021-03-01] MEDS ORDERED: CEFD300C3 PO ×2 (18:44→19:17)
[2021-03-01] MEDS ORDERED: HYDROcodone/APAP 5 MG/325 MG (LORTAB) TAB PO ONE (19:30)
[2021-03-01 20:05] VITALS: BP 107/76
== END 2021-03-01 20:05 | disposition home or self-care (01) ==
LOC: EDUNIT# 15:20 → ER 15:21
DX: S22.040A Wedge compression fracture of fourth thoracic vertebra, initial encounter for closed fracture (principal); S01.81XA Laceration without foreign body of other part of head, initial encounter; N39.0 Urinary tract infection, site not specified; F03.90 Unspecified dementia, unspecified severity, without behavioral disturbance, psychotic disturbance, mood disturbance, and anxiety; F41.9 Anxiety disorder, unspecified; F32.9 Major depressive disorder, single episode, unspecified; Z23 Encounter for immunization; Z86.73 Personal history of transient ischemic attack (TIA), and cerebral infarction without residual deficits; Z79.82 Long term (current) use of aspirin; Z79.899 Other long term (current) drug therapy; W18.30XA Fall on same level, unspecified, initial encounter
CPT/HCPCS: 36415; 51701; 70450; 71250; 72125; 74176; 80048; 81000; 85025; 87088; 90715

== ENCOUNTER 2021-03-14 21:58 | Observation (INO) | payer MEDICARE ==
[~2021-03-14] VITALS: Ht 152 cm; Wt 45.0 kg
[~2021-03-14 21:58] MED LIST changes: +CEFD300C3 PO
--- NOTE | 2021-03-14 22:08 | ED Fall/Injury ---
General Chief Complaint: Trauma-Non Activation Stated Complaint: FALL Source: patient, EMS, skilled nursing records (Dementia) Exam Limitations: clinical condition History of Present Illness Date Seen by Provider: Mar 14, 2021 Time Seen by Provider: 21:52 Initial Comments Patient to ER by EMS from [facility] with chief complaint of fall in her room tripping over a rug she states. She denies striking her head but did land on her right hip and now has shortening and rotation of the right hip. Staff did not witness the fall but did help her get back into the bed. She is having pain but has not taken anything for the pain yet. She is unable to enumerate the pain. She states the fall was in her brothers room and thinks that she is in [facility]. She has a history of end-stage Alzheimer's dementia on hospice for failure to thrive with [facility]. No evidence of blood thinners. EMS states they were not able to establish an IV because when they touched her arm she screamed at them. When asked to indicate where her pain is she points towards her right lateral proximal femur. Allergies and Home Medications Allergies Coded Allergies: Sulfa (Sulfonamide Antibiotics) (Verified Allergy, Unknown, 05/13/20) morphine (Verified Allergy, Unknown, 05/13/20) Nausea, vomiting and confusion pantoprazole sodium (Verified Allergy, Unknown, 05/13/20) codeine (Verified Adverse Reaction, Severe, SEVERE N/V, 05/13/20) Patient Home Medication List Home Medication List Reviewed: Yes Acetaminophen (Acetaminophen) 325 Mg Tablet, 650 MG PO Q6H PRN for PAIN-MILD (1- 4) OR FEVER Prescribed by: ASHLEY SCRUGGS on 05/16/20 08 Alprazolam (Alprazolam) 0.5 Mg Tablet, 0.5 MG PO BID Prescribed by: ASHLEY SCRUGGS on 05/16/20 0843 Amoxicillin/Potassium Clav (Augmentin 250-62.5 mg/5 ml) 250 Mg/5 Ml Susp.recon, 10 ML PO BID Prescribed by: ASHLEY SCRUGGS on 05/16/20 08 Aspirin (Aspirin EC) 81 Mg Tablet.dr, 81 MG PO DAILY, (Reported) Entered as Reported by: KAREN ESTEBAN on 05/13/20 1524 Cefdinir (Cefdinir) 300 Mg Capsule, 300 MG PO BID Prescribed by: TRISTAN CARPIO on 03/01/211916 Cholecalciferol (Vitamin D3) (Vitamin D3) 50 Mcg Capsule, 50 MCG PO DAILY, (Reported) Entered as Reported by: KAREN ESTEBAN on 05/13/201523 Citalopram Hydrobromide (Citalopram HBr) 20 Mg Tablet, 10 MG PO HS, (Reported) Entered as Reported by: KAREN ESTEBAN on 05/13/201523 Docusate Sodium (Dok) 100 Mg Capsule, 100 MG PO BID, (Reported) Entered as Reported by: KAREN ESTEBAN on 05/13/201523 Memantine HCl (Memantine HCl ER) 21 Mg Cap.spr.24, 21 MG PO HS, (Reported) Entered as Reported by: KAREN ESTEBAN on 05/13/201523 Polyethylene Glycol 3350 (Polyethylene Glycol 3350) 17 Gm Powd.pack, 17 GM PO DAILY Prescribed by: ASHLEY SCRUGGS on 05/16/20 0843 Potassium Chloride (K-Tab ER) 10 Meq Tablet.er, 10 MEQ PO BID, (Reported) Entered as Reported by: KAREN ESTEBAN on 05/13/201523 Solifenacin Succinate (Solifenacin Succinate) 10 Mg Tablet, 10 MG PO HS, (Reported) Entered as Reported by: KAREN ESTEBAN on 05/13/201523 Review of Systems Review of Systems Constitutional: No chills, No diaphoresis Eyes: Denies Blindness, Denies Blurred Vision Ears, Nose, Mouth, Throat: denies ear pain, denies ear discharge Respiratory: No cough, No short of breath Cardiovascular: No edema, No palpitations Gastrointestinal: No abdominal pain, No constipation, No diarrhea Genitourinary: No discharge, No dysuria Musculoskeletal: No back pain; joint pain Skin: change in color All Other Systems Reviewed Negative Unless Noted: Yes Past Lejmzxp-Ginbta-Bgbvif Hx Patient Social History Tobacco Use?: No Use of E-Cig and/or Vaping dev: No Substance use?: No Alcohol Use?: No Pt feels they are or have been: No Immunizations Up To Date Tetanus Booster (TDap): More than 5yrs First/Initial COVID19 Vaccinat: APR Second COVID19 Vaccination Juwan: APR Seasonal Allergies Seasonal Allergies: No Past Medical History Surgery/Hospitalization HX: ALZHEIMERS, COVID, UTI, HYPOKALEMIA, DEPRESSION, ANXIETY Surgeries: Yes Appendectomy, Gallbladder, Joint Replacement, Orthopedic Respiratory: No Currently Using CPAP: No Currently Using BIPAP: No Cardiac: Yes (does not have issues with HTN now) Neurological: Yes Dementia, TIA Reproductive Disorders: No Female Reproductive Disorders: Denies Sexually Transmitted Disease: No HIV/AIDS: No Genitourinary: Yes (INCONTINENCE.) Bladder Infection Gastrointestinal: Yes Gastroesophageal Reflux, Gall Bladder Disease Musculoskeletal: Yes Osteoporosis, Arthritis, Fractures Endocrine: No HEENT: Yes Cataract Loss of Vision: Denies Hearing Impairment: Denies Cancer: No Psychosocial: Yes Anxiety, Depression Integumentary: No Blood Disorders: No Adverse Reaction/Blood Tranf: No Family Medical History Alcoholism G8 BROTHER FH: throat cancer G8 BROTHER Parkinson's disease 19 FATHER Throat Throat Cancer, Other Conditions/Hx Physical Exam Vital Signs Capillary Refill : Height, Weight, BMI Height: 5'4.00" Weight: 82lbs. 9.0oz. 37.523394ms; 18.00 BMI Method:Stated General Appearance: mild distress, thin HEENT: PERRL/EOMI, pharynx normal Neck: non-tender, full range of motion, normal inspection Cardiovascular: normal peripheral pulses, regular rate, rhythm Respiratory: no respiratory distress, no accessory muscle use Peripheral Pulses: 2+ Dorsalis Pedis (R), 2+ Left Dors-Pedis (L) Gastrointestinal: non tender, soft Extremities: other (Shortening and external rotation of the right lower extremity with deformity over the proximal right femur and tenderness to palpation. Other joints noninfected.) Neurologic/Psychiatric: calender wind up tender II-XII nml as tested, no motor/sensory deficits, alert, normal mood/affect, other (Oriented to person but not place time or situation.) Augustus Coma Score Best Eye Response: (4) Open Spontaneously Best Verbal Response: (4) Confused Conversation Best Motor Response: (6) Obeys Commands Augustus Total: 14 Procedures/Interventions Suture Size: 5-0 Progress/Results/Core Measures Results/Orders Lab Results Laboratory Tests Test 03/14/21 22:08 Range/Units White Blood Count 8.8 4.3-11.0 10^3/uL Red Blood Count 3.37 L 3.80-5.11 10^6/uL Hemoglobin 10.3 L 11.5-16.0 g/dL Hematocrit 33 L 35-52 % Mean Corpuscular Volume 97 80-99 fL Mean Corpuscular Hemoglobin 31 25-34 pg Mean Corpuscular Hemoglobin Concent 32 32-36 g/dL Red Cell Distribution Width 14.7 H 10.0-14.5 % Platelet Count 200 130-400 10^3/uL Mean Platelet Volume 11.1 9.0-12.2 fL Immature Granulocyte % (Auto) 1 % Neutrophils (%) (Auto) 67 42-75 % Lymphocytes (%) (Auto) 22 12-44 % Monocytes (%) (Auto) 8 0-12 % Eosinophils (%) (Auto) 2 0-10 % Basophils (%) (Auto) 0 0-10 % Neutrophils # (Auto) 5.9 1.8-7.8 10^3/uL Lymphocytes # (Auto) 2.0 1.0-4.0 10^3/uL Monocytes # (Auto) 0.7 0.0-1.0 10^3/uL Eosinophils # (Auto) 0.2 0.0-0.3 10^3/uL Basophils # (Auto) 0.0 0.0-0.1 10^3/uL Immature Granulocyte # (Auto) 0.1 0.0-0.1 10^3/uL Sodium Level 141 135-145 MMOL/L Potassium Level 3.7 3.6-5.0 MMOL/L Chloride Level 108 H 98-107 MMOL/L Carbon Dioxide Level 21 21-32 MMOL/L Anion Gap 12 5-14 MMOL/L Blood Urea Nitrogen 25 H 7-18 MG/DL Creatinine 0.81 0.60-1.30 MG/DL Estimat Glomerular Filtration Rate 67 BUN/Creatinine Ratio 31 Glucose Level 116 H 70-105 MG/DL Calcium Level 8.7 8.5-10.1 MG/DL My Orders Orders - JUAN M URIAS Ct Head Wo (03/14/21 22:01) Hip, Right, 2 Views (03/14/21 22:01) Fentanyl Inj (Sublimaze Injection) (03/14/21 22:15) Cbc With Automated Diff (03/14/21 22:01) Basic Metabolic Panel (03/14/21 22:01) Chest 1 View, Ap/Pa Only (03/14/21 22:03) Medications Given in ED Current Medications Medications Dose Ordered Sig/Blas Route Start Time Stop Time Status Last Admin Dose Admin Fentanyl Citrate 25 mcg ONCE ONCE IVP 03/14/21 22:15 03/14/21 22:16 DC 03/14/21 22:13 25 MCG Progress Progress Note #1: Time: 22:07 Progress Note 25 mcg IV fentanyl were ordered. We will get some plain films of her hip and a CT of her head basic labs. We will then reach out to power of lead burner or [facility] to help us determine her goals of care. Progress Note #2: Time: 23:42 Progress Note Letty Gudino, daughter and DPOA contacted and left a VM. Progress Note #3: Time: 00:14 Progress Note Made several other attempts to contact the daughter/DPOA and the call kept getting disconnected. We tried calling her cell phone which went straight to voicemail. We left another voicemail. Left message with [facility] to get the nurse construction equipment operator and see if we can work on a admission for pain management and consult to orthopedic surgery. Progress Note #4: Time: 00:31 Progress Note Got hold of Brunilda from [facility] and she agrees with doing a GIP for pain management. Consult orthopedics in the morning. Patient's pain is controlled right now on the fentanyl and she does not want a thing else at the moment. She is okay with staying in the hospital. Got a hold of the orthopedic surgeon and he agrees to consult on the case. We do not need to get a hold of the general, trauma surgeon as orthopedics will take care of this case. Diagnostic Imaging Diagonstic Imaging: CT Plain Films/CT/US/NM/MRI: head Comments [facility]. [place], [place] NAME: TELLO PLAZA MED REC#: [id number] PT STATUS: REG ER : 1930 PHYSICIAN: JUAN M URIAS MD ADMIT DATE: 03/14/21/ER Draft Date of Exam:03/14/21 CT HEAD WO CLINICAL INDICATION: Patient complains of right hip pain. Status post fall. Exam: Axial CT scan of the brain without IV contrast with coronal and sagittal reformatted images. Auto Exposure Controls were utilized during the CT exam to meet ALARA standards for radiation dose reduction. Comparison: Head CT without contrast dated 04/27/2016. Findings: There is no CT evidence of intracranial hemorrhage or acute cerebral infarct. Small chronic infarct involving left basal ganglia region and lateral left frontal lobe is again seen. There is ex vacuo dilation of the left lateral ventricle which is slightly progressed in the interim. Stable small chronic infarct involving the posterior limb of the right internal capsule/right thalamus. There is brain parenchymal volume loss again seen which is not significantly changed. There is diffuse patchy confluent areas of low-attenuation white matter changes seen throughout both cerebral hemispheres which is also noted on prior study. There is no brain herniation or midline shift. There is no hydrocephalus. The extracranial soft tissue, skull, and orbits are unremarkable. There is minimal frothy secretions in the sphenoid sinus. Otherwise, paranasal sinuses are clear. Mastoid air cells are clear. IMPRESSION: 1: There is no CT evidence of acute intracranial process. There is no intracranial hemorrhage. There is no skull fracture. 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 Small chronic infarct involving the right thalamus and posterior limb of the right internal capsule is again seen. 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 Dictated on workstation # [id number] Dict: 03/14/212245 Trans: 03/14/21 2252 MEGHA [id number] Interpreted by: JOANNE BOONE MD Electronically signed by: Reviewed: Reviewed by [place] Diagonstic Imaging: Xray Plain Films/CT/US/NM/MRI: chest Comments [facility] [place] NAME: TELLO PLAZA [facility] REC#: [id number] PT STATUS: REG ER : 1930 PHYSICIAN: JUAN M URIAS MD ADMIT DATE: 03/14/21/ER Draft Date of Exam:03/14/21 CHEST 1 VIEW, AP/PA ONLY CLINICAL INDICATION: Patient status post fall and right hip pain. EXAM: Portable chest x-ray upright view. COMPARISON: Chest x-ray dated 05/13/2020. FINDINGS: Lungs are clear. There is no pleural effusion or pneumothorax. Pulmonary vasculature and cardiac silhouettes are within normal limits. Multiple old healed right rib fractures again noted. There is compression fracture deformity and kyphoplasty changes involving 2 thoracic vertebra. There is another compression deformity of a midthoracic vertebra which is stable. Right shoulder open reduction and internal fixation again seen which is healed. IMPRESSION: 1: Stable chest x-ray exam with no radiographic evidence of acute cardiopulmonary process. Dictated on workstation # [id number] Dict: 03/14/212323 Trans: 03/14/212328 MEGHA [id number] Interpreted by: JOANNE BOONE MD Electronically signed by: Reviewed: Reviewed by Me Diagonstic Imaging: Xray Plain Films/CT/US/NM/MRI: hip (r) Comments [facility] [place] NAME: TELLO PLAZA [facility] REC#: [id number] PT STATUS: REG ER : 1930 PHYSICIAN: JUAN M URIAS MD ADMIT DATE: 03/14/21/ER Draft Date of Exam:03/14/21 HIP, RIGHT, 2 VIEWS CLINICAL INDICATION: Patient status post fall, complains of right hip pain. EXAM: X-ray of the right hip, AP and crosstable lateral views. COMPARISON: X-ray of the pelvis and right hip dated 08/14/2015. FINDINGS AND IMPRESSION: 1: There is interval development of an acute comminuted distracted fracture of the proximal femoral intertrochanteric region. There is slight lateral displacement of the distal fracture fragment. 2: There are degenerative spurs involving the right acetabular region. 3: Partially visualized left hip arthroplasty noted. Dictated on workstation # [id number] Dict: 03/14/212315 Trans: 03/14/212324 MEGHA [id number] Interpreted by: JOANNE BOONE MD Electronically signed by: Reviewed: Reviewed by Me Departure Communication (Admissions) Time/Spoke to Admitting Phy: 00:30 Discussed the case with Dr. Scruggs who is okay with doing a GIP for pain management through [facility], hospice and consult to orthopedic surgery. Time/Spoke to Consulting Phy: 00:25 Discussed the case with Dr. Storey who is okay to consult on the case. Impression Primary Impression: Pain management Additional Impressions: Closed right hip fracture Qualified Codes: S72.001A - Fracture of unspecified part of neck of right femur, initial encounter for closed fracture Fall Qualified Codes: W19.XXXA - Unspecified fall, initial encounter Disposition: ADMITTED INPATIENT Condition: Stable Admissions Decision to Admit Reason: Admit from ER (Trauma) Decision to Admit/Date: Mar 15, 2021 Time/Decision to Admit Time: 00:19 Departure-Patient Inst. Referrals: ASHLEY SCRUGGS MD (PCP/Family) Primary Care Physician JUAN M URIAS Mar 14, 2021 22:08
[2021-03-14 22:15] LABS: BASOPHILS % (AUTO) 0 % (0-10); EOSINOPHILS # (AUTO) 0.2 10^3/uL (0.0-0.3); EOSINOPHILS % (AUTO) 2 % (0-10); HEMATOCRIT 33 % (35-52); HEMOGLOBIN 10.3 g/dL (11.5-16.0); LYMPHOCYTES % (AUTO) 22 % (12-44); MEAN CORPUSCULAR HEMOGLOBIN 31 pg (25-34); MEAN CORPUSCULAR HGB CONC 32 g/dL (32-36); MEAN CORPUSCULAR VOLUME 97 fL (80-99); MEAN PLATELET VOLUME 11.1 fL (9.0-12.2); MONOCYTES # (AUTO) 0.7 10^3/uL (0.0-1.0); MONOCYTES % (AUTO) 8 % (0-12); NEUTROPHILS # (AUTO) 5.9 10^3/uL (1.8-7.8); NEUTROPHILS % (AUTO) 67 % (42-75); PLATELET COUNT 200 10^3/uL (130-400); WHITE BLOOD COUNT 8.8 10^3/uL (4.3-11.0)
[2021-03-14] MEDS ORDERED: fentaNYL INJ 100 MCG/2 ML AMP IVP ONE (22:15)
[2021-03-14 22:23] LABS: POTASSIUM 3.7 MMOL/L (3.6-5.0)
[2021-03-14 22:24] LABS: CALCIUM 8.7 MG/DL (8.5-10.1)
[2021-03-14 22:28] LABS: CREATININE SERUM 0.81 MG/DL (0.60-1.30)
--- NOTE | 2021-03-14 22:53 | Diagnostic Imaging Report ---
CLINICAL INDICATION: Patient complains of right hip pain. Status post fall. Exam: Axial CT scan of the brain without IV contrast with coronal and sagittal reformatted images. Auto Exposure Controls were utilized during the CT exam to meet ALARA standards for radiation dose reduction. Comparison: Head CT without contrast dated 04/27/2016. Findings: There is no CT evidence of intracranial hemorrhage or acute cerebral infarct. Small chronic infarct involving left basal ganglia region and lateral left frontal lobe is again seen. There is ex vacuo dilation of the left lateral ventricle which is slightly progressed in the interim. Stable small chronic infarct involving the posterior limb of the right internal capsule/right thalamus. There is brain parenchymal volume loss again seen which is not significantly changed. There is diffuse patchy confluent areas of low-attenuation white matter changes seen throughout both cerebral hemispheres which is also noted on prior study. There is no brain herniation or midline shift. There is no hydrocephalus. The extracranial soft tissue, skull, and orbits are unremarkable. There is minimal frothy secretions in the sphenoid sinus. Otherwise, paranasal sinuses are clear. Mastoid air cells are clear. IMPRESSION: 1: There is no CT evidence of acute intracranial process. There is no intracranial hemorrhage. There is no skull fracture. 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 Small chronic infarct involving the right thalamus and posterior limb of the right internal capsule is again seen. 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 Dictated by: Dictated on workstation # [id number]
--- NOTE | 2021-03-14 23:26 | Diagnostic Imaging Report ---
CLINICAL INDICATION: Patient status post fall, complains of right hip pain. EXAM: X-ray of the right hip, AP and crosstable lateral views. COMPARISON: X-ray of the pelvis and right hip dated 08/14/2015. FINDINGS AND IMPRESSION: 1: There is interval development of an acute comminuted distracted fracture of the proximal femoral intertrochanteric region. There is slight lateral displacement of the distal fracture fragment. 2: There are degenerative spurs involving the right acetabular region. 3: Partially visualized left hip arthroplasty noted. Dictated by: Dictated on workstation # [id number]
--- NOTE | 2021-03-14 23:30 | Diagnostic Imaging Report ---
CLINICAL INDICATION: Patient status post fall and right hip pain. EXAM: Portable chest x-ray upright view. COMPARISON: Chest x-ray dated 05/13/2020. FINDINGS: Lungs are clear. There is no pleural effusion or pneumothorax. Pulmonary vasculature and cardiac silhouettes are within normal limits. Multiple old healed right rib fractures again noted. There is compression fracture deformity and kyphoplasty changes involving 2 thoracic vertebra. There is another compression deformity of a midthoracic vertebra which is stable. Right shoulder open reduction and internal fixation again seen which is healed. IMPRESSION: 1: Stable chest x-ray exam with no radiographic evidence of acute cardiopulmonary process. Dictated by: Dictated on workstation # [id number]
[2021-03-15] VITALS (14 sets, daily range): BP systolic 76–154; BP diastolic 40–90
[2021-03-15] MEDS ORDERED: ONDANSETRON 4 MG/2 ML (SDV) Z0FRAN IV PRN (02:00)
[2021-03-15] MEDS: LACTATED RINGERS 1,000 ML IV SCH ×2 (02:31→13:45)
[2021-03-15] MEDS: fentaNYL INJ 100 MCG/2 ML AMP IV PRN ×4 (02:32→10:15)
--- NOTE | 2021-03-15 08:39 | History & Physical ---
History of Present Illness History of Present Illness Reason for visit/HPI PT IS AN 89 Y/O FEMALE WHO HAS ADVANCED DEMENTIA AND IS KNOWN TO ME FROM CLINIC. SHE IS A RESIDENT OF THE [facility] AND HAD FALLEN LAST NIGHT WITH COMPLAINT OF RIGHT HIP PAIN. THE STAFF AT THE [facility] WAS INSTRUCTED TO TAKE TELLO TO THE ER WHERE SHE WAS FOUND TO HAVE SUSTAINED A RIGHT HIP FRACTURE. SHE WAS ADMITTED TO THE HOSPITAL WITH PLANS FOR POSSIBLE SURGICAL INTERVENTION PENDING DISCUSSION WITH HER DTR AND THE SURGEON. Date of Admission Mar 15, 2021 at 00:30 Date Seen by a Provider: Mar 15, 2021 Time Seen by a Provider: 08:59 Attending Physician Ashley Scruggs MD Admitting Physician Ashley Scruggs MD Consult DR. NOVOA Allergies and Home Medications Allergies Coded Allergies: Sulfa (Sulfonamide Antibiotics) (Verified Allergy, Unknown, 05/13/20) morphine (Verified Allergy, Unknown, 05/13/20) Nausea, vomiting and confusion pantoprazole sodium (Verified Allergy, Unknown, 05/13/20) codeine (Verified Adverse Reaction, Severe, SEVERE N/V, 05/13/20) Patient Home Medication List Home Medication List Reviewed: Yes Albuterol Sulfate (Albuterol Sulfate) 1.25 Mg/3 Ml Vial.neb, 1.25 MG INH TID, (Reported) Entered as Reported by: KAREN ESTEBAN on 03/15/21 103 Last Action: Held Alprazolam (Alprazolam) 0.5 Mg Tablet, 0.5 MG PO BID, (Reported) Entered as Reported by: KAREN ESTEBAN on 03/15/21 103 Last Action: Continued Bisacodyl (Bisacodyl) 10 Mg Supp.rect, 10 MG RC DAILY PRN for CONSTIPATION-4TH LINE, (Reported) Entered as Reported by: KAREN ESTEBAN on 03/15/21 103 Last Action: Reviewed Citalopram Hydrobromide (Citalopram HBr) 20 Mg Tablet, 10 MG PO DAILY, (Reported) Entered as Reported by: KAREN ESTEBAN on 05/13/20 1524 Last Action: Continued Hyoscyamine Sulfate (Hyoscyamine Sulfate) 0.125 Mg Tab.rapdis, 0.125 MG PO Q2H PRN for SECRETIONS, (Reported) Entered as Reported by: KAREN ESTEBAN on 03/15/211038 Last Action: Held Loratadine (Loratadine) 10 Mg Tablet, 10 MG PO DAILY PRN for RUNNY NOSE, (Reported) Entered as Reported by: KAREN ESTEBAN on 03/15/211038 Last Action: Held Magnesium Hydroxide (Milk of Magnesia) 2,400 Mg/10 Ml Oral.susp, 30 ML PO DAILY PRN for CONSTIPATION-7TH LINE, (Reported) Entered as Reported by: KAREN ESTEBAN on 03/15/211038 Last Action: Held Memantine HCl (Memantine HCl ER) 21 Mg Cap.spr.24, 21 MG PO DAILY, (Reported) Entered as Reported by: KAREN ESTEBAN on 05/13/201523 Last Action: Held Potassium Chloride (K-Tab ER) 10 Meq Tablet.er, 10 MEQ PO BID, (Reported) Entered as Reported by: KAREN ESTEBAN on 05/13/201523 Last Action: Continued Sennosides (Senna) 8.6 Mg Tablet, 8.6 MG PO BID, (Reported) Entered as Reported by: KAREN ESTEBAN on 03/15/211038 Last Action: Continued Solifenacin Succinate (Solifenacin Succinate) 10 Mg Tablet, 10 MG PO DAILY, (Reported) Entered as Reported by: KAREN ESTEBAN on 05/13/201523 Last Action: Converted [Oxycodone Hcl Concen] 100MG/5ML SUSP, 0.25-0.5 ML PO Q15M PRN for PAIN/AIR HUNGER, (Reported) Entered as Reported by: KAREN ESTEBAN on 03/15/211038 Last Action: Reviewed Discontinued Medications Acetaminophen (Acetaminophen) 325 Mg Tablet, 650 MG PO Q6H PRN for PAIN-MILD (1- 4) OR FEVER Discontinued Reason: No Longer Taking Prescribed by: ASHLEY SCRUGGS on 05/16/20842 Last Action: Discontinued Alprazolam (Alprazolam) 0.5 Mg Tablet, 0.5 MG PO BID Discontinued Reason: No Longer Taking Prescribed by: ASHLEY SCRUGGS on 05/16/20842 Last Action: Discontinued Amoxicillin/Potassium Clav (Augmentin 250-62.5 mg/5 ml) 250 Mg/5 Ml Susp.recon, 10 ML PO BID Discontinued Reason: No Longer Taking Prescribed by: ASHLEY SCRUGGS on 05/16/20842 Last Action: Discontinued Aspirin (Aspirin EC) 81 Mg Tablet.dr, 81 MG PO DAILY, (Reported) Discontinued Reason: No Longer Taking Entered as Reported by: KAREN ESTEBAN on 05/13/201523 Last Action: Discontinued Cefdinir (Cefdinir) 300 Mg Capsule, 300 MG PO BID Discontinued Reason: No Longer Taking Prescribed by: TRISTAN CARPIO on 03/01/211916 Last Action: Discontinued Cholecalciferol (Vitamin D3) (Vitamin D3) 50 Mcg Capsule, 50 MCG PO DAILY, (Reported) Discontinued Reason: No Longer Taking Entered as Reported by: KAREN ESTEBAN on 05/13/201523 Last Action: Discontinued Docusate Sodium (Dok) 100 Mg Capsule, 100 MG PO BID, (Reported) Discontinued Reason: No Longer Taking Entered as Reported by: KAREN ESTEBAN on 05/13/201523 Last Action: Discontinued Polyethylene Glycol 3350 (Polyethylene Glycol 3350) 17 Gm Powd.pack, 17 GM PO DAILY Discontinued Reason: No Longer Taking Prescribed by: ASHLEY SCRUGGS on 05/16/20842 Last Action: Discontinued Past Mettlst-Sulqmh-Jynawp Hx Patient Social History Marrital Status: Living Status: LIVES AT [facility] Employed/Student: retired Tobacco Use?: No Use of E-Cig and/or Vaping dev: No Substance use?: No Alcohol Use?: No Pt feels they are or have been: No Immunizations Up To Date Date of Influenza Vaccine: Mar 11, 2020 First/Initial COVID19 Vaccinat: APR Second COVID19 Vaccination Juwan: 04/30/20 Tetanus Booster (TDap): Unknown Hepatitis A: No Hepatitis B: No Date of Pneumonia Vaccine: July 13, 2010 Seasonal Allergies Seasonal Allergies: No Current Status status: No status: No Advance Directives: Unable to obtain Advance Directive Location: Copy placed in chart Communicates: Verbally Primary Language: Indonesian Is interpretation needed?: No Past Medical History Surgeries: Appendectomy, Gallbladder, Joint Replacement, Orthopedic Currently Using CPAP: No Currently Using BIPAP: No Dementia, TIA Sexually Transmitted Disease: No HIV/AIDS: No Bladder Infection Gastroesophageal Reflux, Gall Bladder Disease Osteoporosis, Arthritis, Fractures Cataract Loss of Vision: Denies Hearing Impairment: Denies Anxiety, Depression Blood Disorders: No Adverse Reaction/Blood Tranf: No Family Medical History Reviewed and Corrections made Alcoholism G8 BROTHER FH: throat cancer G8 BROTHER Parkinson's disease 19 FATHER Throat Throat Cancer, Other Conditions/Hx Review of Systems ROS-Unable to Obtain: DIFFICULT TO OBTAIN DUE TO HER DEMENTIA Constitutional: No chills, No diaphoresis, No fever; weakness, other (UNDERWEIGHT) EENTM: no symptoms reported Respiratory: No cough, No dyspnea on exertion, No short of breath Cardiovascular: No chest pain, No palpitations Gastrointestinal: No abdominal pain, No nausea, No vomiting Genitourinary: no symptoms reported Musculoskeletal: other (RIGHT HIP PAIN) Skin: no symptoms reported Psychiatric/Neurological: Anxiety, Weakness, Other (DEMENTIA) All Other Systems Reviewed Negative Unless Noted: Yes Physical Exam Vital Signs Vital Signs - First Documented 03/14/21 21:58 Temp 36.4 Pulse 85 Resp 19 B/P (MAP) 190/96 (127) Pulse Ox 98 O2 Delivery Room Air Capillary Refill : Height, Weight, BMI Height: 5'4.00" Weight: 82lbs. 9.0oz. 37.537584fk; 19.47 BMI Method:Stated General Appearance: No Apparent Distress, Thin Eyes: Bilateral Eye Normal Inspection, Bilateral Eye PERRL, Bilateral Eye EOMI HEENT: PERRL/EOMI, Pharynx Normal Neck: Full Range of Motion, Normal Inspection, Non Tender, Supple Respiratory: Chest Non Tender, Lungs Clear, Normal Breath Sounds, No Accessory Muscle Use, No Respiratory Distress Cardiovascular: Regular Rate, Rhythm, Systolic Murmur (II/) Gastrointestinal: Normal Bowel Sounds, No Organomegaly, No Pulsatile Mass, Non Tender, Soft Rectal: Deferred Extremity: Normal Capillary Refill, Non Tender, No Calf Tenderness, No Pedal Edema Neurologic/Psychiatric: Alert, Other (PT ORIENTED TO PERSON, NOT PLACE OR TIME) Skin: Normal Color, Warm/Dry Lymphatic: No Adenopathy Assessment/Plan Assessment and Plan RIGHT HIP FRACTURE ADVANCED DEMENTIA UNDERWEIGHT ANXIETY DEPRESSION CONSTIPATION RIGHT HIP FRACTURE CT SCAN IMAGING - 1: There is interval development of an acute comminuted distracted fracture of the proximal femoral intertrochanteric region. There is slight lateral displacement of the distal fracture fragment. 2: There are degenerative spurs involving the right acetabular region. 3: Partially visualized left hip arthroplasty noted. - DISCUSSION WITH PT'S DTR AND DR. NOVOA TODAY- PLAN FOR SURGICAL INTERVENTION TODAY. ADVANCED DEMENTIA - HOLD NAMENDA AT THIS TIME - RESTART ON DISCHARGE. UNDERWEIGHT - SUPPORTIVE CARE, DUE TO HER ADVANCED DEMENTIA ANXIETY AND DEPRESSION - RESTART SSRI, AND BENZODIAZEPINE CONSTIPATION - RESTART SENNA DVT PROPHYLAXIS WITH LOVENOX AND SCD'S ON LEFT LEG AND RIGHT FOOT GI PROPHYLAXIS WITH PPI PLAN WILL BE DC BACK TO [facility] ON HOSPICE Admission Diagnosis RIGHT HIP FRACTURE ADVANCED DEMENTIA UNDERWEIGHT ANXIETY DEPRESSION CONSTIPATION Admission Status: Inpatient Order (span 2 midnights) Reason for Inpatient Admission: INPT ADMISSION FOR RIGHT HIP FX - WILL REQUIRE AT LEAST 48 HOURS IN HOSPITAL ASHLEY SCRUGGS MD Mar 15, 2021 08:39
--- NOTE | 2021-03-15 09:52 | CONSULTATION REPORT ---
DATE OF SERVICE: 03/15/2021 INPATIENT CONSULTATION REASON FOR CONSULTATION: Right intertrochanteric femur fracture. HISTORY: The patient is an 89-year-old female, who fell at the alf, landing on her right hip. She was found to have an intertrochanteric femur fracture. MEDICATIONS: Acetaminophen, alprazolam, aspirin, vitamin D, potassium. PAST SURGICAL HISTORY: Left hip. PAST MEDICAL HISTORY: Significant for Alzheimer's, hypokalemia, depression and anxiety. Past surgeries are in addition to left hip are appendectomy, cholecystectomy. PHYSICAL EXAMINATION: EXTREMITIES: Orthopedic exam of the right hip demonstrates no erythema or warmth. She is tender over the lateral aspect of the hip. There is some shortening with mild external rotation. Pulses are symmetric. She has spontaneous dorsiflexion and plantarflexion of the toes. IMPRESSION: Right intertrochanteric femur fracture. PLAN: Right hip intramedullary nail. The risks, benefits, options, ramifications and recovery were discussed with her power of marine meteorologist. Job ID: [id number] DocumentID: [id number] Dictated Date: 03/15/2021 07:09:00 Interior Specialist Date: 03/15/2021 09:52:20 Dictated By: KRISTIAN NOVOA MD
--- NOTE | 2021-03-15 10:37 | Progress Note-Pre Operative ---
Pre-Operative Progress Note H&P Reviewed The H&P was reviewed, patient examined and no changes noted. Date Seen by Provider: Mar 15, 2021 Time Seen by Provider: 07:10 Date H&P Reviewed: Mar 15, 2021 Time H&P Reviewed: 07:05 Pre-Operative Diagnosis: right intertrochanteric femor fracture closed, displaced KRISTIAN NOVOA MD Mar 15, 2021 10:37
--- NOTE | 2021-03-15 10:38 | Progress Note-Post Operative ---
Post-Operative Progess Note Surgeon (s)/Lighting Specialist (s) Surgeon KRISTIAN NOVOA MD Lighting Specialist: Mor Newton Pre-Operative Diagnosis right intertrochanteric femor fracture closed, displaced Post-Operative Diagnosis right intertrochanteric femor fracture closed, displaced Procedure & Operative Findings Date of Procedure 03/15/21 Procedure Performed/Findings right hip IM nail Anesthesia Type GETA Estimated Blood Loss Estimated blood loss (mL): 100ml Specimens/Packing Specimens Removed none Packing: none KRISTIAN NOVOA MD Mar 15, 2021 10:38
[2021-03-15] MEDS ORDERED: ALPR0.5T7 PO (10:39)
[2021-03-15] MEDS ORDERED: ALBU1.25 INH (10:39)
[2021-03-15] MEDS ORDERED: OXYCODONE PO (10:39)
[2021-03-15] MEDS ORDERED: SENN-234 PO (10:39)
[2021-03-15] MEDS ORDERED: MOM10U PO (10:39)
[2021-03-15] MEDS ORDERED: BISA10SU8 RC (10:39)
[2021-03-15] MEDS ORDERED: HYOS-6 PO (10:39)
[2021-03-15] MEDS ORDERED: LORA10TA7 PO (10:39)
[2021-03-15] MEDS ORDERED: fentaNYL INJ 100 MCG/2 ML AMP IVP PRN (11:00)
[2021-03-15] MEDS ORDERED: NALOXONE 0.4 MG/ML 1 ML (NARCAN) VIAL IV PRN (11:00)
[2021-03-15] MEDS ORDERED: HYDROcodone/APAP 5 MG/325 MG (LORTAB) TAB PO PRN (11:00)
[2021-03-15] MEDS ORDERED: ONDANSETRON 4 MG/2 ML (SDV) Z0FRAN IVP PRN (11:00)
[2021-03-15] MEDS ORDERED: BUPIVACAINE 0.25% 30 ML (SENSORCAINE) VIAL ONE (11:13)
[2021-03-15] MEDS ORDERED: ceFAZolin 2 GM IV Premixed 50 ML IV ONE (11:15)
[2021-03-15] MEDS ORDERED: KETAMINE SYRINGE 50 MG/5 ML SYRINGE ONE (11:42)
[2021-03-15] MEDS ORDERED: ceFAZolin INJECTION 2,000 MG ONE (11:52)
[2021-03-15] MEDS ORDERED: BUPIVACAINE 0.5% 30 ML (SENSORCAINE) VIAL ONE (12:21)
[2021-03-15] MEDS ORDERED: PHENYLEPHRINE 100 MCG/ML 10 ML (ANESTHESIA) SYR ONE (12:22)
--- NOTE | 2021-03-15 13:23 | Diagnostic Imaging Report ---
EXAMINATION: Fluoroscopy up to one hour. INDICATION: Right hip nailing. TECHNIQUE: Fluoroscopic assistance was provided for Dr. Storey. 85.6 seconds of fluoro time was utilized. FINDINGS: AP and lateral spot films of the right hip were received from the OR. The prior exam of 03/14/2021 noted an acute comminuted distracted fracture of the intertrochanteric region of the right femur. On this exam, there is now an intramedullary leif and orthopedic fixation screw securing the fracture of the right femur. The orthopedic hardware appears to be in good position. The avulsion of the lesser trochanter seen previously is again evident. There is no acute bony abnormality noted, otherwise. IMPRESSION: Fluoroscopic assistance was provided for Dr. Storey. Dictated by: Dictated on workstation # [id number]
--- NOTE | 2021-03-15 13:51 | Physical Therapy Progress Note ---
Therapy Progress Note PT orders received, Patient currently still in surgery. Will attempt evaluation once patient is able to participate. RJ WHITE PT Mar 15, 2021 13:51
--- NOTE | 2021-03-15 15:24 | Physical Therapy Progress Note ---
Therapy Progress Note Second Attempt to see patient for PT evaluation, Nurse requests "Let the patient sleep." She requests hold till am for PT eval. Will attempt again tomorrow and progress per patient tolerance. RJ WHITE PT Mar 15, 2021 15:24
[2021-03-15] MEDS ORDERED: PANTOPRAZOLE 40 MG (PROTONIX) VIAL IV ONE (19:45)
[2021-03-15] MEDS: ceFAZolin 2 GM IV Premixed 50 ML IV SCH (21:07)
--- NOTE | 2021-03-15 21:10 | OPERATIVE REPORT ---
DATE OF SERVICE: 03/15/2021 PREOPERATIVE DIAGNOSIS: Displaced right intertrochanteric femur fracture. POSTOPERATIVE DIAGNOSIS: Displaced right intertrochanteric femur fracture. PROCEDURE: Right hip intramedullary nail. SURGEON: Carlos A Novoa MD FIELD MERCHANDISER: Mor Newton, who assisted throughout the procedure and closed the incisions. ANESTHESIA: Spinal by Dillan Kelly CRNA. ESTIMATED BLOOD LOSS: 100 mL. DRAINS: None. COMPLICATIONS: None. POSTOPERATIVE PLAN: Protected ambulation, right lower extremity. The patient was transferred to the recovery room awake and stable condition. STATEMENT OF MEDICAL NECESSITY: The patient is an 89-year-old prison resident, who has advanced dementia, but has been ambulating at night at her prison, which led to her fall. She was found this morning to have a displaced right intertrochanteric femur fracture. I spoke with the patient's daughter regarding treatment options and she elected to proceed with surgical intervention in hopes of stabilizing the fracture, so that if she were to try to ambulate that the fracture would at least be stabilized. DESCRIPTION OF PROCEDURE: After risks and benefits of procedure were discussed and questions were answered, informed consent was signed and placed on chart, the operative site was confirmed in the preoperative holding area initialed by the surgeon. The patient was then transferred to the operating room and after adequate levels of regional anesthetic were obtained, the patient was carefully placed on the fracture table, a timeout was called, confirming the operative site. Under fluoroscopic visualization, the fracture was reduced. The right hip and lower extremity were prepped and draped in the usual sterile fashion. Under fluoroscopic guidance through an incision from the greater trochanter extending proximally, the guidewire was passed across the fracture site. This was found to be in good position in the AP and lateral planes. This was then reamed sequentially as the patient's canal was very small, short 10 Synthes TFN nail was then placed and under fluoroscopic guidance and through a percutaneous incision, the guidewire was passed into the femoral head. This was somewhat posterior, but felt to be acceptable. This was then drilled and an 85 mm blade was placed with good purchase obtained. This was then compressed after locking proximally. The locking screw was then placed through the same percutaneous incision and good purchase was obtained. The fracture moved as a unit under fluoroscopic visualization after fixation and this was felt to be in good position. The blade was somewhat posterior. The fracture was stable and her demands will be limited. The wounds were copiously irrigated. The iliotibial band was closed with #1 Vicryl in gbdtds-jg-wbsap interrupted fashion, 2-0 Vicryl was used for the subcutaneous tissue, elizabeth used on the skin. A soft dressing was applied. The patient was transferred to the recovery room awake and in stable condition. Job ID: [id number] DocumentID: [id number] Dictated Date: 03/15/2021 13:06:29 Biofuels Operations Manager Date: 03/15/2021 21:09:43 Dictated By: CARLOS A NOVOA MD
[2021-03-15] MEDS: KCL 10 MEQ TAB (MICRO K) PO SCH (21:56)
[2021-03-15] MEDS: SENNOSIDES 8.6 MG (SENOKOT) TAB PO SCH (21:56)
[2021-03-15] MEDS: ALPRAZolam 0.5 MG (XANAX) TAB PO SCH (21:56)
[2021-03-16] MEDS: ceFAZolin 2 GM IV Premixed 50 ML IV SCH (03:21)
[2021-03-16 04:10] VITALS: BP 115/57
[2021-03-16] MEDS: LACTATED RINGERS 1,000 ML IV SCH ×2 (04:40→06:32)
[2021-03-16] MEDS ORDERED: TROSPIUM 20 MG (SANCTURA) TAB PO SCH (06:00)
[2021-03-16] MEDS: fentaNYL INJ 100 MCG/2 ML AMP IV PRN (06:35)
[2021-03-16 06:54] LABS: HEMOGLOBIN 7.9 g/dL (11.5-16.0)
--- NOTE | 2021-03-16 07:49 | Progress Note ---
Standard Progress Note Progress Notes/Assess & Plan Date Seen by a Provider: Mar 16, 2021 Time Seen by a Provider: 07:48 Progress/Assessment & Plan no complaints Vital Signs Date Time Temp Pulse Resp B/P (MAP) Pulse Ox O2 Delivery O2 Flow Rate FiO2 03/16/21 04:10 36.2 89 20 115/57 (76) 94 Room Air 03/15/21 23:55 35.7 95 20 115/54 (74) 91 Room Air 03/15/21 20:50 Room Air 03/15/21 19:41 36.4 99 18 98/59 (72) 90 Room Air 03/15/21 15:25 35.3 101 18 127/51 (76) 96 Nasal Cannula 2.00 03/15/21 15:02 97 Nasal Cannula 2.00 03/15/21 14:23 36.6 83 18 119/90 (100) 97 Nasal Cannula 2.00 03/15/21 14:05 36.4 20 140/64 (89) 100 Nasal Cannula 2 03/15/21 14:05 Nasal Cannula 3 03/15/21 14:00 20 140/60 (86) 98 Nasal Cannula 2 03/15/21 14:00 Nasal Cannula 3 03/15/21 13:50 20 140/64 (89) 98 Nasal Cannula 3 03/15/21 13:45 OxyMask 3 03/15/21 13:40 20 93/49 (64) 98 OxyMask 3 03/15/21 13:30 20 99/45 (63) 98 OxyMask 3 03/15/21 13:30 OxyMask 3 03/15/21 13:20 20 76/40 (52) 100 OxyMask 3 03/15/21 13:15 OxyMask 3 03/15/21 13:10 20 80/41 (54) 100 OxyMask 3 03/15/21 13:03 36.9 16 111/57 (75) 96 OxyMask 3 03/15/21 13:03 OxyMask 3 03/15/21 08:00 Room Air I & O 03/16/21 07:00 Intake Total 2370 ml Output Total 825 ml Balance 1545 ml Laboratory Tests Test 03/16/21 06:20 Range/Units Hemoglobin 7.9 #L 11.5-16.0 g/dL Hematocrit 25 L 35-52 % R hip dressing intact. NVI distally s/p R hip IM leif PT for transfers to NH when medically stable KRISTIAN NOVOA MD Mar 16, 2021 07:49
[2021-03-16 07:55] VITALS: BP 124/74
[2021-03-16] MEDS ORDERED: ENOXAPARIN 40 MG/0.4 ML (LOVENOX) SYR SC SCH (08:00)
--- NOTE | 2021-03-16 08:56 | Anesthesia-Regional Post-Op ---
Regional Patient Condition Mental Status: Alert, Oriented x3 Circulation: Same as Pre-Op Headache: Absent Sensation: Full Recovery Motor Block: Absent Post Op Complications Complications None Follow Up Care/Instructions Patient Instructions None needed. Anesthesia/Patient Condition Patient is doing well, no complaints, stable vital signs, no apparent adverse anesthesia problems. No complications reported per nursing. FABIENNE DESAI CRNA Mar 16, 2021 08:56
[2021-03-16] MEDS ORDERED: PHARMACY TO DOSE SQ SCH (09:00)
[2021-03-16] MEDS ORDERED: PANTOPRAZOLE 40 MG (PROTONIX) VIAL IV SCH (09:00)
[2021-03-16] MEDS ORDERED: FAMOTIDINE 20MG/2ML IV (PEPCID) IVP SCH (09:00)
[2021-03-16] MEDS ORDERED: ASPIRIN E.C. 81 MG (ECOTRIN) TAB PO SCH (09:00)
[2021-03-16] MEDS: ALPRAZolam 0.5 MG (XANAX) TAB PO SCH (09:08)
[2021-03-16] MEDS: SENNOSIDES 8.6 MG (SENOKOT) TAB PO SCH (09:08)
[2021-03-16] MEDS: KCL 10 MEQ TAB (MICRO K) PO SCH (09:08)
--- NOTE | 2021-03-16 09:17 | Progress Note ---
Subjective Review of Systems ROS Unable to Obtain: DIFFICULT TO OBTAIN DUE TO HER DEMENTIA All Other Systems Reviewed All Other Systems Reviewed: Yes Objective Exam Vital Signs Vital Signs Date Time Temp Pulse Resp B/P (MAP) Pulse Ox O2 Delivery O2 Flow Rate FiO2 03/16/21 07:55 36.5 100 14 124/74 (91) 88 Room Air 03/16/21 04:10 36.2 89 20 115/57 (76) 94 Room Air 03/15/21 23:55 35.7 95 20 115/54 (74) 91 Room Air 03/15/21 20:50 Room Air 03/15/21 19:41 36.4 99 18 98/59 (72) 90 Room Air 03/15/21 15:25 35.3 101 18 127/51 (76) 96 Nasal Cannula 2.00 03/15/21 15:02 97 Nasal Cannula 2.00 03/15/21 14:23 36.6 83 18 119/90 (100) 97 Nasal Cannula 2.00 03/15/21 14:05 36.4 20 140/64 (89) 100 Nasal Cannula 2 03/15/21 14:05 Nasal Cannula 3 03/15/21 14:00 20 140/60 (86) 98 Nasal Cannula 2 03/15/21 14:00 Nasal Cannula 3 03/15/21 13:50 20 140/64 (89) 98 Nasal Cannula 3 03/15/21 13:45 OxyMask 3 03/15/21 13:40 20 93/49 (64) 98 OxyMask 3 03/15/21 13:30 20 99/45 (63) 98 OxyMask 3 03/15/21 13:30 OxyMask 3 03/15/21 13:20 20 76/40 (52) 100 OxyMask 3 03/15/21 13:15 OxyMask 3 03/15/21 13:10 20 80/41 (54) 100 OxyMask 3 03/15/21 13:03 36.9 16 111/57 (75) 96 OxyMask 3 03/15/21 13:03 OxyMask 3 I & O 03/16/21 07:00 Intake Total 2370 ml Output Total 825 ml Balance 1545 ml General Appearance: No Apparent Distress, Thin Eyes: Bilateral Eye Normal Inspection, Bilateral Eye PERRL, Bilateral Eye EOMI HEENT: PERRL/EOMI, Pharynx Normal Neck: Full Range of Motion, Normal Inspection, Non Tender, Supple Respiratory: Chest Non Tender, Lungs Clear, Normal Breath Sounds, No Accessory Muscle Use, No Respiratory Distress Cardiovascular: Regular Rate, Rhythm, Systolic Murmur (II/) Gastrointestinal: Normal Bowel Sounds, No Organomegaly, No Pulsatile Mass, Non Tender, Soft Rectal: Deferred Extremity: Normal Capillary Refill, Non Tender, No Calf Tenderness, No Pedal Edema Neurologic/Psychiatric: Alert, Other (PT ORIENTED TO PERSON, NOT PLACE OR TIME) Skin: Normal Color, Warm/Dry Lymphatic: No Adenopathy Results Lab Laboratory Tests 03/16/21 06:20: Hemoglobin 7.9#L, Hematocrit 25L Assessment/Plan Assessment/Plan Admission Dx RIGHT HIP FRACTURE ADVANCED DEMENTIA UNDERWEIGHT ANXIETY DEPRESSION CONSTIPATION Admission Dx RIGHT HIP FRACTURE ADVANCED DEMENTIA UNDERWEIGHT ANXIETY DEPRESSION CONSTIPATION Clinical Quality Measures Admission Status Admission Dx RIGHT HIP FRACTURE ADVANCED DEMENTIA UNDERWEIGHT ANXIETY DEPRESSION CONSTIPATION ASHLEY ORTIZ MD Mar 16, 2021 09:17
--- NOTE | 2021-03-16 10:10 | Discharge Inst-Skilled Nursing ---
Discharge Inst-Skilled NF Reconcile Patient Problems Problems Reviewed?: Yes Patient Instructions Patient Problems: right hip fracture dementia anemia depression anxiety generalized weakness falling risk Consult/Follow Up/Orders Follow Up Appt.: pt to be seen at facility Skilled NF Admit to: [facility] Certification (SNF) I certify that SNF services are required to be given on an inpatient basis because of the above named patient's need for [facility] care on a continuing basis for the conditions(s) for which he/she was receiving inpatient hospital services prior to his/her transfer to the SNF. [facility] Facility Order: Other (hospice services) Oxygen Delivery Method: Room Air Discharge Diet: No Restrictions Daily Activity as Tolerated: No Resuscitation Status: Do Not Resuscitate Type of Care: Hospice Care (Home) (hospice at retirement) New & Resume Previous Orders Ashley Scruggs Mar 16, 2021 10:08 ASHLEY SCRUGGS MD Mar 16, 2021 10:10
--- NOTE | 2021-03-16 10:15 | Discharge Summary ---
Diagnosis/Chief Complaint Date of Admission Mar 15, 2021 at 00:30 Date of Discharge Discharge Date: Mar 16, 2021 Discharge Time: 1030 Admission Diagnosis Admission Diagnosis RIGHT HIP FRACTURE ADVANCED DEMENTIA UNDERWEIGHT ANXIETY DEPRESSION CONSTIPATION Discharge Diagnosis RIGHT HIP FRACTURE ADVANCED DEMENTIA UNDERWEIGHT ANXIETY DEPRESSION CONSTIPATION ANEMIA Reason Hospital Visit PT IS AN 89 Y/O FEMALE WHO HAS ADVANCED DEMENTIA AND IS KNOWN TO ME FROM CLINIC. SHE IS A RESIDENT OF [facility] AND HAD FALLEN LAST NIGHT WITH COMPLAINT OF RIGHT HIP PAIN. THE STAFF [facility] WAS INSTRUCTED TO TAKE TELLO TO THE ER WHERE SHE WAS FOUND TO HAVE SUSTAINED A RIGHT HIP FRACTURE. SHE WAS ADMITTED TO THE HOSPITAL WITH PLANS FOR POSSIBLE SURGICAL INTERVENTION PENDING DISCUSSION WITH HER DTR AND THE SURGEON. Discharge Summary Procedures: RIGHT HIP SURGERY/NAIL Consultations DR. NOVOA Discharge Physical Examination Allergies: Coded Allergies: Sulfa (Sulfonamide Antibiotics) (Verified Allergy, Unknown, 05/13/20) morphine (Verified Allergy, Unknown, 05/13/20) Nausea, vomiting and confusion pantoprazole sodium (Verified Allergy, Unknown, 05/13/20) codeine (Verified Adverse Reaction, Severe, SEVERE N/V, 05/13/20) Vitals & I&Os Vital Signs Date Time Temp Pulse Resp B/P (MAP) Pulse Ox O2 Delivery O2 Flow Rate FiO2 03/16/21 07:55 36.5 100 14 124/74 (91) 88 Room Air 03/15/21 15:25 2.00 General Appearance: No Acute Distress, Other (SLEEPING) HEENT: Other (BRUISE ON RIGHT FOREHEAD WITH ABRASION PRESENT) Respiratory: Clear to Auscultation, Normal Air Movement Cardiovascular: Other (TACHYCARDIA) Abdominal: Normal Bowel Sounds, Soft Extremities: No Cyanosis, No Edema, Other (SWELLING RIGHT LATERAL HIP) Psych/Mental Status: Other (SLEEPING) Hospital Course Was the Problem List Reviewed?: Yes RIGHT HIP FRACTURE ADVANCED DEMENTIA UNDERWEIGHT ANXIETY DEPRESSION CONSTIPATION RIGHT HIP FRACTURE CT SCAN IMAGING - 1: There is interval development of an acute comminuted distracted fracture of the proximal femoral intertrochanteric region. There is slight lateral displacement of the distal fracture fragment. 2: There are degenerative spurs involving the right acetabular region. 3: Partially visualized left hip arthroplasty noted. - DISCUSSION WITH PT'S DTR AND DR. NOVOA ON ADMISSION - PT TAKEN FOR NAIL TO RIGHT HIP - DISCHARGE BACK TO NURSING ON HOSPICE TODAY. ADVANCED DEMENTIA - HOLD NAMENDA AT ADMISSION AND RESTART ON DISCHARGE. UNDERWEIGHT - SUPPORTIVE CARE, DUE TO HER ADVANCED DEMENTIA ANXIETY AND DEPRESSION - RESTARTED SSRI, AND BENZODIAZEPINE CONSTIPATION - RESTARTED SENNA DVT PROPHYLAXIS WITH LOVENOX AND SCD'S ON LEFT LEG AND RIGHT FOOT GI PROPHYLAXIS WITH PPI PLAN WILL BE DC BACK [facility]. Pending Labs Laboratory Tests 03/16/21 06:20: Hemoglobin 7.9, Hematocrit 25 Discharge Condition at discharge ANTICIPATE FURTHER DECLINE DUE TO AGE, DEMENTIA, AND HIGH RISK OF DECLINE AFTER HIP FX Instructions to patient/family Please see electronic discharge instructions given to patient. Discharge Medications Reviewed and agree with Discharge Medication list on patient's Discharge Instruction sheet ASHLEY ORTIZ MD Mar 16, 2021 10:15
--- NOTE | 2021-03-16 10:50 | Physical Therapy Progress Note ---
Therapy Progress Note DC from PT services due to patient is minimally responsive and is to return to [facility] on this date per physician. ROSIBEL ANDRES PT Mar 16, 2021 10:50
== END 2021-03-16 11:30 | disposition hospice, inpatient (51) ==
LOC: EDUNIT# 21:58 → ER 22:00 → 4TH 03-15 00:30
PROVIDERS: ADMIT Family Medicine; ATTEND Family Medicine
DX: S72.141A Displaced intertrochanteric fracture of right femur, initial encounter for closed fracture (principal); G30.9 Alzheimer's disease, unspecified; F02.80 Dementia in other diseases classified elsewhere, unspecified severity, without behavioral disturbance, psychotic disturbance, mood disturbance, and anxiety; R63.6 Underweight; K59.00 Constipation, unspecified; D64.9 Anemia, unspecified; K21.9 Gastro-esophageal reflux disease without esophagitis; M19.90 Unspecified osteoarthritis, unspecified site; M81.0 Age-related osteoporosis without current pathological fracture; W01.0XXA Fall on same level from slipping, tripping and stumbling without subsequent striking against object, initial encounter; E87.6 Hypokalemia; F41.9 Anxiety disorder, unspecified; F32.A Depression, unspecified; Z79.82 Long term (current) use of aspirin; Z79.899 Other long term (current) drug therapy; Z90.89 Acquired absence of other organs; Z86.73 Personal history of transient ischemic attack (TIA), and cerebral infarction without residual deficits; Z79.891 Long term (current) use of opiate analgesic; Z90.49 Acquired absence of other specified parts of digestive tract; Z80.1 Family history of malignant neoplasm of trachea, bronchus and lung
CPT/HCPCS: 27238; 70450; 71045; 73502; 76000; 80048; 85014; 85018; 85025; 94664; 94760; 99284; C1713 ×3; 36415